=== PATIENT | female | born 1995 | race Caucasian/White ===

== ENCOUNTER 2017-04-23 16:26 | Emergency (ER) | payer SELFPAY ==
[2017-04-23 16:27] VITALS: BP 135/75; PULSE 113; RESP 16; TEMP 36.7; O2SAT 98; BMI 20.7
[2017-04-23] MEDS: 0.9% Normal Saline 1,000 ML 999 ML IV (17:09)
[2017-04-23] MEDS: Ketorolac 30 MG/ML Syringe IV (17:09)
--- NOTE | 2017-04-23 18:08 | ED.DCSUM_ITS ---
- ER Visit Summary Date of Service: 04/23/17 Chief Complaint: Headache History of Present Illness: The patient is a 21 F who presents with a headache. She fell on ice and hit her head about 3 weeks ago. She was seen at an outside hospital that time. She has been having intermittent frontal headaches since that time. However recently she has also developed congestion rhinorrhea cough. She had nausea and vomiting today with 2 episodes of nonbloody nonbilious emesis. Family member is ill with similar symptoms. Physical Examination: Afebrile initial heart rate 113 vitals otherwise unremarkable Moist mucous membranes Heart regular rhythm tachycardia Lungs are clear Abdomen soft and nontender Alert and oriented with no focal or lateralizing neurological deficits Neck is supple without meningismus Test Results: Rapid influenza negative. Emergency Department Course and Treatment: Patient was treated here with IV fluids Toradol and Phenergan with improvement of symptoms. I do believe her recent illness is related to a viral syndrome. She was advised on supportive care. She understands to return for new or worsening symptoms. She was instructed on specific signs and symptoms to monitor for and was discharged home. Treatment Plan: [] Disposition: Discharge Impression: Viral syndrome This note was generated with [employer] dictation software. It may contain incorrect words, spelling, and punctuation that were not noted in review of the chart prior to signing ED Disposition - Plan for ED Patient: Chief Complaint: Headache Referrals: [facility] Doctor,Out of [Primary Care Provider] -
--- NOTE | 2017-04-23 18:09 | DCINST.ED_ITS ---
ED Disposition - Plan for ED Patient: Chief Complaint: Headache Instructions: ED Cephalgia Unspecified, ED Viral Syndrome Referrals: [facility] Doctor,Out of [Primary Care Provider] -
[2017-04-23 18:15] VITALS: BP 121/77; PULSE 80; RESP 14; O2SAT 100
== END 2017-04-23 18:25 | disposition home or self-care (01) ==
PROVIDERS: Emergency Provider Emergency Medicine
DX: B34.9 Viral infection, unspecified (principal); R09.81 Nasal congestion; J34.89 Other specified disorders of nose and nasal sinuses; R05 Cough; R00.0 Tachycardia, unspecified; R11.2 Nausea with vomiting, unspecified; M41.9 Scoliosis, unspecified; R51 Headache; W00.0XXA Fall on same level due to ice and snow, initial encounter; Y93.9 Activity, unspecified; Y92.9 Unspecified place or not applicable; Z98.1 Arthrodesis status; Z79.899 Other long term (current) drug therapy; Z72.0 Tobacco use
CPT/HCPCS: 87804; 96361; 96374; 96375; 99284; J7030; A4216

== ENCOUNTER 2017-11-12 18:11 | Emergency (ER) | payer MEDICAID, SELFPAY ==
[2017-11-12 18:13] VITALS: BP 125/78; PULSE 106; RESP 16; TEMP 36.4; BMI 22.1
--- NOTE | 2017-11-12 18:43 | ED.VISSUMM ---
- ER Visit Summary Date of Service: 11/12/17 Chief Complaint: Back pain History of Present Illness: The patient is a 22 F who presents with back pain. She has a history of scoliosis and prior spinal fusion. She states that over the last 3 days she has had right lower back pain which radiates into the right buttock. She denies numbness tingling or weakness. She denies fevers or abdominal pain. She denies urinary retention or fecal incontinence. She has been taking ibuprofen with only little relief. She denies any other recent illness. Physical Examination: Afebrile vitals are stable Heart is regular rate and rhythm Lungs are clear Abdomen soft There is right paraspinal lumbar tenderness Normal strength and sensation of the lower extremities brisk capillary refill 5 out of 5 dorsiflexion, plantarflexion, extensor hallucis longus Negative straight leg raise Test Results: Not indicated Emergency Department Course and Treatment: History and examination are consistent with a lumbar radiculopathy. Patient was advised to continue anti-inflammatories. We will also try a prednisone burst. Patient does understand return for new or worsening symptoms was instructed on specific signs and symptoms to monitor for. She was discharged home. Treatment Plan: [] Disposition: Discharge Impression: Lumbar radiculopathy This note was generated with [employer] dictation software. It may contain incorrect words, spelling, and punctuation that were not noted in review of the chart prior to signing ED Disposition - Plan for ED Patient: Chief Complaint: Back Referrals: [facility] ,Out of [Primary Care Provider] -
--- NOTE | 2017-11-12 18:45 | ED.DEP ---
ED Disposition - Plan for ED Patient: Chief Complaint: Back Instructions: ED Sciatica Prescriptions: Prednisone [Deltasone] 60 mg PO DAILY #15 tab Referrals: [facility] Doctor,Out of [Primary Care Provider] -
== END 2017-11-12 19:06 | disposition home or self-care (01) ==
PROVIDERS: Emergency Provider Emergency Medicine
DX: M54.16 Radiculopathy, lumbar region (principal); M41.9 Scoliosis, unspecified; Z98.1 Arthrodesis status; Z79.899 Other long term (current) drug therapy; Z72.0 Tobacco use
CPT/HCPCS: 99282; J7030

== ENCOUNTER 2019-01-21 02:34 | Emergency (ER) | payer SELFPAY ==
[2019-01-21 02:34] VITALS: BP 119/77; PULSE 128; RESP 18; TEMP 36.8; O2SAT 98; BMI 21.4
--- NOTE | 2019-01-21 02:37 | RAD_ITS ---
STUDY: X-RAY - LEFT FOOT CLINICAL: Female, 23 years old. Bruising and swelling. Status post trauma. TECHNIQUE: 3 view(s) of the foot. COMPARISON: None. FINDINGS: Normal talus, calcaneus, and tarsal bones. Normal visualized subtalar, talonavicular, calcaneocuboid, tarsal and tarsometatarsal articulations. Normal metatarsi. Normal metatarsophalangeal joint of the great toe. Normal tibial and fibular sesamoid bones. Normal interphalangeal joint of the great toe. Normal phalanges of the great toe. Normal second through fifth metatarsophalangeal joints. Normal interphalangeal joints and phalanges of the lesser toes. There is soft tissue swelling surrounding the ankle and through the dorsum of the foot. There is no demonstrated fracture. RAD/Foot min 3 Views IMPRESSION: Soft tissue swelling as described above, otherwise normal x-ray examination of the foot. Electronically Signed: Jolie Joseph MD at 3:34 EST , Service support ,
[2019-01-21] MEDS: Ibuprofen 600 MG Tablet PO (02:42)
--- NOTE | 2019-01-21 02:45 | RAD_ITS ---
STUDY: X-RAY - LEFT ANKLE REASON FOR EXAM: Female, 23 years old. Pain. TECHNIQUE: 3 view(s) of the ankle. COMPARISON: None. FINDINGS: Normal visualized distal tibia and fibula. Normal medial and lateral malleoli. Normal tibiotalar articulation and ankle mortise. Normal visualized talus and calcaneus. The visualized subtalar, talonavicular, calcaneocuboid and tarsal articulations are normal. There is no demonstrated fracture. There is soft tissue swelling surrounding the ankle. RAD/Ankle min 3 Views IMPRESSION: Soft tissue swelling as described above. No acute fracture or subluxation. Electronically Signed: Jolie Joseph MD at 3:33 EST , Service support ,
--- NOTE | 2019-01-21 03:45 | ED.VISSUMM ---
- ER Visit Summary Date of Service: 01/21/19 Chief Complaint: Left foot and ankle pain History of Present Illness: The patient is a 23 F with left foot and ankle pain that started this evening when she twisted her foot and ankle while she was walking her dog. No other injuries or complaints. Physical Examination: Left dorsal foot tenderness and swelling. Left lateral and medial malleolar tenderness. Good range of motion. Neurovascular intact distally. Test Results: X-rays of the foot and ankle show soft tissue swelling but nothing else acute. Emergency Department Course and Treatment: Patient treated with Motrin. She has crutches at home and will use them. Rest, ice, elevate. Anti-inflammatories for pain. Follow-up as needed. Treatment Plan: As above Disposition: Discharge Impression: 1. Left ankle pain This note was generated with [email or web address] dictation software. It may contain incorrect words, spelling, and punctuation that were not noted in review of the chart prior to signing ED Disposition - Plan for ED Patient: Referrals: Marychuy Orellana, CONTROL OFFICER-C [Primary Care Provider] -
--- NOTE | 2019-01-21 03:46 | ED.DEP ---
ED Disposition - Plan for ED Patient: Instructions: Sprain, Ankle, with X-Ray Prescriptions: Ibuprofen Liquid [Motrin Liquid] 600 mg PO Q8H PRN PRN #20 udc PRN Reason: pain Prescription Printed Referrals: Marychuy Orellana NP-C [Primary Care Provider] -
[2019-01-21 04:02] VITALS: RESP 18
== END 2019-01-21 04:02 | disposition home or self-care (01) ==
PROVIDERS: Emergency Provider Emergency Medicine; Family Provider Nurse Practitioner Family; PCP Nurse Practitioner Family
DX: M25.572 Pain in left ankle and joints of left foot (principal); X50.1XXA Overexertion from prolonged static or awkward postures, initial encounter; Y93.K1 Activity, walking an animal; Y92.9 Unspecified place or not applicable
CPT/HCPCS: 73610; 73630; 99283

== ENCOUNTER 2023-12-31 20:24 | Emergency (ER) | payer MEDICAID, SELFPAY ==
[2023-12-31 20:24] VITALS: BP 126/82; PULSE 110; RESP 18; TEMP 36.6; O2SAT 98; BMI 24.3
--- OUTSIDE RECORDS SUMMARY | 2023-12-31 20:59 | XMS RPT_ITS | CCD ---
Author Organization [facility] Inform ion [facility] Care Team Providers Care Teasel Gig Operator Name Role Phone SILVERIO HERNANDEZ Unavailable Unavailable CHANCE JIMENES Unavailable Unavailable MARYLOU SIMON Unavailable Unavailable REFERRED, SELF Unavailable Unavailable DOC, MISC Unavailable Unavailable VITA HENDERSON Unavailable Unavailable SUNIL AMIN Unavailable Unavail able Provider, None Unavailable Unavailable HOMERO JEOVANNY Unavailable Unavailable ALIAY JEOVANNY Unavailable Unavailable Provider, None Unavailable Unavailable Rosaline, Law R. Unavailable Unavailable Rosaline, Law R. Unavailable Unavailable Provider, None Unavailable Unavailable [place], Law R. Unavailable Unavailable [place], Law R. Unavailable Unavailable Provider MD, Unlisted Primary Care Provider Unav ailable Unavailable Primary Care Provider Unavailabl e Self, Self Primary Care Provider Unavailabl e Cielo Parker Unavailable Unavailable Maximus Desai Unavailable Unavailable Self, Self Primary Care Provider Unavailabl e TALON HANNAH Attending Unavailable SELF, SELF Primary Care Unavailable SELF, SELF Primary Care Unavailable DANE GAN Attending Unavailable SELF, SELF Referring Unavailable DUES, TALON Attending Unavailable DUES, TALON Attending Unavailable SELF, SELF Primary Care Unavailable DUES, TALON Attending Unavailable SELF, SELF Primary Care Unavailable Unknown, Unknown Unavailable Unavailable Rosa Murdock Unavailable Unavailabl e Chilango Dominguez Unavailable Renae Santos Primary Care Provider RENAE SANTOS CAB DRIVER Primary Care Unavailable RENAE SANTOS CAB DRIVER Consulting Unavailable RENAE SANTOS CNP Attending Unavailable RENAE SANTOS CNP Admitting Unavailable PROVIDER, UNKNOWN Consulting Unavailable PROVIDER, UNKNOWN Consulting Unavailable RENAE SANTOS CNP Consulting Unavailable RENAE SANTOS CNP Referring Unavailable LEWIS CONTRERAS DO Admitting Unavailable DIANELEWIS Beltran DO Primary Care Unavailable LEWIS CONTRERAS DO Attending Unavailable PROVIDER, UNKNOWN Consulting Unavailable PROVIDER, UNKNOWN Consulting Unavailable RENAE SANTOS CNP Consulting Unavailable RENAE SANTOS CNP Referring Unavailable FOREIGN HAM MD Admitting Unavailable FOREIGN HAM MD Primary Care Unavailable FOREIGN HAM MD Attending Unavailable PROVIDER, UNKNOWN Consulting Unavailable PROVIDER, UNKNOWN Consulting Unavailable Unavailable Primary Care Provider Unavailabl e RAMESH LEATHER WORKER-CAB DRIVER, ESTELLE Attending Unavaila patricia SANTOS LEATHER WORKER-CAB DRIVER, RENAE Bennett Primary Care Unava ilable ISABEL MARTINEZ, VITA Greene Attending Unavailabl e TOM LEATHER WORKER-CAB DRIVER, RENAE Bennett Primary Care Unava ilable KAITLYNN JANE, RAMSEY Santos Attending Unavailable TOM LEATHER WORKER-CAB DRIVER, RENAE Bennett Primary Care Unava ilable NONE, NO FAMILY PHYS Primary Care Unavailable JUAN CARLOS PEREZ Referring Unavailable JUAN CARLOS PEREZ Attending Unavailable Unavailable Primary Care Provider Unavailabl e MCGREAL, CELSO Referring Unavailable RENAE SANTOS Primary Care Unavailable BACKER, EPISCOPALIAN Referring Unavailable RENAE SANTOS Primary Care Unavailable MCGREAL, CELSO Attending Unavailable RENAE SANTOS Primary Care Unavailable MCGREAL, CELSO Attending Unavailable RENAE SANTOS Primary Care Unavailable MCGREAL, CELSO Attending Unavailable RENAE SANTOS Primary Care Unavailable IRMA CHAMORRO Attending Unavailable RENAE SANTOS Primary Care Unavailable ISABEL, HELLEN Admitting Unavailable ISABEL, HELLEN Attending Unavailable RENAE SANTOS Primary Care Unavailable ISABEL, HELLEN Admitting Unavailable ISABEL, HELLEN Attending Unavailable RENAE SANTOS Primary Care Unavailable BACKER, EPISCOPALIAN Attending Unavailable RENAE SANTOS Primary Care Unavailable MCGREAL, CELSO Attending Unavailable MCGREAL, CELSO Referring Unavailable RENAE SANTOS Primary Care Unavailable ISABEL, HELLEN Referring Unavailable RENAE SANTOS Primary Care Unavailable ISBAEL, HELLEN Referring Unavailable RENAE SANTOS Primary Care Unavailable MCGREAL, CELSO Attending Unavailable RENAE SANTOS Primary Care Unavailable MCGREAL, CELSO Referring Unavailable RENAE SANTOS Primary Care Unavailable MCGREAL, CELSO Referring Unavailable RENAE SANTOS Primary Care Unavailable BILL ELLIOTT Referring Unavailable RENAE SANTOS Primary Care Unavailable LAW GARAY JR Attending Unav ailable RENAE SANTOS Primary Care Unavailable TIBURCIO FRENCH Attending Unavailable RENAE SANTOS Primary Care Unavailable CHRISROBBY ALEXANDER Admitting Unavailable CHERYL FILIBERTO M Attending Unavailable RENAE SANTOS Primary Care Unavailable Allergies Allergy Classification Reported Allergen(s) Allergy Type Date of Onset Reaction(s) Facility (1 source) No Known Medication Allergies; Translations: [No Known Medication Allergies] Propensity to adverse reactions to drug (disorder) [facility] Repository Medications Current Medications Medication Drug Class(es) Dates Sig (Normalized) Sig (Original) ARIPiprazole 5 mg oral tablet (1 source) Atypical Antipsychotic take 1 tablet by mouth once daily aripiprazole (ABILIFY) 5 MG tablet Take 5 mg by mouth daily. 0 Active cephalexin 500 mg oral capsule (2 sources) Cephalosporin Antibacterial Start: 04-21-2023 End: 04-26-2023 take 1 capsule by mouth three times daily cephalexin (Keflex) 500 MG capsule TAKE ONE CAPSULE BY MOUTH THREE TIMES DAILY FOR 5 DAYS 04/21/2023 Active Comment on above: Take 1 capsule by [facility] three times a day for 5 days. cetirizine hydrochloride 10 mg oral tablet (2 sources) Histamine-1 Receptor Antagonist Start: 05-06-2019 take 1 tablet by mouth once daily at bedtime cetirizine (ZYRTEC) 10 mg tablet Take 10 mg by mouth daily at bedtime. 05/06/2019 Active Comment on above: Take 10 mg by mouth daily at bedtime. FLUoxetine 20 mg oral capsule (20 sources) Serotonin Reuptake Inhibitor FLUoxetine (PROzac) 20 MG capsule Take 25 mg by mouth daily. Active take 1 capsule by mouth once michael ly fluoxetine (PROZAC) 20 MG capsule Take 20 mg by mouth daily. 0 Active hyoscyamine sulfate 0.125 mg sublingual tablet (1 source) Start: 09-12-2023 take 1 tablet under the tongue every eight hours as needed hyoscyamine (Levsin) 0.[address] 0.125 mg under the tongue every 8 hours as needed. 09/12/2023 Active ibuprofen 600 mg oral tablet (5 sources) Nonsteroidal Anti-inflammatory Drug Start: 05-12-2023 take 1 tablet by mouth every eight hours as needed IBU 600 MG tablet Take 1 tablet by mouth every 8 hours as needed. 05/12/2023 Active Start: 12-08-2021 take 1 tablet by gerri th every six hours as needed ibuprofen 800 MG tablet Take 1 tablet by mouth every 6 hours as needed. 30 tablet 0 12/08/2021 Active ibuprofen Quanti ty: 0 Refills: 0 Ordered: 17-Dec-2021 Judith Polanco Generic Substitution Allowed medroxyPROGESTERone (20 sources) Progestin medroxyprogester one acetate (DEPO-PROVERA INTRAMUSC.) Inject intramuscularly. Active End: 10-18-2023 medroxyPROGESTERone Acetate (DEPO-PROVERA IM) Inject into the shoulder, thigh, or buttocks. 10/18/2023 Discontinued (Therapy completed) medroxyPROGESTER one Acetate (DEPO-PROVERA IM) Inject into the shoulder, thigh, or buttocks. Active medroxyprogester one acetate (DEPO-PROVERA INTRAMUSC.) Inject intramuscularly. 0 Active medroxyPROGESTER one Acetate (DEPO-PROVERA IM) Inject into the shoulder, thigh, or buttocks. 0 Active Depo-Provera Hari ntity: 0 Refills: 0 Ordered: 17-Dec-2021 Judith Polanco Generic Substitution Allowed inject 150 mg by int ramuscular injection once medroxyPROGESTERone acetate 150 MG/ML Suspension inj vial Inject 150 mg intramuscularly Once During Admission. 0 Active Comment on above: Inject intramuscular ly. omeprazole 40 mg delayed release oral capsule (1 source) Proton Pump Inhibitor Start: 09-16-19 24 take 1 capsule by mouth once daily omeprazole (PriLOSEC) [address] capsule Take 40 mg by mouth daily. 09/16/2023 Active pantoprazole 40 mg delayed release oral tablet (20 sources) Proton Pump Inhibitor Start: 08-29-19 22 take 1 tablet by mouth once daily pantoprazole [address] tablet DR Take 1 tablet by mouth daily. 14 tablet 0 08/28/2021 Active take 5 mg by mouth o nce daily before breakfast pantoprazole (ProtoNix) 20 MG EC tablet Take 5 mg by mouth every morning (before breakfast). Do not crush, chew, or split. Active promethazine hydrochloride 25 mg oral tablet (3 sources) Phenothiazine Start: 12-08-2021 End: 12-10-2021 take 1 tablet by mouth every six hours as needed promethazine 25 MG tablet Take 1 tablet by mouth every 6 hours as needed for Nausea / Vomiting. 12 tablet 0 12/10/2021 Active QUEtiapine 150 mg oral tablet (20 sources) Atypical Antipsychotic Start: 05-06-2019 take 1 tablet by mouth once daily at bedtime QUEtiapine 150 mg tablet Take 150 mg by mouth daily at bedtime. 05/06/2019 Active Start: 05-06-2019 take 1 tablet by gerri th twice daily QUEtiapine (SEROQUEL) 100 mg tablet Take 100 mg by mouth twice daily. 0 05/06/2019 Active QUEtiapine (SERO quel) 100 MG tablet Take 150 mg by mouth Nightly. Active Comment on above: Take 100 mg by mouth twice daily. tiZANidine 4 mg oral tablet (1 source) Central alpha-2 Adrenergic Agonist Start: 2 End: 2 take 1 tablet by mouth three times daily tiZANidine 4 MG tablet Take 1 tablet by mouth 3 times daily for 7 days. 21 tablet 0 12/10/2021 12/17/2021 Active traZODone hydrochloride 50 mg oral tablet (6 sources) Serotonin Reuptake Inhibitor Start: 4 take 1 tablet by mouth once daily traZODone (Desyrel) 50 MG tablet Take 50 mg by mouth Nightly. 09/16/2023 Active Completed/Discontinued Medications Medication Drug Class(es) Dates Sig (Normalized) Sig (Original) acetaminophen 500 mg oral tablet (6 sources) Start: 10-18-2023 End: 10-18-2023 1,000 mg, Oral, Once, On Tue10/18/23 at 0600, For 1 dose, Preprocedure, Administer 60 minutes prior to surgery. Start: 03-03-2023 End: 03-03-2023 acetaminophen (Tylenol) tabl et 1,000 mg take 2 tablets by mo uth every six hours as needed acetaminophen 500 MG tablet Take 1,000 mg by mouth every 6 hours as needed for Mild Pain. 0 Active acetaminophen 325 mg / oxyCODONE hydrochloride 5 mg oral tablet (17 sources) Opioid Agonist Start: 10-18-2023 End: 11-01-2023 take 1 tablet by mouth every six hours as needed for pain oxyCODONE-acetaminophen (Percocet) 5-325 MG tablet Indications: S/P hardware removal Take 1 tablet by mouth every 6 hours as needed for severe pain (7-10) for up to 7 days. 28 tablet 10/18/2023 11/01/2023 Discontinued (Therapy completed) Start: 02-25-2023 End: 03-14-2023 take 1 tablet by mouth every six hours as needed for pain oxyCODONE-acetaminophen (Percocet) 5-325 MG tablet Indications: S/P ORIF (open reduction internal fixation) fracture Take 1 tablet by mouth every 6 hours as needed for severe pain (7-10) for up to 7 days. 28 tablet 0 03/03/2023 03/14/2023 calcium chloride 0.0014 meq/ml / potassium chloride 0.004 meq/ml / sodium chloride 0.103 meq/ml / sodium lactate 0.028 meq/ml injectable solution (6 sources) Start: 10-18-2023 End: 10-18-2023 take 50 mL intravenously every hour 50 mL/hr, IntraVENous, Continuous, Starting on Tue10/18/23 at 0600, Preprocedure, Upon admission to sameday - please start iv if patient does not have iv access. Use 500ml NS for patients on dialysis. Start: 03-03-2023 End: 03-03-2023 lactated ringers infusion [id number]-rk inephrine (TAP) syringe 30 mL (2 sources) Start: 10-18-2023 End: 10-18-2023 30 mL, Transabdominal Plane, Once PRN, Nerve Block, Starting on Tue10/18/23 at 0552, For 1 dose, Preprocedure 1 ml diphenhydrAMINE hydroch loride 50 mg/ml cartridge (4 sources) Histamine-1 Receptor Antagonist Start: 10-18-2023 End: 10-18-2023 12.5 mg, IntraVENous, Once PRN, itching, Starting on Tue10/18/23 at 0937, For 1 dose, Recovery (only) Start: 03-03-2023 End: 03-03-2023 diphenhydrAMINE (BENADryl) i njection 12.5 mg famotidine 20 mg oral tablet (2 sources) Histamine-2 Receptor Antagonist Start: 03-03-2023 End: 03-03-2023 famotidine (Pepcid) tablet 20 mg 2 ml fentaNYL 0.05 mg/ml injection (2 sources) Opioid Agonist Start: 02-25-2023 End: 02-25-2023 fentaNYL (Sublimaze) injection 50 mcg GI Cocktail (1 source) Start: 08-28-2021 End: 08-28-2021 GI Cocktail 1 ml HYDROmorphone hydrochloride 1 mg/ml cartridge (8 sources) Opioid Agonist Start: 10-18-2023 End: 10-18-2023 0.5 mg, IntraVENous, Every 5 min PRN, severe pain (7-10), Starting on Tue10/18/23 at 0937, For 4 doses, Recovery (only), For Phase I. If Phase II oral narcotics have been administered in the last 60 minutes, do not administer IV narcotics unless specifically approved by provider. Start: 10-18-2023 End: 10-18-2023 0.25 mg, IntraVENous, Every 5 min PRN, moderate pain (4-6), Starting on Tue10/18/23 at 0937, For 4 doses, Recovery (only), For Phase I. If Phase II oral narcotics have been administered in the last 60 minutes, do not administer IV narcotics unless specifically approved by provider. Start: 02-25-2023 End: 02-25-2023 HYDROmorphone (Dilaudid) inj ection 0.5 mg Start: 02-25-2023 End: 02-25-2023 HYDROmorphone (Dilaudid) inj ection 0.4 mg 1 ml ketorolac tromethamine 30 mg/ml cartridge (1 source) Nonsteroidal Anti-inflammatory Drug, Cyclooxygenase Inhibitor Start: 12-10-2021 End: 12-10-2021 ketorolac (TORADOL) injection 30 mg Start: 12-10-2021 End: 12-10-2021 ketorolac (TORADOL) injectio n 30 mg labetalol (Normodyne,Trandat e) injection 5 mg (4 sources) Start: 10-18-2023 End: 10-18-2023 labetalol (Normodyne,Trandat e) injection 5 mg Start: 03-03-2023 End: 03-03-2023 labetalol (Normodyne,Trandat e) injection 5 mg 1 ml LORazepam 2 mg/ml injection (4 sources) Benzodiazepine Start: 10-18-2023 End: 10-18-2023 0.5 mg, IntraVENous, Once PRN, for anxiety or muscle spasm., Starting on Tue10/18/23 at 0937, For 1 dose, Recovery (only), For IV doses dilute dose with 1ml NS. Start: 03-03-2023 End: 03-03-2023 LORazepam (Ativan) injection 0.5 mg 1 ml meperidine hydrochloride 25 mg/ml cartridge (4 sources) Opioid Agonist Start: 10-18-2023 End: 10-18-2023 12.5 mg, IntraVENous, Every 5 min PRN, shivering, Starting on Tue10/18/23 at 0937, For 2 doses, Recovery (only), May give every 5 minutes to max of 25mg. Notify Anesthesia Provider before administration. Start: 03-03-2023 End: 03-03-2023 meperidine (Demerol) injecti on 12.5 mg 1 ml methylPREDNISolone acetate 40 mg/ml injection (3 sources) Corticosteroid End: 12-08-2021 methylPREDNISolone acetate 40 MG/ML injection once. 0 12/08/2021 Discontinued (Discontinued by another clinician (suppress cancel msg)) 2 ml metoclopramide 5 mg/ml prefilled syringe (2 sources) Dopamine-2 Receptor Antagonist Start: 03-03-2023 End: 03-03-2023 metoclopramide (Reglan) injection 5 mg 2 ml midazolam 1 mg/ml injection (4 sources) Benzodiazepine Start: 10-18-2023 End: 10-18-2023 2 mg, IntraVENous, PRN, anxiety, administration per anesthesiologist direction. Up to two mg., Starting on Tue10/18/23 at 0552, Preprocedure, Pull 2 mg vial of midazolam draw up for anesthesia block placement with administration per anesthesiologist direction. Start: 03-03-2023 End: 03-03-2023 midazolam (Versed) injection 2 mg 1 ml morphine sulfate 4 mg/ml cartridge (2 sources) Opioid Agonist Start: 02-25-2023 End: 02-25-2023 morphine injection 2 mg 2 ml ondansetron 2 mg/ml injection (20 sources) Serotonin-3 Receptor Antagonist Start: 10-18-2023 End: 10-18-2023 4 mg, IntraVENous, Once PRN, nausea, Starting on Tue10/18/23 at 0937, For 1 dose, Recovery (only), Initial antiemetic therapy. Start: 09-20-2023 take 1 tablet by gerri th every six hours as needed ondansetron (Zofran) 4 MG tablet Take 4 mg by mouth every 6 hours as needed. 09/20/2023 Active Start: 09-12-2023 take 1 tablet by gerri th every six hours as needed for nausea and vomiting ondansetron ODT (Zofran-ODT) 4 MG disintegrating tablet DISSOLVE ONE TABLET IN MOUTH EVERY SIX HOURS NEEDED FOR NAUSEA AND VOMITING FOR UP TO 7 DAYS 09/12/2023 Active Start: 03-03-2023 End: 03-03-2023 ondansetron (Zofran) injecti on 4 mg Start: 03-03-2023 End: 03-14-2023 take 1 tablet by mouth every eight hours as needed for nausea and vomiting ondansetron (Zofran) 4 MG tablet Take 1 tablet (4 mg) by mouth every 8 hours as needed for nausea or vomiting for up to 7 days. 21 tablet 0 03/03/2023 03/14/2023 Start: 02-25-2023 End: 02-25-2023 ondansetron (Zofran) injecti on 4 mg Start: 12-10-2021 End: 12-10-2021 ondansetron 4mg/2ml (ZOFRAN) injection 4 mg Start: 08-28-2021 End: 08-28-2021 ondansetron 4mg/2ml (ZOFRAN) injection 4 mg Start: 05-28-2021 End: 05-28-2021 ondansetron (ZOFRAN) 4 mg ho me pack 1 packet Start: 05-28-2021 End: 05-28-2021 Ondansetron (ZOFRAN-ODT) disintegrating tablet 4 mg take 1 tablet by gerri th every eight hours as needed ondansetron 4 MG Tab Dispersible Take 4 mg by mouth every 8 hours as needed for Nausea. 0 Active oxyCODONE (4 sources) Opioid Agonist Start: 10-18-2023 End: 10-18-2023 oxyCODONE (Roxicodone) immed iate release tablet 5 mg Start: 03-03-2023 End: 03-03-2023 oxyCODONE (Roxicodone) immed iate release tablet 5 mg microencapsulated potassium chloride 20 meq extended release oral tablet (1 source) Start: 12-10-2021 End: 12-10-2021 potassium chloride (K-DUR) tablet ER 40 mEq Start: 12-10-2021 End: 12-10-2021 potassium chloride (K-DUR) t ablet ER 40 mEq 50 ml sodium chloride 9 mg/m l injection (20 sources) Start: 10-18-2023 End: 10-18-2023 500 mL, IntraVENous, at 1,00 0 mL/hr, Administer over 0.5 Hours, PRN, Anti-nausea, Starting on Tue10/18/23 at 0937, Recovery (only), Indications: Anti-nausea Start: 10-18-2023 End: 10-18-2023 take 100 mL intravenously every hour as needed, then take 20 mL intravenously every hour as needed 5-250 mL/hr, IntraVENous, PRN, if patient receiving piggyback infusions and maintenance fluids are not ordered OR KVO fluids to protect IV site / prevent frequent line interruptions / long duration, Starting on Tue10/18/23 at 0552, Preprocedure, For piggyback infusion, administer at same rate as piggyback for a total of 25 mL. Enter 25 mL into dose field and piggyback rate into rate field of order. If piggyback is infusing at a rate less than 100 mL/hr, enter 25 mL into dose field and 100 mL/hr into rate field of order. For KVO fluids, enter rate of 20 mL/hr or less into rate field of order. Start: 10-18-2023 End: 10-18-2023 5-40 mL, IntraVENous, PRN, l ine care, After every IV line use, Starting on Tue10/18/23 at 0552, Preprocedure, For Line Patency: Peripheral IV = 5 mL; Midline or Central Line = 10 mL/lumen. If following IV push medication, administer flush at same rate as the IV push. Flush volume is determined by type of infusion therapy being given. For non-viscous solutions use: Peripheral IV = 5 mL Midline or Central Line = 10 mL/lumen For viscous solutions (i.e. blood components, parenteral nutrition, contrast media, or after obtaining blood sample) use: Peripheral IV = 10 mL Midline or Central Line = 20 mL/lumen Start: 10-18-2023 End: 10-18-2023 take 5-40 mL intravenously every twelve hours 5-40 mL, IntraVENous, Every 12 hours, First dose on Tue10/18/23 at 0600, Preprocedure, For Line Patency: Peripheral IV = 5 mL; Midline or Central Line = 10 mL/lumen. If following IV push medication, administer flush at same rate as the IV push. Flush volume is determined by type of infusion therapy being given. For non-viscous solutions use: Peripheral IV = 5 mL Midline or Central Line = 10 mL/lumen For viscous solutions (i.e. blood components, parenteral nutrition, contrast media, or after obtaining blood sample) use: Peripheral IV = 10 mL Midline or Central Line = 20 mL/lumen Start: 03-03-2023 End: 03-03-2023 sodium chloride 0.9 % infusi on Start: 03-03-2023 End: 03-03-2023 sodium chloride 0.9% (NS) fl ush 10 mL Start: 12-10-2021 End: 12-10-2021 sodium chloride 0.9% IV solu tion 1,000 mL NEGATED: Highlighted row has not occurred!No Current Medications (1 source) No Current Medic ations Problems Active Problems Problem Classification Problem Date Documented Date Episodic/Chronic Allergic reactions (1 source) Allergic reaction Onset: 12-29-2023 Episodic Complication of device; implant or graft (6 sources) Pain; Translations: [Pain due to internal orthopedic prosthetic devices, implants and grafts, initial encounter] Onset: 11-01-2023 09-28-2023 Episodic Diabetes mellitus without complication (2 sources) Hyperglycemia; Translations: [Hyperglycemia, unspecified] Onset: 09-20-2023 11-01-2023 Episodic Diseases of white blood cells (2 sources) Leukocytosis; Translations: [Elevated white blood cell count, unspecified] Onset: 09-20-2023 11-01-2023 Chronic Esophageal disorders (3 sources) Gastroesophageal reflux disease; Translations: [Gastro-esophageal reflux disease without esophagitis] Onset: 08-29-2021 Chronic Fracture of upper limb (14 sources) Closed fracture of shaft of humerus; Translations: [Displaced comminuted fracture of shaft of humerus, right arm, initial encounter for closed fracture] Onset: 02-25-2023 02-25-2023 Episodic Headache; including migraine (3 sources) Migraine; Translations: [Migraine, unspecified, not intractable, without status migrainosus] Onset: 12-17-2021 Chronic Headache; including migraine (6 sources) Acute headache; Translations: [Acute nonintractable headache, unspecified headache type] Onset: 11-01-2023 Episodic Headache; including migraine (2 sources) Headache; including migraine; Translations: [Headache, unspecified] Onset: 12-10-2021 Other acquired deformities (1 source) Scoliosis, unspecified; Translations: [Scoliosis, unspecified] Onset: 09-13-2022 Chronic Other bone disease and musculoskeletal deformities (1 source) Cervical somatic dysfunction; Translations: [Segmental and somatic dysfunction of cervical region] Episodic Other bone disease and musculoskeletal deformities (2 sources) Segmental and somatic dysfunction of cervical region; Translations: [Segmental and somatic dysfunction of cervical region] Onset: 12-10-2021 Episodic Other congenital anomalies (3 sources) Osteogenesis imperfecta; Translations: [Osteogenesis imperfecta] Onset: 09-13-2022 Chronic Other congenital anomalies (2 sources) Osteogenesis imperfecta; Translations: [Osteogenesis imperfecta] Onset: 09-13-2022 11-01-2023 Chronic Other connective tissue disease (2 sources) Pain in right arm; Translations: [Pain in right arm] 03-10-2023 Episodic Other injuries and conditions due to external causes (2 sources) Personal history of (healed) traumatic fracture; Translations: [Personal history of (healed) traumatic fracture] Onset: 11-01-2023 Episodic Other liver diseases (2 sources) Alkaline phosphatase raised; Translations: [Abnormal levels of other serum enzymes] Onset: 09-20-2023 11-01-2023 Episodic Other nervous system disorders (6 sources) Acute radial nerve palsy; 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, right upper limb] Onset: 11-01-2023 03-16-2023 Chronic Other nervous system disorders (2 sources) Lesion of radial nerve, right upper limb; 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, right upper limb] Onset: 11-01-2023 Chronic Residual codes; unclassified (9 sources) History of operation on musculoskeletal system; Translations: [Other specified postprocedural states] Onset: 11-01-2023 03-03-2023 Episodic Residual codes; unclassified (2 sources) Other specified postprocedural states; Translations: [Other specified postprocedural states] Onset: 11-01-2023 Episodic Substance-related disorders (1 source) Cannabis abuse; Translations: [Cannabis abuse, uncomplicated] Chronic Superficial injury; contusion (9 sources) Contusion of hand; Translations: [Contusion of right hand, initial encounter] Onset: 08-30-2021 08-30-2021 Episodic Unclassified (1 source) Unknown / UNK(Unknown) Onset: 06-15-2017 Unclassified (1 source) Foot Pain / [id number]() Onset: 01-16-2017 Unclassified (1 source) Vomiting / 286() Onset: 11-23-2016 Unclassified (1 source) Abdominal Pain / [id number]() Onset: 11-23-2016 Unclassified (1 source) Diarrhea / 35() Onset: 11-23-2016 Past or Other Problems Problem Classification Problem Date Documented Da te Episodic/Chronic Abdominal pain (1 source) Generalized abdominal pain; Translations: [Generalized abdominal pain] Onset: 4 Episodic Fluid and electrolyte disorders (4 sources) Hypokalemia; Translations: [Hypokalemia] Onset: 2 Episodic Intestinal infection (3 sources) Calicivirus gastroenteritis; Translations: [Acute gastroenteropathy due to Adrian agent] Onset: 4 11-01-2023 Episodic Nausea and vomiting (5 sources) Nausea with vomiting, unspecified; Translations: [Nausea] Onset: 7 Episodic Open wounds of extremities (3 sources) Puncture wound of left foot; Translations: [Puncture wound without foreign body, left foot, initial encounter] Onset: 4 04-25-2023 Episodic Other connective tissue disease (1 source) Pain in right foot; Translations: [Pain in right foot] Onset: 7 Episodic Other connective tissue disease (2 sources) Pain in right arm; Translations: [Pain in right arm] Onset: 4 Episodic Other gastrointestinal disorders (2 sources) Diarrhea, unspecified; Translations: [Diarrhea, unspecified] Onset: 7 Episodic Other injuries and conditions due to external causes (1 source) Unspecified injury of right wrist, hand and finger(s), initial encounter; Translations: [Injury of right middle finger] Onset: 3 Episodic Other upper respiratory infections (3 sources) Pharyngitis; Translations: [Acute pharyngitis, unspecified] Onset: 2 Episodic Spondylosis; intervertebral disc disorders; other back problems (3 sources) Backache; Translations: [Dorsalgia, unspecified] Onset: 8 11-01-2023 Episodic Unclassified (1 source) Hand injury Onset: 2 Unclassified (1 source) W/C RIGHT HAND INJ Onset: 2 Urinary tract infections (1 source) Urinary tract infection, site not specified; Translations: [Urinary tract infection, site not specified] Onset: 7 Episodic Results Test Name Value Interpretation Reference Range Facility ED PROV NOTEon 12-29-2023 ED PROV NOTE HNO ID: [id number] Author: PA LOUIS PA-C Service: ? Author Type: Physician [place] Operator Type: ED Provider Notes Filed: 12/29/2023 17:48 Note Text: ED Provider Note Patient Name: Mark Trevino : 1995 SERVICE DATE: 12/29/23 History Patient presents with: Allergic Reaction: Patient reports she started 2 new medications on Tuesday and thinks she may be having an allergic reaction. HPI Mark Trevino is a 28 year old female who presents to the ED for sunburn type rash to the face and neck. Patient recently just started doxycycline for a viral infection. She has been working out in the sun and started developing an sunburn type rash to the face and neck. Denies any other symptoms including sore throat, fever or chills. See further HPI in ED course or MDM if applicable ROS Positive findings noted in HPI, MDM or ED course. PAST MEDICAL HISTORY Diagnosis Date Bipolar 1 disorder (HCC) Multiple gastric ulcers PAST SURGICAL HISTORY Procedure Laterality Date BACK SURGERY HX scoliosis ORTHOPEDICS SURGERY HX Right tib/fib reconstruct No family history on file. Social History Tobacco Use Smoking status: Some Days Types: Cigarettes Smokeless tobacco: Never Vaping Use Vaping status: Never Used Substance and Sexual Activity Alcohol use: Not Currently Drug use: Not Currently Sexual activity: Not on file ALLERGIES No Known Allergies Records on file/review of medical records: Nursing/triage notes and assessments as well as vitals were reviewed and incorporated Physical Exam Vitals [12/29/23 1655] BP Pulse Temp Temp src Resp SpO2 Weight Height 154/96 (!) 109 37.1 ?C (98.7 ?F) Oral 18 98 % 55.3 kg (122 lb) 1.499 m (4' 11 ) Physical Exam General: alert, speaking in full sentences, does not appear ill HEENT: EOMI, eyes equal and reactive to light, no scleral injection or tearing, head and face atraumatic Neck: FROM, no meningismus, supple, no lymphadenopathy Chest: no respiratory distress, nontender and atraumatic, normal breath sounds throughout, no pleuritic pain Cardiac: no rubs, RRR Abdomen: atraumatic, no rebound or peritoneal findings, soft, nontender : not performed/not indicated Rectal: not performed/not indicated Back: no midline tenderness, atraumatic, no CVA tenderness Extremities: atraumatic, no joint effusions, no edema Skin: warm, dry, erythematous macular rash to the cheeks of the face extending to the posterior neck. No eye involvement. No oral mucosal involvement. Neuro: alert and oriented x 3, no lateralized deficits, no gross weakness Psyc: normal mood/affect, normal judgment/memory Diagnostic Testing ED Labs Ordered and Reviewed - No data to display Radiology/images: No orders to display I reviewed images as well as radiologist interpretation(s) Procedures: Procedures ED Course / Clinical Impression Clinical Impressions as of 12/29/23 6888 Photosensitivity due to sun Medications received in ED Medications - No data to display Discharge Medications New Prescriptions No medications on file MDM / Disposition / Plan SEE ED COURSE FOR FURTHER MDM External/pertinent past medical records reviewed: N/A MDM Patient presents with sunburn type rash to the face and back of neck after starting doxycycline and working on the sun. I suspect this is a phototoxic drug reaction. I do not suspect scarlatina rash. She has no sore throat. She has no evidence of Crane-Paddy's or other life-threatening rash. I feel she is able to discontinue the doxycycline. She will treat the rash as a sunburn with aloe. She is also instructed to wear sunscreen. She will follow-up with her primary care physician. The patient was DISCHARGED: Counseled patient regarding suspected diagnosis AND need for follow-up. Discharged home with verbal and written instructions. They were instructed to return as needed for persistent or worsening symptoms or any new concerns. Condition at time of disposition: stable SIGNATURE: Pa Louis PA-C This document has been created with the use of voice recognition technology. Every effort was taken to correct for errors however it may contain inaccuracies, misspellings, syntax errors, or word sense that escaped review. Please inquire further with the author for clarification if needed. PA LOUIS 12/29/23 1748 [facility] Office Visiton 11-30-2023 Follow-up visit [id number] Bennie Trevino 1995 F Date Provider Department Center 11/30/2023 [id number]-NUAZIAHCELSO ZURITA [facility] ORT GRN None No family history on file Level of Service:89830 [place] POSTOP FOLLOW UP VISIT RELATED TO ORIGINAL PX Reason for Visit and Comments: Post-op [483] - Humeral plate removal DOS 10/18/[address] [facility] Progress Noteon 11-30-2023 Progress Note [facility]TH[facility] ALEX ARRIOLA [address] [place] [address] [address] [facility] [address] Dept: [phone] Dept 11/30/2023 Chief Complaint Patient presents with Post-op Humeral plate removal DOS 10/18/2023 SUBJECTIVE Mark is approximately 5 week(s) s/p Neurolysis radial nerve with hardware removal right humerus . She is having some tingling in tricep . She denies significant complaints other than the expected amount of pain. The patient feels she is recovering well postoperatively. She reports minimal tenderness and tingling near her incision. She denies hand paresthesias. She also has noticed a suture protruding from the incision and asked to have this removed in the office today. She has been limiting her weightbearing per recommended restrictions and feels she is ready to return to full duty at work. She has been working on range of motion exercises on her own at home and feels that she has full range of motion today. OBJECTIVE BP 110/80 Ht 4' 11 (1.499 m) Wt 122 lb (55.3 kg) BMI 24.64 kg/m? Ortho Exam Focused Exam of the RIGHT Upper Extremity Skin: appropriately healing incision(s) without evidence of infection, 2 separate Vicryl suture tails protruding from the incision with no signs of infection which were removed with traction today in the office Edema: mild edema surrounding the surgical site Palpation: tender to palpation over the surgical site, minimal ROM: Full range of motion of the shoulder, elbow, wrist and hand Stability: no evidence of joint instabilities Motor: Intact in the hand - able to fire AIN, PIN, and Ulnar nerves Sensation: normal in the median, ulnar, and radial nerve distributions Perfusion: Brisk capillary refill in all 5 digits IMAGING RIGHT Humerus 2V show well-healed humeral shaft fracture following hardware removal with previous screw tunnels gradually consolidating when compared to prior films ASSESSMENT (S42.351D) Closed displaced comminuted fracture of shaft of right humerus with routine healing, subsequent encounter (Z98.890) S/P hardware removal (Z98.890, Z87.81) S/P ORIF (open reduction internal fixation) fracture (G56.31) Acute radial nerve palsy of right upper extremity 1. Closed displaced comminuted fracture of shaft of right humerus with routine healing, subsequent encounter 2. S/P hardware removal 3. S/P ORIF (open reduction internal fixation) fracture 4. Acute radial nerve palsy of right upper extremity PLAN Mark is recovering well with full range of motion today. She can gradually return to weightbearing as tolerated using pain as a guide. She was provided with a work release letter allowing her to return to full duty tomorrow. Expected post operative recovery course was discussed with the patient. As long as she is gradually improving as expected, she can follow-up in the office on an as-needed basis. Her questions were answered and she is comfortable with the plan. Immobilization: NO immobilization required at this point - FULL ROM encouraged without resitrictions Weight Bearing: Weight Bearing As Tolerated Rehabilitation: NO formal rehabilitation required at this point. Follow-up: Mark will followup with me on an as needed basis. She knows to call the office with any questions or concerns in the interim. Future Imaging: NONE Celso Zurita PA-C to Hellen Jaeger M.D. Hand & Upper Extremity Surgery [facility] Department of Orthopaedics and Sports Medicine 11/30/2023 at 12:01 PM (Please note that portions of this note may have been completed with a voice recognition program. Efforts were made to edit the dictations but occasionally words are mis-transcribed.) Normal [facility] XR HUMERUS RIGHTon XR HUMERUS RIGHT well-healed humeral shaft fracture following hardware removal with previous screw tunnels gradually consolidating when compared to prior films Normal [facility] Office Visiton 11-01-2023 Follow-up visit [id number] Bennie Trevino 1995 F Date Provider Department Center 11/01/2023 [id number] ZURITA [facility] None No family history on file Level of Service:13816 [place] POSTOP FOLLOW UP VISIT RELATED TO ORIGINAL PX Reason for Visit and Comments: Post-op [483] - Neurolysis radial nerve with hardware removal right humerus on 10/18/23 Normal [facility] Progress Noteon 11-01-2023 Progress Note [facility] [address] [place] [address] [address] [facility] [address] Dept: [phone] Dept 11/01/2023 Chief Complaint Patient presents with Post-op Neurolysis radial nerve with hardware removal right humerus on 10/18/23 SUBJECTIVE Mark is approximately 2 week(s) s/p Neurolysis radial nerve with hardware removal right humerus. She has a history of osteogenesis imperfecta. She is no longer taking anything for pain. She has no complaints at this time. She has no weakness with her wrist at this time. The patient feels she is doing very well postoperatively. She feels she has near full range of motion of the elbow today. She denies any issues with wrist or hand mobility or strength postoperatively. She has minimal discomfort and feels her incision is healing well. She would like to return to work if possible. OBJECTIVE Ht 4' 11 (1.499 m) Wt 122 lb (55.3 kg) LMP (LMP Unknown) Comment: patient declined HCG prior to procedure BMI 24.64 kg/m? Ortho Exam Focused Exam of the RIGHT Upper Extremity Skin: appropriately healing incision(s) without evidence of infection Clinical image(s): Edema: moderate edema surrounding the humeral shaft Palpation: non tender to palpation throughout ROM: Elbow ROM: Flexion 130? Extension -15? Supination 80? Pronation 80? Full wrist and hand range of motion. Stability: no evidence of joint instabilities Motor: Intact in the hand - able to fire AIN, PIN, and Ulnar nerves Sensation: normal in the median, ulnar, and radial nerve distributions Perfusion: Brisk capillary refill in all 5 digits IMAGING RIGHT Humerus 2V show interval hardware removal of the right humerus, well-healed distal humeral shaft fracture ASSESSMENT (S42.351D) Closed displaced comminuted fracture of shaft of right humerus with routine healing, subsequent encounter (Z98.890, Z87.81) S/P ORIF (open reduction internal fixation) fracture (T84.84XA) Painful orthopaedic hardware (HCC) (G56.31) Acute radial nerve palsy of right upper extremity 1. Closed displaced comminuted fracture of shaft of right humerus with routine healing, subsequent encounter 2. S/P ORIF (open reduction internal fixation) fracture 3. Painful orthopaedic hardware (HCC) 4. Acute radial nerve palsy of right upper extremity PLAN Mark is recovering well postoperatively. She was advised to continue working on both edema control and range of motion exercises at the elbow without limits. She will maintain a partial weightbearing status of no more than 5 pounds until she is 6 weeks out from date of surgery. We reviewed postoperative restrictions in detail and she was provided with a work release letter allowing her to return to light duty. She will follow-up in 4 weeks for repeat films. If she is recovering as expected, we will release her weightbearing restriction. Expected recovery course was discussed with the patient and she is comfortable with the plan. Immobilization: NO immobilization required at this point - FULL ROM encouraged without restrictions, sling as needed when active/working Weight Bearing: Partial Weight Bearing (no more than 5lbs) for 6 weeks from DOS Rehabilitation: NO formal rehabilitation required at this point. Follow-up: Mark will followup with me in 4 weeks. She knows to call the office with any questions or concerns in the interim. Future Imaging: RIGHT Humerus 2V Sutures were removed in office today. no dressing applied to right arm . Patient tolerated well with no concerns. Completed by: RODOLFO Zurita PA-C to Hellen Jaeger M.D. Hand & Upper Extremity Surgery 11/01/2023 at 10:58 AM (Please note that portions of this note may have been completed with a voice recognition program. Efforts were made to edit the dictations but occasionally words are mis-transcribed.) ; Normal [facility] XR HUMERUS RIGHTon 4 XR HUMERUS RIGHT interval hardware re moval of the right humerus, well-healed distal humeral shaft fracture Normal [facility] 36on 10-25-2023 36 Can be removed after 7 days and leave wound open to air. OK to let water run over it in shower and wash skin normally. No lotions or ointments. Normal [facility] No Panel Informationon 10-17 There is no interpre tation needed for this exam. IMAGING Nursing Noteon 10-18-2023 Nursing Note No changes,no c/o. A waiting ride. Normal [facility] Nursing Note Pt dressed with estella le assist-tolerated well. Denies any dizziness,nausea, pain at this time. Homegoing instructions given to pt and SO verbally and written. Both verbalize understanding, no questions. Awaiting ride. Normal [facility] Nursing Note Pt up to side of car t-denies any dizziness,nausea, increased pain. Walked to BR with standby assist-tolerated well. Normal [facility] Nursing Note Pt voided using bedpan. Normal [facility] Nursing Note Pt to PACU via cart with DIRECTOR OF DATABASE MARKETING. Pt responds to name and answers questions appropriately. Resp even and unlabored, simple mask removed upon arrival. IV infusing without diff-site without redness or edema. lunchroom monitor applied,VS obtained. Normal [facility] Op Noteon 10-18-2023 Op Note [facility] OR [address] [place] [address] Dept: [phone] Loc: [phone] Operative Report Patient Name: Mark Trevino Date of : 1995 Date of Surgery: 10/18/23 Preoperative Diagnosis: Painful hardware right upper extremity Postoperative Diagnosis: Same Procedure: Neurolysis radial nerve with hardware removal right humerus Surgeon: Hellen Jaeger MD 1st Assist: Jonny Toussaint MD 2nd Assist: Antonino Hanson PA-C Implants: None Specimens Removed: None Anesthesia: General/Regional Local Anesthesia: None Tourniquet: Brachium Estimated Blood Loss: <5ml Pre Operative Antibiotics: Yes Indications: Ms. Mark Trevino is a 28 y.o. year-old female who is about a month status post ORIF comminuted midshaft humerus fracture who presents today for hardware removal. I have discussed with her, preoperatively, the complications, limitations, expectations, alternatives, and risks of surgical intervention which she has demonstrated understanding. She understood the particular risk to radial nerve. No guarantees were given or implied. After having all of her questions answered to her satisfaction, Ms. Mark Trevino has provided written informed consent to proceed. Please see previous notes for full operative risk discussion. Procedure: Mark Trevino was identified in the preoperative waiting area. Her operative site was initialed and consent was reviewed. Final questions were answered. She was brought to the operating room and placed in the lateral decubitus position. All bony prominences were well padded. The operative extremity was prepped and draped in the usual sterile fashion. A surgical timeout was then performed with the patient's identification, the procedure to be performed being reviewed, verification that the patient had received preoperative antibiotics if indicated, and verification of the correct surgical site. The patient's ASA was verified by the nurse policy loan calculator and the anesthesia staff. Fire risk was assessed. An esmarch bandage was used to exsanguinate the limb and the tourniquet was inflated to 250mm Hg. The previous posterior incision was utilized with electrocautery through subcutaneous tissues. The plate was identified posterior laterally along the distal humerus and the triceps carefully reflected from lateral to medial. The radial nerve was identified and a vessel loop placed to aid in retraction. The radial nerve itself was densely adherent to the underlying plate. A careful neurolysis was performed of the radial nerve releasing perineural adhesions from the plate. With the nerve mobilized all screws and the plate were removed without incident. The plate was then removed and the posterior cortex smoothed with a rasp and rongeur's. Tourniquet was deflated. Hemostasis achieved with bipolar cautery and gentle compression. The skin was then closed in layers followed by well-padded soft bandage and a simple sling. Ms. Mark Trevino was taken to the recovery room in stable condition. POST OPERATIVE PLAN Immediate elbow ROM PWB 5 pounds x 6 weeks then WBAT Outpatient Follow-up XRays: Right Humerus 2V Hellen Jaeger MD 10/18/2023 , 9:[address] [facility] 36on 09-29-2023 36 Message sent to surg candice scheduling to change PAT appointment to VV since this is a [facility] surgery [facility] 36on 09-28-2023 36 Called pt to notify of her IPO appointment. LMOVM. Notified its on Mychart as well. [facility] 36 Patient: Mark garduno Date of : 1995 Date of Surgery: Next available Day of Surgery: [facility]: [place] Duration: 2hrs Type: Outpatient PAT: Yes - in person Med Clearance: No Anesthesia: General Block: Regional Position: Lateral Table: Regular OR table Arm Board: Suspended arm board WITHOUT leg Radiology: Large C-Arm CPT Code: 84280 Consent: Removal humeral plate right upper extremity FollowUp: Any P.A. in 10-14 days XRays: Yes OT Splint needed at first PO appointment: Yes Special Requests Peg board Ortho tray Synthes lesia articular humerus set Large retractors [facility] Office Visiton 09-28-2023 Follow-up visit [id number] ShariBennie krystyna 1995 F Date Provider Department Center 09/28/2023 [id number] JAEGER [facility] ORT GRN None No family history on file Level of Service:90350 [place] OFFICE/OUTPATIENT ESTABLISHED LOW MDM 20 MIN Reason for Visit and Comments: Follow-up [414934] - ORIF prox hum [facility] PATINSon 09-28-2023 PATINS Presurgical Instruct ions If you are on Ozempic, Rybelsus, or Wegovy, you are required to hold the medication for a minimum of 7 days prior to surgery requiring intravenous anesthesia. All anticoagulants (Xarelto, Eliquis, Pradaxa, warfarin/Coumadin) and anti-platelet medications (aspirin, clopidogrel/Plavix, ticagrelor/Brilinta) should be held prior to surgery with further instructions about the duration of holding the medication or additional recommendations from the prescribing physician. If you are taking narcotic pain medications prior to surgery, it is your responsibility to discuss your upcoming surgery with your pain medication. Coordination of pain medications needs to occur PRIOR to your planned surgery. Multiple providers prescribing pain medications will be flagged by your pharmacy. Please contact our office PRIOR TO SURGERY to make us aware of how pain medications will be managed following surgery. Please removal all nail cypriot, gel, adhesive cypriot, and/or acrylic nails 5-7 days prior to upcoming surgery on operative side. You should not get a tattoo 3 months prior to or after surgery. If the tattoo is directly over the surgical site, this recommendation would lengthen to a minimum of 6 months. Do not eat anything after midnight the night before your planned surgery. This includes candy, gum, or mints. You are okay to take your morning medications as prescribed with no more than 16 oz of approved fluids below Water Apple or cranberry juice (NO orange juice or juice with pulp) Black coffee or tea (NO creamer or milk) Clear sodas Sports drinks (NO drinks with protein or red dye) Do not drink alcohol or smoke 24 hours prior to your surgery. Use of recreational drugs 1-2 weeks prior to surgery will result in your surgery being cancelled. If you are hospitalized or have any new medical problems or illnesses including infections or wounds prior to your upcoming surgery, please contact your surgeon's office to let them know as soon as possible. This should not be revealed on the date of surgery as it could result in your surgery being cancelled. Do not use lotion or powder on the operative side the night before or day of the surgery. Please remove all jewelry and piercings before your surgery. You may be required to complete pre-admission testing (PAT) no more than 30 days prior to your upcoming surgery if you are planning on receiving intravenous anesthesia. Do not plan for dental work within 2 weeks before surgery or 2 weeks after a minor surgery or 3 months after a major surgery like a joint replacement. You will require antibiotics lifelong prior to any dental work if you receive a total joint replacement. Please plan to have a family member or responsible adult drive you home after surgery requiring intravenous anesthesia. You CAN NOT utilize Lyft or Uber drivers on the day of surgery. Postoperative Instructions Care for your postoperative splint or dressing will be discussed on the day of your surgery. Pain medication may be prescribed at the discretion of your surgeon after surgery. You should maximize over the counter pain medication before considering using narcotics for pain control. If you have a concern about your surgical site or splint/dressing, please either email photos with a message to our office at [email or web address] including your name and date of in the subject line or send a [employer] message with attached photos. Normal [facility] Progress Noteon 09-28-2023 Progress Note [facility] [address] [place] [address] [address] [facility] [address] Dept: [phone] Dept 09/28/2023 Chief Complaint Patient presents with Follow-up ORIF prox abel Lucas is approximately 8 month(s) s/p ORIF Right proximal humerus fracture. Pain is moderate when she lays on it or hits it. The patient admits to numbness and tingling if she hit her elbow. She denies drainage from the incision. She has noticed a bump on her elbow a while ago. She states that it get getting bigger. Patient reports that she has been previously been doing well from her right proximal humerus ORIF. She states that she started noticing a protrusion of her right elbow and she states it is tender when it is bumped and she says it causes numbness and tingling when it bumps. She denies any change in range of motion. OBJECTIVE Ht 4' 11 (1.499 m) Wt 122 lb (55.3 kg) BMI 24.64 kg/m? Focused Exam of the RIGHT Upper Extremity Skin: intact without any evidence of breakdown Edema: no evidence of edema Palpation: tender to palpation over the distal humerus over the hardware ROM: Shoulder Range of Motion: RIGHT LEFT Forward Flexion AROM 160 PROM Same AROM 160 PROM Same External Rotation AROM 45? PROM Same AROM 90? PROM Same Internal Rotation Lumbar Lumbar Elbow ROM: Flexion 130 deg Extension -5 deg Supination Full deg Pronation Full deg Full functional ROM of the wrist and hand without evidence of instabilities Motor: Intact in the hand - able to fire AIN, PIN, and Ulnar nerves Sensation: to light touch is normal in the median, ulnar, and radial nerve distributions Perfusion: Brisk capillary refill in all 5 digits IMAGING 2V HUMERUS (AP and LAT) show healed humeral shaft fracture s/p ORIF ASSESSMENT Diagnosis Plan 1. Closed displaced comminuted fracture of shaft of right humerus with routine healing, subsequent encounter 2. S/P ORIF (open reduction internal fixation) fracture PLAN Mark presents with painful hardware after her humeral shaft fracture ORIF. X-rays reveal a fracture which is appropriately healed today. Patient was educated on the etiology and treatment options and she elected proceed with surgical intervention to include removal of her painful hardware. She was educated on the risks and benefits especially as it related to radial nerve injury. She we will follow-up with my physician dental ceramist assistant postoperatively. She will call the office with any questions or concerns in the interim. She verbalized understanding and is in agreement with this plan. I had an extensive discussion with Ms. Mark Trevino regarding the natural history, etiology, and prison consequences of her condition. We discussed both operative and non operative treatment options and Mark Trevino elected to proceed with surgical intervention. I have discussed with Ms. Mrak Trevino the potential complications, limitations, expectations, alternatives, and risks of the proposed surgical procedure. Risks discussed include but are not limited to the risk of infection, iatrogenic injury to normal neurovascular structures, persistent pain and disability, unsightly scar, stiffness, complex regional pain syndrome, malunion, non union, hardware failure, need for hardware removal, loss of limb, myocardial infarction, deep vein thrombosis, pulmonary embolism and even . We also discussed the potential risk of COVID-19 exposure or infection and how it could alter her post operative recovery course. She has had full opportunity to ask her questions. I have answered them all to her satisfaction. I feel that Ms. Mark Trevino does understand our discussion today and she is comfortable providing informed consent for the procedure. Immobilization: NO immobilization required at this point - FULL ROM encouraged without resitrictions Weight Bearing: Weight Bearing As Tolerated Rehabilitation: NO formal rehabilitation required at this point. Follow-up: Mark will followup with Dr. Jaeger post op. She knows to call the office with any questions or concerns in the interim. Future Imaging: RIGHT Humerus 2V Hellen Jaeger M.D. Hand & Upper Extremity Surgery [facility] Department of Orthopaedics and Sports Medicine 09/28/2023 at 1:12 PM (Please note that portions of this note may have been completed with a voice recognition program. Efforts were made to edit the dictations but occasionally words are mis-transcribed.) Normal [facility] XR HUMERUS RIGHTon 4 XR HUMERUS RIGHT 2V HUMERUS (AP and L AT) show healed humeral shaft fracture s/p ORIF Normal [facility] 36on 09-27-2023 36 I can do tomorrow at 11:15. She will need new xrays. Thanks. [place] [id number] Can you reach out an d schedule on a co-clinic day this week sometime. Thanks! Normal [facility] ALLIED HEALTHon 09-20-2023 ALLIED HEALTH HNO ID: [id number] Author: ?, ?, ? Service: Infection Prevention Author Type: ? Type: Allied Health Filed: 09/20/2023 08:37 Note Text: ISOLATION NOTE Admission Date: 09/19/2023 Type of Isolation Recommended: Contact Precautions - Soap and Water (Brown Isolation Sign) Indication: Norovirus Date Isolation Initiated: 09/19/2023 Anticipated Duration of Isolation: In consultation with Infection Prevention Type and Date of Positive Test(s): 09/19/2023 SIGNATURE: Jimena Vidal PATIENT NAME: Mark Trevino DATE: September 20, 2023 TIME: 8:36 AM PAGER/CONTACT #: [phone] Infection Prevention after hours/weekend pager: [phone] [facility] Basic metabolic 2000 panelon 09-20-2023 Anion gap [Moles/Vol] 10 mmol/L Normal 07-20 [facility] Comment on above: Order Comment: Speci men Type: BLOOD SPECIMEN Ordering Facility: [facility] Address: [address] [place] [address] Performed By: #### 2 4323-8, 3040-3, 90523-1 #### [facility] CLIA [id number] [facility] [address] [place] [address] [place] Calcium [Mass/Vol] 8.0 mg/dL Low 8.5-10.5 [facility] Comment on above: Order Comment: Speci men Type: BLOOD SPECIMEN Ordering Facility: [facility] Address: [address] [place] [address] Performed By: #### 2 4323-8, 0-3, #### [facility] CLIA [id number] [address] [place], [place] [address] [place] Chloride [Moles/Vol] 114 mmol/L High 98-107 [facility] Comment on above: Order Comment: Speci men Type: BLOOD SPECIMEN Ordering Facility: [facility] Address: [address] [place] [address] Performed By: #### 2 4323-8, 3, #### [facility] CLIA [id number] [address] [place] [address] [place] CO2 [Moles/Vol] 18 mmol/L Low 21-32 [facility] Comment on above: Order Comment: Speci men Type: BLOOD SPECIMEN Ordering Facility: [facility] Address: [address] [place] [address] Performed By: #### 2 4323-8, 3, #### [facility] CLIA [id number] [address] [place], [place] [address] [place] Creatinine [Mass/Vol] 0.48 mg/dL Low 0.51-0.95 [facility] Comment on above: Order Comment: Speci men Type: BLOOD SPECIMEN Ordering Facility: [facility] Address: [address] [place] [address] Result Comment: Taryn ents receiving either N-Acetylcysteine (NAC) or Metamizole prior to venipuncture, may have falsely depressed results. Performed By: #### 2 4323-8, 3039-3, #### [facility] CLIA [id number] [address] [place], [place] [address] [place] Creatinine and Glomerular filtration rate.predicted panel (S/P/Bld) 133 mL/min/1.73m??? Normal >=60 [facility] Comment on above: Order Comment: Sharon duncan Type: BLOOD SPECIMEN Ordering Facility: [facility] Address: [address] [place] [address] Result Comment: Zayda mated Glomerular Filtration Rate (eGFR) is calculated using the 2020 CKD-EPI creatinine equation. This equation utilizes serum creatinine, sex, and age as parameters. The creatinine assay has traceable calibration to isotope dilution-mass spectrometry. Refer to KDIGO guidelines for clinical interpretation. In patients with unstable renal function, e.g. those with acute kidney injury, the eGFR may not accurately reflect actual GFR. Performed By: #### 2 4323-8, 3040-3, 69811-0 #### [facility] CLIA [id number] [address] [place], [place] [address] [place] Glucose [Mass/Vol] 68 mg/dL Low 70-100 [facility] Comment on above: Order Comment: Sharon duncan Type: BLOOD SPECIMEN Ordering Facility: [facility] Address: [address] [place] [address] Result Comment: The [place] Diabetes Association (ADA) provides guidance for cutoff values for fasting glucose and random glucose. The ADA defines fasting as no caloric intake for at least 8 hours. Fasting plasma glucose results between 100 to 125 mg/dL indicate increased risk for diabetes (prediabetes). Fasting plasma glucose results greater than or equal to 126 mg/dL meet the criteria for diagnosis of diabetes. In the absence of unequivocal hyperglycemia, results should be confirmed by repeat testing. In a patient with classic symptoms of hyperglycemia or hyperglycemic crisis, random plasma glucose results greater than or equal to 200 mg/dL meet the criteria for diagnosis of diabetes. Reference: Standards of Medical Care in Diabetes 2016, [place] Diabetes Association. Diabetes Care. 2016.39(Suppl 1). Results may be falsely elevated after the administration of Sulfapyridine. Results may be falsely depressed after the administration of Sulfasalazine. Performed By: #### 2 4323-8, 3040-3, 82482-4 #### [facility] CLIA [id number] [address] [place] [address] [place] Potassium [Moles/Vol] 3.3 mmol/L Low 3.5-5.1 [facility] Comment on above: Order Comment: Sharon duncan Type: BLOOD SPECIMEN Ordering Facility: [facility] Address: [facility] [place] [address] Performed By: #### 2 4323-8, 3040-3, 91831-9 #### [facility] CLIA [id number] [address] [place], [place] [address] [place] Sodium [Moles/Vol] 142 mmol/L Normal 136-145 [facility] Comment on above: Order Comment: Sharon duncan Type: BLOOD SPECIMEN Ordering Facility: [facility] Address: [address] [place] [address] [place] [address] Performed By: #### 2 4323-8, 3040-3, #### [facility] CLIA [id number] [address] [place], [place] [address] [place] Urea nitrogen [Mass/Vol] 7 mg/dL Normal 7-26 [facility] Comment on above: Order Comment: Sharon duncan Type: BLOOD SPECIMEN Ordering Facility: [facility] Address: [facility] [place] [id number] Performed By: #### 2 4323-8, 3040-3, #### [facility] CLIA [id number] [address] [place], [place] [address] [place] CNDSon 09-20-2023 CNDS HNO ID: [id number] Author: FILIBERTO LUNA DO Service: General Internal Medicine Author Type: Physician Type: Discharge Summary Filed: 09/21/2023 09:47 Note Text: DISCHARGE SUMMARY PATIENT NAME: Mark Trevino ADMISSION DATE: 09/19/2023 DISCHARGE DATE: 09/20/2023 ATTENDING PHYSICIAN: Filiberto Luna DO Code Status: Full Code Highest Readmission Risk Score: 10 The 30 day readmissions risk score is derived from an internally validated risk model which evaluates patient level characteristics, utilization history, medication orders and lab results up until the day of discharge. Patients with a score of 40 or above are considered highest risk for readmission. Specific patient level drivers will be listed at the bottom of the summary. CONSULTING TEAMS DURING HOSPITALIZATION: None Treatment Team: Attending Provider: Filiberto Luna DO Attending: MR RODRÍGUEZ CHIEF REASON FOR HOSPITALIZATION: N/V/D, norovirus gastroenteritis DIAGNOSIS: Principal Problem: Acute gastroenteropathy due to Norovirus (POA: Yes) Active Problems: Leukocytosis (POA: Yes) Elevated alkaline phosphatase level (POA: Yes) Hyperglycemia (POA: Yes) Resolved Problems: * No resolved hospital problems. * OPERATIONS DURING HOSPITALIZATION: None PROCEDURES DURING HOSPITALIZATION: No procedures performed HOSPITAL COURSE: 28 year old female with past medical history of bipolar disorder and gastric ulcers who presented to ED with N/V/D. In ER, she was afebrile with HR 90 and normal BP. Initial lab work was significant for glucose 119, alk phos [address] abd/pelvis revealed mild distal enteritis. Stool sample was positive for Norovirus. She was treated with IVF's, droperidol, reglan and benadryl and admitted. Symptoms improved with IVF's and anti-emetics, and she was discharged home with prn zofran. Principal Problem: Acute gastroenteropathy due to Norovirus Intractable N/V Leukocytosis Mild hyperglycemia Mild alk phos elevation Hx bipolar Hx gastric ulcer Transitions of Care Critical Issues: SHORT MEDICATION CHANGES: prn zofran LABS AND PROCEDURES PENDING AT DISCHARGE: No pending results. PATIENT CONDITION AT DISCHARGE: Improved DISCHARGE DISPOSITION: Home with Self Care DIET: Resume pre-hospital diet ACTIVITY: Resume pre-hospital activity ALLERGIES No Known Allergies DISCHARGE MEDICATION: Medication List START taking these medications ondansetron 4 mg tablet Commonly known as: ZOFRAN Take 1 tablet by mouth every 6 hours as needed for nausea/vomiting. CONTINUE taking these medications cetirizine 10 mg tablet Commonly known as: ZYRTEC DEPO-PROVERA INTRAMUSC. hyoscyamine sublingual 0.125 mg Commonly known as: LEVSIN SL Dissolve 1 tablet under the tongue every 8 hours as needed. PROTONIX 20 mg tablet Generic drug: pantoprazole DR QUEtiapine 150 mg tablet STOP taking these medications FLUoxetine 20 mg capsule Commonly known as: PROzac metoclopramide HCl 10 mg tablet Commonly known as: REGLAN ondansetron orally disintegrating 4 mg disintegrating tablet Commonly known as: ZOFRAN ODT traZODone 50 mg tablet Commonly known as: DESYREL Where to Get Your Medications These medications were sent to [facility] [address] [address] Hours: Tuesday-Tuesday 7am-7pm, Tuesday 9am-1pm ondansetron 4 mg tablet FUTURE APPOINTMENTS: Follow Up with PCP: Renae Santos APRN.CNP The patient's risk for 30-day readmission is determined using the following contributing factors: Pt variables contributing to increased readmission risk: 11 Active Medication Orders 9.1 First Resulted Calcium During Admission 7 Most Recent BUN Result 3 Number of Previous ED Visits (6 mos.) 1 Previous ED Visit (6 mos.)? 1 Insurance - Medicaid 1 Discharge Disposition - Home Plan of care discussed with Provider, RN, Patient I have performed the uaxk-he-vyfa and relevant services for a total of 35 minutes. SIGNATURE: Filiberto Luna, DATE: September 20, 2023 TIME: 4:20 PM Normal [facility] Magnesium SerPl-mCncon 09-19 Magnesium [Mass/Vol] 1.8 mg/dL Normal 1.6-2.6 [facility] Comment on above: Order Comment: Sharon duncan Type: BLOOD SPECIMEN Ordering Facility: [facility] Address: [address] [place] [address] Performed By: #### 2 4323-8, 3040-3, 77399-4 #### [facility] CLIA [id number] [address] [place] [address] [place] C diff Tox gens Stl Ql EROS+p robeon 09-19-2023 C. difficile toxin genes EROS+probe Ql (Stl) Negative Normal Negative for C. difficile toxin by PCR [facility] Comment on above: Order Comment: Sharon duncan Type: BLOOD SPECIMEN Ordering Facility: [facility] Address: [address] [place] [address] Performed By: #### 5 7021-8 #### [facility] CLIA [id number] [address] [place] [address] [place] CBC W Auto Differential pane l (Bld)on 09-19-2023 Basophils (Bld) [#/Vol] 0.03 10*3/uL Normal <0.11 [facility] Comment on above: Order Comment: Speci men Type: BLOOD SPECIMENOrdering Facility: [facility] Address: [address] [place] [address] Performed By: #### 5 7021-8 ####[facility] [id number] [place] [id number] [place] Basophils/100 WBC (Bld) 0.8 % Normal [facility] Comment on above: Order Comment: Speci men Type: BLOOD SPECIMENOrdering Facility: [facility] Address: [address] [place] [address] Performed By: #### 5 7021-8 ####[facility]ORY[facility]IA [id number] [place] [address] [place] Differential cell count method Nom (Bld) Auto Normal [facility] Comment on above: Order Comment: Speci men Type: BLOOD SPECIMENOrdering Facility: [facility] Address: [address] [place] [address] Performed By: #### 5 7021-8 ####[facility]ORYCLIA [id number] [place] [address] [place] Eosinophils (Bld) [#/Vol] 0.05 10*3/uL Normal <0.46 [facility] Comment on above: Order Comment: Speci men Type: BLOOD SPECIMENOrdering Facility: [facility] Address: [address] [place] [address] Performed By: #### 5 7021-8 ####[facility]ORY[facility]IA [id number] [place] [address] [place] Eosinophils/100 WBC (Bld) 1.3 % Normal [facility] Comment on above: Order Comment: Speci men Type: BLOOD SPECIMENOrdering Facility: [facility] Address: [address] [place] [address] Performed By: #### 5 7021-8 ####[facility]IA [id number] [place] [address] [place] Erythrocyte distribution width (RBC) [Ratio] 12.7 % Normal 11.5-15.0 [facility] Comment on above: Order Comment: Speci men Type: BLOOD SPECIMENOrdering Facility: [facility] Address: [address] [place] [address] Performed By: #### 5 7021-8 ####[facility]ORY[facility]IA [id number] [place] [address] [place] Hematocrit (Bld) [Volume fraction] 38.6 % Normal 36.0-46.0 [facility] Comment on above: Order Comment: Speci men Type: BLOOD SPECIMENOrdering Facility: [facility] Address: [address] [place] [address] Performed By: #### 5 7021-8 ####[facility]ORYCLIA [id number] [place] [address] [place] Hemoglobin (Bld) [Mass/Vol] 13.0 g/dL Normal 11.5-15.5 [facility] Comment on above: Order Comment: Speci men Type: BLOOD SPECIMENOrdering Facility: [facility] Address: [address] [place] [address] Performed By: #### 5 7021-8 ####[facility]ORYCLIA [id number] [place] [address] [place] Immature granulocytes (Bld) [#/Vol] 0.03 10*3/uL Normal <0.10 [facility] Comment on above: Order Comment: Speci men Type: BLOOD SPECIMENOrdering Facility: [facility] Address: [address] [place] [address] Performed By: #### 5 7021-8 ####[facility]ORYCLIA [id number] [address] [place] Immature granulocytes/100 WBC (Bld) 0.8 % Normal [facility] Comment on above: Order Comment: Speci men Type: BLOOD SPECIMENOrdering Facility: [facility] Address: [address] [place] [address] Performed By: #### 5 7021-8 ####[facility]ORYCLIA [id number] [place] [address] [place] Lymphocytes (Bld) [#/Vol] 0.79 10*3/uL Low 1.00-4.00 [facility] Comment on above: Order Comment: Speci men Type: BLOOD SPECIMENOrdering Facility: [facility] Address: [address] [place] [address] Performed By: #### 5 7021-8 ####[facility]ORYCLIA [id number] [place] [address] [place] Lymphocytes/100 WBC (Bld) 20.8 % Normal [facility] Comment on above: Order Comment: Speci men Type: BLOOD SPECIMENOrdering Facility: [facility] Address: [address] [place] [address] Performed By: #### 5 7021-8 ####[facility]ORYCLIA [id number] [place] [address] [place] MCH (RBC) [Entitic mass] 30.6 pg Normal 26.0-34.0 [facility] Comment on above: Order Comment: Speci men Type: BLOOD SPECIMENOrdering Facility: [facility] Address: [address] [place] [address] Performed By: #### 5 7021-8 ####[facility]ORYCLIA [id number] [place] [address] [place] MCHC (RBC) [Mass/Vol] 33.7 g/dL Normal 30.5-36.0 [facility] Comment on above: Order Comment: Speci men Type: BLOOD SPECIMENOrdering Facility: [facility] Address: [address] [place] [address] Performed By: #### 5 7021-8 ####[facility]ORYCLIA [id number] [place] [address] [place] MCV (RBC) [Entitic vol] 90.8 fL Normal 80.0-100.0 [facility] Comment on above: Order Comment: Speci men Type: BLOOD SPECIMENOrdering Facility: [facility] Address: [address] [place] [address] Performed By: #### 5 7021-8 ####[facility]ORYCLIA [id number] [place] [address] [place] Monocytes (Bld) [#/Vol] 0.51 10*3/uL Normal <0.87 [facility] Comment on above: Order Comment: Speci men Type: BLOOD SPECIMENOrdering Facility: [facility] Address: [address] [place] [address] Performed By: #### 5 7021-8 ####[facility]ORYCLIA [id number] [address] Monocytes/100 WBC (Bld) 13.4 % Normal [facility] Comment on above: Order Comment: Speci men Type: BLOOD SPECIMENOrdering Facility: [facility] Address: [address] [place] [address] Performed By: #### 5 7021-8 ####[facility]ORYCLIA [id number] [place] [address] [place] Neutrophils (Bld) [#/Vol] 2.39 10*3/uL Normal 1.45-7.50 [facility] Comment on above: Order Comment: Speci men Type: BLOOD SPECIMENOrdering Facility: [facility] Address: [address] [place] [address] Performed By: #### 5 7021-8 ####[facility]ORYCLIA [id number] [place] [address] [place] Neutrophils/100 WBC (Bld) 62.9 % Normal [facility] Comment on above: Order Comment: Speci men Type: BLOOD SPECIMENOrdering Facility: [facility] Address: [address] [place] [address] Performed By: #### 5 7021-8 ####[facility]ORYCLIA [id number] [place] [address] [place] Nucleated RBC (Bld) [#/Vol] 10*3/uL Normal <0.01 [facility] Comment on above: Order Comment: Speci men Type: BLOOD SPECIMENOrdering Facility: [facility] Address: [address] [place] [address] Performed By: #### 5 7021-8 ####[facility]ORYCLIA [id number] [place] [address] [place] Nucleated RBC/100 WBC (Bld) [Ratio] 0.0 /100 WBC Normal [facility] Comment on above: Order Comment: Speci men Type: BLOOD SPECIMENOrdering Facility: [facility] Address: [address] [place] [address] Performed By: #### 5 7021-8 ####[facility]ATORYCLIA [id number] [place] [address] [place] Platelet mean volume (Bld) [Entitic vol] 9.4 fL Normal 9.0-12.7 [facility] Comment on above: Order Comment: Speci men Type: BLOOD SPECIMENOrdering Facility: [facility] Address: [address] [place] [address] Performed By: #### 5 7021-8 ####[facility] LABORATORYCLIA [id number] [place] [address] [place] Platelets (Bld) [#/Vol] 274 10*3/uL Normal 150-400 [facility] Comment on above: Order Comment: Speci men Type: BLOOD SPECIMENOrdering Facility: [facility] Address: [address] [place] [address] Performed By: #### 5 7021-8 ####[facility] LABORATORYCLIA [id number] [place] [address] [place] RBC (Bld) [#/Vol] 4.25 10*6/uL Normal 3.90-5.20 [facility] Comment on above: Order Comment: Speci men Type: BLOOD SPECIMENOrdering Facility: [facility] Address: [address] [place] [address] Performed By: #### 5 7021-8 ####[facility] LABORATORYCLIA [id number] [address] WBC (Bld) [#/Vol] 3.80 10*3/uL Normal 3.70-11.00 [facility] Comment on above: Order Comment: Speci men Type: BLOOD SPECIMENOrdering Facility: [facility] Address: [address] [place] [address] Performed By: #### 5 7021-8 ####[facility] LABORATORYCLIA [id number] [address] Comprehensive metabolic 2000 panelon 09-19-2023 Albumin [Mass/Vol] 4.1 g/dL Normal 3.2-5.0 [facility] Comment on above: Order Comment: Speci men Type: BLOOD SPECIMEN [facility] Address: [address] [place] [address] Performed By: #### 5 7021-8 #### [facility] CLIA [id number] [address] [place] [address] [place] [facility] ALP [Catalytic activity/Vol] 105 U/L Normal 45-117 [facility] Comment on above: Order Comment: Speci men Type: BLOOD SPECIMEN [facility] Address: [address] [place] [address] Performed By: #### 5 7021-8 #### [facility] CLIA [id number] [address] [place] [address] [place] [facility] ALT [Catalytic activity/Vol] 25 U/L Normal 13-61 [facility] Comment on above: Order Comment: Speci men Type: BLOOD SPECIMEN [facility] Address: [address] [place] [address] Result Comment: Resu lts may be falsely depressed after the administration of Sulfasalazine and/or Sulfapyridine. Performed By: #### 5 7021-8 #### [facility] CLIA [id number] [address] [place] [address] [place] Anion gap [Moles/Vol] 8 mmol/L Normal 5-16 [facility] Comment on above: Order Comment: Speci men Type: BLOOD SPECIMEN [facility] Address: [address] [facility] [place] [address] Performed By: #### 5 7021-8 #### [facility] CLIA [id number] [address] [place] [address] [place] AST [Catalytic activity/Vol] 28 U/L Normal 8-34 [facility] Comment on above: Order Comment: Speci men Type: BLOOD SPECIMEN [facility]ing Facility: [facility] Address: [address] [place] [address] Result Comment: Resu lts may be falsely depressed after the administration of Sulfasalazine and/or Sulfapyridine. Performed By: #### 5 7021-8 #### [facility] CLIA [id number] [address] [place] [address] [place] Bilirubin [Mass/Vol] 0.4 mg/dL Normal 0.2-1.0 [facility] Comment on above: Order Comment: Speci men Type: BLOOD SPECIMEN [facility] Address: [address] [place], [place] [address] [address] Performed By: #### 5 7021-8 #### [facility] CLIA [id number] [address] [place], [place] [address] [place] Calcium [Mass/Vol] 9.1 mg/dL Normal 8.5-10.5 [facility] Comment on above: Order Comment: Speci men Type: BLOOD SPECIMEN [facility] Address: [address] [facility] [place] [address] Performed By: #### 5 7021-8 #### [facility] CLIA [id number] [address] [place] [address] [place] Chloride [Moles/Vol] 110 mmol/L High 98-107 [facility] Comment on above: Order Comment: Speci men Type: BLOOD SPECIMEN [facility] Address: [address] [place] [address] Performed By: #### 5 7021-8 #### [facility] CLIA [id number] [address] [place] [address] [place] CO2 [Moles/Vol] 22 mmol/L Normal 21-32 [facility] Comment on above: Order Comment: Speci men Type: BLOOD SPECIMEN [facility] Address: [address] [place] [address] Performed By: #### 5 7021-8 #### [facility] CLIA [id number] [address] [place] [address] [place] Creatinine [Mass/Vol] 0.55 mg/dL Normal 0.51-0.95 [facility] Comment on above: Order Comment: Speci men Type: BLOOD SPECIMEN [facility] Address: [address] [place] [address] Result Comment: Taryn ents receiving either N-Acetylcysteine (NAC) or Metamizole prior to venipuncture, may have falsely depressed results. Performed By: #### 5 7021-8 #### [facility] CLIA [id number] [address] [place] [address] [place] Creatinine and Glomerular filtration rate.predicted panel (S/P/Bld) 129 mL/min/1.73m??? Normal >=60 [facility] Comment on above: Order Comment: Speci men Type: BLOOD SPECIMEN [facility] Address: [address] [place] [address] Result Comment: Zayda mated Glomerular Filtration Rate (eGFR) is calculated using the 2020 CKD-EPI creatinine equation. This equation utilizes serum creatinine, sex, and age as parameters. The creatinine assay has traceable calibration to isotope dilution-mass spectrometry. Refer to KDIGO guidelines for clinical interpretation. In patients with unstable renal function, e.g. those with acute kidney injury, the eGFR may not accurately reflect actual GFR. Performed By: #### 5 7021-8 #### [facility] CLIA [id number] [address] [place], [place] [address] [place] Glucose [Mass/Vol] 88 mg/dL Normal 70-100 [facility] Comment on above: Order Comment: Sharon duncan Type: BLOOD SPECIMEN [facility] Address: [address] [place], [place] [id number] Result Comment: The [place] [employer] (ADA) provides guidance for cutoff values for fasting glucose and random glucose. The ADA defines fasting as no caloric intake for at least 8 hours. Fasting plasma glucose results between 100 to 125 mg/dL indicate increased risk for diabetes (prediabetes). Fasting plasma glucose results greater than or equal to 126 mg/dL meet the criteria for diagnosis of diabetes. In the absence of unequivocal hyperglycemia, results should be confirmed by repeat testing. In a patient with classic symptoms of hyperglycemia or hyperglycemic crisis, random plasma glucose results greater than or equal to 200 mg/dL meet the criteria for diagnosis of diabetes. Reference: Standards of Medical Care in Diabetes 2016, [place] [employer]. Diabetes Care. 2016.39(Suppl 1). Results may be falsely elevated after the administration of Sulfapyridine. Results may be falsely depressed after the administration of Sulfasalazine. Performed By: #### 5 7021-8 #### [facility] CLIA [id number] [address] [place] [address] [place] Potassium [Moles/Vol] 3.5 mmol/L Normal 3.5-5.1 [facility] Comment on above: Order Comment: Sharon duncan Type: BLOOD SPECIMEN [facility] Address: [address] [place], [place] [address] Performed By: #### 5 7021-8 #### [facility] CLIA [id number] [address] [place] [address] [place] Protein [Mass/Vol] 7.6 g/dL Normal 6.0-8.5 [facility] Comment on above: Order Comment: Sharon duncan Type: BLOOD SPECIMEN [facility] Address: [address] [place], [place] [address] Performed By: #### 5 7021-8 #### [facility] CLIA [id number] [address] [place] [address] [place] Sodium [Moles/Vol] 140 mmol/L Normal 136-145 [facility] Comment on above: Order Comment: Speci men Type: BLOOD SPECIMEN [facility] Address: [address] [id number] Performed By: #### 5 7021-8 #### [facility] CLIA [id number] [address] [place], [place] [address] [facility] Urea nitrogen [Mass/Vol] 8 mg/dL Normal 7- [facility] Comment on above: Order Comment: Speci men Type: BLOOD SPECIMEN [facility] Address: [address] [place], [place] [address] Performed By: #### 5 7021-8 #### [facility] CLIA [id number] [address] [place], [place] [address] [facility] ED NOTEon 09-19-2023 ED NOTE HNO ID: [id number] Author: ALLA JEFF RN Service: Nursing Author Type: Registered Nurse Type: ED Notes Filed: 09/19/2023 21:59 Note Text: Report given to 4M on CDU at this time [facility] ED NOTE HNO ID: [id number] Author: ALLA JEFF RN Service: Nursing Author Type: Registered Nurse Type: ED Notes Filed: 09/19/2023 20:48 Note Text: Pt sleeping at this time, fluids infusing per order. Pt states no relief with meds. [facility] ED NOTE HNO ID: [id number] Author: ALLA JEFF RN Service: Nursing Author Type: Registered Nurse Type: ED Notes Filed: 09/19/2023 20:44 Note Text: Pt provided crackers and fluids at this time, pt ate some crackers and states that she still feels nauseous. 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 I preformed a substantive portion of the visit including all aspects of the following. My short findings include: 28-year-old female present emergency department for nausea vomiting and diarrhea. Was seen yesterday for similar symptoms. Sent home with Reglan which is not helping symptoms. CT scan yesterday showing enteritis consistent with viral gastroenteritis. Clinically dehydrated was given fluids. Abdomen with no peritoneal findings to warrant repeat imaging today. CBC with no significant leukocytosis or anemia. No critical electrolyte abnormalities. Stool panel positive for norovirus which is likely source of her symptoms. She was given IV Reglan, Benadryl and droperidol but still having intractable symptoms. Therefore will require admission for continued supportive care. Admitted to hospitalist team with no further recommendations. Signature: Jarret Melchor Date: 09/20/2023 Time: 12:50 AM ED Provider Note Patient Name: Mark Trevino : 1995 SERVICE DATE: 09/19/23 History Patient presents with: Vomiting: Pt was seen yesterday for same states that she is nauseous and vomiting and can't keep anything down. HPI Mark Trevino is a 28 year old female who presents to the ED for vomiting and diarrhea. She was seen yesterday in the department for this. She was sent home with Reglan but states has not been helping her. No abdominal pain. No blood in stool or emesis. No coffee-ground emesis. CT scan done yesterday which showed enteritis. No other complaints. No other pertinent HPI ROS Review of Systems Constitutional: Positive for appetite change. Gastrointestinal: Positive for diarrhea, nausea and vomiting. All other systems reviewed and are negative. All systems reviewed and negative except noted in HPI PAST MEDICAL HISTORY Diagnosis Date Bipolar 1 disorder (HCC) Multiple gastric ulcers PAST SURGICAL HISTORY Procedure Laterality Date BACK SURGERY HX scoliosis ORTHOPEDICS SURGERY HX Right tib/fib reconstruct No family history on file. Social History Tobacco Use Smoking status: Some Days Types: Cigarettes Smokeless tobacco: Never Vaping Use Vaping Use: Never used Substance and Sexual Activity Alcohol use: Not Currently Drug use: Not Currently Sexual activity: Not on file ALLERGIES No Known Allergies Records on file/review of medical records: Nursing/triage notes and assessments as well as vitals were reviewed and incorporated Records on file reviewed: N/A Physical Exam Vitals [09/19/23 1137] BP Pulse Temp Temp src Resp SpO2 Weight Height 112/79 85 36.8 ?C (98.3 ?F) Oral 20 98 % 55.3 kg (122 lb) 1.499 m (4' 11 ) Physical Exam General: alert, speaking in full sentences, does not appear ill HEENT: EOMI, eyes equal and reactive to light, no scleral injection or tearing, head and face atraumatic. Nasal and oral mucous membranes appear dry. Chest: no respiratory distress, normal breath sounds throughout, Cardiac: no rubs, RRR Abdomen: atraumatic, no rebound or peritoneal findings, soft, nontender. No guarding or rigidity. Negative Newsome's McBurney's Rovsing psoas sign. Extremities: atraumatic, no joint effusions, no edema Skin: warm, dry, no rashes Neuro: alert and oriented x 3, no lateralized deficits, no gross weakness Psyc: normal mood/affect, normal judgment/memory Diagnostic Testing ED Labs Ordered and Reviewed EXPANDED STOOL GASTROINTESTINAL PANEL BY PCR - Abnormal; Notable for the following components: Result Value Ref Range Norovirus GI/GII RNA Detected (*) Not Detected All other components within normal limits COMPLETE BLOOD COUNT AND DIFFERENTIAL - Abnormal; Notable for the following components: Abs Lymph 0.79 (*) 1.00 - 4.00 k/uL All other components within normal limits COMPREHENSIVE METABOLIC PANEL - Abnormal; Notable for the following components: Chloride 110 (*) 98 - 107 mmol/L All other components within normal limits URINALYSIS WITH MICROSCOPIC, REFLEX CULTURE - Abnormal; Notable for the following components: Bilirubin, Urine 1+ (*) Negative Ketones, Urine 1+ (*) Negative Specific [place], Ur >1.030 (*) 1.005 - 1.030 Hemoglobin/Blood,Ur 3+ (*) Negative Protein, Urine 1+ (*) Negative Urobilinogen 1+ (*) Negative WBC, Urine 6-10 /HPF (*) 0-5 /HPF RBC, Urine >25 /HPF (*) 0-3 /HPF Bacteria Rare (*) None Seen /HPF All other components within normal (more content not included)... Normal [facility] ED Triage Noteon 09-19-2023 ED Triage Note HNO ID: [id number] Author: CYNTHIA ALDRIDGE PA-C Service: ? Author Type: Physician [employer] [place] Operator Type: ED Triage Notes Filed: 09/19/2023 14:19 Note Text: ED TRIAGE PROVIDER NOTE Patient Name: Mark Trevino Service Date: 09/19/23 BRIEF HPI: This is a 28 year old female who presents to the ED with: Continued nausea, vomiting, and diarrhea since being seen here in the ED yesterday. She had CT imaging yesterday that showed findings suggestive of mild distal enteritis with no obstructive changes. Patient states she did not provide a stool sample yesterday. Denies worsening abdominal pain. Denies seeing blood in her emesis or stool. BRIEF EXAM: Alert, heart and lung sounds are normal, generally tender throughout abdomen without rebound or guarding, pulses equal bilaterally, no focal deficits on neuro exam in triage. INITIAL WORKUP AND DECISION MAKING: Orders Placed This Encounter STOOL PANEL C. Difficile PCR CBC + AUTO DIFF COMPREHENSIVE METABOLIC PANEL (BMP+LFT) MAGNESIUM BLOOD LIPASE BLOOD Urinalysis w Microscopic, reflex Culture HCG Qualitative Single Sepsis Lactate Procalcitonin SIGNATURE: Cynthia Aldridge PA-C Normal [facility] Gastrointestinal pathogens p natasha EROS+probe (Stl)on 09-19-2023 ADENOVIRUS F 40/41 DNA Not detected Normal Not Detected [facility] Comment on above: Order Comment: Speci men Type: BLOOD SPECIMEN [facility] Address: [address] [place] [address] Performed By: #### 5 7021-8 #### [facility] CLIA [id number] [address] [place] [address] [place] ASTROVIRUS RNA Not detected Normal Not Detected [facility] Comment on above: Order Comment: Speci men Type: BLOOD SPECIMEN [facility] Address: [address] [place] [address] Performed By: #### 5 7021-8 #### [facility] CLIA [id number] [address] [place] [address] [place] C. cayetanensis DNA EROS+probe Ql (Unsp spec) Not detected Normal Not Detected [facility] Comment on above: Order Comment: Speci men Type: BLOOD SPECIMEN [facility] Address: [address] [place] [address] Performed By: #### 5 7021-8 #### [facility] [place] [id number] [address] [place] [address] [place] Campylobacter sp DNA.diarrheagenic EROS+probe Ql (Stl) Not detected Normal Not Detected [facility] Comment on above: Order Comment: Speci men Type: BLOOD SPECIMEN [facility] Address: [address] [place] [address] Performed By: #### 5 7021-8 #### [facility] [place] [id number] [address] [place] [address] [place] Cryptosporidium sp DNA EROS+probe Ql (Unsp spec) Not detected Normal Not Detected [facility] Comment on above: Order Comment: Speci men Type: BLOOD SPECIMEN [facility] Address: [address] [place] [address] Performed By: #### 5 7021-8 #### [facility] CLIA [id number] [address] [place] [address] [place] E. coli O157:H7 DNA EROS+probe Ql (Unsp spec) Normal [facility] Comment on above: Order Comment: Speci men Type: BLOOD SPECIMEN [facility] Address: [address] [place] [address] Performed By: #### 5 7021-8 #### [facility] CLIA [id number] [address] [id number] [place] E. coli stx1+stx2 genes EROS+probe Ql (Stl) Not detected Normal Not Detected [facility] Comment on above: Order Comment: Sharon duncan Type: BLOOD SPECIMEN [facility] Address: [address] [place] [address] Performed By: #### 5 7021-8 #### [facility] CLIA [id number] [address] [place] [address] [place] E. histolytica DNA EROS+probe Ql (Unsp spec) Not detected Normal Not Detected [facility] Comment on above: Order Comment: Sharon duncan Type: BLOOD SPECIMEN [facility] Address: [address] [place] [address] Performed By: #### 5 7021-8 #### [facility] CLIA [id number] [address] [place] [address] [place] ENTEROAGGREGATIVE E. COLI (EAEC) DNA Not detected Normal Not Detected [facility] Comment on above: Order Comment: Sharon duncan Type: BLOOD SPECIMEN [facility] Address: [address] [place] [address] Performed By: #### 5 7021-8 #### [facility] CLIA [id number] [address] [place] [address] [place] [facility] [place] ENTEROPATHOGENIC E. COLI (EPEC) DNA Not detected Normal Not Detected [facility] Comment on above: Order Comment: Vincenti men Type: BLOOD SPECIMEN [facility] Address: [address] [place] [address] Performed By: #### 5 7021-8 #### [facility] CLIA [id number] [address] [place] [address] [place] ENTEROTOXIGENIC E. COLI (ETEC) DNA Not detected Normal Not Detected [facility] Comment on above: Order Comment: Vincenti men Type: BLOOD SPECIMEN [facility] Address: [address] [place] [address] Performed By: #### 5 7021-8 #### [facility] CLIA [id number] [address] [place] [address] [place] G. lamblia DNA EROS+probe Ql (Unsp spec) Not detected Normal Not Detected [facility] Comment on above: Order Comment: Speci men Type: BLOOD SPECIMEN [facility]: [facility] Address: [address] [place] [address] Performed By: #### 5 7021-8 #### [facility] CLIA [id number] [address] [place] [address] [place] [facility] [place] NOROVIRUS GI/GII RNA Detected Abnormal Not Detected [facility] Comment on above: Order Comment: Speci men Type: BLOOD SPECIMEN [facility] Facility: [facility] Address: [address] [place] [address] Result Comment: This Oversie FilmarrayGastrointestinal Panel test has known specificity limitations for norovirus detection. This specimen was repeatedly positive for norovirus by this test, which decreases but does not eliminate the chance of a false positive result. If confirmation is desired, consider requesting a different norovirus test. Performed By: #### 5 7021-8 #### [facility] CLIA [id number] [address] [place] [address] [place] PLESIOMONAS SHIGELLOIDES DNA Not detected Normal Not Detected [facility] Comment on above: Order Comment: Speci men Type: BLOOD SPECIMEN Ordering Facility: [facility] Address: [address] [place] [address] Performed By: #### 5 7021-8 #### [facility] CLIA [id number] [address] [place] [address] [place] ROTAVIRUS A RNA Not detected Normal Not Detected [facility] Comment on above: Order Comment: Speci men Type: BLOOD SPECIMEN [facility] Facility: [facility] Address: [address] [place] [address] Performed By: #### 5 7021-8 #### [facility] CLIA [id number] [address] [place] [address] [place] Salmonella sp DNA EROS+probe Ql (Unsp spec) Not detected Normal Not Detected [facility] Comment on above: Order Comment: Speci men Type: BLOOD SPECIMEN Ordering Facility: [facility] Address: [address] [place] [address] Performed By: #### 5 7021-8 #### [facility] CLIA [id number] [address] [place] [address] [place] SAPOVIRUS (GENOGROUPS I, II, IV, V) RNA Not detected Normal Not Detected [facility] Comment on above: Order Comment: Speci men Type: BLOOD SPECIMEN Ordering Facility: [facility] Address: [address] [place] [address] Performed By: #### 5 7021-8 #### [facility] CLIA [id number] [address] [place] [address] [place] Shigella species+EIEC invasion plasmid antigen H ipaH gene EROS+probe Ql (Stl) Not detected Normal Not Detected [facility] Comment on above: Order Comment: Speci men Type: BLOOD SPECIMEN Ordering Facility: [facility] Address: [address] [place] [address] Performed By: #### 5 7021-8 #### [facility] CLIA [id number] [address] [place] [address] [place] V. cholerae DNA EROS+probe Ql (Unsp spec) Not detected Normal Not Detected [facility] Comment on above: Order Comment: Speci men Type: BLOOD SPECIMEN Ordering Facility: [facility] Address: [address] [place] [address] Performed By: #### 5 7021-8 #### [facility] CLIA [id number] [address] [place] [address] [place] Vibrio sp DNA EROS+probe Nom (Unsp spec) Not detected Normal Not Detected [facility] Comment on above: Order Comment: Speci men Type: BLOOD SPECIMEN Ordering Facility: [facility] Address: [address] [place] [address] Performed By: #### 5 7021-8 #### [facility] CLIA [id number] [address] [place] [address] Yersinia sp DNA EROS+probe Nom (Unsp spec) Not detected Normal Not Detected [facility] Comment on above: Order Comment: Speci men Type: BLOOD SPECIMEN Ordering Facility: [facility] Address: [address] [place] [address] Performed By: #### 5 7021-8 #### [facility] CLIA [id number] [address] [place] [address] HCG QUALITATIVEon 09-19-2023 HCG, QUALITATIVE Negative Normal Negative [facility] Comment on above: Order Comment: Speci men Type: BLOOD SPECIMENOrdering Facility: [facility] Address: [address] [place] [address] Performed By: #### H CG, 8[address]-6 ####[facility]ORYCLIA [id number] [address] HISTORY PHYSICALon HISTORY PHYSICAL HNO ID: [id number] Author: ROBBY FITZPATRICK DO Service: Hospital Medicine Author Type: Physician Type: H&P Filed: 09/20/2023 02:17 Note Text: HISTORY AND PHYSICAL EXAMINATION SERVICE DATE: 09/19/2023 SERVICE TIME: 10:03 PM PRIMARY CARE PHYSICIAN: Renae Santos APRN.CNP Subjective CHIEF COMPLAINT: Abdominal discomfort, nausea HPI: This is a 28 year old female who presents with failure of outpatient treatment for norovirus unable to tolerate enough PO intake and dehydrated, loose stools to the point of slight blood she endorsed to me but not ER, nauseated and states the reglan with which she got sent home made her diarrhea worse FUNCTIONAL STATUS: Independent PAST MEDICAL HISTORY Diagnosis Date Bipolar 1 disorder (HCC) Multiple gastric ulcers PAST SURGICAL HISTORY Procedure Laterality Date BACK SURGERY HX scoliosis ORTHOPEDICS SURGERY HX Right tib/fib reconstruct No family history on file. Social History Tobacco Use Smoking status: Some Days Types: Cigarettes Smokeless tobacco: Never Vaping Use Vaping Use: Never used Substance Use Topics Alcohol use: Not Currently Drug use: Not Currently (Not in a hospital admission) ALLERGIES No Known Allergies COMPLETE REVIEW OF SYSTEMS: See HPI Objective PHYSICAL EXAM: Physical Exam Performed: GENERAL: Alert, no distress, cooperative, ill appearing LUNGS: Lungs clear to auscultation, Good diaphragmatic excursion CARDIAC: Normal S1 and S2; no rubs, murmurs, or gallops ABDOMEN: soft, tender middle and left lower EXTREMITIES: Normal exam of the extremities NEURO: Grossly normal cognition, motor function, and cranial nerves III-XII BP 128/74 Pulse 80 Temp (Src) 98.3 (Oral) Resp 18 Ht 4' 11 (1.50m) Wt 122 lb (55.3kg) SpO2 99% BMI 24.63 kg/(m2). O2 Therapy: Room Air DATA: Diagnostic tests reviewed for today's visit: Most recent labs and imaging results. Assessment/Plan Active Hospital Problems Acute gastroenteropathy due to Norovirus (POA: Yes) Principal Problem: Acute gastroenteropathy due to Norovirus Assessment AND Plan: Failure of outpatient management due to inability to tolerate PO, procalcitonin negative at 0.13 ng/mL cdiff negative but Norovirus detected, CT abd/pelv with iv contrast suggestive of mild distal enteritis. Pt admitted for observation to continue supportive care with iv fluids normal saline at 125 ml/hr, morphine 2 mg iv q3h prn breakthrough pain, zofran first line compazine second line nausea until tolerating PO intake. Supportive care might include home hyoscyamine as well. Iv pantoprazole if intolerant of home tablet History of gastric ulcers Dispense history shows pt taking omeprazole 40 mg po capsules daily most recently, three days ago actually, will order this or iv if intolerant of PO, does have 90 days supply of pantoprazole 20 mg po from july 2023 too though. 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 I did add the ones not on previous list for review Code Status: Full Medication and Non-Pharmacologic VTE Prophylaxis/Anticoagulants VTE Prophylaxis: VTE prophylaxis appropriate SIGNATURE: Robby Fitzpatrick DO PATIENT NAME: Mark Trevino DATE: September 19, 2023 TIME: 10:03 PM Normal [facility] Lipase SerPl-cCncon 09-19-19 24 Lipase [Catalytic activity/Vol] 44 U/L Normal 12-60 [facility] Comment on above: Order Comment: Sharon duncan Type: BLOOD SPECIMEN Ordering Facility: [facility] Address: [address] [place] [address] Performed By: #### 5 7021-8 #### [facility] CLIA [id number] [address] [place] [address] [place] Magnesium SerPl-mCncon 09-18 Magnesium [Mass/Vol] 2.1 mg/dL Normal 1.6-2.6 [facility] Comment on above: Order Comment: Sharon duncan Type: BLOOD SPECIMEN Ordering Facility: [facility] Address: [address] [place] [address] Performed By: #### 5 7021-8 #### [facility] CLIA [id number] [address] [place] [address] [place] Procalcitonin SerPl-mCncon 0 09-19-2023 Procalcitonin [Mass/Vol] 0.13 ng/mL Normal 0.00-0.50 [facility] Comment on above: Order Comment: Sharon duncan Type: BLOOD SPECIMENOrdering Facility: [facility] Address: [address] [place] [address] Result Comment: PCT Concentration Interpretation PCT <=0.1 ng/mL: Normal range for healthy adults PCT >0.1 ng/mL and <0.5 ng/mL: Systemic infection (sepsis) is possible and may require antibiotic treatment, but other conditions are known to elevate PCT as well. PCT >0.5 ng/mL: Should be considered at risk for developing severe sepsis or septic shock. PCT >2.0 ng/mL: Important systemic inflammatory response. Almost exclusively indicates episode of severe bacterial sepsis or septic shock. Performed By: #### H [place], [address]-2 ####[facility]ORYCLIA [id number] [address] [place] SEPSIS LACTATEon 07-15-2024 Lactate [Moles/Vol] 1.0 mmol/L Normal 0.4-2.0 [facility] Comment on above: Order Comment: Speci men Type: BLOOD SPECIMENOrdering Facility: [facility] Address: [address] [place] [address] Performed By: #### S LACT ####[facility]ORYCLIA [id number] [address] [place] Urinalysis complete panel (U )on 09-19-2023 Bacteria LM.HPF (Urine sed) [#/Area] Rare Abnormal None Seen [facility] Comment on above: Order Comment: Speci men Type: URINE SPECIMENOrdering Facility: [facility] Address: [address] [place] [address] Performed By: #### 2 4356-8 ####[facility]ORYCLIA [id number] [address] [place] Bilirubin Ql (U) 1+ Abnormal Negative [facility] Comment on above: Order Comment: Speci men Type: URINE SPECIMENOrdering Facility: [facility] Address: [address] [place] [address] Result Comment: Sugg est correlation with clinical findings and serum bilirubin if clinically indicated. Performed By: #### 2 4356-8 ####[facility]ORYCLIA [id number] [address] [place] Clarity (Unsp spec) Clear Normal Clear [facility] Comment on above: Order Comment: Speci men Type: URINE SPECIMENOrdering Facility: [facility] Address: [address] [place] [address] Performed By: #### 2 4356-8 ####[facility]ORYCLIA [id number] [address] [place] Color (U) Yellow Normal Yellow [facility] Comment on above: Order Comment: Speci men Type: URINE SPECIMENOrdering Facility: [facility] Address: [address] [place] [address] Performed By: #### 2 4356-8 ####[facility]ORYCLIA [id number] [address] [place] Epithelial cells LM.HPF (Urine sed) [#/Area] Few Normal [facility] Comment on above: Order Comment: Speci men Type: URINE SPECIMENOrdering Facility: [facility] Address: [address] [place] [address] Performed By: #### 2 4356-8 ####[facility]ORYCLIA [id number] [address] [place] Glucose Test strip (U) [Mass/Vol] Negative Normal Negative [facility] Comment on above: Order Comment: Speci men Type: URINE SPECIMENOrdering Facility: [facility] Address: [address] [place] [address] Performed By: #### 2 4356-8 ####[facility]ORYCLIA [id number] [address] [place] Hemoglobin Ql (U) 3+ Abnormal Negative [facility] Comment on above: Order Comment: Speci men Type: URINE SPECIMENOrdering Facility: [facility] Address: [address] [place] [address] Performed By: #### 2 4356-8 ####[facility]ORYCLIA [id number] [address] [place] Ketones Ql (U) 1+ Abnormal Negative [facility] Comment on above: Order Comment: Speci men Type: URINE SPECIMENOrdering Facility: [facility] Address: [address] [place] [address] Performed By: #### 2 4356-8 ####[facility]ORYCLIA [id number] [place] [address] [place] Leukocyte esterase Test strip Ql (U) Negative Normal Negative [facility] Comment on above: Order Comment: Speci men Type: URINE SPECIMENOrdering Facility: [facility] Address: [address] [place] [address] Performed By: #### 2 4356-8 ####[facility]ORYCLIA [id number] [address] [place] Nitrite Ql (U) Negative Normal Negative [facility] Comment on above: Order Comment: Speci men Type: URINE SPECIMENOrdering Facility: [facility] Address: [address] [place] [address] Performed By: #### 2 4356-8 ####[facility]ORYCLIA [id number] [address] [place] pH (U) 5.0 [pH] Normal 5.0-8.0 [facility] Comment on above: Order Comment: Speci men Type: URINE SPECIMENOrdering Facility: [facility] Address: [address] [place] [address] Performed By: #### 2 4356-8 ####[facility]ORYCLIA [id number] [address] [place] Protein (U) [Mass/Vol] 1+ Abnormal Negative [facility] Comment on above: Order Comment: Speci men Type: URINE SPECIMENOrdering Facility: [facility] Address: [address] [place] [address] Performed By: #### 2 4356-8 ####[facility]ATORYCLIA [id number] [place] [address] [place] RBC LM.HPF (Urine sed) [#/Area] /[HPF] Abnormal 0-3 /HPF [facility] Comment on above: Order Comment: Speci men Type: URINE SPECIMENOrdering Facility: [facility] Address: [address] [place] [address] Performed By: #### 2 4356-8 ####[facility]ORYCLIA [id number] [place] [address] [place] Specific gravity (U) [Rel density] >1.030 High 1.005-1.03 0 [facility] Comment on above: Order Comment: Speci men Type: URINE SPECIMENOrdering Facility: [facility] Address: [address] [place] [address] Performed By: #### 2 4356-8 ####[facility]ORYCLIA [id number] [address] Urobilinogen Ql (U) 1+ Abnormal Negative [facility] Comment on above: Order Comment: Speci men Type: URINE SPECIMENOrdering Facility: [facility] Address: [address] [place] [address] Performed By: #### 2 4356-8 ####[facility]ORYCLIA [id number] [address] [place] WBC LM.HPF (Urine sed) [#/Area] 6-10 /HPF Abnormal 0-5 /HPF [facility] Comment on above: Order Comment: Speci men Type: URINE SPECIMENOrdering Facility: [facility] Address: [address] [place] [address] Performed By: #### 2 4356-8 ####[facility]ORYCLIA [id number] [address] [place] ALLIED HEALTHon 09-18-2023 ALLIED HEALTH HNO ID: [id number] Author: LAW NAVA RT(R) Service: Radiology Author Type: Technologist Type: Allied Health Filed: 09/18/2023 13:35 Note Text: Summary: ct Radiology Service Progress Note DATE OF SERVICE: September 18, 2023 TIME: 1:34 PM PATIENT IDENTITY VERIFICATION COMPLETED USING TWO (2) STANDARD IDENTIFIERS: Name and Date of confirmed by patient verbally. FALL SCREENING: Has the patient had 2 falls in the last year or 1 fall with injury or currently using an Ambulatory Assistive Device (Walker, Cane, Wheelchair, Crutches, etc.)? No PATIENT GENDER DATA: Female. status: : No status: NO. PATIENT RELEVANT IMPLANT DATA REVIEWED: Not Applicable PATIENT PRESENTS WITH AN IMPLANTABLE OR ATTACHED ROTATIONAL MOULDING OPERATOR: No ALLERGIES: Reviewed and unchanged CONTRAST ALLERGY: NO. EXAM: CT -CONTRAST INDUCED NEPHROPATHY RISK FACTORS: Not applicable CREATININE: Creatinine Date Value Ref Range Status 09/18/2023 0.65 0.51 - 0.95 mg/dL Final Comment: Patients receiving either N-Acetylcysteine (NAC) or Metamizole prior to venipuncture, may have falsely depressed results. 09/12/2023 0.66 0.51 - 0.95 mg/dL Final Comment: Patients receiving either N-Acetylcysteine (NAC) or Metamizole prior to venipuncture, may have falsely depressed results. Estimated Glomerular Filtration Rate Date Value Ref Range Status 09/18/2023 124 >=60 mL/min/1.73m? Final Comment: Estimated Glomerular Filtration Rate (eGFR) is calculated using the 2020 CKD-EPI creatinine equation. This equation utilizes serum creatinine, sex, and age as parameters. The creatinine assay has traceable calibration to isotope dilution-mass spectrometry. Refer to KDIGO guidelines for clinical interpretation. In patients with unstable renal function, e.g. those with acute kidney injury, the eGFR may not accurately reflect actual GFR. P.O.C.T. RESULTS: N/A September 18, 2023 TREATMENT: N/A PERIPHERAL IV DATA: Inpatient - refer to [facility] documentation RADIOLOGY DEPARTMENT: CT; Exam(s) Completed: Abdomen/Pelvis SIGNATURE: RT Manjeet(R) PATIENT NAME: aMrk Trevino DATE: September 18, 2023 TIME: 1:34 PM Normal [facility] CBC W Auto Differential pane l (Bld)on 09-18-2023 Basophils (Bld) [#/Vol] 0.04 10*3/uL Normal <0.11 [facility] Comment on above: Order Comment: Speci men Type: BLOOD SPECIMENOrdering Facility: [facility] Address: [address] [place] [address] Performed By: #### 5 7021-8 ####[facility]ORYCLIA [id number] [place] [address] [place] Basophils/100 WBC (Bld) 0.2 % Normal [facility] Comment on above: Order Comment: Speci men Type: BLOOD SPECIMENOrdering Facility: [facility] Address: [address] [place] [address] Performed By: #### 5 7021-8 ####[facility]ORYCLIA [id number] [place] [address] [place] Differential cell count method Nom (Bld) Auto Normal [facility] Comment on above: Order Comment: Speci men Type: BLOOD SPECIMENOrdering Facility: [facility] Address: [address] [place] [address] Performed By: #### 5 7021-8 ####[facility]ORYCLIA [id number] [place] [address] [place] Eosinophils (Bld) [#/Vol] 0.10 10*3/uL Normal <0.46 [facility] Comment on above: Order Comment: Speci men Type: BLOOD SPECIMENOrdering Facility: [facility] Address: [address] [place] [address] Performed By: #### 5 7021-8 ####[facility]ORYCLIA [id number] [address] [place] Eosinophils/100 WBC (Bld) 0.5 % Normal [facility] Comment on above: Order Comment: Speci men Type: BLOOD SPECIMENOrdering Facility: [facility] Address: [address] [place] [address] Performed By: #### 5 7021-8 ####[facility]ORYCLIA [id number] [address] [place] Erythrocyte distribution width (RBC) [Ratio] 12.8 % Normal 11.5-15.0 [facility] Comment on above: Order Comment: Speci men Type: BLOOD SPECIMENOrdering Facility: [facility] Address: [address] [place] [address] Performed By: #### 5 7021-8 ####[facility]ORYCLIA [id number] [place] [address] [place] Hematocrit (Bld) [Volume fraction] 40.8 % Normal 36.0-46.0 [facility] Comment on above: Order Comment: Speci men Type: BLOOD SPECIMENOrdering Facility: [facility] Address: [address] [place] [address] Performed By: #### 5 7021-8 ####[facility]ORYCLIA [id number] [place] [address] [place] Hemoglobin (Bld) [Mass/Vol] 13.8 g/dL Normal 11.5-15.5 [facility] Comment on above: Order Comment: Speci men Type: BLOOD SPECIMENOrdering Facility: [facility] Address: [address] [place] [address] Performed By: #### 5 7021-8 ####[facility]ATORYCLIA [id number] [place] [address] [place] Immature granulocytes (Bld) [#/Vol] 0.09 10*3/uL Normal <0.10 [facility] Comment on above: Order Comment: Speci men Type: BLOOD SPECIMENOrdering Facility: [facility] Address: [address] [place] [address] Performed By: #### 5 7021-8 ####[facility]ORYCLIA [id number] [place] [address] [place] Immature granulocytes/100 WBC (Bld) 0.5 % Normal [facility] Comment on above: Order Comment: Speci men Type: BLOOD SPECIMENOrdering Facility: [facility] Address: [address] [place] [address] Performed By: #### 5 7021-8 ####[facility]ATORYCLIA [id number] [place] [address] [place] Lymphocytes (Bld) [#/Vol] 0.29 10*3/uL Low 1.00-4.00 [facility] Comment on above: Order Comment: Speci men Type: BLOOD SPECIMENOrdering Facility: [facility] Address: [address] [place] [address] Performed By: #### 5 7021-8 ####[facility]ATORYCLIA [id number] [address] [place] [facility] Lymphocytes/100 WBC (Bld) 1.6 % Normal [facility] Comment on above: Order Comment: Speci men Type: BLOOD SPECIMENOrdering Facility: [facility] Address: [address] [place] [address] Performed By: #### 5 7021-8 ####[facility]ATORYCLIA [id number] [place] [address] [place] MCH (RBC) [Entitic mass] 30.7 pg Normal 26.0-34.0 [facility] Comment on above: Order Comment: Speci men Type: BLOOD SPECIMENOrdering Facility: [facility] Address: [address] [place] [address] Performed By: #### 5 7021-8 ####[facility]ATORYCLIA [id number] [address] MCHC (RBC) [Mass/Vol] 33.8 g/dL Normal 30.5-36.0 [facility] Comment on above: Order Comment: Speci men Type: BLOOD SPECIMENOrdering Facility: [facility] Address: [address] [place] [address] Performed By: #### 5 7021-8 ####[facility]ATORYCLIA [id number] [address] [place] MCV (RBC) [Entitic vol] 90.7 fL Normal 80.0-100.0 [facility] Comment on above: Order Comment: Speci men Type: BLOOD SPECIMENOrdering Facility: [facility] Address: [address] [place] [address] Performed By: #### 5 7021-8 ####[facility]ORATORYCLIA [id number] [place] [address] [place] Monocytes (Bld) [#/Vol] 0.45 10*3/uL Normal <0.87 [facility] Comment on above: Order Comment: Speci men Type: BLOOD SPECIMENOrdering Facility: [facility] Address: [address] [place] [address] Performed By: #### 5 7021-8 ####[facility]ATORYCLIA [id number] [place] [address] [place] Monocytes/100 WBC (Bld) 2.4 % Normal [facility] Comment on above: Order Comment: Speci men Type: BLOOD SPECIMENOrdering Facility: [facility] Address: [address] [place] [address] Performed By: #### 5 7021-8 ####[facility]ATORYCLIA [id number] [place] [address] [place] Neutrophils (Bld) [#/Vol] 17.47 10*3/uL High 1.45-7.50 [facility] Comment on above: Order Comment: Speci men Type: BLOOD SPECIMENOrdering Facility: [facility] Address: [address] [place] [address] Performed By: #### 5 7021-8 ####[facility]ORATORYCLIA [id number] [place] [address] [place] Neutrophils/100 WBC (Bld) 94.8 % Normal [facility] Comment on above: Order Comment: Speci men Type: BLOOD SPECIMENOrdering Facility: [facility] Address: [address] [place] [address] Performed By: #### 5 7021-8 ####[facility]ATORYCLIA [id number] [place] [address] [place] Nucleated RBC (Bld) [#/Vol] 10*3/uL Normal <0.01 [facility] Comment on above: Order Comment: Speci men Type: BLOOD SPECIMENOrdering Facility: [facility] Address: [address] [place] [address] Performed By: #### 5 7021-8 ####[facility] LABORATORYCLIA [id number] [place] [address] [place] Nucleated RBC/100 WBC (Bld) [Ratio] 0.0 /100 WBC Normal [facility] Comment on above: Order Comment: Speci men Type: BLOOD SPECIMENOrdering Facility: [facility] Address: [address] [place] [address] Performed By: #### 5 7021-8 ####[facility] LABORATORYCLIA [id number] [place] [id number] [place] Platelet mean volume (Bld) [Entitic vol] 9.5 fL Normal 9.0-12.7 [facility] Comment on above: Order Comment: Speci men Type: BLOOD SPECIMENOrdering Facility: [facility] Address: [address] [place] [address] Performed By: #### 5 7021-8 ####[facility]ORATORYCLIA [id number] [place] [address] [place] Platelets (Bld) [#/Vol] 294 10*3/uL Normal 150-400 [facility] Comment on above: Order Comment: Speci men Type: BLOOD SPECIMENOrdering Facility: [facility] Address: [address] [place] [address] Performed By: #### 5 7021-8 ####[facility]ORATORYCLIA [id number] [place] [address] [place] RBC (Bld) [#/Vol] 4.50 10*6/uL Normal 3.90-5.20 [facility] Comment on above: Order Comment: Speci men Type: BLOOD SPECIMENOrdering Facility: [facility] Address: [address] [place] [address] Performed By: #### 5 7021-8 ####[facility] LABORATORYCLIA [id number] [place] [id number] [place] WBC (Bld) [#/Vol] 18.44 10*3/uL High 3.70-11.00 [facility] Comment on above: Order Comment: Speci men Type: BLOOD SPECIMENOrdering Facility: [facility] Address: [address] [place] [address] Performed By: #### 5 7021-8 ####[facility] LABORATORYCLIA [id number] [place] [address] [place] CT ABD/PEL W IVCONon 14-[address] ABD/PEL W IVCON * * *Final Report* * * DATE OF EXAM: Sep 18 2023 1:33PM [facility] 0530 - CT ABD/PEL W IVCON / PROCEDURE REASON: Abdominal pain, acute, nonlocalized * * * * Physician Interpretation * * * * EXAMINATION: CT ABDOMEN AND PELVIS WITH IV CONTRAST CLINICAL HISTORY: Vomiting, diarrhea, lower abdominal pain TECHNIQUE: CT of the abdomen and pelvis was performed using standard technique, scanning from just above the dome of the diaphragm to the symphysis pubis. MQ: CTAP_3 Contrast: IV: 100 ml of Omnipaque 350 : ml of CT Radiation dose: Integrated Dose-length product (DLP) for this visit = 270.73 mGy*cm. CT Dose Reduction Employed: Automated exposure control(AEC) and iterative recon COMPARISON: None. RESULT: Limited exam due to streak artifact from spinal stabilization hardware. Liver: No mass. Biliary: No bile duct dilation. Gallbladder is unremarkable. Spleen: No mass. No splenomegaly. Pancreas: No mass or duct dilation. Adrenals: No mass. Kidneys: No mass, calculus or hydronephrosis. GI tract: Mild bowel wall thickening with enhancement particularly distal small bowel. No obstructive changes. Normal appendix Lymph nodes: No abdominal or pelvic lymphadenopathy. Mesentery/Peritoneum: No ascites or mass. Retroperitoneum: No mass. Vasculature: Unremarkable Pelvis: No mass, ascites or fluid collection. Bones/Soft Tissues: Surgical changes. No acute process. Lower thorax: Unremarkable. Localizer images: Unremarkable. IMPRESSION: Findings suggestive of mild distal enteritis. No obstructive changes. Mission Planner: NITO Transcribe Date/Time: Sep 18 2023 2:46P Dictated by : JEOVANNY WRIGHT MD This examination was interpreted and the report reviewed and electronically signed by: JEOVANNY WRIGHT MD on Sep 18 2023 2:49PM EST [id number] Normal [facility] Comprehensive metabolic 2000 panelon 09-18-2023 Albumin [Mass/Vol] 4.2 g/dL Normal 3.2-5.0 [facility] Comment on above: Order Comment: Speci men Type: BLOOD SPECIMENOrdering Facility: [facility] Address: [address] [place] [address] Performed By: #### 2 4323-8, 3040-3, ####[facility] LABORATORYCLIA [id number] [place] [id number] [place] ALP [Catalytic activity/Vol] 120 U/L High 45-117 [facility] Comment on above: Order Comment: Speci men Type: BLOOD SPECIMENOrdering Facility: [facility] Address: [address] [place] [address] Performed By: #### 2 4323-8, 3039-3, ####[facility] LABORATORYCLIA [id number] [place] [id number] [facility] ALT [Catalytic activity/Vol] 25 U/L Normal 13-61 [facility] Comment on above: Order Comment: Speci men Type: BLOOD SPECIMENOrdering Facility: [facility] Address: [address] [place] [address] Result Comment: Resu lts may be falsely depressed after the administration of Sulfasalazine and/or Sulfapyridine. Performed By: #### 2 4323-8, 3039-3, ####[facility] LABORATORYCLIA [id number] [place] [id number] [place] Anion gap [Moles/Vol] 10 mmol/L Normal 5-16 [facility] Comment on above: Order Comment: Speci men Type: BLOOD SPECIMENOrdering Facility: [facility] Address: [address] [place] [address] Performed By: #### 2 4323-8, 3040-3, ####[facility] LABORATORYCLIA [id number] [place] [id number] [place] AST [Catalytic activity/Vol] 27 U/L Normal 8-34 [facility] Comment on above: Order Comment: Speci men Type: BLOOD SPECIMENOrdering Facility: [facility] Address: [address] [place] [address] Result Comment: Resu lts may be falsely depressed after the administration of Sulfasalazine and/or Sulfapyridine. Performed By: #### 2 4323-8, 0-3, ####[facility] LABORATORYCLIA [id number] [place] [id number] [place] Bilirubin [Mass/Vol] 0.7 mg/dL Normal 0.2-1.0 [facility] Comment on above: Order Comment: Speci men Type: BLOOD SPECIMENOrdering Facility: [facility] Address: [address] [place] [address] Performed By: #### 2 4323-8, 3, ####[facility] LABORATORYCLIA [id number] [place] [id number] [place] Calcium [Mass/Vol] 9.3 mg/dL Normal 8.5-10.5 [facility] Comment on above: Order Comment: Speci men Type: BLOOD SPECIMENOrdering Facility: [facility] Address: [address] [place] [address] Performed By: #### 2 4323-8, 3, ####[facility] LABORATORYCLIA [id number] [place] [id number] [place] Chloride [Moles/Vol] 107 mmol/L Normal 98-107 [facility] Comment on above: Order Comment: Speci men Type: BLOOD SPECIMENOrdering Facility: [facility] Address: [address] [place] [address] Performed By: #### 2 4323-8, 3039-3, ####[facility] LABORATORYCLIA [id number] [place] [address] [place] CO2 [Moles/Vol] 22 mmol/L Normal 21-32 [facility] Comment on above: Order Comment: Sharon duncan Type: BLOOD SPECIMENOrdering Facility: [facility] Address: [address] [place] [address] Performed By: #### 2 4323-8, 3, ####[facility] LABORATORYCLIA [id number] [place] [id number] [place] Creatinine [Mass/Vol] 0.65 mg/dL Normal 0.51-0.95 [facility] Comment on above: Order Comment: Speci men Type: BLOOD SPECIMENOrdering Facility: [facility] Address: [address] [place] [address] Result Comment: Taryn ents receiving either N-Acetylcysteine (NAC) or Metamizole prior to venipuncture, may have falsely depressed results. Performed By: #### 2 4323-8, 3, ####[facility] LABORATORYCLIA [id number] [place] [phone] [facility] Creatinine and Glomerular filtration rate.predicted panel (S/P/Bld) 124 mL/min/1.73m??? Normal >=60 [facility] Comment on above: Order Comment: Sharon duncan Type: BLOOD SPECIMENOrdering Facility: [facility] Address: [address] [place] [address] Result Comment: Zayda mated Glomerular Filtration Rate (eGFR) is calculated using the 2020 CKD-EPI creatinine equation. This equation utilizes serum creatinine, sex, and age as parameters. The creatinine assay has traceable calibration to isotope dilution-mass spectrometry. Refer to KDIGO guidelines for clinical interpretation. In patients with unstable renal function, e.g. those with acute kidney injury, the eGFR may not accurately reflect actual GFR. Performed By: #### 2 4323-8, 3, ####[facility] LABORATORYCLIA [id number] [place] [id number] [place] Glucose [Mass/Vol] 119 mg/dL High 70-100 [facility] Comment on above: Order Comment: Sharon duncan Type: BLOOD SPECIMENOrdering Facility: [facility] Address: [address] [place] [id number] Result Comment: The [place] [employer] Association (ADA) provides guidance for cutoff values for fasting glucose and random glucose. The ADA defines fasting as no caloric intake for at least 8 hours. Fasting plasma glucose results between 100 to 125 mg/dL indicate increased risk for diabetes (prediabetes). Fasting plasma glucose results greater than or equal to 126 mg/dL meet the criteria for diagnosis of diabetes. In the absence of unequivocal hyperglycemia, results should be confirmed by repeat testing. In a patient with classic symptoms of hyperglycemia or hyperglycemic crisis, random plasma glucose results greater than or equal to 200 mg/dL meet the criteria for diagnosis of diabetes. Reference: Standards of Medical Care in Diabetes 2016, [place] [employer] Association. Diabetes Care. 2016.39(Suppl 1). Results may be falsely elevated after the administration of Sulfapyridine. Results may be falsely depressed after the administration of Sulfasalazine. Performed By: #### 2 4323-8, 0-3, ####[facility] LABORATORYCLIA [id number] [place] [address] [place] Potassium [Moles/Vol] 3.6 mmol/L Normal 3.5-5.1 [facility] Comment on above: Order Comment: Speci men Type: BLOOD SPECIMENOrdering Facility: [facility] Address: [address] [place] [id number] Performed By: #### 2 4323-8, 0-3, ####[facility] LABORATORYCLIA [id number] [place] [id number] [place] Protein [Mass/Vol] 7.7 g/dL Normal 6.0-8.5 [facility] Comment on above: Order Comment: Speci men Type: BLOOD SPECIMENOrdering Facility: [facility] Address: [address] [place] [address] Performed By: #### 2 4323-8, 3, ####[facility] LABORATORYCLIA [id number] [place] [address] [place] Sodium [Moles/Vol] 139 mmol/L Normal 136-145 [facility] Comment on above: Order Comment: Speci men Type: BLOOD SPECIMENOrdering Facility: [facility] Address: [address] [place] [address] Performed By: #### 2 4323-8, 3040-3, ####[facility] LABORATORYCLIA [id number] [place] [address] [facility] Urea nitrogen [Mass/Vol] 14 mg/dL Normal - [facility] Comment on above: Order Comment: Speci men Type: BLOOD SPECIMENOrdering Facility: [facility] Address: [address] [place] [address] Performed By: #### 2 4323-8, 3040-3, ####[facility] LABORATORYCLIA [id number] [place] [phone] [facility] ED NOTEon 09-18-2023 ED NOTE HNO ID: [id number] Author: SARAH NAVA, NICOLASA Service: Nursing Author Type: Registered Nurse Type: ED Notes Filed: 09/18/2023 16:20 Note Text: Drank 200ml of water and no emesis [facility] ED NOTE HNO ID: [id number] Author: FRANCESCA COREA, NICOLASA Service: ? Author Type: Registered Nurse Type: ED Notes Filed: 09/18/2023 12:06 Note Text: Bed: 02-ED Expected date: Expected time: Means of arrival: Comments: PIT [facility] ED PROV NOTEon 09-18-2023 ED PROV NOTE HNO ID: [id number] Author: TIBURCIO FRENCH DO Service: Emergency Medicine Author Type: Physician Type: ED Provider Notes Filed: 09/18/2023 16:58 Note Text: ED CONTINUATION OF CARE NOTE Code Status: Full Code Assumed care from: Dr Porras Presentation / Findings / Interventions / Plan / Items to Follow Up: Patient was signed out to me pending reevaluation after antiemetics. Upon reevaluation, the patient is resting comfortably, she does state that she is feeling significantly improved after receiving Reglan. In accordance with the previous plan, she will be discharged home, she will be given a prescription of Reglan along with supportive care and return precautions. ED Course as of 09/18/23 1658 Others' Documentation Sun Sep 18, 2023 1512 Patient reassessed, still nauseous, discussed CT findings, states that she has continued have diarrhea here, and fortunately she did not collect it, I did order stool panel. I will order Reglan to try to help with her nausea, we will continue to monitor her. Discussed that she is not improving or she is not able to tolerate oral intake she may end up needing admission. Heart rate around 120. Will continue to reevaluate and monitor. Her preference would be to stay in the emergency department at this time with ongoing symptomatic treatment. She would prefer not to be admitted if possible. [AB] ED Course User Index [AB] James Porras MD Clinical Impressions as of 09/18/238 Generalized abdominal pain Nausea and vomiting, unspecified vomiting type SIGNATURE: Tiburcio French DO PATIENT NAME: Mark Trevino DATE: September 18, 2023 TIME: 4:57 PM PAGER/CONTACT #: TIBURCIO FRENCH 09/18/23 1658 [facility] ED PROV NOTE HNO ID: [id number] Author: JAMES PORRAS MD Service: Emergency Medicine Author Type: Physician Type: ED Provider Notes Filed: 09/18/2023 15:45 Note Text: ED Provider Note Patient Name: Mark Trevino : 1995 SERVICE DATE: 09/18/23 History Patient presents with: Nausea AND Vomiting: Patient presents with multiple complaints including vomiting, diarrhea, headache, lower abd pain, vaginal bleeding, blood in stool. This is a 28-year-old female with past medical history of bipolar, multiple gastric ulcers, she presents with diffuse abdominal pain, vomiting and diarrhea, starting last night, states that she is unable to keep anything down, she denies any cannabis use. Denies fever, chest pain, shortness of breath. Reports blood in the stool, she reports blood when she pees also. She denies any possibility of . She does not take any blood thinners. She was here last Tuesday with nausea and stomach pain but states that symptoms progressed since then. She states that the symptoms seem to resolve between now and then, and then recurred. Denies any recent sick contacts, travel, consumption of raw or undercooked foods, antibiotic use. Denies history of stomach problems other than ulcers. History provided by: Patient and medical records PAST MEDICAL HISTORY Diagnosis Date Bipolar 1 disorder (HCC) Multiple gastric ulcers PAST SURGICAL HISTORY Procedure Laterality Date BACK SURGERY HX scoliosis ORTHOPEDICS SURGERY HX Right tib/fib reconstruct No family history on file. Social History Tobacco Use Smoking status: Some Days Types: Cigarettes Smokeless tobacco: Never Vaping Use Vaping Use: Never used Substance and Sexual Activity Alcohol use: Not Currently Drug use: Not Currently Sexual activity: Not on file ALLERGIES No Known Allergies Review of Systems Physical Exam Vitals [09/18/23 1130] BP Pulse Temp Temp src Resp SpO2 Weight Height 111/73 (!) 131 37.4 ?C (99.3 ?F) Oral 16 98 % 55.3 kg (122 lb) 1.499 m (4' 11 ) Physical Exam Vitals and nursing note reviewed. Constitutional: General: She is not in acute distress. Appearance: She is not ill-appearing, toxic-appearing or diaphoretic. HENT: Head: Normocephalic. Eyes: General: No scleral icterus. Extraocular Movements: Extraocular movements intact. Cardiovascular: Rate and Rhythm: Normal rate and regular rhythm. Heart sounds: Normal heart sounds. Abdominal: General: There is distension. Palpations: Abdomen is soft. Tenderness: There is generalized abdominal tenderness. There is no guarding or rebound. Comments: Abdomen does seem to be mildly protuberant, question whether this is related to obesity versus underlying distention, there is tenderness, primarily lower abdomen, no rebound, guarding, mass or rigidity appreciated Skin: General: Skin is warm and dry. Coloration: Skin is not jaundiced or pale. Neurological: Mental Status: She is alert. Psychiatric: Mood and Affect: Mood normal. Diagnostic Testing ED Labs Ordered and Reviewed COMPREHENSIVE METABOLIC PANEL - Abnormal; Notable for the following components: Result Value Ref Range Alkaline Phosphatase 120 (*) 45 - 117 U/L Glucose 119 (*) 70 - 100 mg/dL All other components within normal limits COMPLETE BLOOD COUNT AND DIFFERENTIAL - Abnormal; Notable for the following components: WBC 18.44 (*) 3.70 - 11.00 k/uL Abs Neut 17.47 (*) 1.45 - 7.50 k/uL Abs Lymph 0.29 (*) 1.00 - 4.00 k/uL All other components within normal limits MAGNESIUM - Normal LIPASE - Normal HCG QUALITATIVE - Normal SEPSIS LACTATE - Normal URINALYSIS WITH MICROSCOPIC, REFLEX CULTURE EXPANDED STOOL GASTROINTESTINAL PANEL BY PCR C. DIFFICILE PCR OCCULT BLOOD EXAM SCREEN Procedures ED Course / Clinical Impression ED Course as of 09/18/23 1545 James Porras's Documentation Sun Sep 18, 2023 1512 Patient reassessed, still nauseous, discussed CT findings, states that she has continued have diarrhea here, and fortunately she did not collect it, I did order stool panel. I will order Reglan to try to help with her nausea, we will continue to monitor her. Discussed that she is not improving or she is not able to tolerate oral intake she may end up needing admission. Heart rate around 120. Will continue to reevaluate and monitor. Her preference would be to stay in the emergency department at this time with ongoing symptomatic treatment. She would prefer not to be admitted if possible. Clinical Impressions as of 09/18/23 1545 Generalized abdominal pain Nausea and vomiting, unspecified vomiting type MDM / Disposition / Plan This is a 28-year-old female who presents with abdominal pain, nausea, vomiting and diarrhea, reports blood when she urinates, blood in the stool. Differential diagnosis for the patient's current complaints could include gastroenteritis, colitis, diverticulitis, appendi (more content not included)... Normal [facility] ED Triage Noteon 09-18-2023 ED Triage Note HNO ID: [id number] Author: RENAE BAKER APRN.ANAID Service: Emergency Medicine Author Type: Nurse Practitioner Type: ED Triage Notes Filed: 09/18/2023 11:51 Note Text: ED TRIAGE PROVIDER NOTE Patient Name: Mark Trevino Service Date: 09/18/23 BRIEF HPI: This is a 28 year old female who presents to the ED with: Abdominal pain, nausea, vomiting, diarrhea. Patient was seen here a few days ago with nausea and not feeling well. Last night she started with vomiting and diarrhea. She is not getting any better. Patient states she has been using Zofran that they gave her on her last visit but it is not helping. She cannot even keep water down. She is now having vaginal bleeding and rectal bleeding. BRIEF EXAM: Awake and Alert Non labored breathing Diffuse abdominal pain with mild distention noted. Bowel sounds are normoactive to hypoactive. 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 Normal [facility] HCG QUALITATIVEon 09-18-2023 HCG, QUALITATIVE Negative Normal Negative [facility] Comment on above: Order Comment: Speci men Type: BLOOD SPECIMENOrdering Facility: [facility] Address: [address] [place] [address] Performed By: #### H CG ####[facility] LABORATORYCLIA [id number] [place] [address] [place] Lipase SerPl-cCncon 09-18-19 24 Lipase [Catalytic activity/Vol] 33 U/L Normal 12-60 [facility] Comment on above: Order Comment: Speci men Type: BLOOD SPECIMENOrdering Facility: [facility] Address: [address] [place] [address] Performed By: #### 2 4323-8, 3040-3, ####[facility] LABORATORYCLIA [id number] [place] [address] [place] Magnesium SerPl-mCncon 09-17 Magnesium [Mass/Vol] 1.9 mg/dL Normal 1.6-2.6 [facility] Comment on above: Order Comment: Speci men Type: BLOOD SPECIMENOrdering Facility: [facility] Address: [address] [place] [address] Performed By: #### 2 4323-8, 3040-3, ####[facility] LABORATORYCLIA [id number] [place] [id number] [place] SEPSIS LACTATEon 09-18-2023 Lactate [Moles/Vol] 1.3 mmol/L Normal 0.4-2.0 [facility] Comment on above: Order Comment: Speci men Type: BLOOD SPECIMENOrdering Facility: [facility] Address: [address] [place] [address] Performed By: #### S LACT ####[facility] LABORATORYCLIA [id number] [address] [place] Urinalysis complete panel (U )on 09-18-2023 Bacteria LM.HPF (Urine sed) [#/Area] None Seen Normal None Seen [facility] Comment on above: Order Comment: Speci men Type: URINE SPECIMENOrdering Facility: [facility] Address: [address] [place] [address] Performed By: #### 2 4356-8 ####[facility] LABORATORYCLIA [id number] [address] [place] [facility] Bilirubin Ql (U) Negative Normal Negative [facility] Comment on above: Order Comment: Speci men Type: URINE SPECIMENOrdering Facility: [facility] Address: [address] [place] [address] Performed By: #### 2 4356-8 ####[facility] LABORATORYCLIA [id number] [address] [place] Clarity (Unsp spec) Clear Normal Clear [facility] Comment on above: Order Comment: Speci men Type: URINE SPECIMENOrdering Facility: [facility] Address: [address] [place] [address] Performed By: #### 2 4356-8 ####[facility] LABORATORYCLIA [id number] [address] [place] Color (U) Straw Normal Yellow [facility] Comment on above: Order Comment: Speci men Type: URINE SPECIMENOrdering Facility: [facility] Address: [address] [place] [address] Performed By: #### 2 4356-8 ####[facility] LABORATORYCLIA [id number] [address] [place] Epithelial cells LM.HPF (Urine sed) [#/Area] Few Normal [facility] Comment on above: Order Comment: Speci men Type: URINE SPECIMENOrdering Facility: [facility] Address: [address] [place] [address] Performed By: #### 2 4356-8 ####[facility] LABORATORYCLIA [id number] [address] Glucose Test strip (U) [Mass/Vol] Negative Normal Negative [facility] Comment on above: Order Comment: Speci men Type: URINE SPECIMENOrdering Facility: [facility] Address: [address] [place] [address] Performed By: #### 2 4356-8 ####[facility] LABORATORYCLIA [id number] [address] Hemoglobin Ql (U) 3+ Abnormal Negative [facility] Comment on above: Order Comment: Speci men Type: URINE SPECIMENOrdering Facility: [facility] Address: [address] [place] [address] Performed By: #### 2 4356-8 ####[facility] LABORATORYCLIA [id number] [place] [address] [place] Ketones Ql (U) Trace Abnormal Negative [facility] Comment on above: Order Comment: Speci men Type: URINE SPECIMENOrdering Facility: [facility] Address: [address] [place] [address] Performed By: #### 2 4356-8 ####[facility] LABORATORYCLIA [id number] [place] [address] [place] Leukocyte esterase Test strip Ql (U) 1+ Abnormal Negative [facility] Comment on above: Order Comment: Speci men Type: URINE SPECIMENOrdering Facility: [facility] Address: [address] [place] [address] Performed By: #### 2 4356-8 ####[facility] LABORATORYCLIA [id number] [place] [id number] [place] Nitrite Ql (U) Negative Normal Negative [facility] Comment on above: Order Comment: Speci men Type: URINE SPECIMENOrdering Facility: [facility] Address: [address] [place] [address] Performed By: #### 2 4356-8 ####[facility] LABORATORYCLIA [id number] [place] [id number] [place] pH (U) 5.0 [pH] Normal 5.0-8.0 [facility] Comment on above: Order Comment: Speci men Type: URINE SPECIMENOrdering Facility: [facility] Address: [address] [place] [address] Performed By: #### 2 4356-8 ####[facility] LABORATORYCLIA [id number] [place] [address] [place] Protein (U) [Mass/Vol] Negative Normal Negative [facility] Comment on above: Order Comment: Speci men Type: URINE SPECIMENOrdering Facility: [facility] Address: [address] [place] [address] Performed By: #### 2 4356-8 ####[facility] LABORATORYCLIA [id number] [place] [address] [place] RBC LM.HPF (Urine sed) [#/Area] /[HPF] Abnormal 0-3 /HPF [facility] Comment on above: Order Comment: Speci men Type: URINE SPECIMENOrdering Facility: [facility] Address: [address] [place] [address] Performed By: #### 2 4356-8 ####[facility] LABORATORYCLIA [id number] [place] [id number] [place] Specific gravity (U) [Rel density] >1.030 High 1.005-1.03 0 [facility] Comment on above: Order Comment: Speci men Type: URINE SPECIMENOrdering Facility: [facility] Address: [address] [place] [address] Performed By: #### 2 4356-8 ####[facility] LABORATORYCLIA [id number] [address] [place] Urobilinogen Ql (U) Negative Normal Negative [facility] Comment on above: Order Comment: Speci men Type: URINE SPECIMENOrdering Facility: [facility] Address: [address] [place] [address] Performed By: #### 2 4356-8 ####[facility] LABORATORYCLIA [id number] [address] [place] [facility] WBC LM.HPF (Urine sed) [#/Area] 0-5 /HPF Normal 0-5 /HPF [facility] Comment on above: Order Comment: Speci men Type: URINE SPECIMENOrdering Facility: [facility] Address: [address] [place] [address] Performed By: #### 2 4356-8 ####[facility] LABORATORYCLIA [id number] [place] [address] [place] CBC W Auto Differential pane l (Bld)on 09-12-2023 Basophils (Bld) [#/Vol] 0.07 10*3/uL Normal <0.11 [facility] Comment on above: Order Comment: Speci men Type: BLOOD SPECIMEN Ordering Facility: [facility] Address: [address] [place] [address] Performed By: #### 5 7021-8 #### [facility] CLIA [id number] [address] [place] [address] [place] Basophils/100 WBC (Bld) 0.9 % Normal [facility] Comment on above: Order Comment: Speci men Type: BLOOD SPECIMEN Ordering Facility: [facility] Address: [address] [place] [address] Performed By: #### 5 7021-8 #### [facility] CLIA [id number] [address] [place] [address] [facility] Differential cell count method Nom (Bld) Auto Normal [facility] Comment on above: Order Comment: Speci men Type: BLOOD SPECIMEN Ordering Facility: [facility] Address: [address] [place] [address] Performed By: #### 5 7021-8 #### [facility] CLIA [id number] [address] [place] [address] [place] Eosinophils (Bld) [#/Vol] 0.09 10*3/uL Normal <0.46 [facility] Comment on above: Order Comment: Speci men Type: BLOOD SPECIMEN Ordering Facility: [facility] Address: [address] [place] [address] Performed By: #### 5 7021-8 #### [facility] CLIA [id number] [address] [place] [address] [place] Eosinophils/100 WBC (Bld) 1.2 % Normal [facility] Comment on above: Order Comment: Speci men Type: BLOOD SPECIMEN Ordering Facility: [facility] Address: [address] [place] [address] Performed By: #### 5 7021-8 #### [facility] CLIA [id number] [address] [place] [address] [place] Erythrocyte distribution width (RBC) [Ratio] 12.3 % Normal 11.5-15.0 [facility] Comment on above: Order Comment: Speci men Type: BLOOD SPECIMEN Ordering Facility: [facility] Address: [address] [place] [address] Performed By: #### 5 7021-8 #### [facility] CLIA [id number] [address] [place] [address] [place] Hematocrit (Bld) [Volume fraction] 40.1 % Normal 36.0-46.0 [facility] Comment on above: Order Comment: Speci men Type: BLOOD SPECIMEN Ordering Facility: [facility] Address: [address] [place] [address] Performed By: #### 5 7021-8 #### [facility] CLIA [id number] [address] [place] [address] [place] Hemoglobin (Bld) [Mass/Vol] 13.5 g/dL Normal 11.5-15.5 [facility] Comment on above: Order Comment: Speci men Type: BLOOD SPECIMEN Ordering Facility: [facility] Address: [address] [place] [address] Performed By: #### 5 7021-8 #### [facility] CLIA [id number] [address] [place] [address] [place] Immature granulocytes (Bld) [#/Vol] 10*3/uL Normal <0.10 [facility] Comment on above: Order Comment: Speci men Type: BLOOD SPECIMEN Ordering Facility: [facility] Address: [address] [place] [address] Performed By: #### 5 7021-8 #### [facility] CLIA [id number] [address] [place] [address] [place] Immature granulocytes/100 WBC (Bld) 0.3 % Normal [facility] Comment on above: Order Comment: Speci men Type: BLOOD SPECIMEN Ordering Facility: [facility] Address: [address] [place] [address] Performed By: #### 5 7021-8 #### [facility] CLIA [id number] [address] [place] [address] [place] Lymphocytes (Bld) [#/Vol] 2.49 10*3/uL Normal 1.00-4.00 [facility] Comment on above: Order Comment: Speci men Type: BLOOD SPECIMEN Ordering Facility: [facility] Address: [address] [place] [address] Performed By: #### 5 7021-8 #### [facility] CLIA [id number] [address] [place] [address] [place] Lymphocytes/100 WBC (Bld) 33.2 % Normal [facility] Comment on above: Order Comment: Speci men Type: BLOOD SPECIMEN Ordering Facility: [facility] Address: [address] [place] [address] Performed By: #### 5 7021-8 #### [facility] CLIA [id number] [address] [place] [address] [place] MCH (RBC) [Entitic mass] 30.5 pg Normal 26.0-34.0 [facility] Comment on above: Order Comment: Speci men Type: BLOOD SPECIMEN Ordering Facility: [facility] Address: [address] [place] [address] Performed By: #### 5 7021-8 #### [facility] CLIA [id number] [address] [place] [address] [place] MCHC (RBC) [Mass/Vol] 33.7 g/dL Normal 30.5-36.0 [facility] Comment on above: Order Comment: Speci men Type: BLOOD SPECIMEN Ordering Facility: [facility] Address: [address] [place] [address] Performed By: #### 5 7021-8 #### [facility] CLIA [id number] [address] [place] [address] [place] MCV (RBC) [Entitic vol] 90.5 fL Normal 80.0-100.0 [facility] Comment on above: Order Comment: Speci men Type: BLOOD SPECIMEN Ordering Facility: [facility] Address: [address] [place] [address] Performed By: #### 5 7021-8 #### [facility] CLIA [id number] [address] [place] [address] [place] Monocytes (Bld) [#/Vol] 0.55 10*3/uL Normal <0.87 [facility] Comment on above: Order Comment: Speci men Type: BLOOD SPECIMEN Ordering Facility: [facility] Address: [address] [place] [address] Performed By: #### 5 7021-8 #### [facility] CLIA [id number] [address] [place] [address] [place] Monocytes/100 WBC (Bld) 7.3 % Normal [facility] Comment on above: Order Comment: Speci men Type: BLOOD SPECIMEN Ordering Facility: [facility] Address: [address] [place] [address] Performed By: #### 5 7021-8 #### [facility] CLIA [id number] [address] [place] [address] [place] Neutrophils (Bld) [#/Vol] 4.27 10*3/uL Normal 1.45-7.50 [facility] Comment on above: Order Comment: Speci men Type: BLOOD SPECIMEN Ordering Facility: [facility] Address: [address] [place] [address] Performed By: #### 5 7021-8 #### [facility] CLIA [id number] [address] [place] [address] [place] Neutrophils/100 WBC (Bld) 57.1 % Normal [facility] Comment on above: Order Comment: Speci men Type: BLOOD SPECIMEN Ordering Facility: [facility] Address: [address] [place] [address] Performed By: #### 5 7021-8 #### [facility] CLIA [id number] [address] [place] [address] [place] Nucleated RBC (Bld) [#/Vol] 10*3/uL Normal <0.01 [facility] Comment on above: Order Comment: Speci men Type: BLOOD SPECIMEN Ordering Facility: [facility] Address: [address] [place] [address] Performed By: #### 5 7021-8 #### [facility] CLIA [id number] [address] [place] [address] [place] Nucleated RBC/100 WBC (Bld) [Ratio] 0.0 /100 WBC Normal [facility] Comment on above: Order Comment: Speci men Type: BLOOD SPECIMEN Ordering Facility: [facility] Address: [address] [place] [address] Performed By: #### 5 7021-8 #### [facility] CLIA [id number] [address] [place] [address] [place] Platelet mean volume (Bld) [Entitic vol] 9.2 fL Normal 9.0-12.7 [facility] Comment on above: Order Comment: Speci men Type: BLOOD SPECIMEN Ordering Facility: [facility] Address: [address] [place] [address] Performed By: #### 5 7021-8 #### [facility] CLIA [id number] [address] [place] [address] [place] Platelets (Bld) [#/Vol] 317 10*3/uL Normal 150-400 [facility] Comment on above: Order Comment: Speci men Type: BLOOD SPECIMEN Ordering Facility: [facility] Address: [address] [place] [address] Performed By: #### 5 7021-8 #### [facility] CLIA [id number] [address] [place] [address] [place] RBC (Bld) [#/Vol] 4.43 10*6/uL Normal 3.90-5.20 [facility] Comment on above: Order Comment: Speci men Type: BLOOD SPECIMEN Ordering Facility: [facility] Address: [address] [place] [address] Performed By: #### 5 7021-8 #### [facility] CLIA [id number] [address] [place] [address] [place] WBC (Bld) [#/Vol] 7.49 10*3/uL Normal 3.70-11.00 [facility] Comment on above: Order Comment: Speci men Type: BLOOD SPECIMEN Ordering Facility: [facility] Address: [address] [place] [address] Performed By: #### 5 7021-8 #### [facility] CLIA [id number] [address] [place], [place] [address] [facility] [place] Comprehensive metabolic 2000 panelon 09-12-2023 Albumin [Mass/Vol] 4.1 g/dL Normal 3.2-5.0 [facility] Comment on above: Order Comment: Speci men Type: BLOOD SPECIMEN Ordering Facility: [facility] Address: [address] [place] [address] Performed By: #### 2 4323-8, 3040-3, 22340-5 #### [facility] CLIA [id number] [address] [place], [place] [address] [place] ALP [Catalytic activity/Vol] 118 U/L High 45-117 [facility] Comment on above: Order Comment: Sharon duncan Type: BLOOD SPECIMEN Ordering Facility: [facility] Address: [address] [place] [address] Performed By: #### 2 4323-8, 3039-3, #### [facility] CLIA [id number] [address] [place] [address] [place] ALT [Catalytic activity/Vol] 21 U/L Normal 13-61 [facility] Comment on above: Order Comment: Vincenti men Type: BLOOD SPECIMEN Ordering Facility: [facility] Address: [address] [place] [address] Result Comment: Resu lts may be falsely depressed after the administration of Sulfasalazine and/or Sulfapyridine. Performed By: #### 2 4323-8, 3, #### [facility] CLIA [id number] [address] [place], [place] [address] [place] Anion gap [Moles/Vol] 9 mmol/L Normal 5-16 [facility] Comment on above: Order Comment: Vincenti perla Type: BLOOD SPECIMEN Ordering Facility: [facility] Address: [address] [place] [address] Performed By: #### 2 4323-8, 3, #### [facility] CLIA [id number] [address] [place] [address] [place] AST [Catalytic activity/Vol] 21 U/L Normal 8-34 [facility] Comment on above: Order Comment: Sharon duncan Type: BLOOD SPECIMEN Ordering Facility: [facility] Address: [address] [place] [address] Result Comment: Resu lts may be falsely depressed after the administration of Sulfasalazine and/or Sulfapyridine. Performed By: #### 2 4323-8, 3039-3, #### [facility] CLIA [id number] [address] [place] [address] [place] Bilirubin [Mass/Vol] 0.6 mg/dL Normal 0.2-1.0 [facility] Comment on above: Order Comment: Speci men Type: BLOOD SPECIMEN Ordering Facility: [facility] Address: [address] [place] [id number] Performed By: #### 2 4323-8, 3039-3, #### [facility] CLIA [id number] [address] [place] [address] [place] Calcium [Mass/Vol] 9.3 mg/dL Normal 8.5-10.5 [facility] Comment on above: Order Comment: Speci men Type: BLOOD SPECIMEN Ordering Facility: [facility] Address: [address] [place] [address] Performed By: #### 2 4323-8, 3, #### [facility] CLIA [id number] [address] [place], [place] [address] [place] Chloride [Moles/Vol] 107 mmol/L Normal 98-107 [facility] Comment on above: Order Comment: Speci men Type: BLOOD SPECIMEN Ordering Facility: [facility] Address: [address] [place] [address] Performed By: #### 2 4323-8, 3, #### [facility] CLIA [id number] [address] [place], [place] [address] [place] CO2 [Moles/Vol] 24 mmol/L Normal 21-32 [facility] Comment on above: Order Comment: Speci men Type: BLOOD SPECIMEN Ordering Facility: [facility] Address: [address] [place] [address] Performed By: #### 2 4323-8, 3, #### [facility] CLIA [id number] [address] [place], [place] [address] [place] Creatinine [Mass/Vol] 0.66 mg/dL Normal 0.51-0.95 [facility] Comment on above: Order Comment: Speci men Type: BLOOD SPECIMEN Ordering Facility: [facility] Address: [address] [place] [address] Result Comment: Taryn ents receiving either N-Acetylcysteine (NAC) or Metamizole prior to venipuncture, may have falsely depressed results. Performed By: #### 2 4323-8, 3040-3, #### [facility] CLIA [id number] [address] [place], [place] [address] [place] Creatinine and Glomerular filtration rate.predicted panel (S/P/Bld) 123 mL/min/1.73m??? Normal >=60 [facility] Comment on above: Order Comment: Sharon duncan Type: BLOOD SPECIMEN Ordering Facility: [facility] Address: [address] [place], [place] [id number] Result Comment: Zayda mated Glomerular Filtration Rate (eGFR) is calculated using the 2020 CKD-EPI creatinine equation. This equation utilizes serum creatinine, sex, and age as parameters. The creatinine assay has traceable calibration to isotope dilution-mass spectrometry. Refer to KDIGO guidelines for clinical interpretation. In patients with unstable renal function, e.g. those with acute kidney injury, the eGFR may not accurately reflect actual GFR. Performed By: #### 2 4323-8, 3040-3, 26045-2 #### [facility] CLIA [id number] [address] [place], [place] [address] [place] Glucose [Mass/Vol] 99 mg/dL Normal 70-100 [facility] Comment on above: Order Comment: Sharon duncan Type: BLOOD SPECIMEN Ordering Facility: [facility] Address: [address] [place] [place] [id number] Result Comment: The [place] [employer] (ADA) provides guidance for cutoff values for fasting glucose and random glucose. The ADA defines fasting as no caloric intake for at least 8 hours. Fasting plasma glucose results between 100 to 125 mg/dL indicate increased risk for diabetes (prediabetes). Fasting plasma glucose results greater than or equal to 126 mg/dL meet the criteria for diagnosis of diabetes. In the absence of unequivocal hyperglycemia, results should be confirmed by repeat testing. In a patient with classic symptoms of hyperglycemia or hyperglycemic crisis, random plasma glucose results greater than or equal to 200 mg/dL meet the criteria for diagnosis of diabetes. Reference: Standards of Medical Care in Diabetes 2016, [place] [employer]. Diabetes Care. 2016.39(Suppl 1). Results may be falsely elevated after the administration of Sulfapyridine. Results may be falsely depressed after the administration of Sulfasalazine. Performed By: #### 2 4323-8, 3039-3, #### [facility] CLIA [id number] [address] [place], [place] [address] [place] Potassium [Moles/Vol] 3.6 mmol/L Normal 3.5-5.1 [facility] Comment on above: Order Comment: Speci men Type: BLOOD SPECIMEN Ordering Facility: [facility] Address: [address] [place], [place] [address] Performed By: #### 2 4323-8, 3039-3, #### [facility] CLIA [id number] [address] [place], [place] [address] [place] Protein [Mass/Vol] 7.5 g/dL Normal 6.0-8.5 [facility] Comment on above: Order Comment: Speci men Type: BLOOD SPECIMEN Ordering Facility: [facility] Address: [address] [place], [place] [address] Performed By: #### 2 4323-8, 3039-3, #### [facility] CLIA [id number] [address] [place], [place] [address] [place] Sodium [Moles/Vol] 140 mmol/L Normal 136-145 [facility] Comment on above: Order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 sacrum,, rami and left iliac wing are intact. No acute abnormality of the sacroiliac joints or symphysis pubis is seen. IMPRESSION: No evidence of acute bone trauma on limited evaluation. Report Dictated on Electronically Signed By: Gideon Fisher MD Electronically Signed Date/Time: 02/25/2023 10:56 AM EST [facility] Radiology Study observation (narrative) [facility] XR Shoulder - right 2 Viewso n 02-25-2023 Radiology Study observation (narrative) [facility] 1. Humeral diaphysis fracture as described in detail separately. 2. No evidence of other acute bone trauma on limited evaluation. Report Dictated on Electronically Signed By: Gideon Fisher MD Electronically Signed Date/Time: 02/25/2023 10:54 AM EST [facility] Patient Name: MARK BURTON : 1995 Exam Date/Time: 02/25/2023 11:06 Procedure: XR SHOULDER 2+ VIEWS RIGHT Ordering Provider: DAWSON KASSIDY Reason For Exam: right arm pain CLINICAL INFORMATION: Right shoulder pain following trauma. Right shoulder, single view, 1016: A single Grashey view redemonstrates the distal humeral diaphysis fracture described in detail on the report for the radiographs of the right humerus. There is no evidence of other acute fracture or humeral head dislocation. The glenohumeral joint is not well seen in profile. The acromiohumeral interval is well maintained. There is no visible acute abnormality of the acromioclavicular joint on limited evaluation. The clavicle, scapula and adjacent ribs appear to be intact on limited evaluation. [facility] Gideon Fisher MD - 02/25/2023 Patient Name: MARK [facility]REVINO : 1995 [id number] Exam Date/Time: 02/25/2023 11:06 Procedure: XR SHOULDER 2+ VIEWS RIGHT Ordering Provider: DAWSON KASSIDY Reason For Exam: right arm pain CLINICAL INFORMATION: Right shoulder pain following trauma. Right shoulder, single view, 1016: A single Grashey view redemonstrates the distal humeral diaphysis fracture described in detail on the report for the radiographs of the right humerus. There is no evidence of other acute fracture or humeral head dislocation. The glenohumeral joint is not well seen in profile. The acromiohumeral interval is well maintained. There is no visible acute abnormality of the acromioclavicular joint on limited evaluation. The clavicle, scapula and adjacent ribs appear to be intact on limited evaluation. IMPRESSION: 1. Humeral diaphysis fracture as described in detail separately. 2. No evidence of other acute bone trauma on limited evaluation. Report Dictated on Electronically Signed By: Gideon Fisher MD Electronically Signed Date/Time: 02/25/2023 10:54 AM [facility] XR FINGER 5TH DIGIT 3 VIEWS RIGHTon 02-18-2023 XR FINGER 5TH DIGIT 3 VIEWS RIGHT ORIGINAL EXAMINATION: THREE XRAY VIEWS OF THE RIGHT FINGERS 02/18/2023 6:35 pm COMPARISON: None. HISTORY: ORDERING SYSTEM PROVIDED HISTORY: Reason for Exam: evaluation for pain/injury FINDINGS: Joint spaces and articular surfaces are preserved and in gross anatomic alignment. There is no acute cortical discontinuity. Soft tissues are grossly within normal limits. There is no gross radiopaque foreign body. IMPRESSION: There is no acute fracture or dislocation. Interpreted by: Jasson Grossman Preliminary Report By: Jasson Grossman Electronically signed By Jasson Grossman Dictated Date: 02/18/2023 6:41:03 PM Prelim Date: 02/18/2023 6:47:21 PM Sign Date: 02/18/2023 6:47:21 PM Ordering Provider: RAMSEY CALDERÓN [facility] [place] HAND AND WRIST 6 VIEWS LE FTon 01-07-2023 XR HAND AND WRIST 6 VIEWS LEFT ORIGINAL EXAMINATION: 6 x-ray views of the left hand and the left wrist 01/07/2023 5:47 pm COMPARISON: None. HISTORY: ORDERING SYSTEM PROVIDED HISTORY: Reason for Exam: evaluation for pain/injury FINDINGS: No acute fracture or dislocation. The joint spaces are maintained. No radiopaque retained foreign body or appreciable soft tissue swelling. There is some dorsal soft tissue swelling at the wrist. IMPRESSION: Dorsal soft tissue swelling, no acute fracture seen. I have personally reviewed the images of this examination and agree with the resident's finding and interpretation. Interpreted by: Joseph Elmore MD Preliminary Report By: Sunil Quinones Electronically signed By Joseph Elmore MD Dictated Date: 01/07/2023 5:49:40 PM Prelim Date: 01/07/2023 5:52:31 PM Sign Date: 01/07/2023 5:58:22 PM Ordering Provider: VITA JAEGER [facility]) CT BRAIN W/O CONTRASTon 08-2 CT BRAIN W/O CONTRAST [place] [address] Patient: MARK TREVINO Phone#: : 1995 Age: 27 Gender: F Pt. Type: ER Account: [id number] Location: 052 Ordering: DR. FOREIGN HAM Exam Date: 10/29/2022/12:31 Family Phys: RENAE SANTOS Charge Code: [id number] Physician: Cooke Order #: [id number] Dose#: 57.5mGy PROCEDURE: CT BRAIN WITHOUT CONTRAST COMPARISON: None. INDICATIONS: Fall. TECHNIQUE: CT images were obtained without contrast material. All CT scans at this facility use dose modulation, iterative reconstruction, and/or weight based dosing when appropriate to reduce radiation dose to as low as reasonably achievable. IV CONTRAST: No IV contrast used,0ml TOTAL DOSE: 57.5 CTDIvol(mGy) FINDINGS: CEREBRUM: No edema, hemorrhage, mass, acute infarction, or inappropriate atrophy. CEREBELLUM: No edema, hemorrhage, mass, acute infarction, or inappropriate atrophy. BRAINSTEM: No edema, hemorrhage, mass, acute infarction, or inappropriate atrophy. CSF SPACES: Ventricles, cisterns, and sulci are appropriate for age. No hydrocephalus, subarachnoid hemorrhage, or mass. SKULL: No mass or other significant visible lesion. SINUSES: Limited views demonstrate no significant mucosal thickening or fluid. ORBITS: Limited views are unremarkable. OTHER: Negative. CONCLUSION: 1. There is no evidence of acute intracranial abnormality. Dictated by: Tina Frost MD on 10/29/2022 at 13:09 Approved by: Tina Frost MD on 10/29/2022 at 13:11 Normal [facility] CT CERVICAL W/O CONTRASTon 0 10-29-2022 CT CERVICAL W/O CONTRAST [place] [address] Patient: MARK TREVINO Phone#: : 1995 Age: 27 Gender: F Pt. Type: ER Account: [id number] Location: 2 Ordering: DR. FOREIGN HAM Exam Date: 10/29/2022/12:31 Family Phys: RENAE SANTOS Charge Code: [id number] Physician: Cooke Order #: [id number] Dose#: 6.4mGy PROCEDURE: CT CERVICAL WITHOUT CONTRAST COMPARISON: None. INDICATIONS: Neck pain. TECHNIQUE: Multi-planar CT images were created without intravenous contrast. All CT scans at this facility use dose modulation, iterative reconstruction, and/or weight-based dosing when appropriate to reduce radiation dose to as low as reasonably achievable. IV CONTRAST: No IV contrast used,0ml TOTAL DOSE: 6.4 CTDIvol(mGy) FINDINGS: CRANIOCERVICAL AREA: Normal foramen magnum with no Chiari malformation. PARASPINAL AREA: Normal with no visible mass. BONES: Surgical hardware is present at the upper thoracic levels. CERVICAL DISC LEVELS: C2-C3: No significant disc/facet abnormality, spinal stenosis, or foraminal stenosis. C3-C4: Disc space narrowing is present. There is bony hypertrophy with bilateral foraminal narrowing. C4-C5: Disc space narrowing is present. There is bony hypertrophy with bilateral foraminal narrowing. C5-C6: Disc space narrowing is present. C6-C7: Disc space narrowing is present. Bony hypertrophy is present with mild right foraminal narrowing. C7-T1: No significant disc/facet abnormality, spinal stenosis, or foraminal stenosis. CONCLUSION: 1. Degenerative changes of the spine are present. There is no evidence of acute fracture or subluxation. Continued Report - Page 2 of 2 Patient: MARK TREVINO Phone#: : 1995 Age: 27 Gender: F Pt. Type: ER Account: [id number] Location: 052 Ordering: DR. FOREIGN HAM Exam Date: 10/29/2022/12:31 Family Phys: RENAE SANTOS Charge Code: [id number] Physician: Cooke Order #: [id number] Dose#: 6.4mGy Dictated by: Tina Frost MD on 10/29/2022 at 13:11 Approved by: Tina Frost MD on 10/29/2022 at 13:14 Normal [facility] CT LUMBAR W/O CONTRASTon CT LUMBAR W/O CONTRAST [place] [address] Patient: MARK TREVINO Phone#: : 1995 Age: 27 Gender: F Pt. Type: ER Account: [id number] Location: 052 Ordering: DR. FOREIGN HAM Exam Date: 10/29/2022/12:35 Family Phys: RENAE SANTOS Charge Code: [id number] Physician: Cooke Order #: [id number] Dose#: 8.68mGy PROCEDURE: CT LUMBAR SPINE WITHOUT CONTRAST COMPARISON: None. INDICATIONS: Lower back pain. TECHNIQUE: After obtaining the patient's consent, multi-planar CT images were created without intravenous contrast material. All CT scans at this facility use dose modulation, iterative reconstruction, and/or weight based dosing when appropriate to reduce radiation dose to as low as reasonably achievable. IV CONTRAST: No IV contrast used,0ml TOTAL DOSE: 8.68 CTDIvol(mGy) FINDINGS: PARASPINAL AREA: Normal with no visible mass. BONES: No fracture, pars defect, or osseous lesion. LUMBAR DISC LEVELS: Surgical hardware is present at the lower thoracic, L1 and L2 levels. L1-L2: Disc space narrowing is present. There is no evidence of acute fracture. L2-L3: No significant disc/facet abnormality, spinal stenosis, or foraminal stenosis. L3-L4: Disc space narrowing is present. There is vacuum phenomenon. There is no evidence of acute bone abnormality. L4-L5: Disc space narrowing is present. There is vacuum phenomenon. There is no evidence of acute fracture. L5-S1: Disc space narrowing and vacuum phenomenon is present. There is no evidence of acute bone abnormality. CONCLUSION: 1. Surgical hardware is present at the L 1 and 2 levels. 2. Diffuse disc space narrowing is present. 3. There is no evidence of acute bone abnormality. Continued Report - Page 2 of 2 Patient: MARK TREVINO Phone#: : 1995 Age: 27 Gender: F Pt. Type: ER Account: [id number] Location: 052 Ordering: DR. FOREIGN HAM Exam Date: 10/29/2022/12:35 Family Phys: RENAE SANTOS Charge Code: [id number] Physician: Cooke Order #: [id number] Dose#: 8.68mGy Dictated by: Tina Frost MD on 10/29/2022 at 13:36 Approved by: Tina Frost MD on 10/29/2022 at 13:41 Normal [facility] URINEon 10-29-2022 Beta HCG ( test) Ql (U) Negative Normal NEGATIVE [facility] Comment on above: Performed By: #### 2 [id number] ####[facility],[address] [place] [address]3980 EXTERNAL QC DONE? YES Normal [facility] Comment on above: Performed By: #### 2 [id number] ####[facility],[address] [place] [address]276 INTERNAL QC PASS Normal [facility] Comment on above: Performed By: #### 2 35827 ####[facility],[address] [place] [address] 08092 URINALYSISon 10-29-2022 Bilirubin Ql (U) Negative Normal NORMAL: NEGATIVE [facility] Comment on above: Performed By: #### 2 [id number] #### [facility],[address] [place], [place] [id number] Clarity (U) clear Normal NORMAL: CLEAR [facility] Comment on above: Performed By: #### 2 30567 #### [facility],[address] [place] [address]352 Color (U) messi Normal NORMAL: YELLOW [facility] Comment on above: Performed By: #### 2 36675 #### [facility],[address] [place] [address] 92079 Glucose Ql (U) NORM Normal NORMAL: NORMAL [facility] Comment on above: Performed By: #### 2 84453 #### [facility],[address] [place] [address] 44600 Hemoglobin Ql (U) Negative Normal NORMAL: NEGATIVE [facility] Comment on above: Performed By: #### 2 80669 #### [facility],[address] [place] [address] 63317 Ketone Negative Normal NORMAL: NEGATIVE [facility] Comment on above: Performed By: #### 2 29188 #### [facility],[address] [place] [address] 07870 Leukocytes Negative Normal NORMAL: NEGATIVE [facility] Comment on above: Performed By: #### 2 23017 #### [facility],[address] [place], [place] [id number] Nitrite Ql (U) Negative Normal NORMAL: NEGATIVE [facility] Comment on above: Performed By: #### 2 13481 #### [facility],[address] [place] [address] pH (U) 6.5 [pH] Normal NORMAL: 5.0-8.0 [facility] Comment on above: Performed By: #### 2 49084 #### [facility],[address] [place] [address] Protein Ql (U) Negative Normal NORMAL: NEGATIVE [facility] Comment on above: Performed By: #### 2 85511 #### [facility],[address] [place] [address] Sp Caldwell 1.010 Normal NORMAL: 1.010-1.03 0 [facility] Comment on above: Performed By: #### 2 70837 #### [facility],[address] [place] [address] Specimen Type UNSPECIFIED Normal [facility] Comment on above: Performed By: #### 2 09010 #### [facility],[address] [place] [address] Urinalysis dipstick W Reflex Microscopic panel (U) NOT INDICATED Normal [facility] Comment on above: Performed By: #### 2 68324 #### [facility],[address] [place] [address] Urobilinog NORM Normal NORMAL: NORMAL [facility] Comment on above: Performed By: #### 2 34876 #### [facility],[address] [place], [place] [address] BASIC METABOLIC PANELon 10-0 Anion gap [Moles/Vol] 9 mmol/L 9 - 20 mmol/L [facility] Calcium [Mass/Vol] 8.4 mg/dL 8.4 - 10. 2 mg/dL [facility] Chloride [Moles/Vol] 111 mmol/L High 98 - 10 7 mmol/L [facility] CO2 [Moles/Vol] 23 mmol/L 22 - 30 mmol/L [facility] Creatinine [Mass/Vol] 0.70 mg/dL 0.52 - 1.04 mg/dL [facility] GFR/1.73 sq M.predicted CKD-EPI (S/P/Bld) [Vol rate/Area] >60 mL/min/1.7 3 square meters [facility] Comment on above: Stages of Chronic Ki dney Disease: >=60 ml/min Normal, or possible Stage 1 or 2 CKD if evidence of persistent proteinuria is present. 30-59 ml/min Stage 3: Moderate decrease in GFR 15-29 ml/min Stage 4: Severe decrease in GFR <15 ml/min Stage 5: Kidney failure Creatinine is standardized and traceable to an IDNJ reference method. The eGFR is calculated using the CKD-EPI 2020 equation. Glucose [Mass/Vol] 97 mg/dL 74 - 106 mg/dL [facility] Interpretation and review of laboratory results Abnormal [facility] Potassium [Moles/Vol] 3.3 mmol/L Low 3.5 - 5.1 mmol/L [facility] Sodium [Moles/Vol] 140 mmol/L 137 - 145 mmol/L [facility] Urea nitrogen [Mass/Vol] 9 mg/dL 7 - 18 mg/dL [facility] Urea/Creatinine [Mass ratio] 12.9 Ratio [facility] Basic Metabolic Profileon Anion gap [Moles/Vol] 9 mmol/L Normal 9-20 [facility] [place] Comment on above: Performed By: #### D ARMANDO [place], JUAN MANUEL, BASIC, MAG, MLIVER, LIP #### [facility] [address] [place], [place] [address] Karthikeyan Corral MD, PhD [phone] BUN/Creat Ratio 12.9 Ratio Normal [facility] [place] Comment on above: Performed By: #### D ARMANDO [place], JUAN MANUEL, BASIC, MAG, MLIVER, LIP #### [facility] [address] [place], [place] [address] Karthikeyan Corral MD, PhD [phone] Calcium [Mass/Vol] 8.4 mg/dL Normal 8.4-10.2 [facility] Comment on above: Performed By: #### D ARMANDO [place], MCBC, BASIC, MAG, MLIVER, LIP #### [facility] [address] [place], [place] [address] Karthikeyan Corral MD, PhD [phone] Chloride [Moles/Vol] 111 mmol/L High 98-107 [facility] [place] Comment on above: Performed By: #### D STANISLAV TROPSWATHI, MCBC, BASIC, MAG, MLIVER, LIP #### [facility] [address] [place], [place] [address] Karthikeyan Corral MD, PhD [phone] CO2 [Moles/Vol] 23 mmol/L Normal 22-30 [facility]) Comment on above: Performed By: #### ARMANDO GRAHAM, MCBC, BASIC, MAG, MLIVER, LIP #### [facility] [address] [place], [place] [address] Karthikeyan Corral MD, PhD [phone] Creatinine [Mass/Vol] 0.70 mg/dL Normal 0.52-1.04 [facility] [place] Comment on above: Performed By: #### D ARMANDO [place], MCBC, BASIC, MAG, MLIVER, LIP #### [facility] [address] [place], [place] [address] Karthikeyan Corral MD, PhD [phone] GFR Estimate >60 Normal [facility] [place] Comment on above: Result Comment: Stag es of Chronic Kidney Disease: >=60 ml/min Normal, or possible Stage 1 or 2 CKD if evidence of persistent proteinuria is present. 30-59 ml/min Stage 3: Moderate decrease in GFR 15-29 ml/min Stage 4: Severe decrease in GFR <15 ml/min Stage 5: Kidney failure Creatinine is standardized and traceable to an IDMS reference method. The eGFR is calculated using the CKD-EPI 2020 equation. Performed By: #### Sabrina [place] TROPSWATHI, MCBC, BASIC, MAG, MLIVER, LIP #### [facility] [address] [place] [address] Karthikeyan Corral MD, PhD [phone] Glucose [Mass/Vol] 97 mg/dL Normal 74-106 [facility] [place] Comment on above: Performed By: #### ARMANDO GRAHAM, MCBC, BASIC, MAG, MLIVER, LIP #### [facility] [address] [place] [address] Karthikeyan Corral MD, PhD [phone] Potassium [Moles/Vol] 3.3 mmol/L Low 3.5-5.1 [facility] [place] Comment on above: Performed By: #### ARMANDO GRAHAM, JUAN MANUEL, BASIC, MAG, MLIVER, LIP #### [facility] [address] [place] [address] Karthikeyan Corral MD, PhD [phone] Sodium [Moles/Vol] 140 mmol/L Normal 137-145 [facility] [place] Comment on above: Performed By: #### ARMANDO GRAHAM MCBC, BASIC, MAG, MLIVER, LIP #### [facility] [address] [place] [address] Karthikeyan Corral MD, PhD [phone] Urea nitrogen [Mass/Vol] 9 mg/dL Normal 7-18 [facility] [place] Comment on above: Performed By: #### ARMANDO GRAHAM, JESSEBC, BASIC, MAG, MLIVER, LIP #### [facility] [address] [place] [address] Karthikeyan Corral MD, PhD [phone] CBCon 12-10-2021 BA# 0.0 K/cmm Normal 0.0-0.1 [facility] [place] Comment on above: Performed By: #### ARMANDO GRHAAM, MCBC, BASIC, MAG, MLIVER, LIP #### [facility] [address] [place] [address] Karthikeyan Corral MD, PhD [phone] Basophils/100 WBC (Bld) 0.6 % Normal 0.0-1.0 [facility] [place] Comment on above: Performed By: #### ARMANDO GRAHAM, MCBC, BASIC, MAG, MLIVER, LIP #### [facility] [address] [place] [address] Karthikeyan Corral MD, PhD [phone] EO# 0.1 K/cmm Normal 0.0-0.4 [facility] [place] Comment on above: Performed By: #### ARMANDO GRAHAM MCBC, BASIC, MAG, MLIVER, LIP #### [facility] [address] [place] [address] Karthikeyan Corral MD, PhD [phone] Eosinophils/100 WBC (Bld) 1.1 % Normal 0.0-6.0 [facility] [place] Comment on above: Performed By: #### ARMANDO GRAHAM MCBC, BASIC, MAG, MLIVER, LIP #### [facility] [address] [place] [address] Karthikeyan Corral MD, PhD [phone] Erythrocyte distribution width (RBC) [Ratio] 13.7 % Normal 11.4-14.9 [facility] [place] Comment on above: Performed By: #### ARMANDO GRAHAM MCBC, BASIC, MAG, MLIVER, LIP #### [facility] [address] [place] [address] Karthikeyan Corral MD, PhD [phone] Hematocrit (Bld) [Volume fraction] 35.2 % Low 35.6-47.0 [facility] [place] Comment on above: Performed By: #### ARMANDO GRAHAM MCBC, BASIC, MAG, MLIVER, LIP #### [facility] [address] [place], [place] [id number] Karthikeyan Corral MD, PhD [phone] Hemoglobin (Bld) [Mass/Vol] 11.7 g/dL Normal 11.7-15.5 [facility] [place] Comment on above: Performed By: #### MARIANNE GRAHAMON, MCBC, BASIC, MAG, MLIVER, LIP #### [facility] [address] [place], [place] [address] Karthikeyan Corral MD, PhD [phone] IG# 0.04 K/cmm Normal 0.00-0.30 [facility] [place] Comment on above: Performed By: #### ARMANDO GRAHAM, MCBC, BASIC, MAG, MLIVER, LIP #### [facility] [address] [place], [place] [address] Karthikeyan Corral MD, PhD [phone] IG% 0.60 % High 0.00-0.37 [facility] [place] Comment on above: Performed By: #### ARMANDO GRAHAM, MCBC, BASIC, MAG, MLIVER, LIP #### [facility] [address] [place] [address] Karthikeyan Corral MD, PhD [phone] LY# 2.1 K/cmm Normal 1.0-3.2 [facility] ([place] Comment on above: Performed By: #### ARMANDO GRAHAM, MCBC, BASIC, MAG, MLIVER, LIP #### [facility] [address] [place] [address] Karthikeyan Corral MD, PhD [phone] Lymphocytes/100 WBC (Bld) 30.4 % Normal 18.0-48.0 [facility] ([place] Comment on above: Performed By: #### MARIANNE GRAHAMON, MCBC, BASIC, MAG, MLIVER, LIP #### [facility] [address] [place] [address] Karthikeyan Corral MD, PhD [phone] MCH (RBC) [Entitic mass] 31.5 pg Normal 26.8-32.5 [facility] ([place] Comment on above: Performed By: #### MARIANNE GRAHAMON, MCBC, BASIC, MAG, MLIVER, LIP #### [facility] [address], [place] [address] Karthikeyan Corral MD, PhD [phone] MCHC 33.2 % Normal 31.2-34.6 [facility] ([place] Comment on above: Performed By: #### ARMANDO GRAHAM, MCBC, BASIC, MAG, MLIVER, LIP #### [facility] [address], [place] [address] Karthikeyan Corral MD, PhD [phone] MCV (RBC) [Entitic vol] 94.9 fL Normal 82.0-98.2 [facility] ([place] Comment on above: Performed By: #### D ARMANDO COL[place]ADO, MCBC, BASIC, MAG, MLIVER, LIP #### [facility] [address] [place] [address] Karthikeyan Corral MD, PhD [phone] MO# 0.8 K/cmm Normal 0.3-0.8 [facility] ([place] Comment on above: Performed By: #### ARMANDO GRAHAM, MCBC, BASIC, MAG, MLIVER, LIP #### [facility] [address] [place] [address] Karthikeyan Corral MD, PhD [phone] Monocytes/100 WBC (Bld) 11.6 % Normal 4.0-14.0 [facility] ([place] Comment on above: Performed By: #### ARMANDO GRAHAM, MCBC, BASIC, MAG, MLIVER, LIP #### [facility] [address] [place] [address] Karthikeyan Corral MD, PhD [phone] NE# 3.9 K/cmm Normal 1.0-6.1 [facility] ([place] Comment on above: Performed By: #### ARMANDO GRAHAM, MCBC, BASIC, MAG, MLIVER, LIP #### [facility] [address] [place] [address] Karthikeyan Corral MD, PhD [phone] Neutrophils/100 WBC (Bld) 55.7 % Normal 37.0-71.0 [facility] ([place] Comment on above: Performed By: #### D MARIANNE COLORADOON, MCBC, BASIC, MAG, MLIVER, LIP #### [facility] [address], [place] [address] Karthikeyan Corral MD, PhD [phone] Platelet mean volume (Bld) [Entitic vol] 9.5 fL Normal 8.8-12.0 [facility] ([place] Comment on above: Performed By: #### D MARIANNE COLORADOON, MCBC, BASIC, MAG, MLIVER, LIP #### [facility] [address] [place] [address] Karthikeyan Corral MD, PhD [phone] PLT 317 thousand Normal 127-358 [facility] ([place] Comment on above: Performed By: #### ARMANDO GRAHAM, MCBC, BASIC, MAG, MLIVER, LIP #### [facility] [address] [address] Karthikeyan Corral MD, PhD [phone] RBC 3.71 M/cmm Low 3.99-5.18 [facility] ([place] Comment on above: Performed By: #### MARIANNE GRAHAMON, MCBC, BASIC, MAG, MLIVER, LIP #### [facility] [address] [address] Karthikeyan Corral MD, PhD [phone] WBC 7.0 K/cmm Normal 3.4-9.6 [facility] ([place] Comment on above: Performed By: #### MARIANNE GRAHAMON, MCBC, BASIC, MAG, MLIVER, LIP #### [facility] [address], [place] [address] Karthikeyan Corral MD, PhD [phone] CBC, EDIF, PLATELETon 2021 Basophils (Bld) [#/Vol] 0.0 10*3/uL [facility] Basophils/100 WBC (Bld) 0.6 % 0.0 - 1.0 % [facility] Eosinophils (Bld) [#/Vol] 0.1 10*3/uL [facility] Eosinophils/100 WBC (Bld) 1.1 % 0.0 - 6.0 % [facility] Erythrocyte distribution width (RBC) [Ratio] 13.7 % 11.4 - 14.9 % [facility] Hematocrit (Bld) [Volume fraction] 35.2 % Low 35.6 - 47.0 % [facility] Hemoglobin (Bld) [Mass/Vol] 11.7 g/dL 11.7 - 15.5 g/dl [facility] Immature granulocytes (Bld) [#/Vol] 0.04 10*3/uL [facility] Immature granulocytes/100 WBC (Bld) 0.60 % High 0.00 - 0.37 % [facility] Interpretation and review of laboratory results Abnormal [facility] Lymphocytes (Bld) [#/Vol] 2.1 10*3/uL [facility] Lymphocytes/100 WBC (Bld) 30.4 % 18.0 - 48.0 % [facility] MCH (RBC) [Entitic mass] 31.5 pg 26.8 - 32.5 pg [facility] MCHC (RBC) [Mass/Vol] 33.2 % 31.2 - 34.6 % [facility] MCV (RBC) [Entitic vol] 94.9 fL 82.0 - 98.2 fl [facility] Monocytes (Bld) [#/Vol] 0.8 10*3/uL [facility] Monocytes/100 WBC (Bld) 11.6 % 4.0 - 14.0 % [facility] Neutrophils (Bld) [#/Vol] 3.9 10*3/uL [facility] Neutrophils/100 WBC (Bld) 55.7 % 37.0 - 71.0 % [facility] Platelet mean volume (Bld) [Entitic vol] 9.5 fL 8.8 - 12.0 fl [facility] Platelets (Bld) [#/Vol] 317 10*3/uL [facility] RBC (Bld) [#/Vol] 3.71 10*6/uL Low [facility] WBC (Bld) [#/Vol] 7.0 10*3/uL [facility] CT HEAD WITHOUT CONTRASTon 1 CT HEAD WITHOUT CONTRAST EXAMINATION: CT OF THE HEAD WITHOUT CONTRAST 12/10/2021 7:39 am TECHNIQUE: CT of the head was performed without the administration of intravenous contrast. Automated exposure control, iterative reconstruction, and/or weight based adjustment of the mA/kV was utilized to reduce the radiation dose to as low as reasonably achievable. COMPARISON: None. HISTORY: HISTORY: Headache, vomiting; FINDINGS: BRAIN/VENTRICLES: There is no acute intracranial hemorrhage, mass effect or midline shift. No abnormal extra-axial fluid collection. The chester-white differentiation is maintained without evidence of an acute infarct. There is no evidence of hydrocephalus. ORBITS: The visualized portion of the orbits demonstrate no acute abnormality. SINUSES: The visualized paranasal sinuses and mastoid air cells demonstrate no acute abnormality. SOFT TISSUES/SKULL: No acute abnormality of the visualized skull or soft tissues. IMPRESSION: No acute intracranial abnormality. Normal [facility] ([place] Head WO contraston 2021 IMPRESSION: No acute intracranial abnormality. RADIOLOGY EXAMINATION: CT OF THE HEAD WITHOUT CONTRAST 12/10/2021 7:39 am TECHNIQUE: CT of the head was performed without the administration of intravenous contrast. Automated exposure control, iterative reconstruction, and/or weight based adjustment of the mA/kV was utilized to reduce the radiation dose to as low as reasonably achievable. COMPARISON: None. HISTORY: HISTORY: Headache, vomiting; FINDINGS: BRAIN/VENTRICLES: There is no acute intracranial hemorrhage, mass effect or midline shift. No abnormal extra-axial fluid collection. The chester-white differentiation is maintained without evidence of an acute infarct. There is no evidence of hydrocephalus. ORBITS: The visualized portion of the orbits demonstrate no acute abnormality. SINUSES: The visualized paranasal sinuses and mastoid air cells demonstrate no acute abnormality. SOFT TISSUES/SKULL: No acute abnormality of the visualized skull or soft tissues. RADIOLOGY Robel Padilla MD - 12/10/2021 EXAMINATION: CT OF THE HEAD WITHOUT CONTRAST 12/10/2021 7:39 am TECHNIQUE: CT of the head was performed without the administration of intravenous contrast. Automated exposure control, iterative reconstruction, and/or weight based adjustment of the mA/kV was utilized to reduce the radiation dose to as low as reasonably achievable. COMPARISON: None. HISTORY: HISTORY: Headache, vomiting; FINDINGS: BRAIN/VENTRICLES: There is no acute intracranial hemorrhage, mass effect or midline shift. No abnormal extra-axial fluid collection. The chester-white differentiation is maintained without evidence of an acute infarct. There is no evidence of hydrocephalus. ORBITS: The visualized portion of the orbits demonstrate no acute abnormality. SINUSES: The visualized paranasal sinuses and mastoid air cells demonstrate no acute abnormality. SOFT TISSUES/SKULL: No acute abnormality of the visualized skull or soft tissues. IMPRESSION IMPRESSION: No acute intracranial abnormality. [facility] About Us Radiology Study observation (narrative) [facility] CT Head WO contrastOrdered B y: Robel Padilla on 12-10-2021 [facility] Work Phone: SARS CoV 2 Molecular, Rapido n 12-10-2021 SARS-CoV-2 (COVID-19) RNA EROS+probe Ql (Unsp spec) Negative Normal Negative [facility] ([place]) Comment on above: Order Comment: Use r lynne, foam, polyester or flocked swabs to collect a nasopharyngeal specimen. After collection, fold over the open end of the collection sleeve and seal with patient lab label, double bag in biohazard bag, and transport to the lab LM, no later than 60 minutes from collection. Collection must be done while wearing N-95 mask, eye protection, gown and gloves. Result Comment: Your COVID test is NEGATIVE/NOT DETECTED. Contact your physician/provider if you have further concerns about symptoms that you may be having. You can also contact the COVID HOTLINE at [phone] Contact your employer/school regarding return to work/school instructions if necessary Even if you have tested negative, if a family member or someone that lives with you in the same house has tested POSITIVE then you should continue to quarantine for 14 days from the last day you were in close contact with that person. For further instructions regarding isolation/quarantine visit the [employer] web page or CDC web page. [email or web address] https://www.cdc.govCorrelation study-DO NOT report this isolate. on-ncov/ev-ubh-eij-sick/quarantine.html?fbclid=[id number] Negative results should be treated as presumptive and, if inconsistent with clinical signs and symptoms or necessary for patient management, should be tested with an alternative molecular assay. This test has been authorized by the FDA under an Emergency Use Authorization (EUA). This test is only authorized for the duration of the time of declaration that circumstances exist justifying the authorization of the emergency use of in vitro diagnostic testing for detection of the SARS-CoV-2 virus and/or diagnosis of COVID-19 infection under section 564 (b)(1) of the Act, 21 U.S.C. 360nnn-3 (b)(1), unless the authorization is terminated or revoked sooner. https://www.fda.gov/media/409493/download Providers https://www.fda.gov/media/431857/download Patients Testing performed at [facility], [address] [place] [address] Performed By: #### S ARSCOV2 #### [facility] [address] [place] [address] Karthikeyan Corral MD, PhD [phone] SARS-COV-2 RAPIDon 2 SARS-CoV-2 (COVID-19) RdRp gene EROS+probe Ql (Resp) Negative Negative [facility] Comment on above: Your COVID test is N EGATIVE/NOT DETECTED. Contact your physician/provider if you have further concerns about symptoms that you may be having. You can also contact the COVID HOTLINE at [phone] Contact your employer/school regarding return to work/school instructions if necessary Even if you have tested negative, if a family member or someone that lives with you in the same house has tested POSITIVE then you should continue to quarantine for 14 days from the last day you were in close contact with that person. For further instructions regarding isolation/quarantine visit the [employer] web page or [facility] web page. [email or web address]-information https://www.cdc.govCorrelation study-DO NOT report this isolate. onavirus/2019-ncov/fy-myc-krc-sick/quarantine.html?fbclid=[id number] Negative results should be treated as presumptive and, if inconsistent with clinical signs and symptoms or necessary for patient management, should be tested with an alternative molecular assay. This test has been authorized by the FDA under an Emergency Use Authorization (EUA). This test is only authorized for the duration of the time of declaration that circumstances exist justifying the authorization of the emergency use of in vitro diagnostic testing for detection of the SARS-CoV-2 virus and/or diagnosis of COVID-19 infection under section 564 (b)(1) of the Act, 21 U.S.C. 360nnn-3 (b)(1), unless the authorization is terminated or revoked sooner. https://www.fda.gov/media/607577/download Providers https://www.fda.gov/media/908682/download Patients [place] [address] Use karson, foam, leanne yester or flocked swabs to collect a nasopharyngeal specimen. After collection, fold over the open end of the collection sleeve and seal with patient lab label, double bag in biohazard bag, and transport to the lab LM, no later than 60 minutes from collection. Collection must be done while wearing N-95 mask, eye protection, gown and gloves. [facility] - [facility]. [facility] No Panel Informationon 08-30 IMPRESSION: No acute osseous abnormality. No fracture. Moderate soft tissue swelling adjacent to the 5th metacarpophalangeal joint RADIOLOGY EXAMINATION: THREE XRAY VIEWS OF THE RIGHT HAND; THREE XRAY VIEWS OF THE RIGHT WRIST 08/30/2021 6:11 pm COMPARISON: None. HISTORY: HISTORY: Pt to ED with c/o right hand injury. Pt states she fell in her shower and hit her hand on the wall. Pt denies other injuries from fall. Pt also complains of pain in her right wrist. Pt has hx of osteoporosis. Swelling and bruising noted across top of ; hand. Pt took ibuprofen at home and has ice applied; Initial exam; lr; FINDINGS: Right ankle and right wrist: No acute fracture or dislocation is detected. The osseous structures are intact and properly aligned. No concerning lytic or sclerotic lesion is identified. The visualized joints appear unremarkable. There is moderate soft tissue swelling noted adjacent to the 5th metacarpophalangeal joint. RADIOLOGY Facundo Lepe MD - 08/30/2021 EXAMINATION: THREE XRAY VIEWS OF THE RIGHT HAND; THREE XRAY VIEWS OF THE RIGHT WRIST 08/30/2021 6:11 pm COMPARISON: None. HISTORY: HISTORY: Pt to ED with c/o right hand injury. Pt states she fell in her shower and hit her hand on the wall. Pt denies other injuries from fall. Pt also complains of pain in her right wrist. Pt has hx of osteoporosis. Swelling and bruising noted across top of ; hand. Pt took ibuprofen at home and has ice applied; Initial exam; lr; FINDINGS: Right ankle and right wrist: No acute fracture or dislocation is detected. The osseous structures are intact and properly aligned. No concerning lytic or sclerotic lesion is identified. The visualized joints appear unremarkable. There is moderate soft tissue swelling noted adjacent to the 5th metacarpophalangeal joint. IMPRESSION IMPRESSION: No acute osseous abnormality. No fracture. Moderate soft tissue swelling adjacent to the 5th metacarpophalangeal joint [employer] No Panel InformationOrdered By: Facundo Lepe on 08-30-2021 [employer] Work Phone: XR HAND RIGHT 3+ VIEWSon XR HAND RIGHT 3+ VIEWS EXAMINATION: THREE XRAY VIEWS OF THE RIGHT HAND; THREE XRAY VIEWS OF THE RIGHT WRIST 08/30/2021 6:11 pm COMPARISON: None. HISTORY: HISTORY: Pt to ED with c/o right hand injury. Pt states she fell in her shower and hit her hand on the wall. Pt denies other injuries from fall. Pt also complains of pain in her right wrist. Pt has hx of osteoporosis. Swelling and bruising noted across top of ; hand. Pt took ibuprofen at home and has ice applied; Initial exam; lr; FINDINGS: Right ankle and right wrist: No acute fracture or dislocation is detected. The osseous structures are intact and properly aligned. No concerning lytic or sclerotic lesion is identified. The visualized joints appear unremarkable. There is moderate soft tissue swelling noted adjacent to the 5th metacarpophalangeal joint. IMPRESSION: No acute osseous abnormality. No fracture. Moderate soft tissue swelling adjacent to the 5th metacarpophalangeal joint Normal [facility] [place] Hand - right 3 Viewson Radiology Study observation (narrative) [facility] XR WRIST RIGHT 3 VIEWSon XR WRIST RIGHT 3 VIEWS EXAMINATION: THREE XRAY VIEWS OF THE RIGHT HAND; THREE XRAY VIEWS OF THE RIGHT WRIST 08/30/2021 6:11 pm COMPARISON: None. HISTORY: HISTORY: Pt to ED with c/o right hand injury. Pt states she fell in her shower and hit her hand on the wall. Pt denies other injuries from fall. Pt also complains of pain in her right wrist. Pt has hx of osteoporosis. Swelling and bruising noted across top of ; hand. Pt took ibuprofen at home and has ice applied; Initial exam; lr; FINDINGS: Right ankle and right wrist: No acute fracture or dislocation is detected. The osseous structures are intact and properly aligned. No concerning lytic or sclerotic lesion is identified. The visualized joints appear unremarkable. There is moderate soft tissue swelling noted adjacent to the 5th metacarpophalangeal joint. IMPRESSION: No acute osseous abnormality. No fracture. Moderate soft tissue swelling adjacent to the 5th metacarpophalangeal joint Normal [facility] ([place] Wrist - right 3 Viewson 0 08-30-2021 Radiology Study observation (narrative) [facility] Basic Metabolic Profileon Anion gap [Moles/Vol] 14 mmol/L Normal 9-20 [facility] ([place] Comment on above: Performed By: #### D ARMANDO COLORADO, JESSEBC, BASIC, MAG, MLIVER, LIP #### [facility] [address], [place] [address] Karthikeyan Corral MD, PhD [phone] BUN/Creat Ratio 16.7 Ratio Normal [facility] ([place] Comment on above: Performed By: #### D ARMANDO [place], MCBC, BASIC, MAG, MLIVER, LIP #### [facility] [address], [place] [address] Karthikeyan Corral MD, PhD [phone] Calcium [Mass/Vol] 8.8 mg/dL Normal 8.4-10.2 [facility] ([place] Comment on above: Performed By: #### D ARMANDO [place]O, MCBC, BASIC, MAG, MLIVER, LIP #### [facility] [address], [place] [address] Karthikeyan Corral MD, PhD [phone] Chloride [Moles/Vol] 110 mmol/L High 98-107 [facility] ([place] Comment on above: Performed By: #### D ARMANDO COLORADO MCBC, BASIC, MAG, MLIVER, LIP #### [facility] [address], [place] [address] Karthikeyan Corral MD, PhD [phone] CO2 [Moles/Vol] 21 mmol/L Low 22-30 [facility]) Comment on above: Performed By: #### D ARMANDO [place]OR[place]O, MCBC, BASIC, MAG, MLIVER, LIP #### [facility] [address], [place] [address] Karthikeyan Corral MD, PhD [phone] Creatinine [Mass/Vol] 0.60 mg/dL Normal 0.52-1.04 [facility] ([place] Comment on above: Performed By: #### D ARMANDO [place], JUAN MANUEL, BASIC, MAG, MLIVER, LIP #### [facility] [address], [place] [address] Karthikeyan Corral MD, PhD [phone] GFR Estimate >60 Normal [facility] ([place] Comment on above: Result Comment: Stag es of Chronic Kidney Disease: >=60 ml/min Normal, or possible Stage 1 or 2 CKD if evidence of persistent proteinuria is present. 30-59 ml/min Stage 3: Moderate decrease in GFR 15-29 ml/min Stage 4: Severe decrease in GFR <15 ml/min Stage 5: Kidney failure Creatinine is standardized and traceable to an IDMS reference method. Performed By: #### D STANISLAV, TROPON, MCBC, BASIC, MAG, MLIVER, LIP #### [facility] [address] [address] Karthikeyan Corral MD, PhD [phone] Glucose [Mass/Vol] 98 mg/dL Normal 74-106 [facility] ([place] Comment on above: Performed By: #### D STANISLAV TROPON, MCBC, BASIC, MAG, MLIVER, LIP #### [facility] [address] [address] Karthikeyan Corral MD, PhD [phone] Potassium [Moles/Vol] 3.8 mmol/L Normal 3.5-5.1 [facility] ([place] Comment on above: Performed By: #### D STANISLAV, TROPON, MCBC, BASIC, MAG, MLIVER, LIP #### [facility] [address] [place] [address] Karthikeyan Corral MD, PhD [phone] Sodium [Moles/Vol] 141 mmol/L Normal 137-145 [facility] ([place] Comment on above: Performed By: #### D STANISLAVMARIANNEON, MCBC, BASIC, MAG, MLIVER, LIP #### [facility] [address] [place] [address] Karthikeyan Corral MD, PhD [phone] Urea nitrogen [Mass/Vol] 10 mg/dL Normal 7-18 [facility] ([place] Comment on above: Performed By: #### D STANISLAV TROPON, MCBC, BASIC, MAG, MLIVER, LIP #### [facility] [address] [place] [address] Karthikeyan Corral MD, PhD [phone] C-Reactive Proteinon 022 C-Reactive Protein 0.8 mg/dL Normal <1.0 [facility] ([place] Comment on above: Performed By: #### D STANISLAV TROPON, MCBC, BASIC, MAG, MLIVER, LIP #### [facility] [address] [address] Karthikeyan Corral MD, PhD [phone] CBCon 08-29-2021 BA# 0.1 K/cmm Normal 0.0-0.1 [facility] ([place] Comment on above: Performed By: #### ARMANDO GRAHAM, MCBC, BASIC, MAG, MLIVER, LIP #### [facility] [address] [address] Karthikeyan Corral MD, PhD [phone] Basophils/100 WBC (Bld) 0.5 % Normal 0.0-1.0 [facility] ([place] Comment on above: Performed By: #### ARMANDO GRAHAM, MCBC, BASIC, MAG, MLIVER, LIP #### [facility] [address] [place] [address] Karthikeyan Corral MD, PhD [phone] EO# 0.1 K/cmm Normal 0.0-0.4 [facility] ([place] Comment on above: Performed By: #### ARMANDO GRAHAM, MCBC, BASIC, MAG, MLIVER, LIP #### [facility] [address] [place] [address] Karthikeyan Corral MD, PhD [phone] Eosinophils/100 WBC (Bld) 0.9 % Normal 0.0-6.0 [facility] ([place] Comment on above: Performed By: #### ARMANDO GRAAHM, MCBC, BASIC, MAG, MLIVER, LIP #### [facility] [address] [place] [address] Karthikeyan Corral MD, PhD [phone] Erythrocyte distribution width (RBC) [Ratio] 11.9 % Normal 11.4-14.9 [facility] ([place] Comment on above: Performed By: #### Sabrina STANISLAVARMANDO, MCBC, BASIC, MAG, MLIVER, LIP #### [facility] [address] [place] [address] Karthikeyan Corral MD, PhD [phone] Hematocrit (Bld) [Volume fraction] 40.2 % Normal 35.6-47.0 [facility] ([place] Comment on above: Performed By: #### ARMANDO GRAHAM MCBC, BASIC, MAG, MLIVER, LIP #### [facility] [address] [place] [address] Karthikeyan Corral MD, PhD [phone] Hemoglobin (Bld) [Mass/Vol] 13.6 g/dL Normal 11.7-15.5 [facility] ([place] Comment on above: Performed By: #### ARMANDO GRAHAM MCBC, BASIC, MAG, MLIVER, LIP #### [facility] [address] [place] [address] Karthikeyan Corral MD, PhD [phone] IG# 0.01 K/cmm Normal 0.00-0.30 [facility] ([place] Comment on above: Performed By: #### ARMANDO GRAHAM MCBC, BASIC, MAG, MLIVER, LIP #### [facility] [address] [place] [address] Karthikeyan Corral MD, PhD [phone] IG% 0.10 % Normal 0.00-0.37 [facility] [place] Comment on above: Performed By: #### ARMANDO GRAHAM MCBC, BASIC, MAG, MLIVER, LIP #### [facility] [address] [place] [address] Karthikeyan Corral MD, PhD [phone] LY# 2.3 K/cmm Normal 1.0-3.2 [facility] ([place] Comment on above: Performed By: #### ARMANDO GRAHAM MCBC, BASIC, MAG, MLIVER, LIP #### [facility] [address] [place] [address] Karthikeyan Corral MD, PhD [phone] Lymphocytes/100 WBC (Bld) 25.0 % Normal 18.0-48.0 [facility] [place] Comment on above: Performed By: #### Sabrina COL[place]ADO TROPON, MCBC, BASIC, MAG, MLIVER, LIP #### [facility] [address], [place] [address] Karthikeyan Corral MD, PhD [phone] MCH (RBC) [Entitic mass] 30.8 pg Normal 26.8-32.5 [facility] [place] Comment on above: Performed By: #### D ARMANDO [place], MCBC, BASIC, MAG, MLIVER, LIP #### [facility] [address] [place], [place] [address] Karthikeyan Corral MD, PhD [phone] MCHC 33.8 % Normal 31.2-34.6 [facility] [place] Comment on above: Performed By: #### ARMANDO GRAHAM, MCBC, BASIC, MAG, MLIVER, LIP #### [facility] [address], [place] [address] Karthikeyan Corral MD, PhD [phone] MCV (RBC) [Entitic vol] 91.0 fL Normal 82.0-98.2 [facility] [place] Comment on above: Performed By: #### ARMANDO GRAHAM, MCBC, BASIC, MAG, MLIVER, LIP #### [facility] [address] [place] [address] Karthikeyan Corral MD, PhD [phone] MO# 0.8 K/cmm Normal 0.3-0.8 [facility] ([place] Comment on above: Performed By: #### Sabrina STANISLAV TROPON, MCBC, BASIC, MAG, MLIVER, LIP #### [facility] [address], [place] [address] Karthikeyan Corral MD, PhD [phone] Monocytes/100 WBC (Bld) 8.7 % Normal 4.0-14.0 [facility] [place] Comment on above: Performed By: #### MARIANNE GRAHAMON, MCBC, BASIC, MAG, MLIVER, LIP #### [facility] [address], [place] [address] Karthikeyan Corral MD, PhD [phone] NE# 5.9 K/cmm Normal 1.0-6.1 [facility] [place] Comment on above: Performed By: #### ARMANDO GRAHAM, MCBC, BASIC, MAG, MLIVER, LIP #### [facility] [address], [place] [address] Karthikeyan Corral MD, PhD [phone] Neutrophils/100 WBC (Bld) 64.8 % Normal 37.0-71.0 [facility] [place] Comment on above: Performed By: #### ARMANDO GRAHAM, MCBC, BASIC, MAG, MLIVER, LIP #### [facility] [address] [place] [address] Karthikeyan Corral MD, PhD [phone] Platelet mean volume (Bld) [Entitic vol] 9.6 fL Normal 8.8-12.0 [facility] [place] Comment on above: Performed By: #### ARMANDO GRAHAM, MCBC, BASIC, MAG, MLIVER, LIP #### [facility] [address] [place], [place] [id number] Karthikeyan Corral MD, PhD [phone] PLT 337 thousand Normal 127-358 [facility] ([place] Comment on above: Performed By: #### ARMANDO GRAHAM, MCBC, BASIC, MAG, MLIVER, LIP #### [facility] [address] [place], [place] [address] Karthikeyan Corral MD, PhD [phone] RBC 4.42 M/cmm Normal 3.99-5.18 [facility] [place] Comment on above: Performed By: #### ARMANDO GRAHAM, MCBC, BASIC, MAG, MLIVER, LIP #### [facility] [address] [place], [place] [address] Karthikeyan Corral MD, PhD [phone] WBC 9.2 K/cmm Normal 3.4-9.6 [facility] [place] Comment on above: Performed By: #### D STANISLAV, TROPON, MCBC, BASIC, MAG, MLIVER, LIP #### [facility] [address] [place] [address] Karthikeyan Corral MD, PhD [phone] D-Dimeron 08-29-2021 D-Dimer 0.33 mg/L FEU Normal <0.50 [facility]) Comment on above: Result Comment: Clin ical cutoff: 0.50 mg/L FEU D-dimer may be used in conjunction with a non-high pretest probability assessment model to exclude PE and DVT. Results should always be interpreted in conjunction with patient's medical history, clinical presentation and other findings. Performed By: #### D STANISLAV, TROPON, MCBC, BASIC, MAG, MLIVER, LIP #### [facility] [address] [place] [address] Karthikeyan Corral MD, PhD [phone] Lipaseon 08-29-2021 Lipase [Catalytic activity/Vol] 134 U/L Normal 23-300 [facility] [place]) Comment on above: Performed By: #### D STANISLAV TROPON, MCBC, BASIC, MAG, MLIVER, LIP #### [facility] [address] [place] [address] Karthikeyan Corral MD, PhD [phone] Liver Panelon 08-29-2021 Albumin [Mass/Vol] 4.7 g/dL Normal 3.5-5.0 [facility] [place] Comment on above: Performed By: #### Sabrina STANISLAV TROPON, MCBC, BASIC, MAG, MLIVER, LIP #### [facility] [address] [place] [address] Karthikeyan Corral MD, PhD [phone] Albumin/Globulin [Mass ratio] 1.4 {ratio} Normal [facility] [place]) Comment on above: Performed By: #### Sabrina STANISLAV, TROPON, MCBC, BASIC, MAG, MLIVER, LIP #### [facility] [address] [place], [place] [address] Karthikeyan Corral MD, PhD [phone] Alkaline Phos 129 U/L High 38-126 [facility] ([place] Comment on above: Performed By: #### ARMANDO GRAHAM, MCBC, BASIC, MAG, MLIVER, LIP #### [facility] [address] [place], [place] [address] Karthikeyan Corral MD, PhD [phone] ALT [Catalytic activity/Vol] 17 U/L Normal <35 [facility] ([place] Comment on above: Performed By: #### ARMANDO GRAHAM, MCJENN, BASIC, MAG, MLIVER, LIP #### [facility] [address] [place], [place] [address] Karthikeyan Corral MD, PhD [phone] AST [Catalytic activity/Vol] 23 U/L Normal 14-44 [facility] ([place] Comment on above: Performed By: #### ARMANDO GRAHAM, MCBC, BASIC, MAG, MLIVER, LIP #### [facility] [address] [place] [address] Karthikeyan Corral MD, PhD [phone] Bilirubin [Mass/Vol] 0.4 mg/dL Normal 0.2-1.3 [facility] [place] Comment on above: Performed By: #### ARMANDO GRAHAM MCBC, BASIC, MAG, MLIVER, LIP #### [facility] [address] [place] [address] Karthikeyan Corral MD, PhD [phone] Bilirubin.direct [Mass/Vol] 0.2 mg/dL Normal 0.0-0.4 [facility] ([place] Comment on above: Performed By: #### ARMANDO GRAHAM, MCBC, BASIC, MAG, MLIVER, LIP #### [facility] [address] [place] [address] Karthikeyan Corral MD, PhD [phone] Bilirubin.indirect [Mass/Vol] 0.2 mg/dL Normal 0.0-1.1 [facility] ([place] Comment on above: Performed By: #### D STANISLAV, TROPSWATHI, MCBC, BASIC, MAG, MLIVER, LIP #### [facility] [address] [place], [place] [address] Karthikeyan Corral MD, PhD [phone] Globulin (S) [Mass/Vol] 3.3 g/dL Normal 2.3-3.5 [facility] ([place] Comment on above: Performed By: #### D STANISLAV TROPON, MCBC, BASIC, MAG, MLIVER, LIP #### [facility] [address] [place], [place] [address] Karthikeyan Corral MD, PhD [phone] Protein [Mass/Vol] 8.0 g/dL Normal 6.3-8.2 [facility] ([place] Comment on above: Performed By: #### D ARMANDO [place], MCBC, BASIC, MAG, MLIVER, LIP #### [facility] [address] [place] [address] Karthikeyan Corral MD, PhD [phone] Magnesiumon 08-29-2021 Magnesium [Mass/Vol] 2.7 mg/dL High 1.6-2.3 [facility] ([place] Comment on above: Performed By: #### ARMANDO GRAHAM, MCBC, BASIC, MAG, MLIVER, LIP #### [facility] [address] [place] [address] Karthikeyan Corral MD, PhD [phone] SARS CoV 2 Molecular, Rapido n 08-29-2021 SARS-CoV-2 (COVID-19) RNA EROS+probe Ql (Unsp spec) Negative Normal Negative [facility] ([place] Comment on above: Order Comment: Use r lynne, foam, polyester or flocked swabs to collect a nasopharyngealspecimen. After collection, fold over the open end of the collectionsleeve and seal with patient lab label, double bag in biohazard bag, andtransport to the lab LM, no later than 60 minutes from collection.Collection must be done while wearing N-95 mask, eye protection, gown andgloves. Result Comment: Your COVID test is NEGATIVE/NOT DETECTED. Contact your physician/provider if you have further concerns about symptoms that you may be having. You can also contact the COVID HOTLINE at [phone] Contact your employer/school regarding return to work/school instructions if necessary Even if you have tested negative, if a family member or someone that lives with you in the same house has tested POSITIVE then you should continue to quarantine for 14 days from the last day you were in close contact with that person. For further instructions regarding isolation/quarantine visit the [employer] web page or [facility] web page. [email or web address] https://www.cdc.govCorrelation study-DO NOT report this isolate. -[email or web address]/[email or web address]?fbclid=[email or web address] [id number] Negative results should be treated as presumptive and, if inconsistent with clinical signs and symptoms or necessary for patient management, should be tested with an alternative molecular assay. This test has been authorized by the FDA under an Emergency Use Authorization (EUA). This test is only authorized for the duration of the time of declaration that circumstances exist justifying the authorization of the emergency use of in vitro diagnostic testing for detection of the SARS-CoV-2 virus and/or diagnosis of COVID-19 infection under section 564 (b)(1) of the Act, 21 U.S.C. 360nnn-3 (b)(1), unless the authorization is terminated or revoked sooner. https://www.fda.gov/media/078353/download Providers https://www.fda.gov/media/766614/download Patients Testing performed at [facility], [address] [place] [address] Performed By: #### D STANISLAV, ARMANDO, MCBC, BASIC, MAG, MLIVER, LIP #### [facility] [address] [place] [address] Karthikeyan Corral MD, PhD [phone] Troponin Ion 08-29-2021 Troponin I.cardiac [Mass/Vol] ng/mL Normal <0.034 [facility] ([place] Comment on above: Result Comment: <0.0 34 ng/ml: Normal range 0.034-0.12 ng/ml: Indeterminate for AMI >0.12 ng/ml: High positive predictive value for AMI Interpretation of troponin values must be made in light of ECG changes, clinical symptoms, and serial troponin measurements. Performed By: #### D STANISLAV, TROPON, MCBC, BASIC, MAG, MLIVER, LIP #### [facility] [address] [place], [place] [address] Karthikeyan Corral MD, PhD [phone] XR CHEST AP PORTABLE EDon XR CHEST AP PORTABLE ED EXAMINATION: ONE XRAY VIEW OF THE CHEST 08/28/2021 10:40 pm COMPARISON: None. HISTORY: HISTORY: Patient's fiance states that about an hour prior to arrival patient was lying down and began coughing with chest pain and shortness of breath with an upset stomach. Emesis x1 prior to arrival. States hasn't had anything like this before. Also states ; she's been twitching and shaking since this episode. ; FINDINGS: Posterior marsha and screw fixation of the spine with scoliosis. External leads overlie the chest and metallic nipple studs. No endotracheal tube or central venous line. The left hemithorax has a mildly increased density compared to the right side but thought to be due to the soft tissue summation. The diaphragm and costophrenic angle are still well visualized. There is no focal consolidation seen within either lung. No pneumothorax is identified. Cardiomediastinal silhouette is not enlarged and there is no pulmonary vascular congestion. IMPRESSION: 1. Mildly increased density of the left hemithorax compared to the right is thought to be due to soft tissue summation rather than layering pleural effusion. Diaphragm and costophrenic angle are well visualized. 2. No sign pneumonia and no pulmonary vascular congestion. Normal [facility] ([place] BASIC METABOLIC PANELon 08-06 Anion gap [Moles/Vol] 14 mmol/L 9 - 20 mmol/L [facility] Calcium [Mass/Vol] 8.8 mg/dL 8.4 - 10. 2 mg/dL [facility] Chloride [Moles/Vol] 110 mmol/L High 98 - 10 7 mmol/L [facility] CO2 [Moles/Vol] 21 mmol/L Low 22 - 30 mmol/L [facility] Creatinine [Mass/Vol] 0.60 mg/dL 0.52 - 1.04 mg/dL [facility] GFR/1.73 sq M.predicted CKD-EPI (S/P/Bld) [Vol rate/Area] >60 mL/min/1.7 3 square meters [facility] Comment on above: Stages of Chronic Ki dney Disease: >=60 ml/min Normal, or possible Stage 1 or 2 CKD if evidence of persistent proteinuria is present. 30-59 ml/min Stage 3: Moderate decrease in GFR 15-29 ml/min Stage 4: Severe decrease in GFR <15 ml/min Stage 5: Kidney failure Creatinine is standardized and traceable to an IDNJ reference method. Glucose [Mass/Vol] 98 mg/dL 74 - 106 mg/dL [facility] Interpretation and review of laboratory results Abnormal [facility] Potassium [Moles/Vol] 3.8 mmol/L 3.5 - 5.1 mmol/L [facility] Sodium [Moles/Vol] 141 mmol/L 137 - 145 mmol/L [facility] Urea nitrogen [Mass/Vol] 10 mg/dL 7 - 18 mg/dL [facility] Urea/Creatinine [Mass ratio] 16.7 Ratio [facility] C REACTIVE PROTEINon 022 CRP [Mass/Vol] 0.8 mg/dL <1.0 [facility] CBC, EDIF, PLATELETon 2021 Basophils (Bld) [#/Vol] 0.1 10*3/uL [facility] Basophils/100 WBC (Bld) 0.5 % 0.0 - 1.0 % [facility] Eosinophils (Bld) [#/Vol] 0.1 10*3/uL [facility] Eosinophils/100 WBC (Bld) 0.9 % 0.0 - 6.0 % [facility] Erythrocyte distribution width (RBC) [Ratio] 11.9 % 11.4 - 14.9 % [facility] Hematocrit (Bld) [Volume fraction] 40.2 % 35.6 - 47.0 % [facility] Hemoglobin (Bld) [Mass/Vol] 13.6 g/dL 11.7 - 15.5 g/dl [facility] Immature granulocytes (Bld) [#/Vol] 0.01 10*3/uL [facility] Immature granulocytes/100 WBC (Bld) 0.10 % 0.00 - 0.37 % [facility] Lymphocytes (Bld) [#/Vol] 2.3 10*3/uL [facility] Lymphocytes/100 WBC (Bld) 25.0 % 18.0 - 48.0 % [facility] MCH (RBC) [Entitic mass] 30.8 pg 26.8 - 32.5 pg [facility] MCHC (RBC) [Mass/Vol] 33.8 % 31.2 - 34.6 % [facility] MCV (RBC) [Entitic vol] 91.0 fL 82.0 - 98.2 fl [facility] Monocytes (Bld) [#/Vol] 0.8 10*3/uL [facility] Monocytes/100 WBC (Bld) 8.7 % 4.0 - 14.0 % [facility] Neutrophils (Bld) [#/Vol] 5.9 10*3/uL [facility] Neutrophils/100 WBC (Bld) 64.8 % 37.0 - 71.0 % [facility] Platelet mean volume (Bld) [Entitic vol] 9.6 fL 8.8 - 12.0 fl [facility] Platelets (Bld) [#/Vol] 337 10*3/uL [facility] RBC (Bld) [#/Vol] 4.42 10*6/uL [facility] WBC (Bld) [#/Vol] 9.2 10*3/uL [facility] D-DIMER,QUANTITATIVEon 08-28 Fibrin D-dimer FEU (PPP) [Mass/Vol] 0.33 <0.50 mg/L U [facility] Comment on above: Clinical cutoff: 0.5 0 mg/L FEU D-dimer may be used in conjunction with a non-high pretest probability assessment model to exclude PE and DVT. Results should always be interpreted in conjunction with patient's medical history, clinical presentation and other findings. [facility] HEPATIC FUNCTION PANELon Albumin [Mass/Vol] 4.7 g/dL 3.5 - 5.0 g/dL [facility] Albumin/Globulin [Mass ratio] 1.4 {ratio} Ratio [facility] ALP [Catalytic activity/Vol] 129 U/L High 38 - 126 U/L [facility] ALT [Catalytic activity/Vol] 17 U/L <35 [facility] AST [Catalytic activity/Vol] 23 U/L 14 - 44 U/L [facility] Bilirubin [Mass/Vol] 0.4 mg/dL 0.2 - 1 .3 mg/dL [facility] Bilirubin.conjugated [Mass/Vol] 0.2 mg/dL 0.0 - 0.4 mg/dL [facility] Bilirubin.indirect [Mass/Vol] 0.2 mg/dL 0.0 - 1.1 mg/dL [facility] Globulin (P) [Mass/Vol] 3.3 g/dL 2.3 - 3.5 g/dL [facility] Protein [Mass/Vol] 8.0 g/dL 6.3 - 8.2 g/dL [facility] LIPASEon 08-28-2021 Lipase [Catalytic activity/Vol] 134 U/L 23 - 300 U/L [facility] MAGNESIUMon 08-28-2021 Magnesium [Mass/Vol] 2.7 mg/dL High 1.6 - 2 .3 mg/dL [facility] No Panel Informationon 08-28 Interpretation and review of laboratory results Abnormal [facility] Portable XR Chest Views APon 08-28-2021 IMPRESSION: 1. Mildly increased density of the left hemithorax compared to the right is thought to be due to soft tissue summation rather than layering pleural effusion. Diaphragm and costophrenic angle are well visualized. 2. No sign pneumonia and no pulmonary vascular congestion. RADIOLOGY EXAMINATION: ONE XRAY VIEW OF THE CHEST 08/28/2021 10:40 pm COMPARISON: None. HISTORY: HISTORY: Patient's fiance states that about an hour prior to arrival patient was lying down and began coughing with chest pain and shortness of breath with an upset stomach. Emesis x1 prior to arrival. States hasn't had anything like this before. Also states ; she's been twitching and shaking since this episode. ; FINDINGS: Posterior marsha and screw fixation of the spine with scoliosis. External leads overlie the chest and metallic nipple studs. No endotracheal tube or central venous line. The left hemithorax has a mildly increased density compared to the right side but thought to be due to the soft tissue summation. The diaphragm and costophrenic angle are still well visualized. There is no focal consolidation seen within either lung. No pneumothorax is identified. Cardiomediastinal silhouette is not enlarged and there is no pulmonary vascular congestion. RADIOLOGY Jacobo Singh MD - 08/28/2021 EXAMINATION: ONE XRAY VIEW OF THE CHEST 08/28/2021 10:40 pm COMPARISON: None. HISTORY: HISTORY: Patient's fiance states that about an hour prior to arrival patient was lying down and began coughing with chest pain and shortness of breath with an upset stomach. Emesis x1 prior to arrival. States hasn't had anything like this before. Also states ; she's been twitching and shaking since this episode. ; FINDINGS: Posterior marsha and screw fixation of the spine with scoliosis. External leads overlie the chest and metallic nipple studs. No endotracheal tube or central venous line. The left hemithorax has a mildly increased density compared to the right side but thought to be due to the soft tissue summation. The diaphragm and costophrenic angle are still well visualized. There is no focal consolidation seen within either lung. No pneumothorax is identified. Cardiomediastinal silhouette is not enlarged and there is no pulmonary vascular congestion. IMPRESSION IMPRESSION: 1. Mildly increased density of the left hemithorax compared to the right is thought to be due to soft tissue summation rather than layering pleural effusion. Diaphragm and costophrenic angle are well visualized. 2. No sign pneumonia and no pulmonary vascular congestion. [facility] Radiology Study observation (narrative) [facility] Portable XR Chest Views APOr dered By: Jacobo Singh on 08-28-2021 [facility] SARS-COV-2 RAPIDon 2 SARS-CoV-2 (COVID-19) RdRp gene EROS+probe Ql (Resp) Negative Negative [facility] Comment on above: Your COVID test is N EGATIVE/NOT DETECTED. Contact your physician/provider if you have further concerns about symptoms that you may be having. You can also contact the COVID HOTLINE at [phone] Contact your employer/school regarding return to work/school instructions if necessary Even if you have tested negative, if a family member or someone that lives with you in the same house has tested POSITIVE then you should continue to quarantine for 14 days from the last day you were in close contact with that person. For further instructions regarding isolation/quarantine visit the [employer] web page or [facility] web page. [email or web address] https://www.cdc.govCorrelation study-DO NOT report this isolate. -[email or web address]?[id number] [id number] Negative results should be treated as presumptive and, if inconsistent with clinical signs and symptoms or necessary for patient management, should be tested with an alternative molecular assay. This test has been authorized by the FDA under an Emergency Use Authorization (EUA). This test is only authorized for the duration of the time of declaration that circumstances exist justifying the authorization of the emergency use of in vitro diagnostic testing for detection of the SARS-CoV-2 virus and/or diagnosis of COVID-19 infection under section 564 (b)(1) of the Act, 21 U.S.C. 360nnn-3 (b)(1), unless the authorization is terminated or revoked sooner. https://www.fda.gov/media/303199/download Providers https://www.fda.gov/media/093787/download Patients [place] [address] Use karson, foam, leanne yester or flocked swabs to collect a nasopharyngeal specimen. After collection, fold over the open end of the collection sleeve and seal with patient lab label, double bag in biohazard bag, and transport to the lab LM, no later than 60 minutes from collection. Collection must be done while wearing N-95 mask, eye protection, gown and gloves. [facility] - [facility]. [facility] TROPONINon 08-28-2021 Troponin I.cardiac [Mass/Vol] ng/mL <0.034 ng/mL [facility] Comment on above: <0.034 ng/ml: Normal range 0.034-0.12 ng/ml: Indeterminate for AMI >0.12 ng/ml: High positive predictive value for AMI Interpretation of troponin values must be made in light of ECG changes, clinical symptoms, and serial troponin measurements. [facility] CULTURE STREP A SCREENon CULTURE STREP A SCREEN Throat Negative for Group A beta Streptococcus after 48 hours Normal [facility] ([place] Comment on above: Performed By: #### D STANISLAV, TROPON, MCBC, BASIC, MAG, MLIVER, LIP #### [facility] [address] [place], [place] [address] Karthikeyan Corral MD, PhD [phone] Rapid Strep A Molecularon S. pyogenes Ag IA Ql (Unsp spec) Negative Normal Negative [facility] ([place] Comment on above: Result Comment: A St rep A Screen will be added. Performed By: #### M GAS #### [facility] [address] [place], [place] [address] Karthikeyan Corral MD, PhD [phone] 2018 Novel Coronavirus (CoVI D-19), NAAon 06-24-2020 SARS-CoV-2 (COVID-19) RNA EROS+probe Ql (Unsp spec) Not detected Normal Not Detected [facility] Comment on above: Result Comment: This nucleic acid amplification test was developed and its performance characteristics determined by [employer]. Nucleic acid amplification tests include RT-PCR and TMA. This test has not been FDA cleared or approved. This test has been authorized by FDA under an Emergency Use Authorization (EUA). This test is only authorized for the duration of time the declaration that circumstances exist justifying the authorization of the emergency use of in vitro diagnostic tests for detection of SARS-CoV-2 virus and/or diagnosis of COVID-19 infection under section 564(b)(1) of the Act, 21 U.S.C. 360bbb-3(b) (1), unless the authorization is terminated or revoked sooner. When diagnostic testing is negative, the possibility of a false negative result should be considered in the context of a patient's recent exposures and the presence of clinical signs and symptoms consistent with COVID-19. An individual without symptoms of COVID-19 and who is not shedding SARS-CoV-2 virus would expect to have a negative (not detected) result in this assay. Performed at: - [facility] [id number] [employer]bish Compactor Mechanic: El Argueta PhD, Phone: [phone] Performed By: #### L COV #### [address] [address] EMERGENCY DEPARTMENT REPORTo n 07-23-2017 EMERGENCY DEPARTMENT REPORT [place], [place] [address]EKKTIA INFORMATION MANAGEMENTEMERGENCY DEPARTMENT REPORTPatient: ROGER TREVINO ELLEN K D.O.[id number] FStatus: DEP ER EDDate of Service: 07/15/17CHIEF COMPLAINTA 22-year-old female. Chief complaint: Emesis x2.HISTORY OF PRESENT ILLNESSThe patient says that she saw a spider on her wrist. Actually her friend at the bedsidesaid she saw the spider on her wrist and she has several bites. That was noticed 24 hoursago and since then she has been nauseated. She is fearful that she is getting infection inher arm. No other complaints. She ate a chicken nuggets at the midnight tonight withoutany symptoms. It was after midnight that she started vomiting. She denies any pain aswell.REVIEW OF SYSTEMSAll other systems reviewed and negative.PHYSICAL EXAMINATIONOn exam vital signs are stable. She is afebrile, alert, a well-developed, well-nourishedfemale in no distress. Head is atraumatic, normocephalic. Oral mucosa pink, moist. Necksupple. Cardiovascular exam regular. Breath sounds are clear. Abdomen is benign. As Iexamine her right upper extremity I see she does have 4 or five bites that are pretty wellspaced in a line along the lateral aspect of her distal forearm. None of these appear daya infected. They appear to have been quite pruritic and she has excoriated the skin. Shehas equal peripheral pulses. I do not appreciate any streaking proximally, but they aresignificantly red. I do not appreciate any changes in the soft tissues. They are supple.Skin is otherwise warm and dry.IMPRESSIONCellulitis/inse ct bites.KIM will put her on antibiotics and I will write her for some Zofran. We did incidentallycheck a urine and HCG here. Both of these were negative. The patient has a benignabdomen. I really think this was just nausea secondary to her worry about her bites.Nonetheless, we will treat it, have her take antibiotics also, and she is discharged ingood condition. 07/26/17 2319 CHANCE JIMENES D.O.cc: CHANCE JIMENES D.O. << Signature on File>> Reported By: CHANCE JIMENES D.O. Signed By: CHANCE JIMENES D.O.Tests performed at:[address] [phone] Normal [facility] BHCG (URINE)on 07-16-2017 HCG.beta subunit ( test) Ql (U) Negative Normal NEGATIVE [facility] Comment on above: Result Comment: Seru m Test is more Sensitive than a UrinePregnancy Test. Please Note Threshold Values: SERUM - 10mlU/mL URINE - 20mlU/mL Performed By: #### L 200.2070 ####ML - [address] [address] UA W/C&Son 07-16-2017 Bilirubin Ql (U) Negative Normal NEGATIVE [facility] Comment on above: Order Comment: Sourc e: Clean Catch .. Y Performed By: #### L 200.3001 ####ML - [id number] [place] [address] URINE APPEARANC CLEAR Normal CLEAR [facility] Comment on above: Order Comment: Sourc e: Clean Catch .. Y Performed By: #### L 200.3001 ####ML - [address] [address] URINE KETONE Negative Normal NEGATIVE [facility] Comment on above: Order Comment: Sourc e: Clean Catch .. Y Performed By: #### L 200.3001 ####ML - [id number] [place] [address] URINE SPECIFIC 1.010 Normal 1.001-1.03 5 [facility] Comment on above: Order Comment: Sourc e: Clean Catch .. Y Performed By: #### L 200.3001 ####ML - [id number] [place] [address] URINE UROBILINO 0.2 EU/DL Normal 0.2-1.0 [facility] Comment on above: Order Comment: Sourc e: Clean Catch .. Y Performed By: #### L 200.3001 ####ML - [id number] [place] [address] Urine, color YELLOW Normal YELLOW [facility] Comment on above: Order Comment: Sourc e: Clean Catch .. Y Performed By: #### L 200.3001 ####ML - [id number] [place] [address] Urine, glucose presence Negative Normal NEGATIVE [facility] Comment on above: Order Comment: Sourc e: Clean Catch .. Y Performed By: #### L 200.3001 ####ML - [id number] [place] [address] Urine, hemoglobin presence Negative Normal NEGATIVE [facility] Comment on above: Order Comment: Sourc e: Clean Catch .. Y Performed By: #### L 200.3001 ####ML - [id number] [place] [address] Urine, leukocyte esterase presence Negative Normal NEGATIVE [facility] Comment on above: Order Comment: Sourc e: Clean Catch .. Y Performed By: #### L 200.3001 ####ML - [id number] [place] [address] Urine, nitrite presence Negative Normal NEGATIVE [facility] Comment on above: Order Comment: Sourc e: Clean Catch .. Y Performed By: #### L 200.3001 ####ML - [id number] [place] [address] Urine, pH 5.5 [pH] Normal 5.0-8.0 [facility] Comment on above: Order Comment: Sourc e: Clean Catch .. Y Performed By: #### L 200.3001 ####ML - [id number] [place] [address] Urine, protein presence Negative Normal NEGATIVE [facility] Comment on above: Order Comment: Sourc e: Clean Catch .. Y Performed By: #### L 200.3001 ####ML - [id number] [place] [address] Progress Noteon 07-08-2017 Pathology Supervisor Authentication Interface Message Text Diagnosis: 7 years status post T2-L2 posterior spinal fusion for scoliosisrelated to osteogenesis imperfecta. Acute onset low back pain.History: 22-year-old female back for reevaluation after she had atraumatic onsetof isolated low back pain. She has no radicular symptoms down her extremitiesand denies numbness, weakness, bowel or bladder changes. No fevers, chills orconstitutional signs or symptoms. She denies any knowledge of recent fracturesrelated to her osteogenesis imperfecta. He also notes some complaints of someoccasional periscapular right shoulder pain.Past Medical History, Past Surgical History, Social History, History,Medications, Allergies and 10-point ROS as per my review of this dates EPICencounter. Review of systems is negative for other significant musculoskeletalpain, loss of vision, hearing loss, high blood pressure, shortness of breath,skin ulcers, paresthesia, lymphedema, temperature intolerance, or nausea, unlessotherwise stated in the history of present illness or past medical history.Exam: Age-appropriate female not in acute distress. Alert, oriented,cooperative. Normocephalic atraumatic. Normal gait without antalgia or ataxiawith intact heel walk, toe walk, squat and stand. When viewed from the back shehas excellent maintenance of spinal balance without decompensation, and clinicaljunctional kyphosis, or shoulder height asymmetry. She does have obviousscapular dyskinesia of the right scapula with extreme periscapular muscleweakness and winging. She does not have prominence of implants, focaltenderness, or erythema or fluctuance over her midline incision which iswell-healed. 5/5 motor function in all muscle groups and intact sensation inall dermatomes bilateral lower extremity's. Normal patellar and Achilles DTRswithout clonus, Babinski, or straight leg raise sign bilaterally. She does havesome pain with lumbar forward flexion, no pain with lumbar extension.Imaging: Reviewed 3 views of lumbar spine from 06/15/2017 which show stableposition of all instrumentation visualized in the thoracolumbar spine withoutobvious spondylolysis, disc space narrowing, compression fracture, or junctionaldeformity in the frontal or sagittal plane.Impression: Stable 7 years status post T2-L2 posterior spinal fusion withperiscapular muscle spasm and dyskinesia and muscular low back pain.Plan: Her exam and radiograph are quite reassuring at present. I recommendinitial treatment be conservative including as needed anti-inflammatories, iceor heat, formal physical therapy for massage, range of motion, core andperiscapular strength and stabilization and home exercises. We will see justin with repeat exam and radiographs in 6 weeks and if she has persistent painmay consider advanced imaging at that time to be certain she does not have anadjacent degenerative disc or occult stress fracture given her history of OI.If pain progresses despite these conservative measures or she develops anyradicular symptoms she understands she is to contact us for earlierreevaluation.Portions of this medical record have been created using voice recognitionsoftware . It may contain minor errors which are inherent in voice recognitiontechnology. Normal [facility] EMERGENCY DEPARTMENT REPORTo n 06-21-2017 EMERGENCY DEPARTMENT REPORT [place] [address]YAZXBQ INFORMATION MANAGEMENTEMERGENCY DEPARTMENT REPORTPatient: JEFF TREVINO JEFFREY M M.D.[id number] FStatus: DEP ER EDDate of Service: 06/15/17HISTORYThimansi is a 22-year-old female with history of scoliosis with Delgado rods in placestating that she bent over and felt some pain in her back. The patient did not have anyneurologic deficits.DIAGNOSTIC STUDYX-ray did show intact hardware with no acute process.IMPRESSIONLumbar strain.TREATMENTTreatment will be conservative lumbar strain measures. 06/25/17 1224 SAEID SERRANO M.D.cc: SAEID SERRANO M.D. << Signature on File>> Reported By: SAEID SERRANO M.D. Signed By: SAEID SERRANO M.D.Tests performed at:[address] [phone] Normal [facility] ED REPORTon 06-20-2017 ED REPORT [place], [place] [address]INQEQH INFORMATION MANAGEMENTEMERGENCY DEPARTMENT REPORTPatient: JEFF TREVINO JEFFREY M M.D. as dictated by SILVERIO HERNANDEZ, MARK-[id number] FStatus: DEP ER EDDate of Service: 06/15/17CHIEF COMPLAINTThis is a 22-year-old female who presents with back pain.HISTORY OF PRESENT ILLNESSThe patient states she was cleaning her floor. She went from a kneeling position to astanding position and felt a pop in her low back. She does have a history of a spinalfusion, osteo imperfecta, and scoliosis so she is concerned since she is having back pain.PAST MEDICAL HISTORYBipolar, scoliosis, osteo imperfecta.PAST SURGICAL HISTORYShe has had a spinal fusion.SOCIAL HISTORYShe smokes occasionally. No alcohol or drug abuse. She is single.ALLERGIESNo known drug allergies.MEDICATIONSShe takes Seroquel and Depo shot.REVIEW OF SYSTEMSThe patient denies any fever or chills. No headache or lightheadedness. No weakness ofextremities. No loss of bowel or bladder control. No neck pain or stiffness. No cough orshortness of breath. No chest pain or palpitations. No seizure activity, syncope, ornumbness or paresthesia. She denies abdominal pain, nausea, vomiting, or diarrhea. Statesher pain is mid low back that does radiate down her right buttock.PHYSICAL EXAMINATIONBlood pressure 121/86, temp 98.8, pulse 100, respirations 18, 100% on room air. States herpain is a 6/10. This is a well nourished, well hydrated patient who is alert and active inthe room, is in no distress. Her head is atraumatic, normocephalic. Neck is supple. Skinis pink, warm, dry. No rashes or lesions. She is alert and oriented. Extremities havegood strength and sensation, are symmetrical. Lungs are clear throughout all lung fortune.Heart has a regular rate and rhythm without murmur. Abdomen is soft, flat, nontender topalpation, normoactive bowel sounds. There is no tenderness over the cervical or thoracicspine. She does have mild tenderness on palpation of the lower lumbar spine with radiationdown the right buttock. She has full strength of her lower legs, full sensation.Capillary refill is less than 2 seconds. Pulses are 2+. She has positive straight legraise on the right. She can elevate her leg to 20 degrees before having pain.EMERGENCY DEPARTMENT COURSEAt this time, the patient was medicated with Toradol and Norflex. Her x-rays did show herhistory of spinal fusion. There is no new acute process seen. She did have relief withthese IM medications so she will be discharged home with a prescription for naproxen andRobaxin. She states she does see her back doctor anymore, but she does have a familydoctor so I will have her follow up with them so that if referral for a back surgeon needsto be done she certainly can get the referral through them. She is to return here if sheworse in any way. She verbalized understanding of the plan of care and was discharged homein good condition.IMPRESSIONLumbar strain. 06/21/17 0729 SAEID SERRANO M.D.cc: SAEID SERRANO M.D. << Signature on File>> Reported By: SAEID SERRANO M.D. Signed By: SAEID SERRANO M.D.Tests performed at:[address] [phone] Normal [facility] LUMBAR LIMITED 2Von 06-16-19 18 LUMBAR LIMITED 2V [facility] [id number] [place], [place] [address]Gjse: Kashif TREVINO: SILVERIO HERNANDEZ OFFICE SUPPORT CLERKJanelC (ED): 96 Age: 22 Sex: FAcct: [id number] Loc: EDExam Date: 06/15/17 Status: [facility] ERRadiology No.: [id number] Number: [id number] # Type/[id number] RAD / LUMBAR LIMITED 2VEXAMINATION: Lumbar spine AP and lateral viewCLINICAL INDICATION: Low back pain following minor trauma. History ofscoliosis.COMPARISON: NoneFINDINGS: Mild to moderate levoscoliosis affects the lumbar spine. Thisrepresents a compensatory curve to a dominant dextroscoliosis of the thoracicregion. There is no congenital deformity of the vertebral bodies or acutefracture.Patient is status post placement of bilateral rods and pedicle screws anchoreddistally at the L1 and L2 levels. The rods centimeters project superiorly intothe thoracic spine. The extent of the rods is not included on today's images.There is moderate diffuse constipation. Metallic foreign body projects in theRIGHT anterior pelvis.IMPRESSION:1. No acute bony abnormality lumbar spine.2. Compound scoliosis with prior surgical stabilization.Professional interpretation provided by [facility]-PC-76.Thank you for this referral.< >Reported By: JACQUI SCHILLING D.O.Signed In NovaPro By: JACQUI SCHILLING D.O. << Signature on File>> Reported By: JACQUI SCHILLING D.O. Signed By: JACQUI SCHILLING D.O.Tests performed at:[address] [phone] Normal [facility] ED Provider Noteson 01-17-20 17 ED Provider Notes Encounter Department : [facility] Provider Notes by Sunil Amin MD at 01/16/2017 6:52 PMAuthor: NICOLAS Macdonaldervice: (none)Author Type: ED PhysicianFiled: 01/16/2017 6:53 PMDate of Service: 01/16/2017 6:52 PMStatus: SignedEditor: Sunil Amin MD (ED Physician)ATTENDING NOTE:I discussed this patient's history and physical findings and reviewed the Physician Rolls Mill Operator'sfindings with them, as well as performed an independent assessment and coordinated care with them.HISTORY OF PRESENT ILLNESS:Mark Trevino is a 21 y.o. female who presents in bed 1 with right foot pain. Patient says 3-4days of pain in her right foot that is located at the metatarsophalangeal joint of digit 1. She denies any recent trauma. Pain is worse with walking and better with rest. She deniesnumbness or tingling. Patient does have a history of osteogenesis imperfecta but is not brokenbones and she was younger. She is not on any medication.PHYSICAL EXAM:ED Triage CszvjuZC21/12/17 4051046/40Lzla54/12/17 075259.7 ?F (37.6 ?C)Heart Rate01/16/17 967891Dgti61/12/17 250868MxF619/12/17 414000 %Biduux38/12/17 8716348 lb (45.4 kg)Arnold Coma Scale Score01/16/17 266853FVC (Calculated)01/16/17 613697.2Key Physical Exam Findings: Patient has blue sclera consistent with osteogenesis imperfectahistory. She has no swelling of the right foot. Dorsalis pedis pulse 2+. Sensation intact in thedistal toes. Cap refill less than 2 seconds in all toes. Patient with normal range of motion ofthe right foot. Does have some tenderness at the right metatarsophalangeal joint but no evidenceof swelling. There is no overlying erythema.PLAN/ED COURSE:Assessment: 21-year-old female with right foot painDifferential Diagnosis: Fracture, sprain, strainPlan: X-ray negative for acute pathology. Likely foot sprain. We will place the patient in apostoperative shoe and have patient follow with primary care.ED CourseED LABS:Labs Reviewed - No data to displayED IMAGING:Last Imaging resultsResults for orders placed or performed during the hospital encounter of 01/16/17XR-FOOT RIGHT 3 OR MORE VIEWSNarrativeXR-FOOT RIGHT 3 OR MORE VIEWS01/16/2017 6:38 PMHISTORY:r foot pain after walkingHistory: r foot pain after walking. Number of Series/Images: 3.FINDINGS:Multiple routine projections demonstrate the bones, soft tissues, and joint spaces to appearnormal. There is no radiopaque foreign body density demonstrated. There is some corticalthickening affecting the mid shaft of the fourth metatarsal bone.ImpressionNO ACUTE FRACTURE.SOME CORTICAL THICKENING FOURTH METATARSAL COULD REPRESENT AN OLD HEALED FRACTURE WITH CALLUSFORMATION.OTHERWISE UNREMARKABLE STUDY.Electronically Signed by: Alvin Segura M.D., 01/16/2017 6:40 [id number].Right foot painM79.671Electronicallysign ed by: Sunil Amin MD, 01/16/2017Chshanelle Amin MD01/16/17 1853 [facility] ED Provider Notes Encounter Department : [facility] Provider Notes by Tiffany Medeiros PA-C at 01/16/2017 6:23 PMAuthor: Adrien Buitragorvice: Emergency MedicineAuthor Type: Physician AssistantFiled: 01/16/2017 11:15 PMDate of Service: 01/16/2017 6:23 PMStatus: SignedEditor: Tiffany Medeiros PA-C (Physician Rolls Mill Operator)Cosigner: Sunil Amin MD at103/19/2016 2:11 AMCHIEF COMPLAINTChief ComplaintPatient presents with -Foot PainHPCourtney Trevino is a 21 y.o. female who presents with right foot pain. Patient states that hasbeen ongoing for the last 3 days. She states she denies any known traumatic injury. She doesstates she walked [facility] prior to onset of pain. She states the pain is located to the top ofthe right foot at the base of the big toe. It is worsened with walking. Pain is alleviated onceshe is sitting. She states she has a history of brittle bones and has broken her foot before. Shestates she has been limping to alleviate her pain and has less developed some mild pain to herright knee. No injury to the knee. No numbness or tingling distally. Pain currently 6 out of 10. She took Tylenol prior to arrivalREVIEW OF SYSTEMSReview of SystemsConstitutional: Negative for chills and fever.HENT: Negative for congestion and sore throat.Musculoskeletal: Right foot painSkin: Negative for rash.Neurological: Negative for tingling, sensory change and weakness.PAST MEDICAL HISTORYPast Medical History:DiagnosisDate -Bipolar 1 disorder (HCC) -Hearing loss -Osteogenesis imperfecta -ScoliosisFAMILY HISTORYNo family history on file.SOCIAL HISTORYSocial HistorySocial History -Marital status:SingleSpouse name:N/A -Number of children:N/A -Years of education:N/ASocial History Main Topics -Smoking status:Current Every Day SmokerPacks/day:0.50Types:Cig arettes -Smokeless tobacco:Never Used -Alcohol useNo -Drug use:No -Sexual activity:Not AskedOther TopicsConcern -NoneSocial History NarrativeSURGICAL HISTORYPast Surgical History:ProcedureLateralityDa te -SPINAL FUSIONCURRENT MEDICATIONSNo outpatient prescriptions have been marked as taking for the 01/16/17 encounter ([facility]).ALLERGIES No Known AllergiesPHYSICAL EXAMVITAL SIGNS:ED Triage PtmrvrZW57/12/17 9013917/90Hkyh63/12/17 323708.7 ?F (37.6 ?C)Heart Rate01/16/17 618147Ofyn34/12/17 605255JyJ595/12/17 900107 %Bwhhlj36/12/17 1835718 lb (45.4 kg)Arnold Coma Scale Score01/16/17 673168HAB (Calculated)01/16/17 203746.2Constitutional: Well developed, Well nourished. NontoxicHENT: Normocephalic, Atraumatic.Eyes: Conjunctiva normal, No discharge. No scleral icterus.Cardiovascular: Normal heart rate, Normal rhythm, No murmurs, gallops or rubs.Thorax AND Lungs: Normal breath sounds, No respiratory distress, No wheezing.Skin: Warm, Dry, No erythema, No rash.Extremities: Tenderness to the dorsal aspect of the right foot at the distal first metatarsalregion. No ecchymosis, edema or crepitus. Extremity is neurovascularly intact distally. No bonytenderness to the ankle, lower leg or remainder of the foot.Musculoskeletal: Good range of motion in all major joints as observed. No major deformities noted.Neurologic: Alert AND oriented x 3, Normal motor function, Normal sensory function, No focal deficitsnoted.RADIOLOGY/PROCE DURESLabs Reviewed - No data to displayI personally reviewed the images. The radiologist's interpretation reveals:Last Imaging resultsResults for orders placed or performed during the hospital encounter of 01/16/17XR-FOOT RIGHT 3 OR MORE VIEWSNarrativeXR-FOOT RIGHT 3 OR MORE VIEWS01/16/2017 6:38 PMHISTORY:r foot pain after walkingHistory: r foot pain after walking. Number of Series/Images: 3.FINDINGS:Multiple routine projections demonstrate the bones, soft tissues, and joint spaces to appearnormal. There is no radiopaque foreign body density demonstrated. There is some corticalthickening affecting the mid shaft of the fourth metatarsal bone.ImpressionNO ACUTE FRACTURE.SOME CORTICAL THICKENING FOURTH METATARSAL COULD REPRESENT AN OLD HEALED FRACTURE WITH CALLUSFORMATION.OTHERWISE UNREMARKABLE STUDY.Electronically Signed by: Alvin Segura M.D., 01/16/2017 6:40 PMMEDS GIVEN IN ED:Medications - No data to displayCOURSE AND MEDICAL DECISION MAKINGPertinent Labs AND Imaging studies reviewed. (See chart for details)21-year-old female presents with right foot pain. No definitive traumatic injury preceding this.Extremity is neurovascularly intact. She has a history of osteogenesis imperfecta with history ofright foot fracture in the past. This is visualized is stable on imaging with no acute fracturetoday. Patient be treated symptomatically with anti-inflammatories and Jorje shoe. She doestolerate this and will continue follow-up with transition clinic, return if symptoms worsen.Discharged in stable conditionI have seen this patient in conjunction with Dr. Kemp Medication List as of 01/16/2017 7:03 PMSTART taking these medicationsDetailsibuprofen (MOTRIN) 400 mg tabletTake 1 tablet by mouth every 6 hours as needed for Pain.400 mg,Disp-28 tablet, R-0, PrintFINAL HQJQZXCNAIDKU-[id number].Right foot painM79.671Electronicallysign ed by: Tiffany Medeiros PA-C, 01/16/2017MATTY Buitrago-C11/02/20 2315 [facility] XR-FOOT RIGHT 3 OR MORE VIEW Son 01-16-2017 XR-FOOT RIGHT 3 OR MORE VIEWS XR-FOOT RIGHT 3 OR MORE VIEWS01/16/2017 6:38 PMHISTORY:r foot pain after walkingHistory: r foot pain after walking. Number of Series/Images: 3. FINDINGS:Multiple routine projections demonstrate the bones, soft tissues, and joint spaces to appear normal. There is no radiopaque foreign body density demonstrated. There is some cortical thickening affecting the mid shaft of the fourth metatarsal bone.IMPRESSION:NO ACUTE FRACTURE. SOME CORTICAL THICKENING FOURTH METATARSAL COULD REPRESENT AN OLD HEALED FRACTURE WITH CALLUS FORMATION. OTHERWISE UNREMARKABLE STUDY.Electronically Signed by: Alvin Segura M.D., 01/16/2017 6:40 PM [facility] Coding Summaryon 01-09-2017 Coding Summary CODING DATE: 017 [facility] STATUS: Home PAYOR: Medicaid HMO ADMIT DX: REASON FOR VISIT DX: S40.869A Insect bite (nonvenomous) of unspecified upper arm, initial encounter FINAL DX: PRINCIPAL: S40.869A Insect bite (nonvenomous) of unspecified upper arm, initial encounter SECONDARY: S80.869A Insect bite (nonvenomous), unspecified lower leg, initial encounter S20.469A Insect bite (nonvenomous) of unspecified back wall of thorax, initial encounter S20.369A Insect bite (nonvenomous) of unspecified front wall of thorax, initial encounter S30.861A Insect bite (nonvenomous) of abdominal wall, initial encounter S70.261A Insect bite (nonvenomous), right hip, initial encounter W57.XXXA Bitten or stung by nonvenomous insect and other nonvenomous arthropods, initial encounter PROCEDURES DOCTOR NAME DATE NOTE: The code number assigned matches the documented diagnosis and / or procedure in the patient's chart. However, the narrative phrase printed from the coding software may appear abbreviated, or result in slightly different terminology. Revised Coded By: Christy Jenkins Revised Date Saved: 10/18/2016 10:[address] [facility] Coding Summaryon 01-05-2017 Coding Summary CODING DATE: 017 [facility] STATUS: Home PAYOR: Medicaid HMO APC DESCRIPTION 5024 Level 4 Type A ED Visits ADMIT DX: REASON FOR VISIT DX: R11.11 Vomiting without nausea FINAL DX: PRINCIPAL: R11.11 Vomiting without nausea SECONDARY: PYMT PROC APC STAT DESCRIPTION DOCTOR NAME DATE NOTE: The code number assigned matches the documented diagnosis and / or procedure in the patient's chart. However, the narrative phrase printed from the coding software may appear abbreviated, or result in slightly different terminology. Revised Coded By: Christy Jenkins Revised Date Saved: 09/28/2016 05:[address] [facility] Coding Summaryon 11-30-2016 Coding Summary CODING DATE: [facility] STATUS: Home PAYOR: Medicaid HMO ADMIT DX: REASON FOR VISIT DX: S99.911A Unspecified injury of right ankle, initial encounter S09.90XA Unspecified injury of head, initial encounter FINAL DX: PRINCIPAL: S00.03XA Contusion of scalp, initial encounter SECONDARY: S93.401A Sprain of unspecified ligament of right ankle, initial encounter S09.90XA Unspecified injury of head, initial encounter S00.93XA Contusion of unspecified part of head, initial encounter W01.0XXA Fall on same level from slipping, tripping and stumbling without subsequent striking against object, initial encounter PROCEDURES DOCTOR NAME DATE NOTE: The code number assigned matches the documented diagnosis and / or procedure in the patient's chart. However, the narrative phrase printed from the coding software may appear abbreviated, or result in slightly different terminology. Coded By: Ever Diaz' Date Saved: 11/30/2016 04:[address] [facility] Coding Summary CODING DATE: 017 [facility] STATUS: Home PAYOR: Medicaid O ADMIT DX: REASON FOR VISIT DX: S99.911A Unspecified injury of right ankle, initial encounter S09.90XA Unspecified injury of head, initial encounter FINAL DX: PRINCIPAL: S00.03XA Contusion of scalp, initial encounter SECONDARY: S93.401A Sprain of unspecified ligament of right ankle, initial encounter S09.90XA Unspecified injury of head, initial encounter S00.93XA Contusion of unspecified part of head, initial encounter W01.0XXA Fall on same level from slipping, tripping and stumbling without subsequent striking against object, initial encounter PROCEDURES DOCTOR NAME DATE NOTE: The code number assigned matches the documented diagnosis and / or procedure in the patient's chart. However, the narrative phrase printed from the coding software may appear abbreviated, or result in slightly different terminology. Coded By: Ever Diaz' Date Saved: 11/30/2016 04:54 pm Normal [facility] BASIC METABOLIC PANELon 11-05 Anion gap 8 mmol/L Normal 7-16 [facility] Comment on above: Performed By: #### L AB15, LAB99, LAB20 ####[facility] CLIA [id number] [place] [address] BUN (urea nitrogen) 17 mg/dL Normal 7-18 [facility] Comment on above: Performed By: #### L AB15, LAB99, LAB20 ####[facility] CLIA [id number] [place] [address] Calcium 8.8 mg/dL Normal 8.5-10.1 [facility] Comment on above: Performed By: #### L AB15, LAB99, LAB20 ####[facility] CLIA [id number] [place] [address] Chloride 105 mmol/L Normal 98-107 [facility] Comment on above: Performed By: #### L AB15, LAB99, LAB20 ####[facility] CL[facility] [id number] [place] [address] CO2 27 mmol/L Abnormal 16-25 [facility] Comment on above: Performed By: #### L AB15, LAB99, LAB20 ####[facility] CLIA [id number] [place] [address] Creatinine 1.0 mg/dL Normal 0.6-1.30 [facility] Comment on above: Performed By: #### L AB15, LAB99, LAB20 ####[facility] CLIA [id number] [place] [address] eGFR (black) mL/min/{1.73_m2} Normal >60 [facility] Comment on above: Result Comment: GFR is estimated using creatinine, age, gender, and race. Patient's values should be interpreted as a trend. For additional information: [email or web address] Performed By: #### L AB15, LAB99, LAB20 ####[facility] CLIA [id number] [place] [address] eGFR (non-black) mL/min/{1.73_m2} Normal >60 [facility] Comment on above: Result Comment: GFR is estimated using creatinine, age, gender, and race. Patient's values should be interpreted as a trend. For additional information: [email or web address] Performed By: #### L AB15, LAB99, LAB20 ####[facility] CLIA [id number] [place] [address] Glucose mass conc 101 mg/dL Normal 74-106 [facility] Comment on above: Performed By: #### L AB15, LAB99, LAB20 ####[facility] CLIA [id number] [place] [address] Potassium molar conc 3.8 mmol/L Normal 3.5-5.1 [facility] Comment on above: Performed By: #### L AB15, LAB99, LAB20 ####[facility] CLIA [id number] [place] [address] Sodium 140 mmol/L Normal 136-145 [facility] Comment on above: Performed By: #### L AB15, LAB99, LAB20 ####[facility] CLIA [id number] [place] [address] CBC W/DIFFon 11-23-2016 Basophils/100 WBC Auto (Bld) 2.0 % Normal [facility] Comment on above: Performed By: #### L AB293 ####[facility] CLIA [id number] [place] [address] BSA (Body Surface Area) 0.2 K/uL Abnormal 0.0-0.1 [facility] Comment on above: Performed By: #### L AB293 ####[facility] CLIA [id number] [place] [address] Eosinophils 0.1 10*3/uL Normal 0.0-0.4 [facility] Comment on above: Performed By: #### L AB293 ####[facility] CLIA [id number] [place] [address] Eosinophils 1.0 10*3/uL Normal [facility] Comment on above: Performed By: #### L AB293 ####[facility] CLIA [id number] [place] [address] Erythrocyte distribution width Auto Ratio (RBC) 11.8 % Normal 11.7-15.2 [facility] Comment on above: Performed By: #### L AB293 ####[facility] CLIA [id number] [place] [address] Erythrocytes (RBC) 4.66 10*6/uL Normal 3.86-5.17 [facility] Comment on above: Performed By: #### L AB293 ####[facility] CLIA [id number] [place] [address] Hematocrit (HCT) 39.5 % Normal 35.8-46.5 [facility] Comment on above: Performed By: #### L AB293 ####[facility] CLIA [id number] [place] [address] Hemoglobin mass conc (Bld) 13.8 g/dL Normal 12.1-15.8 [facility] Comment on above: Performed By: #### L AB293 ####[facility] CLIA [id number] [place] [address] Lymphocytes 2.8 10*3/uL Normal 0.8-3.6 [facility] Comment on above: Performed By: #### L AB293 ####[facility] CLIA [id number] [place] [address] Lymphocytes 31.6 10*3/uL Normal [facility] Comment on above: Performed By: #### L AB293 ####[facility] CLIA [id number] [place] [address] MCH 29.6 pg Normal 28.4-33.4 [facility] Comment on above: Performed By: #### L AB293 ####[facility] CLIA [id number] [place] [address] MCHC mass conc (RBC) 34.9 g/dL Normal 31.1-37.0 [facility] Comment on above: Performed By: #### L AB293 ####[facility] CLIA [id number] [place] [address] MCV 84.7 fL Abnormal 85.0-99.0 [facility] Comment on above: Performed By: #### L AB293 ####[facility] CLIA [id number] [place] [address] Monocytes 7.3 10*3/uL Normal [facility] Comment on above: Performed By: #### L AB293 ####[facility] CLIA [id number] [place] [address] Monocytes 0.6 10*3/uL Normal 0.3-0.9 [facility] Comment on above: Performed By: #### L AB293 ####[facility] CLIA [id number] [place] [address] Neutrophils 58.1 10*3/uL Normal [facility] Comment on above: Performed By: #### L AB293 ####[facility] CLIA [id number] [place] [address] Neutrophils 5.1 10*3/uL Normal 2.0-7.3 [facility] Comment on above: Performed By: #### L AB293 ####[facility] CLIA [id number] [place] [address] Platelets 282 10*3/uL Normal 154-393 [facility] Comment on above: Performed By: #### L AB293 ####[facility] CLIA [id number] [place] [address] WBC (Leukocytes) 8.8 10*3/uL Normal 4.0-10.5 [facility] Comment on above: Performed By: #### L AB293 ####[facility] CLIA [id number] [place] [address] ED Provider Noteson 11-24-19 ED Provider Notes Encounter Department : [facility] Provider Notes by Vita Valenzuela MD at 11/23/2016 7:36 PMAuthor: NICOLAS Pageervice: (none)Author Type: ED PhysicianFiled: 11/23/2016 8:08 PMDate of Service: 11/23/2016 7:36 PMStatus: SignedEditor: Vita Valenzuela MD (ED Physician)Pt was seen in conjunction with mid-level provider, please see his/her note for further details.History: Patient is a 21 y.o. female who presents with nausea, vomiting, diarrhea. Patient statesit started yesterday. She is recently homeless and is now living with her sister. Denies anystrange food ingestion, ill contacts, foreign travel. States that he has had over 3 episodes ofvomiting but most of them may have been dry heaving. Has been unable to tolerate oral intake.Complains of cramping 6 out of 10 intermittent diffuse abdominal pain that does not radiate nothingmakes it better or worse and she has not had this in the past. She denies fevers or chills, chestpain, shortness of breath, dysuria, hematuria, edema, rash, numbness or tingling. Does complain ofdecreased urine output.ROS: She denies fevers or chills, chest pain, shortness of breath, dysuria, hematuria, edema, rash,numbness or tingling. +n/v/d, abd painKey Portion of Physical Exam:ED Triage RgxvvyYI29/19/17 [id number]/67Mlfr22/19/17 143254.1 ?F (36.7 ?C)Heart Rate11/23/16 [id number]/19/17 551162BbP011/19/17 9496065 %Gmpuck51/19/17 687396 lb (43.1 kg)Wayne Coma Scale Score--BMI (Calculated)11/23/16 080402.2Gen: NADCardiac: RRRLungs: CTABExtremities: no edema, rash, TTPAbd: soft, BS+, mild epigastric TTPLabs:Labs ReviewedCBC W/DIFF - Abnormal; Notable for the following: ResultValueRef StrbsAebssbXFS16.7 (*)85.0 - 99.0 flFinalBasophils Absolute0.2 (*)0.0 - 0.1 K/uLFinalAll other components within normal limitsBASIC METABOLIC PANEL - Abnormal; Notable for the following:CO227 (*)16 - 25 mmol/LFinalAll other components within normal limitsLIVER PROFILE PANEL - Abnormal; Notable for the following:Alkaline Qfrpayrgnee688 (*)45 - 117 U/OTqyhoHXC46 (*)15 - 37 U/LFinalAll other components within normal limitsURINALYSIS W/REFLEX MICROSCOPY - Abnormal; Notable for the following:Blood UrinalysisTrace (*)NegativeFinalLeukocytes UrinalysisTrace (*)NegativeFinalAll other components within normal limitsURINALYSIS MICROSCOPIC ONLY - Abnormal; Notable for the following:Urine White Blood Cells5-10 (*)0 - 3 /hpfFinalUrine Bacteria2+ (*)Negative /hpfFinalUrine MucousTrace (*)Negative /lpfFinalEpithelial Cells3-5 (*)0 - 3 /hpfFinalCalcium Oxalate Crystals1+ (*)Negative /lpfFinalAll other components within normal limitsLIPASE - NormalURINE - NormalEXTRA TUBE-SSTEXTRA TUBE-BLUEThe patient was treated with the following meds in the ER:Medications0.9 % sodium chloride 1,000 mL bolus ( Intravenous New Bag 11/23/161920)ondansetron (ZOFRAN) injection 4 mg (4 mg IV Push Given 11/23/161921)dicyclomine (BENTYL) injection 10 mg (10 mg Intramuscular Given 11/23/161922)ED COURSE, RESPONSE TO TREATMENT and REASSESSMENTRepeat vitals: BP: 111/62 (11/24 1839)Temp: 98.1 ?F (36.7 ?C) (11/24 1839)Heart Rate: 76 (11/24 1839)Resp: 18 (11/24 1839)SpO2: 100 % (11/24 1839)FiO2 (%): --O2 Flow Rate (L/min): --Cardiac (WDL): --Cardiac Rhythm: --DIFFERENTIAL DIAGNOSIS AND MEDICAL DECISION MAKINGPatient is a 21-year-old female presents with nausea, vomiting, diarrhea. Abdominal exam isunremarkable. Patient appears underweight and was recently homeless. Ordered abdominal labs.Patient was given IV fluids, Bentyl, Zofran. Patient has mild UTI. She is given prescription forKeflex. Otherwise workup is unremarkable. Patient was given prescriptions for Bentyl and Zofran.She is given follow-up with transition clinic. Patient was given good return patient was given goodreturn precautions and voiced understanding and was in agreement with this plan. Patient wasdischarged in stable conditionThe patient is prescribed the following medications for treatment and symptom control:New PrescriptionsCEPHALEXIN (KEFLEX) 500 MG CAPSULE Take 1 capsule by mouth 2 times daily for 7 days.DICYCLOMINE (BENTYL) 10 MG CAPSULE Take 1 capsule by mouth after lunch and supper for 5 days.ONDANSETRON (ZOFRAN ODT) 4 MG DISINTEGRATING TABLET Take 1 tablet by mouth every 8 hours asneeded for Nausea for up to 5 days.FINAL ZQPCWMYEJBSXX-48-QP1.Nausea and vomiting, intractability of vomiting not specified, unspecified vomiting typeR11.22.Diarrhea, unspecified typeR19.73.Urinary tract infection, site not jkcxjaseoB12.0Electronicallys igned by:Vita Valenzuela MD11/23/[address] [place] [address] ED Provider Notes Encounter Department : [facility] Provider Notes by ALTAGRACIA Enamorado at 11/23/2016 6:53 PMAuthor: ALTAGRACIA EnamoradoService: Emergency MedicineAuthor Type: Nurse PractitionerFiled: 11/23/2016 10:01 PMDate of Service: 11/23/2016 6:53 PMStatus: SignedEditor: ALTAGRACIA Enamorado (Nurse Practitioner)Cosigner: Vita Valenzuela MD at11/23/2016 11:39 PMCHIEF COMPLAINTHistory given by: PatientHistory limited by: NoneChief ComplaintPatient presents with -Vomiting -Abdominal Pain -DiarrheaHPCourtney Trevino is a 21 y.o. female who presents in bed 04 with complaint of nausea, vomiting,diarrhea, abdominal discomfort over the past 2 days. Patient rates her pain at a 4 out of 5 to herlow abdomen. She describes it as a cramping sensation, denies radiation of this discomfort, deniesanything makes it better, states diarrhea and vomiting makes it worse. She denies any recenttravel. She denies any fevers or recent illness. She does admit that she was recently homeless,got off the street last evening and is now living with her sister. She denies any chest pain,shortness of breath, dizziness, weakness. She denies any changes in bladder function. She deniesany discomfort with urination. She denies that she could be . Is unsure of her lastmental cycle due to getting Depo shots. Denies any other complaints or concerns.REVIEW OF SYSTEMSConstitutional: No fever, chills or recent illness.Eye: No visual changesHENT: No earache or sore throat.Resp: No SOB or productive cough.Cardio: No chest pain or palpitations.GI: Positive low abdominal discomfort, nausea, vomiting, diarrhea. No constipation. No melena.: No dysuria, urgency or frequency.Musculoskeletal: No new muscle aches or joint pain.Neuro: Positive diffuse mild headache over the past 2 days.Skin: No rash, No itching.PAST MEDICAL HISTORYPast Medical History:DiagnosisDate -Bipolar 1 disorder -Hearing loss -Osteogenesis imperfecta -ScoliosisFAMILY HISTORYNo family history on file.SOCIAL HISTORYSocial HistorySocial History -Marital status:SingleSpouse name:N/A -Number of children:N/A -Years of education:N/ASocial History Main Topics -Smoking status:Current Every Day SmokerPacks/day:0.50Types:Cig arettes -Smokeless tobacco:Never Used -Alcohol useNo -Drug use:No -Sexual activity:Not AskedOther TopicsConcern -NoneSocial History Narrative -NoneForeign Travel in the last 21 days: NoneSURGICAL HISTORYPast Surgical History:ProcedureLateralityDa te -SPINAL FUSIONCURRENT MEDICATIONSOutpatient Prescriptions Marked as Taking for the 11/23/16 encounter (Hospital Encounter)MedicationSigDispen seRefill -QUEtiapine (SEROQUEL) 25 mg tabletTake 25 mg by mouth 2 times daily.ALLERGIESNo Known AllergiesPHYSICAL EXAMVITAL SIGNS:ED Triage DanmkcEX87/19/17 1444815/74Bkph59/19/17 845372.1 ?F (36.7 ?C)Heart Rate11/23/16 327731Bjgl91/19/17 692228HmL258/19/17 1531889 %Gixfjy36/19/17 186453 lb (43.1 kg)Wayne Coma Scale Score11/23/16 430513UQV (Calculated)11/23/16 567127.2Constitutional: Thin, poorly nourished, nontoxic appearing. 2 females at bedside.HENT: Normocephalic, Atraumatic, Bilateral external ears normal, Oropharynx moist, No oralexudates, Nose normal.Eyes: 3+, PERRL, EOMI, Conjunctiva normal, No discharge. No scleral icterus.Neck: Normal range of motion, No tenderness, Supple.Cardiovascular: Normal heart rate, Normal rhythm, No murmurs, gallops or rubs.Thorax AND Lungs: Normal breath sounds, No respiratory distress, No wheezing.Abdomen: Soft, No tenderness with palpation in all 4 quadrants, no peritoneal signs. NegativeMurphy sign. No masses, No pulsatile masses, No distention, Normal bowel sounds present all 4quadrants, - No.Skin: Warm, Dry, No erythema, No rash.Back: No tenderness, No CVA tenderness.Extremities: No edema, No tenderness, No cyanosis, No clubbing.Musculoskeletal: Good range of motion in all major joints as observed. No major deformities noted.Neurologic: Alert AND oriented x 3, Normal motor function, Normal sensory function, No focal deficitsnoted. My routine neurological exam revealed no acute abnormality or focal neuro deficit.Psychiatric: Affect normal, Judgment normal, Mood normal.RADIOLOGY/PROCEDURESLa bs ReviewedCBC W/DIFF - Abnormal; Notable for the following: ResultValueRef FlpmiGjcfohZFO98.7 (*)85.0 - 99.0 flFinalBasophils Absolute0.2 (*)0.0 - 0.1 K/uLFinalAll other components within normal limitsBASIC METABOLIC PANEL - Abnormal; Notable for the following:CO227 (*)16 - 25 mmol/LFinalAll other components within normal limitsLIVER PROFILE PANEL - Abnormal; Notable for the following:Alkaline Flkngvcqxbu084 (*)45 - 117 U/YEglpiHUZ70 (*)15 - 37 U/LFinalAll other components within normal limitsURINALYSIS W/REFLEX MICROSCOPY - Abnormal; Notable for the following:Blood UrinalysisTrace (*)NegativeFinalLeukocytes UrinalysisTrace (*)NegativeFinalAll other components within normal limitsURINALYSIS MICROSCOPIC ONLY - Abnormal; Notable for the following:Urine White Blood Cells5-10 (*)0 - 3 /hpfFinalUrine Bacteria2+ (*)Negative /hpfFinalUrine MucousTrace (*)Negative /lpfFinalEpithelial Cells3-5 (*)0 - 3 /hpfFinalCalcium Oxalate Crystals1+ (*)Negative /lpfFinalAll other components within normal limitsLIPASE - NormalURINE - NormalI personally reviewed the images. The radiologist's interpretation reveals:Last Imaging results No results found for this visit on 11/23/16.MEDS GIVEN IN ED:Medications0.9 % sodium chloride 1,000 mL bolus ( Intravenous Stopped/Completed 11/23/162025)ondansetron (ZOFRAN) injection 4 mg (4 mg IV Push Given 11/23/161921)dicyclomine (BENTYL) injection 10 mg (10 mg Intramuscular Given 11/23/161922)COURSE AND MEDICAL DECISION MAKINGPertinent Labs AND Imaging studies reviewed. (See chart for details)Patient presented with complaint of nausea, vomiting, and diarrhea that is been present for thepast 2 days. She states she has lower abdominal cramping as well. Patient denies any recenttravel. She denies any close contact with others are ill, however, she admits to being homelessuntil just yesterday. Assessment notes the patient to be nontoxic-appearing. Her vital signs arestable. She is nontender with palpation of her entire abdomen, no peritoneal signs whatsoever.Patient was provided normal saline bolus, Zofran, Bentyl for symptom management. Basic labs wereobtained.Workup today shows the patient has a mild urinary tract infection. She was treated with Keflex forthis. In addition she will be treated with Zofran and Bentyl for symptom management. She has beenreferred to the transition clinic to arrange for follow-up as soon as possible.I discussed my usual return precautions with the patient, she verbalized understanding denies anyfurther needs. Patient was ambulatory nontoxic-appearing upon discharge.I have seen this patient in conjunction with Dr. Dickson reviewed old records/labsDischarge Medication List as of 11/23/2016 8:27 PMSTART taking these medicationsDetailscephALEXin (KEFLEX) 500 mg capsuleTake 1 capsule by mouth 2 times daily for 7 days.500 mg, Disp-14capsule, R-0, Printdicyclomine (BENTYL) 10 mg capsuleTake 1 capsule by mouth after lunch and supper for 5 days.10 mg,Disp-10 capsule, R-0, Printondansetron (ZOFRAN ODT) 4 mg disintegrating tabletTake 1 tablet by mouth every 8 hours as neededfor Nausea for up to 5 days.4 mg, Disp-15 tablet, R-0, PrintFINAL LROTFBAUSFKHL-64-EM5.Nausea and vomiting, intractability of vomiting not specified, unspecified vomiting typeR11.22.Diarrhea, unspecified typeR19.73.Urinary tract infection, site not ipxpklwjaN72.0Electronicallys igned by: ALTAGRACIA Enamorado, 11/23/2016ALTAGRACIA Enamorado11/23/[address] [facility] LIPASEon 11-23-2016 Lipase 139 U/L Normal 73-393 [facility] Comment on above: Performed By: #### L AB15, LAB99, LAB20 ####[facility] CLIA [id number] [place] [address] LIVER PROFILE PANELon 2016 Alanine aminotransferase (ALT) 21 U/L Normal 12-78 [facility] Comment on above: Performed By: #### L AB15, LAB99, LAB20 ####[facility] CLIA [id number] [place] [address] Albumin 4.5 g/dL Normal 3.4-5.0 [facility] Comment on above: Performed By: #### L AB15, LAB99, LAB20 ####[facility] CLIA [id number] [facility] [place] [address] Alkaline phosphatase (ALP) 156 U/L Abnormal 45-117 [facility] Comment on above: Performed By: #### L AB15, LAB99, LAB20 ####[facility] CLIA [id number] [facility] [place] [address] Aspartate aminotransferase (AST) 14 U/L Abnormal 15-37 [facility] Comment on above: Performed By: #### L AB15, LAB99, LAB20 ####[facility] CLIA [id number] [place] [address] Bilirubin (direct) 0.08 mg/dL Normal 0.00-0.20 [facility] Comment on above: Performed By: #### L AB15, LAB99, LAB20 ####[facility] CLIA [id number] [place] [address] Bilirubin Ql (U) 0.4 mg/dL Normal 0.2-1.0 [facility] Comment on above: Performed By: #### L AB15, LAB99, LAB20 ####[facility] CLIA [id number] [place] [address] Protein 8.0 g/dL Normal 6.4-8.2 [facility] Comment on above: Performed By: #### L AB15, LAB99, LAB20 ####[facility] CLIA [id number] [facility] [place] [address] URINALYSIS MICROSCOPIC ONLYo n 11-23-2016 Calcium 1+ /lpf Abnormal Negative [facility] Comment on above: Result Comment: 1+ Performed By: #### L AB347, GME196, [id number] ####[facility] ED CLIA [id number] [facility] [place] [address] URINE MUCOUS Trace Abnormal Negative [facility] Comment on above: Result Comment: Trac e Performed By: #### L AB347, [id number], [id number] ####[facility] ED CLIA [id number] [place] [address] URINE RED BLOOD CELLS 0-3 Normal 0-3 [facility] Comment on above: Result Comment: 0-3 Performed By: #### L AB347, [id number], [id number] ####[facility] CLIA [id number] [place] [address] URINE WHITE BLOOD CELLS 5-10 Abnormal 0-3 [facility] Comment on above: Result Comment: 5-10 Performed By: #### L AB347, [id number], [id number] ####[facility] CLIA [id number] [place] [address] Urine, bacteria in sediment 2+ /hpf Abnormal Negative [facility] Comment on above: Result Comment: 2+ Performed By: #### L AB347, [id number], [id number] ####[facility] CLIA [id number] [facility] [place] [address] Urine, epithelial cells in sediment 3-5 Abnormal 0-3 [facility] Comment on above: Result Comment: 3-5 Performed By: #### L AB347, [id number], [id number] ####[facility] CLIA [id number] [facility] [place] [address] URINALYSIS W/REFLEX MICROSCO PYon 11-23-2016 BILIRUBIN, UA Negative Normal Negative [facility] Comment on above: Result Comment: Nega tive Performed By: #### L AB347, [id number], [id number] ####[facility] CLIA [id number] [place] [place] [address] BLOOD, UA Trace Abnormal Negative [facility] Comment on above: Result Comment: Trac e Performed By: #### L AB347, [id number], [id number] ####[facility] CLIA [id number] [place] [place] [address] GLUCOSE, UA Negative Normal Negative [facility] Comment on above: Result Comment: Nega tive Performed By: #### L AB347, [id number], [id number] ####[facility] CLIA [id number] [place] [address] KETONES, UA Negative Normal Negative [facility] Comment on above: Result Comment: Nega tive Performed By: #### L AB347, [id number], [id number] ####[facility] CLIA [id number] [place] [place] [address] LEUKOCYTES, UA Trace Abnormal Negative [facility] Comment on above: Result Comment: Trac e Performed By: #### L AB347, [id number], [id number] ####[facility] CLIA [id number] [facility] [place] [address] PH, UA 5.5 Normal 5.0-8.0 [facility] Comment on above: Result Comment: 5.5 Performed By: #### L AB347, SVG689, [id number] ####[facility] ED CLIA [id number] [facility] [place] [address] PROTEIN, UA Negative Normal Negative [facility] Comment on above: Result Comment: Negdanielle thompson Performed By: #### L AB347, [id number], [id number] ####[facility] CLIA [id number] [facility] [place] [address] SPECIFIC GRAVITY, UA 1.025 Normal 1.001-[address] [facility] Comment on above: Performed By: #### L AB347, OOR263, [id number] ####[facility] ED CLIA [id number] [facility] [place] [address] Urine, appearance Clear Normal Clear [facility] Comment on above: Result Comment: Camille forrester Performed By: #### L AB347, [id number], [id number] ####[facility] CLIA [id number] [place] [place] [address] Urine, color Yellow Normal Yellow [facility] Comment on above: Result Comment: Jareth fierro Performed By: #### L AB347, [id number], [id number] ####[facility] CLIA [id number] [place] [place] [address] Urine, nitrite presence Negative Normal Negative [facility] Comment on above: Result Comment: Nega tive Performed By: #### L AB347, ISR810, [id number] ####[facility] ED CLIA [id number] [place] [address] UROBILINOGEN, UA 0.2 EU/dL Normal 0.2-1.0 [facility] Comment on above: Result Comment: 0.2 Performed By: #### L AB347, [id number], [id number] ####[facility] CLIA [id number] [place] [address] URINE PREGNANCYon 11-23-2016 HCG.beta subunit ( test) Ql (U) Negative Normal Negative [facility] Comment on above: Result Comment: Comm ent: False negative results may occur with very dilute urine samples, indicated by a low specific gravity and when the levels of hCG are below the sensitivity of the test. If is still suspected, send a plasma sample to laboratory for confirmation of a negative result, by plasma qualitative hCG. Performed By: #### L AB347, NDE477, [id number] ####[facility] CLIA [id number] [place] [id number] Ambulance Noteon 11-19-2016 Ambulance Note [id number]-2016 Consent Forms [id number]#1.00[facility] Summary[facility] ED Clinical Summary [facility] - Emergency [id number] [place] [id number] ed Clinical SummaryPERSON INFORMATIONName: MARK TREVINO Age: 21 Years Sex: FEMALEDOB: [birth year] MRN: Acct#:Visit Reason: Head pain; Ankle pain-swelling; PAIN RIGHT ANKLE Arrival:11/18/16 17:45:00 Discharge: 11/18/16 19:01:00LOS: 000 01:16 Check In: 11/18/16 17:45:00 Checkout:11/18/16 19:01:00Address:[address] [place] [place] [address]GZD: Provider, NonePROVIDER INFORMATIONProvider Role Assigned UnassignedLaw Swain ED 11/18/16 17:48:42Amarilys Eid RN ED Nurse 11/18/16 17:49:23VITALS INFORMATIONVital Sign Triage LatestTemperature TympanicTemperature Temporal ArteryPulse Rate 96 bpm 96 bpmO2 Sat 99 % 99 %Respiratory Rate 16 br/min 16 br/minBlood Pressure 103 mmHg/91 mmHg 103 mmHg/91 mmHgMEDICAL INFORMATIONMedications Given:Medication Dose Routeibuprofen 800 mg POAllergy Information:No Known Medication AllergiesPHYSICIAN DOCUMENTATIONDISCHARGE INFORMATION:Discharge Disposition: HomeDischarge Location: HomePATIENT EDUCATION INFORMATIONInstructions: Head Injury, Adult; Facial or Scalp Contusion; Contusion; Ankle SprainFollow-Up:With: Address: When:JU ARGUETA [address] [place] [address] [phone] Business (1) Within 3 to 5 daysComments:Diagnosis is accidental fall with head contusion, scalp hematoma, head injury, right ankle sprain. From history, you fell on some uneven ground, sustaining the above injuries, you had no neurologic deficit on physical exam, and no loss of consciousness we did not obtain a CT scan of your head. your x-ray of the ankle shows no obvious fracture, more consistent with sprain. Provided you with a dose of ibuprofen, may take this and/or Tylenol to help with pain relief. Provided you with an Aircast and Inocencia wrap, to help with comfort, urinary able to ambulate, follow up with orthopedic surgeon next 3-5 days for further evaluation. Return to the emergency department for worsening symptoms or concerns, your vision or loss of vision, intractable nausea or vomiting, acute shortness of breath or chest pain, lethargy, numbness tingling or weakness in your upper or lower extremities, any questionsWith: Address: When:None Provider Within 3 to 5 daysDIAGNOSIS:Accidental fall; Contusion of head; Head injury; Sprain of ankle, right; Traumatic hematoma of scalpComment: Normal [facility] ED Note - Physicianon 2016 ED Note - Physician Patient: MARK TREVINO : 21 years Sex: FEMALE : [birth year]Associated Diagnoses: Traumatic hematoma of scalp; Sprain of ankle, right; Head injury; Contusion of head; Ankle pain-swelling; Accidental fallAuthor: Law SwainBasic InformationTime seen: Date & time 11/18/16 18:02:00.History source: Patient.Arrival mode: Ambulance.History limitation: None.Additional information: Chief Complaint from Nursing Triage Note : Chief Nwkabzhsk25/14/17 17:44 EDT Chief Complaint PT STATES TWISTED RT ANKLE AND FELL AND HIT LEFT SIDE OF HEAD. .History of Present IllnessPatient is a 21-year-old female with a history of speech impediment who presents to the emergency department after tripping and falling, which resulted in twisting her right ankle, and hitting her left side of her head on the sidewalk, there was no loss of consciousness, patient seen in room 8. Patient is moving, and apparently was on the edge of a sidewalk and a landscape bed, were the ground was soft and she twisted her right ankle and fell striking her left side of her forehead against the concrete, there was no loss of consciousness, but she had blurry vision for about less than a minute, now is fine, blurry vision no double vision, no nausea or vomiting. She has not tried to weight-bear with the right ankle. Denies any numbness tingling or weakness in upper or lower extremities, denies any history of anticoagulative medicationReview of SystemsConstitutional symptoms: No fever, no chills.Skin symptoms: No rash, no abrasions.Eye symptoms: Blurred vision, no discharge, no diplopia.Respiratory symptoms: No shortness of breath,Cardiovascular symptoms: No chest pain,Gastrointestinal symptoms: No abdominal pain, no nausea, no vomiting.Musculoskeletal symptoms: Negative except as documented in HPI.Health StatusAllergies:Allergic Reactions (All)No Known Medication Allergies.Medications: (Selected)Documented MedicationsDocumentedQUEtiapi ne: 25 mg, PO, BID, 0 Refill(s).Past Medical/ Family/ Social HistoryMedical history:No active or resolved past medical history items have been selected or recorded..Surgical history:No active procedure history items have been selected or recorded..Family history:No family history items have been selected or recorded..Social history:Social & Psychosocial ZcchgbJkcprlv02/10/2017 Smoking tobacco use: Current Some Day Smoker Type: Cigarettes Number used per day: occasional .Problem list:Active Problems (3)Bipolar depressionBrittle bone diseaseScoliosis.Physical Examination Vital SignsVital Signs11/18/16 17:44 EDT Temperature Oral 38.1 DegC HI Peripheral Pulse Rate 96 bpm Respiratory Rate 16 br/min Systolic Blood Pressure 103 mmHg Diastolic Blood Pressure 91 mmHg HI SpO2 99 % Oxygen Therapy Room air.Lycbrrwozyig35/14/17 17:54 EDT Weight Dosing 45.000 kg11/18/16 17:54 EDT Height/Length Dosing 150.000 cm11/18/16 17:44 EDT Height/Length Estimated 150.000 cm Weight Estimated 45.000 kg.General: Alert, no acute distress.Skin: Warm, dry.Head: Normocephalic, Patient has a small contusion and small hematoma on the left side of the forehead, just above the temporal region, there is no step-offs of the skull with palpation, the contusion itself is a little tender but there is no step-offs around it, or any other aspect of the skull, forehead, zygomatic arch, periorbital area, or mandible.Neck: Supple, trachea midline.Eye: Extraocular movements are intact, normal conjunctiva.Cardiovascular: +S1, S2 Regular.Respiratory: Lungs are clear to auscultation, respirations are non-labored, breath sounds are equal.Gastrointestinal: Soft, Nontender, Non distended, Normal bowel sounds.Musculoskeletal: Patient's right ankle has no obvious swelling or ecchymosis, or deformity. She has pain with palpation in the anterior aspect of the ligamentous attachments and anterior ankle joint, but no bony pain medial lateral or posterior, she is able to dorsi and plantarflex but has pain in the ankle joint itself, foot is warm, 2+ dorsalis pedis pulse I try to have her walk and she was able to weight-bear but had some pain and she walked around the room but continued have pain sat back down..Neurological: Alert and oriented to person, place, time, and situation, No focal neurological deficit observed, CN II-XII intact, normal sensory observed, normal motor observed, normal coordination observed, Patient talks with a speech impediment, but is awake alert and oriented, normal coordination of upper and lower extremities, normal symmetrical facies, normal pupils, EOMs are intact, no obvious neurologic deficits and physical exam.Psychiatric: Cooperative.Medical Decision MakingDifferential Diagnosis: Fall, contusion, sprain, closed fracture.Orders Launch OrdersPharmacy:ibuprofen (Order): 800 mg, PO, OnceRadiology:XR Ankle Complete Right (Order): 11/18/16 18:06 EDT Stat, Fall twisting, Allow Modification Per Radiologist, Transport Mode: Wheelchair, Patient has some pain in the anterior lateral aspect of the right ankle, more in the ligamentous attachments, in the anterior aspect, and the joint itself, Launch OrdersPatient Care:Aircast/INOCENCIA (Order): Aircast/INOCENCIA, 11/18/16 18:36 EDT, Constant Order.Reexamination/ ReevaluationPatient is a 21-year-old female who presents to the emergency department after falling after miss stepping. From history and physical exam, there is no loss of consciousness, she has a contusion may be a small hematoma on the left side of her forehead, but no step-offs of the skull, she is not on any type of anticoagulation. Patient had a little bit of elevated temperature at 38.1, may be from going through although she is a little warm and sweaty, but she is not sick, we'll give her a dose ibuprofen to help with ankle pain and also treat her elevated temp. Patient's x-ray shows no evidence of obvious fracture that I can appreciate, mortise appears intact, at this time we'll provide her with an Aircast, Inocencia wrap, she cannot walk with this we'll give her crutches and crutch training. She can follow up with orthopedics in 3-5 days for reevaluation, take xjrh-sbv-pvlzkjl Tylenol or ibuprofen help with pain relief.Impression and PlanDiagnosisTraumatic hematoma of scalp (KIF78-NU S00.03XA, Discharge, Medical)Sprain of ankle, right (RAV14-AI S93.401A, Discharge, Medical)Head injury (EEH24-YG S09.90XA, Discharge, Medical)Contusion of head (EOG62-OX S00.93XA, Discharge, Medical)Complaint of Ankle pain-swelling (PNED [id number], Reason For Visit, Medical)Accidental fall (XCB75-FW W19.XXXA, Discharge, Medical)PlanCondition: Improved, Stable.Disposition: Discharged: Time 11/18/16 18:59:00, to home.Patient was given the following educational materials: Ankle Sprain, Contusion, Facial or Scalp Contusion, Head Injury, Adult, Head Injury, Adult, Facial or Scalp Contusion, Contusion, Ankle Sprain.Follow up with: None Provider Within 3 to 5 days; JU ARGUETA Within 3 to 5 days Diagnosis is accidental fall with head contusion, scalp hematoma, head injury, right ankle sprain. From history, you fell on some uneven ground, sustaining the above injuries, you had no neurologic deficit on physical exam, and no loss of consciousness we did not obtain a CT scan of your head. your x-ray of the ankle shows no obvious fracture, more consistent with sprain. Provided you with a dose of ibuprofen, may take this and/or Tylenol to help with pain relief. Provided you with an Aircast and Inocencia wrap, to help with comfort, urinary able to ambulate, follow up with orthopedic surgeon next 3-5 days for further evaluation. Return to the emergency department for worsening symptoms or concerns, your vision or loss of vision, intractable nausea or vomiting, acute shortness of breath or chest pain, lethargy, numbness tingling or weakness in your upper or lower extremities, any questions.Counseled: Patient, Regarding diagnosis, Regarding diagnostic results, Regarding treatment plan, Regarding prescription, Patient indicated understanding of instructions.[Electronically Signed on: 11/18/2016 19:03 EDT] Law Swain[Verified on: 11/18/2016 19:03 EDT] Law Swain [facility] ED Note-Nursingon 11-18-2016 ED Note-Nursing INOCENCIA WRAP APPLIED HEATHER NG WITH STIRRUP SPLINT SPLINT TO RIGHT ANKLE. DC ORDERS RECEIVED AND DISCUSSED WITH PT. SHE VERBALIZED UNDERSTANDING. PT HOEM WITH FRIEND. GAIT STEADY WITH STIRRUP SPLINT IN USE. [facility] ED Patient Education Noteon 11-18-2016 ED Patient Education Note Education MaterialsEmergency MedicineFacial or Scalp ContusionA facial or scalp contusion is a deep bruise on the face or head. Injuries to the face and head generally cause a lot of swelling, especially around the eyes. Contusions are the result of an injury that caused bleeding under the skin. The contusion may turn blue, purple, or yellow. Minor injuries will give you a painless contusion, but more severe contusions may stay painful and swollen for a few weeks. CAUSESA facial or scalp contusion is caused by a blunt injury or trauma to the face or head area.SIGNS AND SYMPTOMS? Swelling of the injured area. ?? Discoloration of the injured area. ?? Tenderness, soreness, or pain in the injured area. ?DIAGNOSISThe diagnosis can be made by taking a medical history and doing a physical exam. An X-ray exam, CT scan, or MRI may be needed to determine if there are any associated injuries, such as broken bones (fractures).TREATMENTOften, the best treatment for a facial or scalp contusion is applying cold compresses to the injured area. Mheg-jdz-txwcnun medicines may also be recommended for pain control.HOME CARE INSTRUCTIONS? Only take hwbk-ejq-dqgzbuh or prescription medicines as directed by your health care provider. ?? Apply ice to the injured area. ?? Put ice in a plastic bag. ?? Place a towel between your skin and the bag. ?? Leave the ice on for 20 minutes, 2?3 times a day. ?SEEK MEDICAL CARE IF:? You have bite problems. ?? You have pain with chewing. ?? You are concerned about facial defects.SEEK IMMEDIATE MEDICAL CARE IF:? You have severe pain or a headache that is not relieved by medicine. ?? You have unusual sleepiness, confusion, or personality changes. ?? You throw up (vomit). ?? You have a persistent nosebleed. ?? You have double vision or blurred vision. ?? You have fluid drainage from your nose or ear. ?? You have difficulty walking or using your arms or legs. ?MAKE SURE YOU:? Understand these instructions.? Will watch your condition.? Will get help right away if you are not doing well or get worse.This information is not intended to replace advice given to you by your health care provider. Make sure you discuss any questions you have with your health care provider.Document Released: 03/31/2005 Document Revised: 03/19/2016 Document Reviewed: 10/04/2013[employer] Interactive Patient Education ?2016 [employer].Home Health CareHead Injury, AdultYou have received a head injury. It does not appear serious at this time. Headaches and vomiting are common following head injury. It should be easy to awaken from sleeping. Sometimes it is necessary for you to stay in the emergency department for a while for observation. Sometimes admission to the hospital may be needed. After injuries such as yours, most problems occur within the first 24 hours, but side effects may occur up to 7?10 days after the injury. It is important for you to carefully monitor your condition and contact your health care provider or seek immediate medical care if there is a change in your condition. WHAT ARE THE TYPES OF HEAD INJURIES?Head injuries can be as minor as a bump. Some head injuries can be more severe. More severe head injuries include:? A jarring injury to the brain (concussion).? A bruise of the brain (contusion). This mean there is bleeding in the brain that can cause swelling.? A cracked skull (skull fracture).? Bleeding in the brain that collects, clots, and forms a bump (hematoma).WHAT CAUSES A HEAD INJURY?A serious head injury is most likely to happen to someone who is in a car wreck and is not wearing a seat belt. Other causes of major head injuries include bicycle or motorcycle accidents, sports injuries, and falls.HOW ARE HEAD INJURIES DIAGNOSED?A complete history of the event leading to the injury and your current symptoms will be helpful in diagnosing head injuries. Many times, pictures of the brain, such as CT or MRI are needed to see the extent of the injury. Often, an overnight hospital stay is necessary for observation.WHEN SHOULD I SEEK IMMEDIATE MEDICAL CARE?You should get help right away if:? You have confusion or drowsiness.? You feel sick to your stomach (nauseous) or have continued, forceful vomiting.? You have dizziness or unsteadiness that is getting worse.? You have severe, continued headaches not relieved by medicine. Only take zuxs-dad-rilfwaq or prescription medicines for pain, fever, or discomfort as directed by your health care provider.? You do not have normal function of the arms or legs or are unable to walk.? You notice changes in the black spots in the center of the colored part of your eye (pupil).? You have a clear or bloody fluid coming from your nose or ears.? You have a loss of vision.During the next 24 hours after the injury, you must stay with someone who can watch you for the warning signs. This person should contact local emergency services (1 in the [place] if you have seizures, you become unconscious, or you are unable to wake up.HOW CAN I PREVENT A HEAD INJURY IN THE FUTURE?The most important factor for preventing major head injuries is avoiding motor vehicle accidents. ?To minimize the potential for damage to your head, it is crucial to wear seat belts while riding in motor vehicles. Wearing helmets while bike riding and playing collision sports (like football) is also helpful. Also, avoiding dangerous activities around the house will further help reduce your risk of head injury.WHEN CAN I RETURN TO NORMAL ACTIVITIES AND ATHLETICS?You should be reevaluated by your health care provider before returning to these activities. If you have any of the following symptoms, you should not return to activities or contact sports until 1 week after the symptoms have stopped:? Persistent headache.? Dizziness or vertigo.? Poor attention and concentration.? Confusion.? Memory problems.? Nausea or vomiting.? Fatigue or tire easily.? Irritability.? Intolerant of bright lights or loud noises.? Anxiety or depression.? Disturbed sleep.MAKE SURE YOU:? Understand these instructions.? Will watch your condition.? Will get help right away if you are not doing well or get worse.This information is not intended to replace advice given to you by your health care provider. Make sure you discuss any questions you have with your health care provider.Document Released: 02/21/2006 Document Revised: 03/14/2015 Document Reviewed: 10/29/2013[facility] Interactive Patient Education ?2015 [employer].MusculoskeletalContusionA contusion is a deep bruise. Contusions are the result of a blunt injury to tissues and muscle fibers under the skin. The injury causes bleeding under the skin. The skin overlying the contusion may turn blue, purple, or yellow. Minor injuries will give you a painless contusion, but more severe contusions may stay painful and swollen for a few weeks. CAUSESThis condition is usually caused by a blow, trauma, or direct force to an area of the body.SYMPTOMSSymptoms of this condition include:? Swelling of the injured area.? Pain and tenderness in the injured area.? Discoloration. The area may have redness and then turn blue, purple, or yellow.DIAGNOSISThis condition is diagnosed based on a physical exam and medical history. An X-ray, CT scan, or MRI may be needed to determine if there are any associated injuries, such as broken bones (fractures).TREATMENTSpecific treatment for this condition depends on what area of the body was injured. In general, the best treatment for a contusion is resting, icing, applying pressure to (compression), and elevating the injured area. This is often called the RICE strategy. Cqcs-jxm-fnviqzz anti-inflammatory medicines may also be recommended for pain control.HOME CARE INSTRUCTIONS? Rest the injured area.? If directed, apply ice to the injured area:? Put ice in a plastic bag.? Place a towel between your skin and the bag.? Leave the ice on for 20 minutes, 2?3 times per day.? If directed, apply light compression to the injured area using an elastic bandage. Make sure the bandage is not wrapped too tightly. Remove and reapply the bandage as directed by your health care provider.? If possible, raise (elevate) the injured area above the level of your heart while you are sitting or lying down.? Take vibl-qwo-nbhkgvj and prescription medicines only as told by your health care provider.SEEK MEDICAL CARE IF:? Your symptoms do not improve after several days of treatment.? Your symptoms get worse.? You have difficulty moving the injured area.SEEK IMMEDIATE MEDICAL CARE IF:? You have severe pain.? You have numbness in a hand or foot.? Your hand or foot turns pale or cold.This information is not intended to replace advice given to you by your health care provider. Make sure you discuss any questions you have with your health care provider.Document Released: 12/01/2005 Document Revised: 11/12/2015 Document Reviewed: 07/09/2015[employer]ust[employer] Interactive Patient Education ?2016 [employer].Ankle SprainAn ankle sprain is a stretch or tear in one of the tough, fiber-like tissues (ligaments) in the ankle. The ligaments in your ankle help to hold the bones of the ankle together. CAUSESThis condition is often caused by stepping on or falling on the outer edge of the foot.RISK FACTORSThis condition is more likely to develop in people who play sports.SYMPTOMSSymptoms of this condition include:? Pain in your ankle.? Swelling.? Bruising. Bruising may develop right after you sprain your ankle or 1?2 days later.? Trouble standing or walking, especially when you turn or change directions.DIAGNOSISThis condition is diagnosed with a physical exam. During the exam, your health care provider will press on certain parts of your foot and ankle and try to move them in certain ways. X-rays may be taken to see how severe the sprain is and to check for broken bones.TREATMENTThis condition may be treated with:? A brace. This is used to keep the ankle from moving until it heals.? An elastic bandage. This is used to support the ankle.? Crutches.? Pain medicine.? Surgery. This may be needed if the sprain is severe.? Physical therapy. This may help to improve the range of motion in the ankle.HOME CARE INSTRUCTIONS? Rest your ankle.? Take pffn-fau-qqobtqo and prescription medicines only as told by your health care provider.? For 2?3 days, keep your ankle raised (elevated) above the level of your heart as much as possible.? If directed, apply ice to the area:? Put ice in a plastic bag.? Place a towel between your skin and the bag.? Leave the ice on for 20 minutes, 2?3 times a day.? If you were given a brace:? Wear it as directed.? Remove it to shower or bathe.? Try not to move your ankle much, but wiggle your toes from time to time. This helps to prevent swelling.? If you were given an elastic bandage (dressing):? Remove it to shower or bathe.? Try not to move your ankle much, but wiggle your toes from time to time. This helps to prevent swelling.? Adjust the dressing to make it more comfortable if it feels too tight.? Loosen the dressing if you have numbness or tingling in your foot, or if your foot becomes cold and blue.? If you have crutches, use them as told by your health care provider. Continue to use them until you can walk without feeling pain in your ankle.SEEK MEDICAL CARE IF:? You have rapidly increasing bruising or swelling.? Your pain is not relieved with medicine.SEEK IMMEDIATE MEDICAL CARE IF:? Your toes or foot becomes numb or blue.? You have severe pain that gets worse.This information is not intended to replace advice given to you by your health care provider. Make sure you discuss any questions you have with your health care provider.Document Released: 02/21/2006 Document Revised: 03/19/2016 Document Reviewed: 09/23/2015[employer] Interactive Patient Education ?2016 [employer]. Normal [facility] ED Patient Summaryon 017 ED Patient Summary [facility] - Emergency [id number] [id number] pATIENT DISCHARGE INSTRUCTIONSPatient InformationName: MARK TREVINO Age: 21 YearsDate of : [birth year]MRN: [id number] For Visit: Head pain; Ankle pain-swelling; PAIN RIGHT ANKLEArrival Time: 11/18/16 17:45:00Phone: Primary Care Physician: Provider, NoneAttending Physician: Brannon Velasquez MDComment:Visit Diagnosis:Diagnoses This Visit Accidental fall (W19.XXXA) Ankle pain-swelling ([id number]) Contusion of head (S00.93XA) Head injury (S09.90XA) Head pain ([id number]) Sprain of ankle, right (S93.401A) Traumatic hematoma of scalp (S00.03XA)If you received any narcotics, sedation, or any other medication that causes drowsiness for the next 24 hours, unless otherwise directed:? Do not drive a car.? Do not operate machinery such as power tools, lawn mowers, drills, sewing machines, or stoves? Avoid alcoholic beverages and drugs for allergies, nerves, or sleep? Do not make important personal or business decisions or sign any legal documentsWith: Address: When:JU ARGUETA [address] [place] [id number] Business (1) Within 3 to 5 daysComments:Diagnosis is accidental fall with head contusion, scalp hematoma, head injury, right ankle sprain. From history, you fell on some uneven ground, sustaining the above injuries, you had no neurologic deficit on physical exam, and no loss of consciousness we did not obtain a CT scan of your head. your x-ray of the ankle shows no obvious fracture, more consistent with sprain. Provided you with a dose of ibuprofen, may take this and/or Tylenol to help with pain relief. Provided you with an Aircast and Inocencia wrap, to help with comfort, urinary able to ambulate, follow up with orthopedic surgeon next 3-5 days for further evaluation. Return to the emergency department for worsening symptoms or concerns, your vision or loss of vision, intractable nausea or vomiting, acute shortness of breath or chest pain, lethargy, numbness tingling or weakness in your upper or lower extremities, any questionsWith: Address: When:None Provider Within 3 to 5 daysMedication Information:The exam and treatment you received today in the [facility] Emergency Department were for an urgent problem and are not intended as complete care. It is important for you to follow up with a doctor, nurse practitioner, or physician?s dental ceramist assistant for ongoing care. If your symptoms become worse or you do not improve as expected and you are unable to reach your usual health care provider, you should return to the Emergency Department, we are available 24 hours a day.For those patients who have received Radiology results, the interpretation of your X-ray as given to you by our Emergency Department physician is only a preliminary report. The Radiologist will review your films and if there is a change in the diagnosis you will be notified by phone. Please make sure you have provided a working phone number so we can reach you if necessary.In the event that you had a lab culture while you were a patient in the Emergency Department, you will be notified by phone if there is a need to change your antibiotic. Please make sure you have provided a working phone number so we can reach you if necessary.[facility] Emergency Department has provided you with a complete list of medications post discharge. Please inform your hollow handle knife assembler/provider of your visit and for further instruction on these medications. Any specific questions regarding your chronic medications and dosages should be discussed with your primary care physician(s) and/or pharmacist. Medications That Were Updated - Follow Below InstructionsOther MedicationsUpdated: QUEtiapine 25 Milligram Oral 2 times a day.Visit InformationAllergies:Substanc e Reaction Symptoms Type CommentsNo Known Medication Allergies DrugVital Signs: Vitals and Measurements this Visit (last charted value for your 11/18/2016 visit) Vital Signs This Visit Temperature Oral: 38.1 DegC Peripheral Pulse Rate: 96 bpm Respiratory Rate: 16 br/min Systolic Blood Pressure: 103 mmHg Diastolic Blood Pressure: 91 mmHg SpO2: 99 % Oxygen Therapy: Room air Measurements This Visit Height/Length Dosin.000 cm Height/Length Estimated: 150.000 cm Weight Dosin.000 kg Weight Estimated: 45.000 kgProblems List:Problem Onset CommentsBipolar depressionBrittle bone diseaseScoliosisPatient EducationHead Injury, AdultYou have received a head injury. It does not appear serious at this time. Headaches and vomiting are common following head injury. It should be easy to awaken from sleeping. Sometimes it is necessary for you to stay in the emergency department for a while for observation. Sometimes admission to the hospital may be needed. After injuries such as yours, most problems occur within the first 24 hours, but side effects may occur up to 7?10 days after the injury. It is important for you to carefully monitor your condition and contact your health care provider or seek immediate medical care if there is a change in your condition. WHAT ARE THE TYPES OF HEAD INJURIES?Head injuries can be as minor as a bump. Some head injuries can be more severe. More severe head injuries include:? A jarring injury to the brain (concussion).? A bruise of the brain (contusion). This mean there is bleeding in the brain that can cause swelling.? A cracked skull (skull fracture).? Bleeding in the brain that collects, clots, and forms a bump (hematoma).WHAT CAUSES A HEAD INJURY?A serious head injury is most likely to happen to someone who is in a car wreck and is not wearing a seat belt. Other causes of major head injuries include bicycle or motorcycle accidents, sports injuries, and falls.HOW ARE HEAD INJURIES DIAGNOSED?A complete history of the event leading to the injury and your current symptoms will be helpful in diagnosing head injuries. Many times, pictures of the brain, such as CT or MRI are needed to see the extent of the injury. Often, an overnight hospital stay is necessary for observation.WHEN SHOULD I SEEK IMMEDIATE MEDICAL CARE?You should get help right away if:? You have confusion or drowsiness.? You feel sick to your stomach (nauseous) or have continued, forceful vomiting.? You have dizziness or unsteadiness that is getting worse.? You have severe, continued headaches not relieved by medicine. Only take dpcw-irc-zkfcuvt or prescription medicines for pain, fever, or discomfort as directed by your health care provider.? You do not have normal function of the arms or legs or are unable to walk.? You notice changes in the black spots in the center of the colored part of your eye (pupil).? You have a clear or bloody fluid coming from your nose or ears.? You have a loss of vision.During the next 24 hours after the injury, you must stay with someone who can watch you for the warning signs. This person should contact local emergency services (911 in the [place] if you have seizures, you become unconscious, or you are unable to wake up.HOW CAN I PREVENT A HEAD INJURY IN THE FUTURE?The most important factor for preventing major head injuries is avoiding motor vehicle accidents. ?To minimize the potential for damage to your head, it is crucial to wear seat belts while riding in motor vehicles. Wearing helmets while bike riding and playing collision sports (like football) is also helpful. Also, avoiding dangerous activities around the house will further help reduce your risk of head injury.WHEN CAN I RETURN TO NORMAL ACTIVITIES AND ATHLETICS?You should be reevaluated by your health care provider before returning to these activities. If you have any of the following symptoms, you should not return to activities or contact sports until 1 week after the symptoms have stopped:? Persistent headache.? Dizziness or vertigo.? Poor attention and concentration.? Confusion.? Memory problems.? Nausea or vomiting.? Fatigue or tire easily.? Irritability.? Intolerant of bright lights or loud noises.? Anxiety or depression.? Disturbed sleep.MAKE SURE YOU:? Understand these instructions.? Will watch your condition.? Will get help right away if you are not doing well or get worse.This information is not intended to replace advice given to you by your health care provider. Make sure you discuss any questions you have with your health care provider.Document Released: 02/21/2006 Document Revised: 03/14/2015 Document Reviewed: 10/29/2013[employer] Interactive Patient Education ?2016 [employer].Facial or Scalp ContusionA facial or scalp contusion is a deep bruise on the face or head. Injuries to the face and head generally cause a lot of swelling, especially around the eyes. Contusions are the result of an injury that caused bleeding under the skin. The contusion may turn blue, purple, or yellow. Minor injuries will give you a painless contusion, but more severe contusions may stay painful and swollen for a few weeks. CAUSESA facial or scalp contusion is caused by a blunt injury or trauma to the face or head area.SIGNS AND SYMPTOMS? Swelling of the injured area. ?? Discoloration of the injured area. ?? Tenderness, soreness, or pain in the injured area. ?DIAGNOSISThe diagnosis can be made by taking a medical history and doing a physical exam. An X-ray exam, CT scan, or MRI may be needed to determine if there are any associated injuries, such as broken bones (fractures).TREATMENTOften, the best treatment for a facial or scalp contusion is applying cold compresses to the injured area. Hpgc-ofk-ehpstem medicines may also be recommended for pain control.HOME CARE INSTRUCTIONS? Only take mvzu-vdx-kfyztun or prescription medicines as directed by your health care provider. ?? Apply ice to the injured area. ?? Put ice in a plastic bag. ?? Place a towel between your skin and the bag. ?? Leave the ice on for 20 minutes, 2?3 times a day. ?SEEK MEDICAL CARE IF:? You have bite problems. ?? You have pain with chewing. ?? You are concerned about facial defects.SEEK IMMEDIATE MEDICAL CARE IF:? You have severe pain or a headache that is not relieved by medicine. ?? You have unusual sleepiness, confusion, or personality changes. ?? You throw up (vomit). ?? You have a persistent nosebleed. ?? You have double vision or blurred vision. ?? You have fluid drainage from your nose or ear. ?? You have difficulty walking or using your arms or legs. ?MAKE SURE YOU:? Understand these instructions.? Will watch your condition.? Will get help right away if you are not doing well or get worse.This information is not intended to replace advice given to you by your health care provider. Make sure you discuss any questions you have with your health care provider.Document Released: 03/31/2005 Document Revised: 03/19/2016 Document Reviewed: 10/04/2013Rafitaevlorenzo Interactive Patient Education ?2016 [employer].ContusionA contusion is a deep bruise. Contusions are the result of a blunt injury to tissues and muscle fibers under the skin. The injury causes bleeding under the skin. The skin overlying the contusion may turn blue, purple, or yellow. Minor injuries will give you a painless contusion, but more severe contusions may stay painful and swollen for a few weeks. CAUSESThis condition is usually caused by a blow, trauma, or direct force to an area of the body.SYMPTOMSSymptoms of this condition include:? Swelling of the injured area.? Pain and tenderness in the injured area.? Discoloration. The area may have redness and then turn blue, purple, or yellow.DIAGNOSISThis condition is diagnosed based on a physical exam and medical history. An X-ray, CT scan, or MRI may be needed to determine if there are any associated injuries, such as broken bones (fractures).TREATMENTSpecific treatment for this condition depends on what area of the body was injured. In general, the best treatment for a contusion is resting, icing, applying pressure to (compression), and elevating the injured area. This is often called the RICE strategy. Dsct-dtl-gfxfzmu anti-inflammatory medicines may also be recommended for pain control.HOME CARE INSTRUCTIONS? Rest the injured area.? If directed, apply ice to the injured area:? Put ice in a plastic bag.? Place a towel between your skin and the bag.? Leave the ice on for 20 minutes, 2?3 times per day.? If directed, apply light compression to the injured area using an elastic bandage. Make sure the bandage is not wrapped too tightly. Remove and reapply the bandage as directed by your health care provider.? If possible, raise (elevate) the injured area above the level of your heart while you are sitting or lying down.? Take lazp-oom-mnlmipd and prescription medicines only as told by your health care provider.SEEK MEDICAL CARE IF:? Your symptoms do not improve after several days of treatment.? Your symptoms get worse.? You have difficulty moving the injured area.SEEK IMMEDIATE MEDICAL CARE IF:? You have severe pain.? You have numbness in a hand or foot.? Your hand or foot turns pale or cold.This information is not intended to replace advice given to you by your health care provider. Make sure you discuss any questions you have with your health care provider.Document Released: 12/01/2005 Document Revised: 11/12/2015 Document Reviewed: 07/09/2015Agustin Interactive Patient Education ?2016 [employer].Ankle SprainAn ankle sprain is a stretch or tear in one of the tough, fiber-like tissues (ligaments) in the ankle. The ligaments in your ankle help to hold the bones of the ankle together. CAUSESThis condition is often caused by stepping on or falling on the outer edge of the foot.RISK FACTORSThis condition is more likely to develop in people who play sports.SYMPTOMSSymptoms of this condition include:? Pain in your ankle.? Swelling.? Bruising. Bruising may develop right after you sprain your ankle or 1?2 days later.? Trouble standing or walking, especially when you turn or change directions.DIAGNOSISThis condition is diagnosed with a physical exam. During the exam, your health care provider will press on certain parts of your foot and ankle and try to move them in certain ways. X-rays may be taken to see how severe the sprain is and to check for broken bones.TREATMENTThis condition may be treated with:? A brace. This is used to keep the ankle from moving until it heals.? An elastic bandage. This is used to support the ankle.? Crutches.? Pain medicine.? Surgery. This may be needed if the sprain is severe.? Physical therapy. This may help to improve the range of motion in the ankle.HOME CARE INSTRUCTIONS? Rest your ankle.? Take acnu-omo-towmwxk and prescription medicines only as told by your health care provider.? For 2?3 days, keep your ankle raised (elevated) above the level of your heart as much as possible.? If directed, apply ice to the area:? Put ice in a plastic bag.? Place a towel between your skin and the bag.? Leave the ice on for 20 minutes, 2?3 times a day.? If you were given a brace:? Wear it as directed.? Remove it to shower or bathe.? Try not to move your ankle much, but wiggle your toes from time to time. This helps to prevent swelling.? If you were given an elastic bandage (dressing):? Remove it to shower or bathe.? Try not to move your ankle much, but wiggle your toes from time to time. This helps to prevent swelling.? Adjust the dressing to make it more comfortable if it feels too tight.? Loosen the dressing if you have numbness or tingling in your foot, or if your foot becomes cold and blue.? If you have crutches, use them as told by your health care provider. Continue to use them until you can walk without feeling pain in your ankle.SEEK MEDICAL CARE IF:? You have rapidly increasing bruising or swelling.? Your pain is not relieved with medicine.SEEK IMMEDIATE MEDICAL CARE IF:? Your toes or foot becomes numb or blue.? You have severe pain that gets worse.This information is not intended to replace advice given to you by your health care provider. Make sure you discuss any questions you have with your health care provider.Document Released: 02/21/2006 Document Revised: 03/19/2016 Document Reviewed: 09/23/2015[employer] Interactive Patient Education ?2016 [employer]. Viruses or BacteriaWhat?s got you sick?Antibiotics only treat bacterial infections. Viral illnesses cannot be treated with antibiotics. When an antibiotic is not prescribed, ask your healthcare professional for tips on how to relieve symptoms and feel better. Usual CauseIllnessVirusesBacteria Antibiotic NeededCold/Runny Nose NOBronchitis/Chest Cold (in otherwise healthy children and adults) NOWhooping Cough YesFlu NOStrep Throat YesSore Throat (except strep) NOFluid in the middle ear (otitis media with effusion) NOUrinary Tract Infection YesAntibiotics Aren?t Always the Answerwww.cdc.gov/getsmart GET SMART Know When Antibiotics [place] Department of Health and Human ServicesThe University Of Toledo Medical Centerers for Disease Control and Prevention November 2013 [facility] XR Ankle Complete Righton XR Ankle Complete Right ANKLE COMPLETE RIGHTCLINICAL DATA: Twist injury to right ankle today, pain.Five views of the right ankle were obtained. Ankle mortise is grosslyintact. No definite acute fracture or dislocation is seen. No significantfocal osseous or articular abnormalities are identified. There is mild softtissue swelling anteriorly.IMPRESSION:1. RIGHT ANKLE STUDY FAILS TO DEMONSTRATE DEFINITE ACUTE FRACTURE ORDISLOCATION.2. FOLLOW-UP NEEDED.PAULA Mcclain #: [id number]: 11/19/2016T: 11/19/2016 Final Dictated by: Timothy Steele MD SDictated DT/TM: 11/19/16 5:50Signed (Electronic Signature): Timothy Steele MD 11/19/16 12:28 pTechnologist: [facility] Coding Summaryon 10-18-2016 Coding Summary CODING DATE: 017 [facility] STATUS: Home PAYOR: Medicaid HMO ADMIT DX: REASON FOR VISIT DX: S40.869A Insect bite (nonvenomous) of unspecified upper arm, initial encounter FINAL DX: PRINCIPAL: S40.869A Insect bite (nonvenomous) of unspecified upper arm, initial encounter SECONDARY: S80.869A Insect bite (nonvenomous), unspecified lower leg, initial encounter S20.469A Insect bite (nonvenomous) of unspecified back wall of thorax, initial encounter S20.369A Insect bite (nonvenomous) of unspecified front wall of thorax, initial encounter S30.861A Insect bite (nonvenomous) of abdominal wall, initial encounter S70.261A Insect bite (nonvenomous), right hip, initial encounter W57.XXXA Bitten or stung by nonvenomous insect and other nonvenomous arthropods, initial encounter PROCEDURES DOCTOR NAME DATE NOTE: The code number assigned matches the documented diagnosis and / or procedure in the patient's chart. However, the narrative phrase printed from the coding software may appear abbreviated, or result in slightly different terminology. Coded By: Christy Jenkins Date Saved: 10/18/2016 10:41 am Normal [facility] ED Clinical Summaryon 2016 ED Clinical Summary [facility] ? Urgent [id number] [id number] clinical SummaryPERSON INFORMATIONName: MARK TREVINO Age: 21 Years Sex: FEMALEDOB: [birth year] MRN: Acct#:Visit Reason: UC - Insect Bite or Sting; RASH Arrival:10/10/16 16:06:00 Discharge: 10/10/16 17:38:00LOS: 000 01:32 Check In: 10/10/16 16:06:00 Checkout: 10/10/16 17:38:00Address:[address] [place] [id number]: Provider, NonePROVIDER INFORMATIONProvider Role Assigned UnassignedJEOVANNY CRESPO ED PA 10/10/16 16:12:28Shantel Sethi PROPERTY OFFICER Nurse 10/10/16 16:19:11VITALS INFORMATIONVital Sign Triage LatestTemperature TympanicTemperature Temporal ArteryPulse Rate 92 bpm 92 bpmO2 Sat 98 % 98 %Respiratory Rate 16 br/min 16 br/minBlood Pressure 128 mmHg/84 mmHg 128 mmHg/84 mmHgMEDICAL INFORMATIONMedications Given:Allergy Information:No Known Medication AllergiesPHYSICIAN DOCUMENTATIONPatient: MARK TREVINO : 21 years Sex: FEMALE : [birth year]Associated Diagnoses: Insect bitesAuthor: Brenda CRESPO InformationTime seen: Date & time 10/10/16 16:13:00.History source: Patient.Arrival mode: Private vehicle, walking.History of Present Illness3 pleasant 21-year-old female presents to the urgent care complaining of a rash or bug bites on her trunk and arms. She states she was over at a friend's house last evening. She states the house was very dirty. She was sitting on the sofa for a couple of hours. She states that she noticed a couple of bugs crawling on the bed but describes them as being greater than a half an inch long. She states that she awakened this morning and realized that she had some bites on her arms and on her right hip. She states that they have not really changed since this morning. She said she has noticed that she has bumps on her chest, abdomen, back but most on her right hip and right arm. She also has a couple bites to her legs. They are pruritic. No pain. No fevers or chills. She has not felt ill. She took some sort of allergy medication for an a half hours ago that states she can take it every 4-6 hours but is not sure what she's taken.Her last menstrual period is unknown. She states she doesn't have periods because she is on Depakote. She also tells me that her last Shot was 23 months ago and she did not get it.Patient denies any new soaps, lotions, creams or detergents. No new medications.Review of SystemsConstitutional symptoms: No fever, no chills.Skin symptoms: Slightly raised erythematous bumps on her extremities and trunk ?1 day.Respiratory symptoms: No shortness of breath, no cough.Cardiovascular symptoms: No chest pain,Gastrointestinal symptoms: No abdominal pain, no nausea, no vomiting.Health StatusAllergies:Allergic Reactions (Selected)No Known Medication Allergies.Medications: (Selected)PrescriptionsPrescr ibedPhenergan 25 mg rectal suppository: 25 mg, 1 supp, WI, q4hr, PRN: Nausea, 18 supp, 0 Refill(s)Zofran 4 mg oral tablet: 4 mg, 1 tab(s), PO, q6hr, PRN: Nausea, 20 tab(s), 0 Refill(s)Documented MedicationsDocumentedQUEtiapi ne: 25 mg, PO, 0 Refill(s).Past Medical/ Family/ Social HistoryMedical history:No active or resolved past medical history items have been selected or recorded..Surgical history:No active procedure history items have been selected or recorded..Family history:No family history items have been selected or recorded..Social history:Social & Psychosocial YxjustMzsqqgt20/10/2017 Use: Current Some Day Smoker Type: Cigarettes Number used per day: occasional .Problem list:Active Problems (3)Bipolar depressionBrittle bone diseaseScoliosis.Physical Examination Vital SignsVital Signs10/10/16 16:22 EDT Temperature Oral 36.8 DegC Peripheral Pulse Rate 92 bpm Respiratory Rate 16 br/min Systolic Blood Pressure 128 mmHg Diastolic Blood Pressure 84 mmHg SpO2 98 % O2 Flow 0 L/min.General: Alert, no acute distress.Skin: Warm, dry, pink, Raised erythematous pruritic bumps on the patient's extremities and trunk. There are clusters of bumps on the right hip and the right elbow region. There are occasional scattered bumps on the back one on the chest and one on the abdomen. She also has a few scattered bumps on her lower extremities. All lesions are pruritic. Blanchable. No petechial lesions. No vesicles. They appear as insect bites..Head: Normocephalic, atraumatic.Neck: Supple, no tenderness, No meningeal signs, chin to chest is normal..Ears, nose, mouth and throat: Tympanic membranes clear, oral mucosa moist, no pharyngeal erythema or exudate.Cardiovascular: Regular rate and rhythm.Respiratory: Lungs are clear to auscultation, respirations are non-labored.Gastrointestinal: Soft, Nontender, Non distended.Back: Nontender.Musculoskeletal: Normal ROM.Neurological: Alert and oriented to person, place, time, and situation, normal sensory observed, normal motor observed.Lymphatics: No lymphadenopathy.Psychiatric: Cooperative, appropriate mood & affect.Medical Decision MakingDifferential Diagnosis: Insect bites.Orders Launch OrdersLaboratory:hCG urine Qualitative 1 (Order): Urine, Stat collect, 10/10/16 16:32 EDT, Nurse collect.Results review: Lab results : Lab Impimlmxb19/06/17 16:32 EDT U Preg Negative .Reexamination/ ReevaluationPatient denies any new soaps, lotions, creams or detergents. She states the bites that she has noticed has been on her upper extremities and lower extremities. She tells me that the cluster of lesions on her right hip she was unaware of until the nurse saw them. She also has a couple of tiny red bumps on her back. She states the ones on her hip and on her back do not itch but the ones on her arms do. She denies any new medications.She has had no difficulty breathing or shortness of breath. We'll recommend Benadryl as these appear to be insect bites. I've advised her to check her bedding and the area where she sustained. I explained her that I would be surprised if she could sustain that many bites while sitting on a sofa for 2 hours. She took some sort of allergy medication. I will recommend that she wait a little while and start taking diphenhydramine 25 mg. Patient is very thin and weighs only about 90 pounds.Patient states they have kittens at the place where she is staying and has been there for about 2 months however they do not have fleas.She is in no distress. We'll recommend she follow-up with a local family doctor.Impression and PlanDiagnosisInsect bites ([id number] W57.XXXA, Discharge, Medical)PlanCondition: Stable.Patient was given the following educational materials: Insect Bite, Insect Bite, Insect Bite.Follow up with: None Provider; YOUR FAMILY DOCTOR Follow with your family doctorRecheck immediately if worse in any wayMedication as directed, YOUR FAMILY DOCTOR Follow with your family doctorRecheck immediately if worse in any wayMedication as directedI would recommend that she take diphenhydramine 25 mg 1 tablet every 6 hours as you needed for itching.Check the bedding where you are staying to ensure there are no bugs.Recheck immediately for worsening symptoms, difficulty breathing, shortness of breath or if worse in any way.; None Provider.Counseled: Patient, Regarding diagnosis, Regarding diagnostic results, Regarding treatment plan, Patient indicated understanding of instructions.DISCHARGE INFORMATION:Discharge Disposition: HomeDischarge Location: HomePATIENT EDUCATION INFORMATIONInstructions: Insect BiteFollow-Up:With: Address: When:YOUR FAMILY DOCTORComments:Follow with your family doctorRecheck immediately if worse in any wayMedication as directedI would recommend that she take diphenhydramine 25 mg 1 tablet every 6 hours as you needed for itching.Check the bedding where you are staying to ensure there are no bugs.Recheck immediately for worsening symptoms, difficulty breathing, shortness of breath or if worse in any way.With: Address: When:None ProviderDIAGNOSIS:Insect bitesComment: Normal [facility] ED Note - Physicianon 2016 ED Note - Physician Patient: MARK TREVINO : 21 years Sex: FEMALE : [birth year]Associated Diagnoses: Insect bitesAuthor: Brenda CRESPO InformationTime seen: Date & time 10/10/16 16:13:00.History source: Patient.Arrival mode: Private vehicle, walking.History of Present Illness3 pleasant 21-year-old female presents to the urgent care complaining of a rash or bug bites on her trunk and arms. She states she was over at a friend's house last evening. She states the house was very dirty. She was sitting on the sofa for a couple of hours. She states that she noticed a couple of bugs crawling on the bed but describes them as being greater than a half an inch long. She states that she awakened this morning and realized that she had some bites on her arms and on her right hip. She states that they have not really changed since this morning. She said she has noticed that she has bumps on her chest, abdomen, back but most on her right hip and right arm. She also has a couple bites to her legs. They are pruritic. No pain. No fevers or chills. She has not felt ill. She took some sort of allergy medication for an a half hours ago that states she can take it every 4-6 hours but is not sure what she's taken.Her last menstrual period is unknown. She states she doesn't have periods because she is on Depakote. She also tells me that her last Shot was 23 months ago and she did not get it.Patient denies any new soaps, lotions, creams or detergents. No new medications.Review of SystemsConstitutional symptoms: No fever, no chills.Skin symptoms: Slightly raised erythematous bumps on her extremities and trunk ?1 day.Respiratory symptoms: No shortness of breath, no cough.Cardiovascular symptoms: No chest pain,Gastrointestinal symptoms: No abdominal pain, no nausea, no vomiting.Health StatusAllergies:Allergic Reactions (Selected)No Known Medication Allergies.Medications: (Selected)PrescriptionsPrescr ibedPhenergan 25 mg rectal suppository: 25 mg, 1 supp, WI, q4hr, PRN: Nausea, 18 supp, 0 Refill(s)Zofran 4 mg oral tablet: 4 mg, 1 tab(s), PO, q6hr, PRN: Nausea, 20 tab(s), 0 Refill(s)Documented MedicationsDocumentedQUEtiapi ne: 25 mg, PO, 0 Refill(s).Past Medical/ Family/ Social HistoryMedical history:No active or resolved past medical history items have been selected or recorded..Surgical history:No active procedure history items have been selected or recorded..Family history:No family history items have been selected or recorded..Social history:Social & Psychosocial LjpaohMlcfenz08/10/2017 Use: Current Some Day Smoker Type: Cigarettes Number used per day: occasional .Problem list:Active Problems (3)Bipolar depressionBrittle bone diseaseScoliosis.Physical Examination Vital SignsVital Signs10/10/16 16:22 EDT Temperature Oral 36.8 DegC Peripheral Pulse Rate 92 bpm Respiratory Rate 16 br/min Systolic Blood Pressure 128 mmHg Diastolic Blood Pressure 84 mmHg SpO2 98 % O2 Flow 0 L/min.General: Alert, no acute distress.Skin: Warm, dry, pink, Raised erythematous pruritic bumps on the patient's extremities and trunk. There are clusters of bumps on the right hip and the right elbow region. There are occasional scattered bumps on the back one on the chest and one on the abdomen. She also has a few scattered bumps on her lower extremities. All lesions are pruritic. Blanchable. No petechial lesions. No vesicles. They appear as insect bites..Head: Normocephalic, atraumatic.Neck: Supple, no tenderness, No meningeal signs, chin to chest is normal..Ears, nose, mouth and throat: Tympanic membranes clear, oral mucosa moist, no pharyngeal erythema or exudate.Cardiovascular: Regular rate and rhythm.Respiratory: Lungs are clear to auscultation, respirations are non-labored.Gastrointestinal: Soft, Nontender, Non distended.Back: Nontender.Musculoskeletal: Normal ROM.Neurological: Alert and oriented to person, place, time, and situation, normal sensory observed, normal motor observed.Lymphatics: No lymphadenopathy.Psychiatric: Cooperative, appropriate mood & affect.Medical Decision MakingDifferential Diagnosis: Insect bites.Orders Launch OrdersLaboratory:hCG urine Qualitative 1 (Order): Urine, Stat collect, 10/10/16 16:32 EDT, Nurse collect.Results review: Lab results : Lab Dtozfofli08/06/17 16:32 EDT U Preg Negative .Reexamination/ ReevaluationPatient denies any new soaps, lotions, creams or detergents. She states the bites that she has noticed has been on her upper extremities and lower extremities. She tells me that the cluster of lesions on her right hip she was unaware of until the nurse saw them. She also has a couple of tiny red bumps on her back. She states the ones on her hip and on her back do not itch but the ones on her arms do. She denies any new medications.She has had no difficulty breathing or shortness of breath. We'll recommend Benadryl as these appear to be insect bites. I've advised her to check her bedding and the area where she sustained. I explained her that I would be surprised if she could sustain that many bites while sitting on a sofa for 2 hours. She took some sort of allergy medication. I will recommend that she wait a little while and start taking diphenhydramine 25 mg. Patient is very thin and weighs only about 90 pounds.Patient states they have kittens at the place where she is staying and has been there for about 2 months however they do not have fleas.She is in no distress. We'll recommend she follow-up with a local family doctor.Impression and PlanDiagnosisInsect bites ([id number]-RK W57.XXXA, Discharge, Medical)PlanCondition: Stable.Patient was given the following educational materials: Insect Bite, Insect Bite, Insect Bite.Follow up with: None Provider; YOUR FAMILY DOCTOR Follow with your family doctorRecheck immediately if worse in any wayMedication as directed, YOUR FAMILY DOCTOR Follow with your family doctorRecheck immediately if worse in any wayMedication as directedI would recommend that she take diphenhydramine 25 mg 1 tablet every 6 hours as you needed for itching.Check the bedding where you are staying to ensure there are no bugs.Recheck immediately for worsening symptoms, difficulty breathing, shortness of breath or if worse in any way.; None Provider.Counseled: Patient, Regarding diagnosis, Regarding diagnostic results, Regarding treatment plan, Patient indicated understanding of instructions.[Electronically Signed on: 10/10/2016 17:33 EDT] JEOVANNY CRESPO[Verified on: 10/10/2016 17:33 EDT] JEOVANNY CRESPO [facility] ED Patient Summaryon 017 ED Patient Summary [facility] ? [id number] [id number] pATIENT DISCHARGE INSTRUCTIONSPatient InformationName: MARK TREVINO Age: 21 YearsDate of : [birth year]MRN: [id number] For Visit: UC - Insect Bite or Sting; RASHArrival Time: 10/10/16 16:06:00Phone: primary Care Physician: Provider, NoneAttending Physician: JEOVANNY CRESPOComment:Patient EducationWith: Address: When:YOUR FAMILY DOCTORComments:Follow with your family doctorRecheck immediately if worse in any wayMedication as directedI would recommend that she take diphenhydramine 25 mg 1 tablet every 6 hours as you needed for itching.Check the bedding where you are staying to ensure there are no bugs.Recheck immediately for worsening symptoms, difficulty breathing, shortness of breath or if worse in any way.With: Address: When:None ProviderInsect BiteMosquitoes, flies, fleas, bedbugs, and many other insects can bite. Insect bites are different from insect stings. A sting is when poison (venom) is injected into the skin. Insect bites can cause pain or itching for a few days, but they are usually not serious. Some insects can spread diseases to people through a bite. SYMPTOMSSymptoms of an insect bite include:? Itching or pain in the bite area.? Redness and swelling in the bite area.? An open wound (skin ulcer).In many cases, symptoms last for 2?4 days.DIAGNOSISThis condition is usually diagnosed based on symptoms and a physical exam.TREATMENTTreatment is usually not needed for an insect bite. Symptoms often go away on their own. Your health care provider may recommend creams or lotions to help reduce itching. Antibiotic medicines may be prescribed if the bite becomes infected. A tetanus shot may be given in some cases. If you develop an allergic reaction to an insect bite, your health care provider will prescribe medicines to treat the reaction (antihistamines). This is rare.HOME CARE INSTRUCTIONS? Do not scratch the bite area.? Keep the bite area clean and dry. Wash the bite area daily with soap and water as told by your health care provider.? If directed, apply?ice to the bite area.? Put ice in a plastic bag.? Place a towel between your skin and the bag.? Leave the ice on for 20 minutes, 2?3 times per day.? To help reduce itching and swelling, try applying a baking soda paste, cortisone cream, or calamine lotion to the bite area as told by your health care provider.? Apply or take [id number] and prescription medicines only as told by your health care provider.? If you were prescribed an antibiotic medicine, use it as told by your health care provider. Do not stop using the antibiotic even if your condition improves.? Keep all follow-up visits as told by your health care provider. This is important.PREVENTION? Use insect repellent. The best insect repellents contain:? DEET, picaridin, oil of lemon eucalyptus (OLE), or [id number].? Higher amounts of an active ingredient.? When you are outdoors, wear clothing that covers your arms and legs.? Avoid opening windows that do not have window screens.SEEK MEDICAL CARE IF:? You have increased redness, swelling, or pain in the bite area.? You have a fever.SEEK IMMEDIATE MEDICAL CARE IF:? You have joint pain. ?? You have fluid, blood, or pus coming from the bite area.? You have a headache or neck pain.? You have unusual weakness.? You have a rash.? You have chest pain or shortness of breath.? You have abdominal pain, nausea, or vomiting.? You feel unusually tired or sleepy.This information is not intended to replace advice given to you by your health care provider. Make sure you discuss any questions you have with your health care provider.Document Released: 03/31/2005 Document Revised: 11/12/2015 Document Reviewed: 07/09/2015[employer] Interactive Patient Education ?2016 [employer].Medication Information:The exam and treatment you received today in the [facility] Emergency Department were for an urgent problem and are not intended as complete care. It is important for you to follow up with a doctor, nurse practitioner, or physician?s dental ceramist assistant for ongoing care. If your symptoms become worse or you do not improve as expected and you are unable to reach your usual health care provider, you should return to the Emergency Department, we are available 24 hours a day.For those patients who have received Radiology results, the interpretation of your X-ray as given to you by our Emergency Department physician is only a preliminary report. The Radiologist will review your films and if there is a change in the diagnosis you will be notified by phone. Please make sure you have provided a working phone number so we can reach you if necessary.In the event that you had a lab culture while you were a patient in the Emergency Department, you will be notified by phone if there is a need to change your antibiotic. Please make sure you have provided a working phone number so we can reach you if necessary.[facility] Emergency Department has provided you with a complete list of medications post discharge. Please inform your hollow handle knife assembler/provider of your visit and for further instruction on these medications. Any specific questions regarding your chronic medications and dosages should be discussed with your primary care physician(s) and/or pharmacist. Medications to Continue That Have Not ChangedOther Medicationsondansetron (Zofran 4 mg oral tablet) 1 tab(s) Oral Every 6 hours as needed Nausea. Refills: 0.promethazine (Phenergan 25 mg rectal suppository) 1 suppository(ies) Per rectum Every 4 hours as needed Nausea. Refills: 0.QUEtiapine 25 Milligram Oral.Visit InformationVisit Diagnosis:Diagnoses This Visit Insect bites (W57.XXXA) UC - Insect Bite or Sting ([id number])If you received any narcotics, sedation, or any other medication that causes drowsiness for the next 24 hours, unless otherwise directed:? Do not drive a car.? Do not operate machinery such as power tools, lawn mowers, drills, sewing machines, or stoves? Avoid alcoholic beverages and drugs for allergies, nerves, or sleep? Do not make important personal or business decisions or sign any legal documentsReason for Visit:C/O red spots all over arms, legs, and stomache.Allergies:Substance Reaction Symptoms Type CommentsNo Known Medication Allergies DrugVital Signs: Vitals and Measurements this Visit (last charted value for your 10/10/2016 visit) Vital Signs This Visit Temperature Oral: 36.8 DegC Peripheral Pulse Rate: 92 bpm Respiratory Rate: 16 br/min Systolic Blood Pressure: 128 mmHg Diastolic Blood Pressure: 84 mmHg SpO2: 98 % O2 Flow: 0 L/minProblems List:Problem Onset CommentsBipolar depressionBrittle bone diseaseScoliosisMajor Tests and Procedures:The following procedures and tests were performed during your ED visit.LaboratoryhCG urine Qualitative 1 Urine, Stat collect, 10/10/16 16:32:00 EDT, Stop date 10/10/16 16:32:00 EDT, Nurse collectRadiologyCardiology Viruses or BacteriaWhat?s got you sick?Antibiotics only treat bacterial infections. Viral illnesses cannot be treated with antibiotics. When an antibiotic is not prescribed, ask your healthcare professional for tips on how to relieve symptoms and feel better. Usual CauseIllnessVirusesBacteria Antibiotic NeededCold/Runny Nose NOBronchitis/Chest Cold (in otherwise healthy children and adults) NOWhooping Cough YesFlu NOStrep Throat YesSore Throat (except strep) NOFluid in the middle ear (otitis media with effusion) NOUrinary Tract Infection YesAntibiotics Aren?t Always the Answerwww.cdc.gov/getsmart GET SMART Know When Antibiotics [place] Department of Health and Human ServicesCenters for Disease Control and Prevention November 2013 [facility] Test Urine 1on U Preg Negative [facility] Comment on above: Performed By: #### [id number] ####[facility] (DEFAULT)[address] [place] [address] U Preg Internal Control Pass Normal [facility] Comment on above: Performed By: #### [id number] ####[facility] (DEFAULT)[address] [place] [address] Urgent Care [facility] 017 Urgent Care Record [facility] ? Urgent [address] [place] [address] pATIENT DISCHARGE INSTRUCTIONSPatient InformationName: MARK TREVINO Age: 21 YearsDate of : [birth year]MRN: [id number] For Visit: UC - Insect Bite or Sting; RASHArrival Time: 10/10/16 16:06:00Phone: primary Care Physician: Provider, NoneAttending Physician: JEOVANNY CRESPOComment:Visit Diagnosis:Diagnoses This Visit Insect bites (W57.XXXA) UC - Insect Bite or Sting ([id number])If you received any narcotics, sedation, or any other medication that causes drowsiness for the next 24 hours, unless otherwise directed:? Do not drive a car.? Do not operate machinery such as power tools, lawn mowers, drills, sewing machines, or stoves? Avoid alcoholic beverages and drugs for allergies, nerves, or sleep? Do not make important personal or business decisions or sign any legal documentsWith: Address: When:YOUR FAMILY DOCTORComments:Follow with your family doctorRecheck immediately if worse in any wayMedication as directedI would recommend that she take diphenhydramine 25 mg 1 tablet every 6 hours as you needed for itching.Check the bedding where you are staying to ensure there are no bugs.Recheck immediately for worsening symptoms, difficulty breathing, shortness of breath or if worse in any way.With: Address: When:None ProviderMedication Information:The exam and treatment you received today in the [facility] Care were for an urgent problem and are not intended as complete care. It is important for you to follow up with a doctor, nurse practitioner, or physician?s dental ceramist assistant for ongoing care. If your symptoms become worse or you do not improve as expected and you are unable to reach your usual health care provider, you should return to the Emergency Department, we are available 24 hours a day.For those patients who have received Radiology results, the interpretation of your X-ray as given to you by our Urgent Care physician is only a preliminary report. The Radiologist will review your films and if there is a change in the diagnosis you will be notified by phone. Please make sure you have provided a working phone number so we can reach you if necessary.In the event that you had a lab culture while you were a patient in the Urgent Care, you will be notified by phone if there is a need to change your antibiotic. Please make sure you have provided a working phone number so we can reach you if necessary.[facility] Urgent Care has provided you with a complete list of medications post discharge. Please inform your hollow handle knife assembler/provider of your visit and for further instruction on these medications. Any specific questions regarding your chronic medications and dosages should be discussed with your primary care physician(s) and/or pharmacist. Medications to Continue That Have Not ChangedOther Medicationsondansetron (Zofran 4 mg oral tablet) 1 tab(s) Oral Every 6 hours as needed Nausea. Refills: 0.promethazine (Phenergan 25 mg rectal suppository) 1 suppository(ies) Per rectum Every 4 hours as needed Nausea. Refills: 0.QUEtiapine 25 Milligram Oral.Visit InformationAllergies:Substanc e Reaction Symptoms Type CommentsNo Known Medication Allergies DrugVital Signs: Vitals and Measurements this Visit (last charted value for your 10/10/2016 visit) Vital Signs This Visit Temperature Oral: 36.8 DegC Peripheral Pulse Rate: 92 bpm Respiratory Rate: 16 br/min Systolic Blood Pressure: 128 mmHg Diastolic Blood Pressure: 84 mmHg SpO2: 98 % O2 Flow: 0 L/minProblems List:Problem Onset CommentsBipolar depressionBrittle bone diseaseScoliosis Patient EducationInsect BiteMosquitoes, flies, fleas, bedbugs, and many other insects can bite. Insect bites are different from insect stings. A sting is when poison (venom) is injected into the skin. Insect bites can cause pain or itching for a few days, but they are usually not serious. Some insects can spread diseases to people through a bite. SYMPTOMSSymptoms of an insect bite include:? Itching or pain in the bite area.? Redness and swelling in the bite area.? An open wound (skin ulcer).In many cases, symptoms last for 2?4 days.DIAGNOSISThis condition is usually diagnosed based on symptoms and a physical exam.TREATMENTTreatment is usually not needed for an insect bite. Symptoms often go away on their own. Your health care provider may recommend creams or lotions to help reduce itching. Antibiotic medicines may be prescribed if the bite becomes infected. A tetanus shot may be given in some cases. If you develop an allergic reaction to an insect bite, your health care provider will prescribe medicines to treat the reaction (antihistamines). This is rare.HOME CARE INSTRUCTIONS? Do not scratch the bite area.? Keep the bite area clean and dry. Wash the bite area daily with soap and water as told by your health care provider.? If directed, apply?ice to the bite area.? Put ice in a plastic bag.? Place a towel between your skin and the bag.? Leave the ice on for 20 minutes, 2?3 times per day.? To help reduce itching and swelling, try applying a baking soda paste, cortisone cream, or calamine lotion to the bite area as told by your health care provider.? Apply or take [id number] and prescription medicines only as told by your health care provider.? If you were prescribed an antibiotic medicine, use it as told by your health care provider. Do not stop using the antibiotic even if your condition improves.? Keep all follow-up visits as told by your health care provider. This is important.PREVENTION? Use insect repellent. The best insect repellents contain:? DEET, picaridin, oil of lemon eucalyptus (OLE), or [id number].? Higher amounts of an active ingredient.? When you are outdoors, wear clothing that covers your arms and legs.? Avoid opening windows that do not have window screens.SEEK MEDICAL CARE IF:? You have increased redness, swelling, or pain in the bite area.? You have a fever.SEEK IMMEDIATE MEDICAL CARE IF:? You have joint pain. ?? You have fluid, blood, or pus coming from the bite area.? You have a headache or neck pain.? You have unusual weakness.? You have a rash.? You have chest pain or shortness of breath.? You have abdominal pain, nausea, or vomiting.? You feel unusually tired or sleepy.This information is not intended to replace advice given to you by your health care provider. Make sure you discuss any questions you have with your health care provider.Document Released: 03/31/2005 Document Revised: 11/12/2015 Document Reviewed: 07/09/2015[employer] Patient Education ?2016 [employer]. Viruses or BacteriaWhat?s got you sick?Antibiotics only treat bacterial infections. Viral illnesses cannot be treated with antibiotics. When an antibiotic is not prescribed, ask your healthcare professional for tips on how to relieve symptoms and feel better. Usual CauseIllnessVirusesBacteria Antibiotic NeededCold/Runny Nose NOBronchitis/Chest Cold (in otherwise healthy children and adults) NOWhooping Cough YesFlu NOStrep Throat YesSore Throat (except strep) NOFluid in the middle ear (otitis media with effusion) NOUrinary Tract Infection YesAntibiotics Aren?t Always the Answerwww.cdc.gov/getsmart GET SMART Know When Antibiotics [place] Department of Health and Human ServicesCenters for Disease Control and Prevention November 2013 [facility] Coding Summaryon 09-28-2016 Coding Summary CODING DATE: [facility] STATUS: Home PAYOR: Medicaid HMO ADMIT DX: REASON FOR VISIT DX: R11.11 Vomiting without nausea FINAL DX: PRINCIPAL: R11.11 Vomiting without nausea SECONDARY: PROCEDURES DOCTOR NAME DATE NOTE: The code number assigned matches the documented diagnosis and / or procedure in the patient's chart. However, the narrative phrase printed from the coding software may appear abbreviated, or result in slightly different terminology. Coded By: Christy Jenkins Date Saved: 09/28/2016 05:[address] [facility] Coding Summary CODING DATE: [facility] STATUS: Home PAYOR: Medicaid HMO ADMIT DX: REASON FOR VISIT DX: R11.11 Vomiting without nausea FINAL DX: PRINCIPAL: R11.11 Vomiting without nausea SECONDARY: PROCEDURES DOCTOR NAME DATE NOTE: The code number assigned matches the documented diagnosis and / or procedure in the patient's chart. However, the narrative phrase printed from the coding software may appear abbreviated, or result in slightly different terminology. Revised Coded By: Christy Jenkins Revised Date Saved: 09/28/2016 05:[address] [facility] Vital Signs Date Time Vital Sign Value Performing Clinician Facility 11-30-2023 10:27-0400 Body height 149.9 cm Celso McGreal PA-C Work Phone: [facility] 11-30-2023 10:27-0400 Body mass index (BMI) [Ratio] 24.64 kg/m2 Celso McGreal PA-C Work Phone: [facility] 11-30-2023 10:27-0400 Body weight 55.34 kg Celso McGreal PA-C Work Phone: [facility] 11-30-2023 10:27-0400 Diastolic blood pressure 80 mm[Hg] Celso McGreal PA-C Work Phone: [facility] 11-30-2023 10:27-0400 Systolic blood pressure 110 mm[Hg] Celso McGreal PA-C Work Phone: [facility] 11-01-2023 09:38-0400 Body height 149.9 cm Celso McGreal PA-C Work Phone: [facility] 11-01-2023 09:38-0400 Body mass index (BMI) [Ratio] 24.64 kg/m2 Celso McGreal PA-C Work Phone: [facility] 11-01-2023 09:38-0400 Body weight 55.34 kg Celso McGreal PA-C Work Phone: [facility] 10-18-2023 10:20-0400 Body temperature 97.39 [degF] Hellen Jaeger MD Work Phone: [facility] 10-18-2023 10:20-0400 Diastolic blood pressure 83 mm[Hg] Hellen Jaeger MD Work Phone: [facility] 10-18-2023 10:20-0400 Heart rate 84 /min Hellen Jaeger MD Work Phone: [facility] 10-18-2023 10:20-0400 Respiratory rate 26 /min Hellen Jaeger MD Work Phone: [facility] 10-18-2023 10:20-0400 SaO2% (BldA) [Mass fraction] 99 % Hellen Jaeger MD Work Phone: [facility] 10-18-2023 10:20-0400 Systolic blood pressure 120 mm[Hg] Hellen Jaeger MD Work Phone: [facility] 10-18-2023 06:14-0400 Body mass index (BMI) [Ratio] 24.64 kg/m2 Hellen Jaeger MD Work Phone: [facility] 10-18-2023 06:14-0400 Body weight 55.34 kg Hellen Jaeger MD Work Phone: [facility] 09-28-2023 11:38-0400 Body height 149.9 cm Hellen Jaeger MD Work Phone: [facility] 09-28-2023 11:38-0400 Body mass index (BMI) [Ratio] 24.64 kg/m2 Hellen Jaeger MD Work Phone: [facility] 09-28-2023 11:38-0400 Body weight 55.34 kg Hellen Jaeger MD Work Phone: [facility] 03-14-2023 15:00-0500 Body height 152.4 cm Celso STARR Work Phone: [facility] 03-14-2023 15:00-0500 Body mass index (BMI) [Ratio] 22.46 kg/m2 Celso STARR Work Phone: [facility] 03-14-2023 15:00-0500 Body weight 52.16 kg Celso STARR Work Phone: [facility] 03-14-2023 15:00-0500 Diastolic blood pressure 89 mm[Hg] Celso STARR Work Phone: [facility] 03-14-2023 15:00-0500 Heart rate 106 /min Celso Zurita PA Work Phone: [facility] 03-14-2023 15:00-0500 Systolic blood pressure 127 mm[Hg] Celso Zurita PA Work Phone: [facility] 03-03-2023 15:45-0500 Body temperature 97.5 [degF] Hellen Jaeger MD Work Phone: [facility] 03-03-2023 15:45-0500 Diastolic blood pressure 70 mm[Hg] Hellen Jaeger MD Work Phone: [facility] 03-03-2023 15:45-0500 Heart rate 95 /min Hellen Jaeger MD Work Phone: [facility] 03-03-2023 15:45-0500 Respiratory rate 22 /min Hellen Jaeger MD Work Phone: [facility] 03-03-2023 15:45-0500 SaO2% (BldA) [Mass fraction] 100 % Hellen Jaeger MD Work Phone: [facility] 03-03-2023 15:45-0500 Systolic blood pressure 110 mm[Hg] Hellen Jaeger MD Work Phone: [facility] 03-03-2023 09:56-0500 Body mass index (BMI) [Ratio] 22.46 kg/m2 Hellen Jaeger MD Work Phone: [facility] 03-03-2023 09:56-0500 Body weight 52.16 kg Hellen Jaeger MD Work Phone: [facility] 02-25-2023 18:55-0500 Diastolic blood pressure 76 mm[Hg] Irma Circle[place] DO Work Phone: [facility] 02-25-2023 18:55-0500 Heart rate 89 /min Irma [place] DO Work Phone: [facility] 02-25-2023 18:55-0500 Respiratory rate 16 /min Irma [place] DO Work Phone: [facility] 02-25-2023 18:55-0500 SaO2% (BldA) [Mass fraction] 100 % Irma [place] DO Work Phone: [facility] 02-25-2023 18:55-0500 Systolic blood pressure 110 mm[Hg] Irma [place] DO Work Phone: [facility] 02-25-2023 09:29-0500 Body height 149.9 cm Irma [place] DO Work Phone: [facility] 02-25-2023 09:29-0500 Body mass index (BMI) [Ratio] 23.23 kg/m2 Irma [place] DO Work Phone: [facility] 02-25-2023 09:29-0500 Body temperature 98.4 [degF] Irma [place] DO Work Phone: [facility] 02-25-2023 09:29-0500 Body weight 52.16 kg Irma [place] DO Work Phone: [facility] 01-17-2022 13:24-0500 Body temperature 97.34 [degF] Unknown Unknown [facility] Other Phone: 01-17-2022 13:24-0500 Body temperature 97.4 [degF] Unknown Unknown [facility] Other Phone: 01-17-2022 13:24-0500 Body weight 52.2 kg Unknown Unknown [facility] Other Phone: 01-17-2022 13:24-0500 Body weight 52.16 kg Unknown Unknown [facility] Other Phone: 01-17-2022 13:24-0500 Diastolic blood pressure 89 mm[Hg] Unknown Unknown [facility] Other Phone: 01-17-2022 13:24-0500 Respiratory rate 16 /min Unknown Unknown [facility] Other Phone: 01-17-2022 13:24-0500 SaO2% (BldA) [Mass fraction] 100 % Unknown Unknown [facility] Other Phone: 01-17-2022 13:24-0500 Systolic blood pressure 118 mm[Hg] Unknown Unknown [facility] Other Phone: 12-17-2021 22:41-0400 Diastolic blood pressure 87 mm[Hg] Unknown Unknown [facility] Other Phone: 12-17-2021 22:41-0400 Systolic blood pressure 131 mm[Hg] Unknown Unknown [facility] Other Phone: 12-17-2021 22:07-0400 Body temperature 98.6 [degF] Unknown Unknown [facility] Other Phone: 12-17-2021 22:07-0400 Heart rate 88 /min Unknown Unknown [facility] Other Phone: 12-17-2021 22:07-0400 Respiratory rate 16 /min Unknown Unknown [facility] Other Phone: 12-17-2021 22:07-0400 SaO2% (BldA) [Mass fraction] 99 % Unknown Unknown [facility] Other Phone: 12-10-2021 08:00-0400 Diastolic blood pressure 68 mm[Hg] Talon Dues DO Work Phone: [facility] 12-10-2021 08:00-0400 Heart rate 76 /min Talon Dues DO Work Phone: [employer] 12-10-2021 08:00-0400 SaO2% (BldA) [Mass fraction] 99 % Talon Dues DO Work Phone: [facility] [employer] 12-10-2021 08:00-0400 Systolic blood pressure 116 mm[Hg] Talon Dues DO Work Phone: [employer] 12-10-2021 06:18-0400 Body temperature 98.29 [degF] Talon Dues DO Work Phone: [facility] 12-10-2021 06:18-0400 Respiratory rate 16 /min Talon Dues DO Work Phone: [facility] 12-10-2021 06:17-0400 Body height 149.9 cm Talon Dues DO Work Phone: [facility] 12-10-2021 06:17-0400 Body mass index (BMI) [Ratio] 22.22 kg/m2 Talon Dues DO Work Phone: [facility] 12-10-2021 06:17-0400 Body weight 49.9 kg Talon Dues DO Work Phone: [facility] 12-08-2021 18:52-0400 Body temperature 97.59 [degF] Dane Leslie DO Work Phone: [employer] 12-08-2021 18:52-0400 Diastolic blood pressure 68 mm[Hg] Dane Leslie DO Work Phone: [employer] 12-08-2021 18:52-0400 Heart rate 94 /min Dane Leslie DO Work Phone: [facility] 12-08-2021 18:52-0400 Respiratory rate 20 /min Dane Leslie DO Work Phone: [facility] 12-08-2021 18:52-0400 Systolic blood pressure 141 mm[Hg] Dane Leslie DO Work Phone: [facility] 08-30-2021 21:36-0400 Body height 27.94 cm services services [facility] Other Phone: 08-30-2021 21:36-0400 Body temperature 97.16 [degF] services services [facility] Other Phone: 08-30-2021 21:36-0400 Body temperature 97.3 [degF] services services [facility] Other Phone: 08-30-2021 21:36-0400 Body weight 52.2 kg services services [facility] Other Phone: 08-30-2021 21:36-0400 Body weight 52.16 kg services services [facility] Other Phone: 08-30-2021 21:36-0400 Diastolic blood pressure 93 mm[Hg] services services [facility] Other Phone: 08-30-2021 21:36-0400 Heart rate 102 /min services services [facility] Other Phone: 08-30-2021 21:36-0400 Respiratory rate 16 /min services services [facility] Other Phone: 08-30-2021 21:36-0400 SaO2% (BldA) [Mass fraction] 98 % services services [facility] Other Phone: 08-30-2021 21:36-0400 Systolic blood pressure 116 mm[Hg] services [facility] Other Phone: 08-30-2021 18:13-0400 Diastolic blood pressure 74 mm[Hg] Talon Dues DO Work Phone: [facility] 08-30-2021 18:13-0400 Heart rate 94 /min Talon Dues DO Work Phone: [facility] 08-30-2021 18:13-0400 SaO2% (BldA) [Mass fraction] 98 % Talon Dues DO Work Phone: [facility] 08-30-2021 18:13-0400 Systolic blood pressure 111 mm[Hg] Talon Dues DO Work Phone: [facility] 08-30-2021 17:54-0400 Body height 149.9 cm Talon Dues DO Work Phone: [facility] 08-30-2021 17:54-0400 Body mass index (BMI) [Ratio] 23.23 kg/m2 Talon Dues DO Work Phone: [facility] 08-30-2021 17:54-0400 Body temperature 98.91 [degF] Talon Dues DO Work Phone: [employer] 08-30-2021 17:54-0400 Body weight 52.16 kg Talon Dues DO Work Phone: [facility] 08-30-2021 17:54-0400 Respiratory rate 14 /min Talon Dues DO Work Phone: [facility] 08-29-2021 00:00-0400 Diastolic blood pressure 80 mm[Hg] Talon Dues DO Work Phone: [employer] 08-29-2021 00:00-0400 Heart rate 84 /min Talon Dues DO Work Phone: [facility] 08-29-2021 00:00-0400 Respiratory rate 24 /min Talon Dues DO Work Phone: [facility] [employer] 08-29-2021 00:00-0400 SaO2% (BldA) [Mass fraction] 97 % Talon Dues DO Work Phone: [facility] 08-29-2021 00:00-0400 Systolic blood pressure 112 mm[Hg] Talon Dues DO Work Phone: [facility] 08-28-2021 22:20-0400 Body height 152.4 cm Talon Dues DO Work Phone: [facility] [employer] 08-28-2021 22:20-0400 Body mass index (BMI) [Ratio] 22.46 kg/m2 Talon Dues DO Work Phone: [facility] 08-28-2021 22:20-0400 Body weight 52.16 kg Talon Dues DO Work Phone: [employer] 08-28-2021 22:17-0400 Body temperature 99.7 [degF] Talon Dues DO Work Phone: [facility] 07-20-2021 12:00-0400 Heart rate 102 /min Talon Dues DO Work Phone: [facility] 07-20-2021 11:20-0400 Body height 152.4 cm Talon Dues DO Work Phone: [facility] 07-20-2021 11:20-0400 Body mass index (BMI) [Ratio] 22.46 kg/m2 Talon Dues DO Work Phone: [facility] 07-20-2021 11:20-0400 Body temperature 98.1 [degF] Talon Dues DO Work Phone: [facility] 07-20-2021 11:20-0400 Body weight 52.16 kg Talon Dues DO Work Phone: [facility] 07-20-2021 11:20-0400 Diastolic blood pressure 86 mm[Hg] Talon Dues DO Work Phone: [facility] 07-20-2021 11:20-0400 Respiratory rate 18 /min Talon Dues DO Work Phone: [facility] 07-20-2021 11:20-0400 SaO2% (BldA) [Mass fraction] 99 % Talon Dues DO Work Phone: [facility] 07-20-2021 11:20-0400 Systolic blood pressure 126 mm[Hg] Talon Dues DO Work Phone: [facility] 05-28-2021 02:25-0400 Body temperature 97.81 [degF] Sedrick Harmon MD Work Phone: [facility] 05-28-2021 02:25-0400 Diastolic blood pressure 66 mm[Hg] Sedrick Harmon MD Work Phone: [employer] 05-28-2021 02:25-0400 Heart rate 92 /min Sedrick Harmon MD Work Phone: [facility] 05-28-2021 02:25-0400 Respiratory rate 18 /min Sedrick Harmon MD Work Phone: [facility] 03-24-2022 02:25-0400 SaO2% (BldA) [Mass fraction] 100 % Sedrick Harmon MD Work Phone: [employer] 05-28-2021 02:25-040 Systolic blood pressure 109 mm[Hg] Sedrick Harmon MD Work Phone: [facility] 05-28-2021 00:49-0400 Body height 162.6 cm Sedrick Harmon MD Work Phone: [facility] 05-28-2021 00:49-0400 Body mass index (BMI) [Ratio] 19.74 kg/m2 Sedrick Harmon MD Work Phone: [employer] 05-28-2021 00:49-0400 Body weight 52.16 kg Sedrick Harmon MD Work Phone: [facility] Encounters Encounter Date Encounter Type Care Provider Facility Start: 12-29-2023 Emergency department patient visit RENAE Sabrina SANTOS Facility:[id number] Start: 11-30-2023 End: 11-30-2023 Postop follow up visit related to original px Celso Padron Parminder STARR-C Work Phone: [facility] Comment on above: Closed displaced com minuted fracture of shaft of right humerus with routine healing, subsequent encounter (Primary Dx); S/P hardware removal; S/P ORIF (open reduction internal fixation) fracture; Acute radial nerve palsy of right upper extremity Start: 11-30-2023 End: [facility] Start: 11-01-2023 End: 11-01-2023 Postop follow up visit related to original px Celso Nereida STARR-C Work Phone: [facility] Comment on above: Closed displaced com minuted fracture of shaft of right humerus with routine healing, subsequent encounter (Primary Dx); S/P ORIF (open reduction internal fixation) fracture; Painful orthopaedic hardware (HCC); Acute radial nerve palsy of right upper extremity Start: 11-01-2023 End: 11-01-2023 [facility] Start: 10-18-2023 End: 10-18-2023 Subsequent hospital visit by physician [facility] Comment on above: Arrived Start: 10-18-2023 End: 10-18-2023 ambulatory HELLEN JAEGER [facility] Start: 10-18-2023 End: 10-18-2023 ambulatory HELLEN JAEGER [facility] Start: 10-18-2023 End: 10-18-2023 Subsequent hospital visit by physician Hellen Jaeger MD Work Phone: [facility] Comment on above: S/P hardware removal (Primary Dx) Start: 09-28-2023 End: 09-28-2023 Telephone encounter Hellen Jaeger MD Work Phone: [facility] Comment on above: Surgery Scheduling ( 10/17 @ 8am arrival 7am [place]) Start: 09-28-2023 End: 09-28-2023 Office outpatient visit 15 minutes Hellen Jaeger MD Work Phone: [facility] Comment on above: Closed displaced com minuted fracture of shaft of right humerus with routine healing, subsequent encounter (Primary Dx); S/P ORIF (open reduction internal fixation) fracture; Painful orthopaedic hardware (HCC) Start: 09-28-2023 End: 09-28-2023 [facility] Start: 09-19-2023 End: 09-20-2023 ambulatory RENAE SANTOS Facility:[id number] Start: 09-18-2023 End: 09-18-2023 Emergency department patient visit RENAE SANTOS Facility:[id number] Start: 09-12-2023 End: 09-12-2023 Emergency department patient visit RENAE SANTOS Facility:[id number] Start: 05-04-2023 Documentation procedure Chilango Molina OT [facility] at [facility] Start: 05-02-2023 End: 05-02-2023 ambulatory ESTELLE CHANDLER APRN-ANAID Facility:A Start: 04-21-2023 End: 04-21-2023 Patient encounter procedure Cc [facility] Comment on above: Puncture wound witho ut foreign body, left foot, initial encounter (Primary Dx) Start: 04-21-2023 End: 04-21-2023 Subsequent hospital visit by physician [facility] Work Phone: [facility] Comment on above: Puncture wound of le ft foot, initial encounter [S91.332A] Start: 04-21-2023 End: 04-21-2023 ambulatory BILL Danielle PARISMARLON Facility:[id number] Start: 04-06-2023 Orders Only [employer]oration[employer] Back er PA-C Work Phone: [facility] Comment on above: Pain of right humeru s (Primary Dx) Start: 03-22-2023 End: 03-22-2023 ambulatory Celso STARR Work Phone: [facility] Comment on above: Closed displaced com minuted fracture of shaft of right humerus with routine healing, subsequent encounter; S/P ORIF (open reduction internal fixation) fracture; Acute radial nerve palsy of right upper extremity Start: 03-14-2023 End: 03-14-2023 Postop follow up visit related to original px Celso STARR Work Phone: [facility] Comment on above: Closed displaced com minuted fracture of shaft of right humerus with routine healing, subsequent encounter (Primary Dx); S/P ORIF (open reduction internal fixation) fracture; Acute radial nerve palsy of right upper extremity Start: 03-14-2023 End: 03-14-2023 ambulatory CELSO ZURITA [facility] Start: 03-10-2023 Orders Only [employer] Back er PA-C Work Phone: [facility] Comment on above: Right arm pain (Prim nasim Dx) Start: 03-03-2023 End: 03-03-2023 ambulatory HELLEN JAEGER [facility] Start: 03-03-2023 End: 03-03-2023 Subsequent hospital visit by physician Hellen Jaeger MD Work Phone: [facility] Comment on above: S/P ORIF (open reduc tion internal fixation) fracture (Primary Dx) Arrived Start: 03-01-2023 End: 03-01-2023 ambulatory Antonino Hanson PA-C Work Phone: [facility] Start: 03-01-2023 Telephone encounter Hellen nazario MD Work Phone: [facility] Comment on above: Surgery Scheduling Start: 02-25-2023 End: 02-25-2023 Emergency department patient visit Irma Chamorro DO Work Phone: [facility] Comment on above: Closed displaced com minuted fracture of shaft of right humerus, initial encounter (Primary Dx) Start: 02-25-2023 End: 02-25-2023 Emergency department patient visit RENAE WORRELL [facility] Start: 02-18-2023 End: 02-18-2023 ambulatory RAMSEY CALDERÓN DO Facility:A Start: 01-07-2023 End: 01-07-2023 ambulatory VITA JAEGER PA-C Facility:A Start: 10-29-2022 End: 10-29-2022 Emergency department patient visit REANE WORRELL [facility] Start: 09-13-2022 End: 09-13-2022 ambulatory RENAE WORRELL [facility] Start: 04-12-2022 End: 04-12-2022 ambulatory NO FAMILY PHYS NONE [facility] Start: 01-17-2022 Emergency department patient visit Chilango Dominguez Other Phone: [id number] Other Phone: Start: 12-17-2021 Emergency department patient visit Rosa Murdock [id number] Other Phone: Start: 12-10-2021 End: 12-10-2021 Emergency department patient visit TALON HANNAH [facility] [place] Start: 12-10-2021 End: 12-10-2021 Emergency department patient visit Talon Hannah DO Work Phone: [facility] Emergency Department Start: 12-08-2021 ambulatory SELF SELF [facility] [place] Start: 12-08-2021 End: 12-08-2021 Office outpatient visit 10 minutes Dane Gan DO Work Phone: [facility] [place] Comment on above: Acute nonintractable headache, unspecified headache type (Primary Dx) Start: 08-30-2021 End: 08-30-2021 Emergency department patient visit Maximus Desai [id number] Other Phone: Start: 08-30-2021 End: 08-30-2021 Emergency department patient visit [facility] [place] Start: 08-30-2021 End: 08-30-2021 Emergency department patient visit Talon Mazas DO Work Phone: [facility] Emergency Department Start: 08-29-2021 End: 08-29-2021 Emergency department patient visit [facility] [place] Start: 08-28-2021 End: 08-29-2021 Emergency department patient visit Talon Santos Dues DO Work Phone: [facility] Emergency Department Start: 07-20-2021 End: 07-20-2021 Emergency department patient visit [facility] [place] Start: 07-20-2021 End: 07-20-2021 Emergency department patient visit Talon Mazas DO Work Phone: [facility] Emergency Department Start: 05-28-2021 End: 05-28-2021 Emergency department patient visit Sedrick Harmon MD Work Phone: [facility] Emergency Dept Comment on above: Marijuana abuse (Blanca bessy Dx); Nausea Start: 07-16-2017 End: 07-16-2017 Emergency department patient visit CHANCE JIMENES Facility:[facility] Start: 07-08-2017 End: 07-08-2017 Ambulatory MARYLOU [facility] Start: 06-15-2017 End: 06-15-2017 Emergency department patient visit SILVERIO HERNANDEZ Facility:[facility] Start: 01-16-2017 End: 01-16-2017 Emergency department patient visit SUNIL AMIN [facility] Start: 11-23-2016 End: 11-23-2016 Emergency department patient visit VITA Szymanski [facility]ANTIAGO [facility] Start: 11-19-2016 End: 11-30-2016 Ambulatory None Provider Facility:[facility] Start: 11-18-2016 End: 11-26-2016 Emergency department patient visit None Provider Facility:[facility] Start: 10-10-2016 End: 10-10-2016 Ambulatory None Provider Facility:[facility] Procedures Date Procedure Procedure Detail Performing Clinician Start: 10-18-2023 FL GUIDANCE OR USE O NLY - NON-RESULTABLE Hellen Jaeger MD Work Phone: Start: 09-28-2023 Follow-up visit Follow-up CELSO ZURITA Start: 04-21-2023 Radex foot complete minimum 3 views Bill Elliott APRN.CNP Work Phone: Start: 03-03-2023 FL GUIDANCE OR USE O NLY - NON-RESULTABLE Hellen Jaeger MD Work Phone: Start: 03-03-2023 End: 03-03-2023 Optx humeral shft fx w/plate/screws w/wocerclage Hellen Jaeger MD Work Phone: Start: 02-25-2023 Ct pelvis w/o contra st material Reina Milton MD Work Phone: Start: 02-25-2023 End: 02-25-2023 Radex humerus minimum 2 views Mirna STARR Work Phone: Start: 02-25-2023 End: 02-25-2023 Radex shoulder complete minimum 2 views Mirna STARR Work Phone: Start: 02-25-2023 Comprehensive metabo lic panel Rima A Circle[place] DO Work Phone: Start: 02-25-2023 Radiologic exam ches t single view Irma A [place] DO Work Phone: Start: 10-29-2022 Urinalysis RENAE SCOTT Comment on above: Result Comment: URIN ALYSIS Performed By: #### [id number] #### [facility],[address] [place] [id number] Start: 01-17-2022 End: 01-17-2022 XR Hand 2 Views-Right XR Hand 2 Views-Right Patient Name: Mark Trevino MR #: [id number] Date of : 1995 Gender: F Service Type: FRI Pt. Type: E Ordering Phys: CHILANGO DOMINGUEZ PAC Admitting Phys: Family Phys: Additional CC Phys: MEDICAL IMAGING REPORT EXAM: RIGHT HAND 2 VIEWS Exam Date: 01/17/2022 Exam Time: 12:03:55 CLINICAL HISTORY: CRUSH INJURY TO RIGHT HAND TECH ACQUIRED HISTORY: hand caught under a tub of dirty dishes at work, pain to 3rd and 4th digits EXAMINATION: TWO XRAY VIEWS OF THE RIGHT HAND 01/17/2022 12:04 pm COMPARISON: None. HISTORY: Reason for exam: : CRUSH INJURY TO RIGHT HAND Note: 2 - TECH HISTORY hand caught under a tub of dirty dishes at work, pain to 3rd and 4th digits FINDINGS: There is no evidence of acute fracture. There is normal alignment. No acute joint abnormality. No focal osseous lesion. No focal soft tissue abnormality. IMPRESSION: No acute osseous abnormality. D/ / Joseph Lomeli MD / Joseph Lomeli MD Interpreting Provider: Joseph Lomeli MD Patient: Mark Trevino Date of Service: 01/17/2022 Chilango Carl Other Phone: Start: 12-17-2021 End: 12-17-2021 CT Head without Contrast CT Head without Contrast Patient Name: MARK TREVINO MR #: [id number] Date of : 1995 Gender: Female Service Type: EMERGENCY DEPTARTMENT Pt. Type: Emergency Ordering Phys: KWADWO OSHEA MD Admitting Phys: Family Phys: Additional CC Phys: MEDICAL IMAGING REPORT EXAM: CT HEAD WO CONTRAST Exam Date: 12/17/2021 Exam Time: 05:57 PM CLINICAL HISTORY: pain TECH ACQUIRED HISTORY: pain base of skull and neck x1 mo, left eye blurriness intermittently, NKI, no surgeries COMPARISON: none dictated TECHNIQUE: CT of the head was performed without administration of intravenous contrast. Multiplanar reformatted images are provided for review. This exam was performed according to our department dose optimization protocol, which includes automated exposure control, adjustment of the mA and/or kV according to patient size and/or use of iterative reconstruction technique. DLP: FINDINGS: The subarachnoid cisterns and the ventricles appear to be within normal limits. No shift of midline is noted. No focal abnormal region of increased or decreased attenuation is noted in either cerebral hemisphere. The maxillary antra and the mastoids are grossly within normal limits. The suprasellar region is unremarkable. The basal ganglionic region is within normal limits. No obvious evidence of intracranial hematoma noted. IMPRESSION: NEGATIVE EXAMINATION. Performing Tech ID: [id number] DLP : [id number] Transcribed by: [id number] Pathology Supervisor Date: Pathology Supervisor Time: Dictated by: , Dictation Date: Dictation Time: Kwadwo Oshea Start: 12-10-2021 Ct head/brain w/o contrast material Talon A Dues DO Work Phone: Start: 12-10-2021 Basic metabolic pane l calcium total Talon A Dues DO Work Phone: Start: 12-10-2021 Complete blood count with white cell differential, automated Talon A Dues DO Work Phone: Start: 12-10-2021 SARS-COV-2 RAPID Talon A Dues DO Work Phone: Start: 08-30-2021 End: 08-30-2021 XR Hand 3 Views-Right XR Hand 3 Views-Right Patient Name: MARK TREVINO MR #: [id number] Date of : 1995 Gender: F Service Type: ER Pt. Type: E Ordering Phys: JOSEPH DESAI MD Admitting Phys: Family Phys: Additional CC Phys: MEDICAL IMAGING REPORT EXAM: RIGHT HAND 3 OR MORE VIEWS Exam Date: 08/30/2021 Exam Time: 20:06:09 CLINICAL HISTORY: Trauma TECH ACQUIRED HISTORY: Fall today. Pain and swelling with bruising posterior right hand. 3rd, 4th, 5th, metacarpels. EXAMINATION: THREE XRAY VIEWS OF THE RIGHT HAND 08/30/2021 8:06 pm COMPARISON: None. HISTORY: Reason for exam: : Trauma Note: 2 - TECH HISTORY Fall today. Pain and swelling with bruising posterior right hand. 3rd, 4th, 5th, metacarpels. FINDINGS: There is no acute fracture or dislocation of the right hand. The joint spaces are intact. There is soft tissue swelling. No radiopaque foreign body. IMPRESSION: Soft tissue swelling. No acute fracture or dislocation in the right hand. D/ / Prince Macedo MD / Prince Macedo MD Interpreting Provider: Prince Macedo MD Patient: MARK TREVINO Date of Service: 08/30/2021 Maximus Desai Start: 08-30-2021 End: 08-30-2021 Radex hand minimum 3 views Talon A Dues DO Work Phone: Start: 08-28-2021 SARS-COV-2 RAPID Talon A Dues DO Work Phone: Start: 08-28-2021 Radiologic exam ches t single view Talon A Dues DO Work Phone: Start: 08-28-2021 Basic metabolic pane l calcium total Talon A Dues DO Work Phone: Start: 08-28-2021 C-reactive protein Crai g A Dues DO Work Phone: Start: 08-28-2021 Complete blood count with white cell differential, automated Talon A Dues DO Work Phone: Start: 08-28-2021 Ecg routine ecg w/le ast 12 lds w/i&r Talon A Dues DO Work Phone: Start: 03-24-2022 Ecg routine ecg w/le ast 12 lds trcg only w/o i&r Sedrick Harmon MD Work Phone: H/O: surgery S/P hardware removal Hellen bernal MD Work Phone: H/O: surgery S/P hardware removal Celso Zurita PA-C Work Phone: Plan of Treatment Date Care Activity Detail Author Start: 2056 RSV Immunization age d 60 or older (1 - 1-dose 60+ series) RSV Immunization aged 60 or older (1 - 1-dose 60+ series) [facility] Start: 2046 Zoster Vaccines (1 o f 2) Zoster Vaccines (1 of 2) [facility] Start: 12-04-2028 Urine microalbumin profile DTaP,Tdap,Td Vaccine (9 - Td or Tdap) [facility] Start: 11-30-2023 End: 11-30-2023 Patient encounter procedure 11/30/2023 10:30 AM EDT Office Visit [facility] [address] [place] [address] Celso Zurita PA-C 1 [facility] [place] [address] [place] [address] [facility] Start: 11-06-2023 COVID-19 Vaccine ( season) COVID-19 Vaccine ( season) [facility] Start: 11-06-2023 Covid-19 Vaccine ( season) Covid-19 Vaccine ( season) [facility] Start: 11-06-2023 Influenza vaccination Influenz a Vaccine (#1) [facility] Start: 11-01-2023 End: 11-01-2023 Patient encounter procedure 11/01/2023 9:30 AM EDT Office Visit [facility] [address] [place] [address] Celso Zurita PA-C 1 [facility] [place] [address] [place] [address] [facility] Start: 10-18-2023 End: 10-18-2023 Admission to same day surgery center 10/18/2023 8:00 AM EDT - 10/18/2023 10:00 AM EDT Surgery [facility] OR [address] [place] [phone] Hellen Jaeger MD 1 [facility] [place] [address] [place] [address] REMOVAL HUMERAL PLATE RIGHT UPPER EXTREMITY [ (CPT )] [facility] Comment on above: REMOVAL HUMERAL PLAT E RIGHT UPPER EXTREMITY [ (CPT )] Start: 10-18-2023 Subsequent hospital visit by physician 10/18/2023 8:00 AM EDT Hospital Encounter [facility] OR [address] [place] [phone] Hellen Jaeger MD [address] [facility] [address] [place] [address] [facility] Start: 10-18-2023 End: 10-18-2023 Removal implant deep [facility] Operating Room Start: 10-11-2023 End: 10-11-2023 Admission to establishment 10/11/2023 2:00 PM EDT Pre-Admission Testing [facility] Pre-Admit Testing [address] [place] [phone] [facility] Pre[facility]Admit [facility] Start: 04-11-2023 End: 04-11-2023 Patient encounter procedure 04/11/2023 1:00 PM EST Office Visit [facility] [address] [facility] [address] [place] [phone] Hellen Jaeger MD [address] [facility] [address] [place], [place] [phone] [facility] Start: 04-06-2023 End: 04-06-2024 XR Humerus - right Views XR humerus right Imaging Routine Pain of right humerus Expected: 04/06/2023, Expires: 04/06/2024 [facility] Work Phone: Comment on above: Expected: 04/06/2023 , Expires: 04/06/2024 Start: 03-24-2023 End: 03-24-2023 Follow-up encounter 03/24/2023 1:30 PM EST Follow-Up [facility] [address] [place] [phone] Celso Zurita PA 1 [facility] [place] [address] [place], [place] [phone] Talon Hernandez OT [facility] Start: 03-24-2023 End: 03-24-2023 ambulatory 03/24/2023 12:00 PM EST Evaluation [facility] [address] [place] [phone] Celso Zurita PA 1 [facility] [place] [address] [place], [place] [phone] Anitha Hinson, PT [facility] Start: 03-22-2023 End: 03-22-2023 ambulatory 03/22/2023 1:30 PM EST Evaluation [facility] [address] [place] [phone] Celso Zurita PA 1 [facility] [place] [address] [place] [address] Chilango Molina OT [facility] Start: 03-14-2023 End: 03-14-2023 Patient encounter procedure 03/14/2023 3:00 PM EST Office Visit [facility] 1 [facility] [place] [address] [place] [phone] Celso Zurita PA 1 [facility] [place], [facility] [address] [place] [phone] [facility] Start: 03-10-2023 End: 03-10-2024 XR Humerus - right Views XR humerus right Imaging Routine Right arm pain Expected: 03/10/2023, Expires: 03/10/2024 [facility] Work Phone: Comment on above: Expected: 03/10/2023 , Expires: 03/10/2024 Start: 03-07-2023 Depression Assessment Depression Ass [facility] Start: 03-03-2023 End: 03-03-2023 Admission to same day surgery center 03/03/2023 11:30 AM EST - 03/03/2023 1:30 PM EST Surgery [facility] [address] [place] [phone] Hellen Jaeger MD 1 [facility] [place] [address] [place] [address] OPEN REDUCTION INTERNAL FIXATION RIGHT HUMERAL SHAFT FRACTURE [66249 (CPT )] [facility] Comment on above: OPEN REDUCTION INTER NAL FIXATION RIGHT HUMERAL SHAFT FRACTURE [88995 (CPT )] Start: 03-03-2023 End: 03-03-2023 Optx humeral shft fx w/plate/screws w/wocerclage OPEN REDUCTION INTERNAL FIXATION DISTAL HUMERUS Displaced comminuted fracture of shaft of humerus, right arm, initial encounter for closed fracture 03/03/2023 11:30 AM EST [facility] Operating Room Start: 03-03-2023 Subsequent hospital visit by physician 03/03/2023 11:30 AM EST Hospital Encounter [facility] OR [address] [place] [phone] Hellen Jaeger MD 1 [facility] [place] [address] [place], [place] [phone] [facility] Start: 11-05-2022 COVID-19 Vaccine ( season) COVID-19 Vaccine ( - season) [facility] Start: 11-05-2022 Covid-19 Vaccine ( season) Covid-19 Vaccine ( season) [facility] Start: 11-05-2022 Influenza vaccination Influenz a Vaccine (#1) [facility] Start: 11-05-2021 Influenza vaccination M [facility] Start: 11-05-2020 Influenza vaccinatio n given INFLUENZA VACCINE (#1) [facility] Start: 2017 Screening for malign ant neoplasm of cervix [facility] Start: 06-04-2015 DTaP/Tdap/Td Vaccine s (1 - Tdap) DTaP/Tdap/Td Vaccines (1 - Tdap) [facility] Start: 06-04-2015 Hepatitis B Vaccines (1 of 3 - 19+ 3-dose series) Hepatitis B Vaccines (1 of 3 - 19+ 3-dose series) [facility] Start: 06-04-2015 Third diphtheria, tetanus and acellular pertussis (DTaP) vaccination TDAP (ADULT) [facility] Start: 07-08-2014 HPV Vaccine (2 - 3-d ose series) HPV Vaccine (2 - 3-dose series) [facility] Start: 2014 ANNUAL WELLNESS VISIT ANNUAL WELLNES S VISIT [facility] Start: 2014 Anxiety Screening Anxiety Screening [facility] Start: 2014 Depression Screening Depression Scre ening [facility] Start: 2014 Hepatitis C screening Hepatitis C Sc reening [facility] Start: 2014 HIV screening HIV Screening [facility] Start: 2014 Tetanus vaccination [facility] Start: 2012 Screening for Chlamy sylvester trachomatis CHLAMYDIA SCREEN [facility] Start: 06-04-2011 HIV screening HIV SCREENING DISCUSSION [facility] Start: 2010 Peds To Adult Transition Annual Assessment Peds To Adult Transition Annual Assessment [facility] Start: 2009 Varicella vaccination Varicell a Vaccines (1 of 2 - 13+ 2-dose series) [facility] Start: 2008 Depression Screening Depression Scre ening [facility] Start: 2008 Depression screening using PHQ-9 (Patient Health Questionnaire 9) score DEPRESSION SCREENING [facility] Start: 2008 Peds To Adult Transition Initial Discussion Peds To Adult Transition Initial Discussion [facility] Start: 06-04-2007 Diphtheria + pertuss is + tetanus vaccine (product) DTAP/TDAP/TD VACCINE (1 - Tdap) [facility] Start: 06-04-2007 HPV Vaccines (1 - 2-dose series) HPV Vaccines (1 - 2-dose series) [facility] Start: 06-04-2007 Vaccination for pamela n papillomavirus [facility] Start: 2002 Pneumococcal vaccination Pneumococcal Vaccine (1 of 2 - PCV) [facility] Start: 2002 PNEUMOCOCCAL VACCINE SERIES (1 - PCV) PNEUMOCOCCAL VACCINE SERIES (1 - PCV) [facility] Start: 2002 Pneumococcal Vaccine : Pediatrics (0 to 5 Years) and At-Risk Patients (6 to 64 Years) (1 of 2 - PCV) Pneumococcal Vaccine: Pediatrics (0 to 5 Years) and At-Risk Patients (6 to 64 Years) (1 of 2 - PCV) [facility] Start: 2001 COVID-19 VACCINE (#1) COVID-19 VACCI NE (#1) [facility] Start: 2001 COVID-19 VACCINE (1) COVID-19 VACCIN E (1) [facility] Start: 1997 MMR Vaccines (1 of 1 - Standard series) MMR Vaccines (1 of 1 - Standard series) [facility] Start: 1997 Varicella vaccination Varicell a Vaccines (1 of 2 - 2-dose childhood series) [facility] Start: 1996 COVID-19 VACCINE (#1) COVID-19 VACCI NE (#1) [facility] Start: 1996 GONORRHEA SCREEN GONORRHEA SCREEN [facility] Start: 1996 Hepatitis B Vaccines (1 of 3 - 3-dose series) Hepatitis B Vaccines (1 of 3 - 3-dose series) [facility] Start: 1996 Hepatitis C antibody , confirmatory test HEPATITIS C VIRUS SCREENING [facility] Start: 1996 HIV screening HIV Screening [facility] Start: 1996 Lipid panel Lipid Panel [facility] RAPID STREP A ANTIGEN RAPID STRE P A ANTIGEN Lab STAT 07/20/2021 11:30 AM EDT [facility] Standard ECG EKG 12 lead ECG LM 05/28/2021 1:35 AM EDT [facility] Work Phone: Standard ECG ECG ECG STAT 08/28/2021 10:24 PM EDT [facility] Other Phone: NEGATED: Highlighted row has been ruled out! Plan Of Treatment Entries excluded/not available Plan Of Treatment Entries excluded/not available [facility] Other Phone: Immunizations Immunization Date Immunization Notes Care Provider Rhina esquivel 02-09-2022 influenza virus vacc ine, unspecified formulation [facility] 03-25-2010 influenza virus vacc ine, unspecified formulation Tlaon Mazamansi DO Work Phone: [facility] Payers Date Payer Category Payer Unknown [id number] 2023 Unknown [id number] 2021 Unknown 2021 Medicaid [id number] 2021 Medicaid [id number] 2021 Private Health Insurance [facility] [id number] 2021-Present [phone] [address] [place] [address] Medicaid [id number] 2016 Unknown [id number] 1996 Unknown [id number]. 158 1996 Unknown [id number]. 158 1996 Unknown [id number] [id number]. 158 1996 Unknown [id number] [id number]. 158 1996 Unknown [id number]. 158 1996 Unknown [id number] [id number]. 651 1996 Unknown [id number] [id number]. 651 1996 Unknown [id number] [id number]. 651 1996 Unknown [id number] [id number]. 627 1995 Unknown [id number] [id number]. 627 1995 Unknown [id number] [id number]. 627 1995 Unknown [id number]. 179 Self-pay Unknown [id number] Social History Date Type Detail Facility Start: 06-13-2014 End: 05-08-2019 Tobacco smoking status COIS Never smoked tobacco [facility] Start: 06-13-2014 End: 10-18-2023 Tobacco use and exposure Smokeless tobacco non-user [facility] Start: 05-28-2021 Alcohol intake Current non-drinker of alcohol (finding) [facility] Start: 1995 Sex Assigned At Not on file [facility] Start: 07-10-2021 End: 12-10-2021 Exposure to SARS-CoV-2 (event) Not sure [facility] Start: 07-20-2021 End: 03-01-2023 Tobacco smoking status COIS Smokes tobacco daily [facility] History of tobacco use Cigarette Smoker M [facility] Start: 07-20-2021 End: 12-10-2021 Alcohol intake Current drinker of alcohol (finding) [facility] Start: 07-20-2021 History SDOH Alcohol Comment holidays [facility] Start: 07-20-2021 Tobacco Comment VAPE [facility] Start: 08-18-2021 End: 08-29-2021 Exposure to SARS-CoV-2 (event) Yes [facility] Tobacco smoking consumption unknown [facility] Other Phone: Start: 02-25-2023 End: 11-01-2023 History of Social function [facility] Start: 02-25-2023 End: 11-01-2023 Alcohol Use Disorder Identification Test - Consumption [AUDIT-C] [facility] How often to you hav e a drink containing alcohol? Monthly or less [facility] How many standard dr inks containing alcohol do you have on a typical day? 1 or 2 [facility] How often do you hav e 6 or more drinks on 1 occasion? Never [facility] Start: 03-03-2023 End: 11-30-2023 Alcohol intake Ex-drinker (finding) [facility] National Score (1-10 0), lower number is lower risk Not on file [facility] Start: 10-18-2023 Tobacco smoking status NHIS Ex-smoker [facility] History of tobacco use Current smoker [facility] Medical Equipment Procedure Code Equipment Code Equipment Origin al Text Equipment Identifier Dates Plate E-A Distal 3.5mm 6h - Sn/A - [id number] Start: 03-03-2023 Screw Crtx 2.7x1 6mm S-T - Sn/A - [id number] Start: 03-03-2023 Screw Crtx 3.5x1 8mm S-T - Sn/A - [id number] Start: 03-03-2023 Screw Lck 3.5x18 S-T Star Rcs - Sn/A - [id number] Start: 03-03-2023 Screw Lck 3.5x20 S-T Star [facility]cs - Sn/A - [id number] Start: 03-03-2023 Screw Crtx 3.5x1 6mm S-T - Sn/A - [id number] Start: 03-03-2023 Screw Crtx 3.5x2 0mm S-T - Sn/A - [id number] Start: 03-03-2023 Goals Date Patient Goal Desired Activity /State Functional Status Date Assessment Result Facility NEGATED: Highlighted row Functio nal Status excluded/not available [facility] Other Phone: Mental Status Date Assessment Result Facility Mental Status ex cluded/not available Mental Status excluded/not available [facility] Other Phone: Clinical Notes 05-28-2021 to 11-30-2023 Celso Zurita PA-C - 11/30/2023 10:30 AM EDTCelso Zurita PA-C - 11/01/2023 9:30 AM EDTPerioperative Nursing Note - Kayley Hennessy RN - 10/18/2023 11:00 AM EDTDischarge Instructions<item> Note Date & Type Note Facility 11-30-2023 History of Present illness Narrative Images from the original note were not included. [facility] - [address] [facility] [address] Dept: [phone] Dept 11/30/2023 Chief Complaint Patient presents with Post-op Humeral plate removal DOS 10/18/2023 SUBJECTIVE Mark is approximately 5 week(s) s/p Neurolysis radial nerve with hardware removal right humerus . She is having some tingling in tricep . She denies significant complaints other than the expected amount of pain. The patient feels she is recovering well postoperatively. She reports minimal tenderness and tingling near her incision. She denies hand paresthesias. She also has noticed a suture protruding from the incision and asked to have this removed in the office today. She has been limiting her weightbearing per recommended restrictions and feels she is ready to return to full duty at work. She has been working on range of motion exercises on her own at home and feels that she has full range of motion today. OBJECTIVE BP 110/80 Ht 4' 11 (1.499 m) Wt 122 lb (55.3 kg) BMI 24.64 kg/m Ortho Exam Focused Exam of the RIGHT Upper Extremity Skin: appropriately healing incision(s) without evidence of infection, 2 separate Vicryl suture tails protruding from the incision with no signs of infection which were removed with traction today in the office Edema: mild edema surrounding the surgical site Palpation: tender to palpation over the surgical site, minimal ROM: Full range of motion of the shoulder, elbow, wrist and hand Stability: no evidence of joint instabilities Motor: Intact in the hand - able to fire AIN, PIN, and Ulnar nerves Sensation: normal in the median, ulnar, and radial nerve distributions Perfusion: Brisk capillary refill in all 5 digits IMAGING RIGHT Humerus 2V show well-healed humeral shaft fracture following hardware removal with previous screw tunnels gradually consolidating when compared to prior films ASSESSMENT (S42.351D) Closed displaced comminuted fracture of shaft of right humerus with routine healing, subsequent encounter (Z98.890) S/P hardware removal (Z98.890, Z87.81) S/P ORIF (open reduction internal fixation) fracture (G56.31) Acute radial nerve palsy of right upper extremity 1. Closed displaced comminuted fracture of shaft of right humerus with routine healing, subsequent encounter 2. S/P hardware removal 3. S/P ORIF (open reduction internal fixation) fracture 4. Acute radial nerve palsy of right upper extremity PLAN Mark is recovering well with full range of motion today. She can gradually return to weightbearing as tolerated using pain as a guide. She was provided with a work release letter allowing her to return to full duty tomorrow. Expected post operative recovery course was discussed with the patient. As long as she is gradually improving as expected, she can follow-up in the office on an as-needed basis. Her questions were answered and she is comfortable with the plan. Immobilization: NO immobilization required at this point - FULL ROM encouraged without resitrictions Weight Bearing: Weight Bearing As Tolerated Rehabilitation: NO formal rehabilitation required at this point. Follow-up: Mark will followup with me on an as needed basis. She knows to call the office with any questions or concerns in the interim. Future Imaging: NONE Celso Zurita PA-C to Hellen Jaeger M.D. Hand & Upper Extremity Surgery [facility] Department of Orthopaedics and Sports Medicine 11/30/2023 at 12:01 PM (Please note that portions of this note may have been completed with a voice recognition program. Efforts were made to edit the dictations but occasionally words are mis-transcribed.) documented in this encounter [facility] 11-01-2023 History of Present illness Narrative Images from the original note were not included. [facility] [address] [facility] [address] [facility] [address] Dept: [phone] Dept 11/01/2023 Chief Complaint Patient presents with Post-op Neurolysis radial nerve with hardware removal right humerus on 10/18/23 SUBJECTIVE Mark is approximately 2 week(s) s/p Neurolysis radial nerve with hardware removal right humerus. She has a history of osteogenesis imperfecta. She is no longer taking anything for pain. She has no complaints at this time. She has no weakness with her wrist at this time. The patient feels she is doing very well postoperatively. She feels she has near full range of motion of the elbow today. She denies any issues with wrist or hand mobility or strength postoperatively. She has minimal discomfort and feels her incision is healing well. She would like to return to work if possible. OBJECTIVE Ht 4' 11 (1.499 m) Wt 122 lb (55.3 kg) LMP (LMP Unknown) Comment: patient declined HCG prior to procedure BMI 24.64 kg/m Ortho Exam Focused Exam of the RIGHT Upper Extremity Skin: appropriately healing incision(s) without evidence of infection Clinical image(s): Edema: moderate edema surrounding the humeral shaft Palpation: non tender to palpation throughout ROM: Elbow ROM: Flexion 130 Extension -15 Supination 80 Pronation 80 Full wrist and hand range of motion. Stability: no evidence of joint instabilities Motor: Intact in the hand - able to fire AIN, PIN, and Ulnar nerves Sensation: normal in the median, ulnar, and radial nerve distributions Perfusion: Brisk capillary refill in all 5 digits IMAGING RIGHT Humerus 2V show interval hardware removal of the right humerus, well-healed distal humeral shaft fracture ASSESSMENT (S42.351D) Closed displaced comminuted fracture of shaft of right humerus with routine healing, subsequent encounter (Z98.890, Z87.81) S/P ORIF (open reduction internal fixation) fracture (T84.84XA) Painful orthopaedic hardware (HCC) (G56.31) Acute radial nerve palsy of right upper extremity 1. Closed displaced comminuted fracture of shaft of right humerus with routine healing, subsequent encounter 2. S/P ORIF (open reduction internal fixation) fracture 3. Painful orthopaedic hardware (HCC) 4. Acute radial nerve palsy of right upper extremity PLAN Mark is recovering well postoperatively. She was advised to continue working on both edema control and range of motion exercises at the elbow without limits. She will maintain a partial weightbearing status of no more than 5 pounds until she is 6 weeks out from date of surgery. We reviewed postoperative restrictions in detail and she was provided with a work release letter allowing her to return to light duty. She will follow-up in 4 weeks for repeat films. If she is recovering as expected, we will release her weightbearing restriction. Expected recovery course was discussed with the patient and she is comfortable with the plan. Immobilization: NO immobilization required at this point - FULL ROM encouraged without restrictions, sling as needed when active/working Weight Bearing: Partial Weight Bearing (no more than 5lbs) for 6 weeks from DOS Rehabilitation: NO formal rehabilitation required at this point. Follow-up: Mark will followup with me in 4 weeks. She knows to call the office with any questions or concerns in the interim. Future Imaging: RIGHT Humerus 2V Sutures were removed in office today. no dressing applied to right arm . Patient tolerated well with no concerns. Completed by: RODOLFO Zurita PA-C to Hellen Jaeger M.D. Hand & Upper Extremity Surgery 11/01/2023 at 10:58 AM (Please note that portions of this note may have been completed with a voice recognition program. Efforts were made to edit the dictations but occasionally words are mis-transcribed.) ; documented in this encounter [facility] 10-18-2023 Miscellaneous Notes No changes,no c/o. Awaiting ride. Pt dressed with little assist-tolerated well. Denies any dizziness,nausea, pain at this time. Homegoing instructions given to pt and SO verbally and written. Both verbalize understanding, no questions. Awaiting ride. Pt up to side of cart-denies any dizziness,nausea, increased pain. Walked to BR with standby assist-tolerated well. Pt voided using bedpan. Pt to PACU via cart with DIRECTOR OF DATABASE MARKETING. Pt responds to name and answers questions appropriately. Resp even and unlabored, simple mask removed upon arrival. IV infusing without diff-site without redness or edema. lunchroom monitor applied,VS obtained. [facility] OR [address] [facility] [address] Dept: [phone] Loc: [phone] Operative Report Patient Name: Mark Trevino Date of : 1995 Date of Surgery: 10/18/23 Preoperative Diagnosis: Painful hardware right upper extremity Postoperative Diagnosis: Same Procedure: Neurolysis radial nerve with hardware removal right humerus Surgeon: Hellen Jaeger MD 1st Assist: Jonny Toussaint MD 2nd Assist: Antonino Hanson PA-C Implants: None Specimens Removed: None Anesthesia: General/Regional Local Anesthesia: None Tourniquet: Brachium Estimated Blood Loss: <5ml Pre Operative Antibiotics: Yes Indications: Ms. Mark Trevino is a 28 y.o. year-old female who is about a month status post ORIF comminuted midshaft humerus fracture who presents today for hardware removal. I have discussed with her, preoperatively, the complications, limitations, expectations, alternatives, and risks of surgical intervention which she has demonstrated understanding. She understood the particular risk to radial nerve. No guarantees were given or implied. After having all of her questions answered to her satisfaction, Ms. Mark Trevino has provided written informed consent to proceed. Please see previous notes for full operative risk discussion. Procedure: Mark Trevino was identified in the preoperative waiting area. Her operative site was initialed and consent was reviewed. Final questions were answered. She was brought to the operating room and placed in the lateral decubitus position. All bony prominences were well padded. The operative extremity was prepped and draped in the usual sterile fashion. A surgical timeout was then performed with the patient's identification, the procedure to be performed being reviewed, verification that the patient had received preoperative antibiotics if indicated, and verification of the correct surgical site. The patient's ASA was verified by the nurse policy loan calculator and the anesthesia staff. Fire risk was assessed. An esmarch bandage was used to exsanguinate the limb and the tourniquet was inflated to 250mm Hg. The previous posterior incision was utilized with electrocautery through subcutaneous tissues. The plate was identified posterior laterally along the distal humerus and the triceps carefully reflected from lateral to medial. The radial nerve was identified and a vessel loop placed to aid in retraction. The radial nerve itself was densely adherent to the underlying plate. A careful neurolysis was performed of the radial nerve releasing perineural adhesions from the plate. With the nerve mobilized all screws and the plate were removed without incident. The plate was then removed and the posterior cortex smoothed with a rasp and rongeur's. Tourniquet was deflated. Hemostasis achieved with bipolar cautery and gentle compression. The skin was then closed in layers followed by well-padded soft bandage and a simple sling. Ms. Mark Trevino was taken to the recovery room in stable condition. POST OPERATIVE PLAN Immediate elbow ROM PWB 5 pounds x 6 weeks then WBAT Outpatient Follow-up XRays: Right Humerus 2V Hellen Jaeger MD 10/18/2023 , 9:02 AM documented in this encounter [facility] 10-18-2023 Note Formatting of this n ote might be different from the original. No changes,no c/o. Awaiting ride. [facility] 10-18-2023 Note Formatting of this n ote might be different from the original. No changes,no c/o. Awaiting ride. [facility] 10-18-2023 Note Formatting of this n ote might be different from the original. Pt dressed with little assist-tolerated well. Denies any dizziness,nausea, pain at this time. Homegoing instructions given to pt and SO verbally and written. Both verbalize understanding, no questions. Awaiting ride. [facility] 10-18-2023 Note Formatting of this n ote might be different from the original. Pt dressed with little assist-tolerated well. Denies any dizziness,nausea, pain at this time. Homegoing instructions given to pt and SO verbally and written. Both verbalize understanding, no questions. Awaiting ride. [facility] 10-18-2023 Note Formatting of this n ote might be different from the original. Pt up to side of cart-denies any dizziness,nausea, increased pain. Walked to BR with standby assist-tolerated well. [facility] 10-18-2023 Note Formatting of this n ote might be different from the original. Pt up to side of cart-denies any dizziness,nausea, increased pain. Walked to BR with standby assist-tolerated well. [facility] 10-18-2023 Note Patient: Mark garduno Procedure Summary Date: 10/18/23 Room / Location: [address] Operating Room Anesthesia Start: 745 Anesthesia Stop: 922 Procedure: REMOVAL HUMERAL PLATE RIGHT UPPER EXTREMITY (Right: Arm Upper) Diagnosis: Displaced comminuted fracture of shaft of humerus, right arm, subsequent encounter for fracture with routine healing (Displaced comminuted fracture of shaft of humerus, right arm, subsequent encounter for fracture with routine healing) Surgeons: Hellen Jaeger MD Responsible Provider: No Anesthesiologist - Charla/MD Vitor Anesthesia Type: regional, general, TIVA ASA Status: 2 Anesthesia Type: regional, general, TIVA Vitals Value Taken Time BP 108/68 10/18/23 0922 Temp 36.6 ?C (97.9 ?F) 10/18/23 0922 Pulse 98 10/18/23 0922 Resp 16 10/18/23 0922 SpO2 95 % 10/18/23921 Anesthesia Post Evaluation Patient location during evaluation: PACU Patient participation: complete - patient participated Level of consciousness: awake and alert Pain management: satisfactory to patient Airway patency: patent Dental Injury: no Cardiovascular status: acceptable, blood pressure returned to baseline and hemodynamically stable Respiratory status: acceptable and spontaneous ventilation Hydration status: euvolemic Nausea/Vomiting: controlled No notable events documented. Patient can be discharged once all PACU criteria has been met. [facility] 10-18-2023 Note Patient: Mark garduno Procedure Summary Date: 10/18/23 Room / Location: [address] Operating Room Anesthesia Start: 745 Anesthesia Stop: 922 Procedure: REMOVAL HUMERAL PLATE RIGHT UPPER EXTREMITY (Right: Arm Upper) Diagnosis: Displaced comminuted fracture of shaft of humerus, right arm, subsequent encounter for fracture with routine healing (Displaced comminuted fracture of shaft of humerus, right arm, subsequent encounter for fracture with routine healing) Surgeons: Hellen Jaeger MD Responsible Provider: No Anesthesiologist - Charla/MD Vitor Anesthesia Type: regional, general, TIVA ASA Status: 2 Anesthesia Type: regional, general, TIVA Vitals Value Taken Time BP 108/68 10/18/23 0922 Temp 36.6 ?C (97.9 ?F) 10/18/23 0922 Pulse 98 10/18/23 0922 Resp 16 10/18/23 0922 SpO2 95 % 10/18/2322 Anesthesia Post Evaluation Patient location during evaluation: PACU Patient participation: complete - patient participated Level of consciousness: awake and alert Pain management: satisfactory to patient Multimodal analgesia pain management approach Airway patency: patent Two or more strategies used to mitigate risk of obstructive sleep apnea Cardiovascular status: acceptable and hemodynamically stable Respiratory status: acceptable Hydration status: acceptable No notable events documented. MIPS #430 PONV Patient received an inhalational anesthetic (4554F) Patient exhibits three or more risk factors for PONV (4556F) Patient received at aset 2 prophylactic Rx PONV anti-emtic agents of different classes preop and/or intraop (G9775) MIPS # 424 Perioperative Temperature Management Anesthesia time was 60 minutes or longer (4255F) Anesthesai administered was General (inhalational or TIVA) or Neuraxial block (X0424) At least one body temperature greater than 95.8F/35.5C achieved within the 30 mins immediately prior to or the 15 minutes immediately following anesthesia end time (G9771) MIPS #477 Multimodal Pain Management Not emergent case Patient was administered multimodal pain management (two or more drugs and/or interventions excluding systemic opioids) in the periopeartive period occurring at some time between 6 hours prior to anesthesia start time until discharged from PACU (G2148) MIPS #404 Anesthesiology Smoking Abstinence The patient is not a current smoker (e.g. cigarette, cigar, pipe, e-cigarette/vaping/marijuana) If no stop here (XX404) I completed my handoff to the receiving clinician during which we: 1. Identified the patient 2. Identified the responsible provider 3. Reviewed the pertinent medical history 4. Discussed the surgical course 5. Reviewed intra-op anesthesia management and issues during anesthesia 6. Set expectations for post-procedure period 7. Allowed opportunity for questions and acknowledgement of understanding. [facility] 10-18-2023 Note Formatting of this n ote might be different from the original. Pt voided using bedpan. [facility] 10-18-2023 Note Formatting of this n ote might be different from the original. Pt voided using bedpan. [facility] 10-18-2023 Note Formatting of this n ote might be different from the original. Pt to PACU via cart with DIRECTOR OF DATABASE MARKETING. Pt responds to name and answers questions appropriately. Resp even and unlabored, simple mask removed upon arrival. IV infusing without diff-site without redness or edema. lunchroom monitor applied,VS obtained. [facility] 10-18-2023 Note Formatting of this n ote might be different from the original. Pt to PACU via cart with DIRECTOR OF DATABASE MARKETING. Pt responds to name and answers questions appropriately. Resp even and unlabored, simple mask removed upon arrival. IV infusing without diff-site without redness or edema. lunchroom monitor applied,VS obtained. [facility] 10-18-2023 Note Airway Date/Time: 10/18/2023 7:54 AM Urgency: scheduled Airway not difficult General Information and Staff Patient location during procedure: Procedural Resident/DIRECTOR OF DATABASE MARKETING: Gal Bragg APRN - DIRECTOR OF DATABASE MARKETING Performed: DIRECTOR OF DATABASE MARKETING and SRNA Indications and Patient Condition Indications for airway management: anesthesia Sedation level: Asleep Preoxygenated: yes Patient position: sniffing MILS maintained throughout Mask difficulty assessment: 2 - vent by mask + OA or adjuvant +/- NMBA Final Airway Details Final airway type: endotracheal airway Successful airway: ETT Cuffed: yes Successful intubation technique: direct laryngoscopy Endotracheal tube insertion site: oral Blade: Carlos Blade size: #3 ETT size (mm): 7.0 Cormack-Lehane Classification: grade I - full view of glottis Placement verified by: chest auscultation and capnometry Measured from: lips ETT to lips (cm): 21 Number of attempts at approach: 1 [facility] 10-18-2023 Note Formatting of this n ote might be different from the original. [facility] MA[facility] OR [address] [facility] [address] Dept: [phone] Loc: [phone] Operative Report Patient Name: Mark Trevino Date of : 1995 Date of Surgery: 10/18/23 Preoperative Diagnosis: Painful hardware right upper extremity Postoperative Diagnosis: Same Procedure: Neurolysis radial nerve with hardware removal right humerus Surgeon: Hellen Jaeger MD 1st Assist: Jonny Toussaint MD 2nd Assist: Antonino Hanson PA-C Implants: None Specimens Removed: None Anesthesia: General/Regional Local Anesthesia: None Tourniquet: Brachium Estimated Blood Loss: <5ml Pre Operative Antibiotics: Yes Indications: Ms. Mark Trevino is a 28 y.o. year-old female who is about a month status post ORIF comminuted midshaft humerus fracture who presents today for hardware removal. I have discussed with her, preoperatively, the complications, limitations, expectations, alternatives, and risks of surgical intervention which she has demonstrated understanding. She understood the particular risk to radial nerve. No guarantees were given or implied. After having all of her questions answered to her satisfaction, Ms. Mark Trevino has provided written informed consent to proceed. Please see previous notes for full operative risk discussion. Procedure: Mark Trevino was identified in the preoperative waiting area. Her operative site was initialed and consent was reviewed. Final questions were answered. She was brought to the operating room and placed in the lateral decubitus position. All bony prominences were well padded. The operative extremity was prepped and draped in the usual sterile fashion. A surgical timeout was then performed with the patient's identification, the procedure to be performed being reviewed, verification that the patient had received preoperative antibiotics if indicated, and verification of the correct surgical site. The patient's ASA was verified by the nurse policy loan calculator and the anesthesia staff. Fire risk was assessed. An esmarch bandage was used to exsanguinate the limb and the tourniquet was inflated to 250mm Hg. The previous posterior incision was utilized with electrocautery through subcutaneous tissues. The plate was identified posterior laterally along the distal humerus and the triceps carefully reflected from lateral to medial. The radial nerve was identified and a vessel loop placed to aid in retraction. The radial nerve itself was densely adherent to the underlying plate. A careful neurolysis was performed of the radial nerve releasing perineural adhesions from the plate. With the nerve mobilized all screws and the plate were removed without incident. The plate was then removed and the posterior cortex smoothed with a rasp and rongeur's. Tourniquet was deflated. Hemostasis achieved with bipolar cautery and gentle compression. The skin was then closed in layers followed by well-padded soft bandage and a simple sling. Ms. Mark Trevino was taken to the recovery room in stable condition. POST OPERATIVE PLAN Immediate elbow ROM PWB 5 pounds x 6 weeks then WBAT Outpatient Follow-up XRays: Right Humerus 2V Hellen Jaeger MD 10/18/2023 , 9:02 AM Post-i Work Phone: 10-18-2023 Note Formatting of this n ote might be different from the original. [facility] OR [address] [facility] [place] [address] Dept: [phone] Loc: [phone] Operative Report Patient Name: Mark Trevino Date of : 1995 Date of Surgery: 10/18/23 Preoperative Diagnosis: Painful hardware right upper extremity Postoperative Diagnosis: Same Procedure: Neurolysis radial nerve with hardware removal right humerus Surgeon: Hellen Jaeger MD 1st Assist: Jonny Toussaint MD 2nd Assist: Antonino Hanson PA-C Implants: None Specimens Removed: None Anesthesia: General/Regional Local Anesthesia: None Tourniquet: Brachium Estimated Blood Loss: <5ml Pre Operative Antibiotics: Yes Indications: Ms. Mark Trevino is a 28 y.o. year-old female who is about a month status post ORIF comminuted midshaft humerus fracture who presents today for hardware removal. I have discussed with her, preoperatively, the complications, limitations, expectations, alternatives, and risks of surgical intervention which she has demonstrated understanding. She understood the particular risk to radial nerve. No guarantees were given or implied. After having all of her questions answered to her satisfaction, Ms. Mark Trevino has provided written informed consent to proceed. Please see previous notes for full operative risk discussion. Procedure: Mark Trevino was identified in the preoperative waiting area. Her operative site was initialed and consent was reviewed. Final questions were answered. She was brought to the operating room and placed in the lateral decubitus position. All bony prominences were well padded. The operative extremity was prepped and draped in the usual sterile fashion. A surgical timeout was then performed with the patient's identification, the procedure to be performed being reviewed, verification that the patient had received preoperative antibiotics if indicated, and verification of the correct surgical site. The patient's ASA was verified by the nurse policy loan calculator and the anesthesia staff. Fire risk was assessed. An esmarch bandage was used to exsanguinate the limb and the tourniquet was inflated to 250mm Hg. The previous posterior incision was utilized with electrocautery through subcutaneous tissues. The plate was identified posterior laterally along the distal humerus and the triceps carefully reflected from lateral to medial. The radial nerve was identified and a vessel loop placed to aid in retraction. The radial nerve itself was densely adherent to the underlying plate. A careful neurolysis was performed of the radial nerve releasing perineural adhesions from the plate. With the nerve mobilized all screws and the plate were removed without incident. The plate was then removed and the posterior cortex smoothed with a rasp and rongeur's. Tourniquet was deflated. Hemostasis achieved with bipolar cautery and gentle compression. The skin was then closed in layers followed by well-padded soft bandage and a simple sling. Ms. Mark Trevino was taken to the recovery room in stable condition. POST OPERATIVE PLAN Immediate elbow ROM PWB 5 pounds x 6 weeks then WBAT Outpatient Follow-up XRays: Right Humerus 2V Hellen Jaeger MD 10/18/2023 , 9:02 AM Post-[facility] Work Phone: 10-18-2023 Hospital Discharge instructions Antonino Hanson PA-C - 10/18/2023 7:35 AM EDT Bandage: Keep operative bandage on, clean, and dry until first post operative appointment. This is water resistent and may be worn in the shower but do not soak in bath, pool, or hot tub. Immobilization: Sling is to be worn at all times and can only be removed for hygiene purposes. You are okay to open the sling to gently move your elbow, wrist, and hand (after the block has worn off) but do NOT move the shoulder. Goal is to have full elbow, wrist, and hand motion by first post operative appointment. Swelling control: Ice the shoulder and arm for swelling and pain control. Medications: Take pain medications and antibiotics (if prescribed) as instructed. Weightbearing: Non weight bearing in operative extremity. Nerve block for pain control: If you have any questions regarding your nerve block and catheter, please refer to the information packet provided in your post op folder. You can also call (generic nurse) or [phone] and page Acute Pain Service director of infection prevention for further questions or concerns. The following attachments cannot be sent through Care Everywhere.General Anesthesia Discharge Instructions (Mauritanian)documented in this encounter [facility] 10-18-2023 History and physical note [facility] Pre-Surgical History and Physical Name: Mark Trevino : 1995 (Age-28 y.o.) Date of Service: Pt seen/examined on 10/18/2023 Chief Complaint: 28 y.o. female who we are asked to see/evaluate Mark Trevino for pre-procedure evaluation prior to Procedure Information Date/Time: 10/18/23 0800 Procedure: REMOVAL HUMERAL PLATE RIGHT UPPER EXTREMITY (Right: Arm Upper) - 120 minutes Location: [address] Operating Room Surgeons: Hellen Jaeger MD History Of Present Illness: HPI: Pt here for REMOVAL HUMERAL PLATE RIGHT UPPER EXTREMITY BP 128/81 Pulse 94 Temp 37.2 C (98.9 F) (Temporal) Resp 16 Wt 122 lb (55.3 kg) LMP (LMP Unknown) Comment: patient declined HCG prior to procedure SpO2 98% BMI 24.64 kg/m Past Medical History: Diagnosis Date Depression Peptic ulcer There are no problems to display for this patient. Past Surgical History: Procedure Laterality Date ARM SURGERY (HISTORICAL) Right 03/03/2023 OPEN REDUCTION INTERNAL FIXATION RIGHT HUMERAL SHAFT FRACTURE - Right dR. Jaeger FIBULA FRACTURE SURGERY Right HUMERUS FRACTURE SURGERY Right 03/03/2023 ORIF right humeral shaft fracture SPINAL FUSION TIBIA FRACTURE SURGERY Right No family history on file. Medications: Prior to Admission medications Medication Sig Start Date End Date Taking? Authorizing Provider FLUoxetine (PROzac) 20 MG capsule Take 25 mg by mouth daily. Yes Historical Provider, traZODone (Desyrel) 50 MG tablet Take 50 mg by mouth Nightly. 09/16/23 Yes Historical Provider, pantoprazole (ProtoNix) 20 MG EC tablet Take 5 mg by mouth every morning (before breakfast). Do not crush, chew, or split. Historical Provider, QUEtiapine (SEROquel) 100 MG tablet Take 150 mg by mouth Nightly. Historical Provider, medroxyPROGESTERone Acetate (DEPO-PROVERA IM) Inject into the shoulder, thigh, or buttocks. 10/18/23 Historical Provider, Social history and Laboratory Data: Social History Tobacco Use Smoking Status Former Current packs/day: 0.25 Types: Cigarettes Smokeless Tobacco Never Social History Substance and Sexual Activity Alcohol Use Not Currently Social History Substance and Sexual Activity Drug Use Not Currently Types: Marijuana Lab Results Component Value Date WBC 10.7 02/25/2023 HGB 12.0 02/25/2023 HCT 35.3 02/25/2023 MCV 89.6 02/25/2023 PLT 248 02/25/2023 Lab Results Component Value Date NA 139 02/25/2023 K 3.6 02/25/2023 CL 115 (H) 02/25/2023 CO2 19 (L) 02/25/2023 BUN 13 02/25/2023 CREATININE 0.55 02/25/2023 GLUCOSE 94 02/25/2023 CALCIUM 7.7 (L) 02/25/2023 PROT 6.5 02/25/2023 BILITOT 0.6 02/25/2023 ALKPHOS 88 02/25/2023 AST 29 02/25/2023 ALT 16 02/25/2023 Review of systems negative except for what is noted in HPI and medical history. See Anesthesia Pre-op on the Day of Surgery for the completed Physical Exam. ASSESSMENT/PLAN: 1) REMOVAL HUMERAL PLATE RIGHT UPPER EXTREMITY Electronically signed by: Antonino Hanson PA-C, Date: 10/18/2023 at 7:33 AM [facility] 10-18-2023 Note [facility] Pre-Surgical History and Physical Name: Mark Trevino : 1995 (Age-28 y.o.) Date of Service: Pt seen/examined on 10/18/2023 Chief Complaint: 28 y.o. female who we are asked to see/evaluate Mark Trevino for pre-procedure evaluation prior to Procedure Information Date/Time: 10/18/23 0800 Procedure: REMOVAL HUMERAL PLATE RIGHT UPPER EXTREMITY (Right: Arm Upper) - 120 minutes Location: [address] Operating Room Surgeons: Hellen Jaeger MD History Of Present Illness: HPI: Pt here for REMOVAL HUMERAL PLATE RIGHT UPPER EXTREMITY BP 128/81 Pulse 94 Temp 37.2 ?C (98.9 ?F) (Temporal) Resp 16 Wt 122 lb (55.3 kg) LMP (LMP Unknown) Comment: patient declined HCG prior to procedure SpO2 98% BMI 24.64 kg/m? Past Medical History: Diagnosis Date Depression Peptic ulcer There are no problems to display for this patient. Past Surgical History: Procedure Laterality Date ARM SURGERY (HISTORICAL) Right 03/03/2023 OPEN REDUCTION INTERNAL FIXATION RIGHT HUMERAL SHAFT FRACTURE - Right dR. Jaeger FIBULA FRACTURE SURGERY Right HUMERUS FRACTURE SURGERY Right 03/03/2023 ORIF right humeral shaft fracture SPINAL FUSION TIBIA FRACTURE SURGERY Right No family history on file. Medications: Prior to Admission medications Medication Sig Start Date End Date Taking? Authorizing Provider FLUoxetine (PROzac) 20 MG capsule Take 25 mg by mouth daily. Yes Historical Provider, traZODone (Desyrel) 50 MG tablet Take 50 mg by mouth Nightly. 09/16/23 Yes Historical Provider, pantoprazole (ProtoNix) 20 MG EC tablet Take 5 mg by mouth every morning (before breakfast). Do not crush, chew, or split. Historical Provider, QUEtiapine (SEROquel) 100 MG tablet Take 150 mg by mouth Nightly. Historical Provider, medroxyPROGESTERone Acetate (DEPO-PROVERA IM) Inject into the shoulder, thigh, or buttocks. 10/18/23 Historical ProviderMD Social history and Laboratory Data: Social History Tobacco Use Smoking Status Former Current packs/day: 0.25 Types: Cigarettes Smokeless Tobacco Never Social History Substance and Sexual Activity Alcohol Use Not Currently Social History Substance and Sexual Activity Drug Use Not Currently Types: Marijuana Lab Results Component Value Date WBC 10.7 02/25/2023 HGB 12.0 02/25/2023 HCT 35.3 02/25/2023 MCV 89.6 02/25/2023 PLT 248 02/25/2023 Lab Results Component Value Date NA 139 02/25/2023 K 3.6 02/25/2023 CL 115 (H) 02/25/2023 CO2 19 (L) 02/25/2023 BUN 13 02/25/2023 CREATININE 0.55 02/25/2023 GLUCOSE 94 02/25/2023 CALCIUM 7.7 (L) 02/25/2023 PROT 6.5 02/25/2023 BILITOT 0.6 02/25/2023 ALKPHOS 88 02/25/2023 AST 29 02/25/2023 ALT 16 02/25/2023 Review of systems negative except for what is noted in HPI and medical history. See Anesthesia Pre-op on the Day of Surgery for the completed Physical Exam. ASSESSMENT/PLAN: 1) REMOVAL HUMERAL PLATE RIGHT UPPER EXTREMITY Electronically signed by: Antonino Hanson PA-C, Date: 10/18/2023 at 7:33 AM [facility] 10-18-2023 History and physical note [facility] Pre-Surgical History and Physical Name: Mark Trevino : 1995 (Age-28 y.o.) Date of Service: Pt seen/examined on 10/18/2023 Chief Complaint: 28 y.o. female who we are asked to see/evaluate Mark Trevino for pre-procedure evaluation prior to Procedure Information Date/Time: 10/18/23 0800 Procedure: REMOVAL HUMERAL PLATE RIGHT UPPER EXTREMITY (Right: Arm Upper) - 120 minutes Location: [address] Operating Room Surgeons: Hellen Jaeger MD History Of Present Illness: HPI: Pt here for REMOVAL HUMERAL PLATE RIGHT UPPER EXTREMITY BP 128/81 Pulse 94 Temp 37.2 C (98.9 F) (Temporal) Resp 16 Wt 122 lb (55.3 kg) LMP (LMP Unknown) Comment: patient declined HCG prior to procedure SpO2 98% BMI 24.64 kg/m Past Medical History: Diagnosis Date Depression Peptic ulcer There are no problems to display for this patient. Past Surgical History: Procedure Laterality Date ARM SURGERY (HISTORICAL) Right 03/03/2023 OPEN REDUCTION INTERNAL FIXATION RIGHT HUMERAL SHAFT FRACTURE - Right dR. Jaeger FIBULA FRACTURE SURGERY Right HUMERUS FRACTURE SURGERY Right 03/03/2023 ORIF right humeral shaft fracture SPINAL FUSION TIBIA FRACTURE SURGERY Right No family history on file. Medications: Prior to Admission medications Medication Sig Start Date End Date Taking? Authorizing Provider FLUoxetine (PROzac) 20 MG capsule Take 25 mg by mouth daily. Yes Historical Provider, traZODone (Desyrel) 50 MG tablet Take 50 mg by mouth Nightly. 09/16/23 Yes Historical Provider, pantoprazole (ProtoNix) 20 MG EC tablet Take 5 mg by mouth every morning (before breakfast). Do not crush, chew, or split. Historical Provider, QUEtiapine (SEROquel) 100 MG tablet Take 150 mg by mouth Nightly. Historical Provider, medroxyPROGESTERone Acetate (DEPO-PROVERA IM) Inject into the shoulder, thigh, or buttocks. 10/18/23 Historical Provider, Social history and Laboratory Data: Social History Tobacco Use Smoking Status Former Current packs/day: 0.25 Types: Cigarettes Smokeless Tobacco Never Social History Substance and Sexual Activity Alcohol Use Not Currently Social History Substance and Sexual Activity Drug Use Not Currently Types: Marijuana Lab Results Component Value Date WBC 10.7 02/25/2023 HGB 12.0 02/25/2023 HCT 35.3 02/25/2023 MCV 89.6 02/25/2023 PLT 248 02/25/2023 Lab Results Component Value Date NA 139 02/25/2023 K 3.6 02/25/2023 CL 115 (H) 02/25/2023 CO2 19 (L) 02/25/2023 BUN 13 02/25/2023 CREATININE 0.55 02/25/2023 GLUCOSE 94 02/25/2023 CALCIUM 7.7 (L) 02/25/2023 PROT 6.5 02/25/2023 BILITOT 0.6 02/25/2023 ALKPHOS 88 02/25/2023 AST 29 02/25/2023 ALT 16 02/25/2023 Review of systems negative except for what is noted in HPI and medical history. See Anesthesia Pre-op on the Day of Surgery for the completed Physical Exam. ASSESSMENT/PLAN: 1) REMOVAL HUMERAL PLATE RIGHT UPPER EXTREMITY Electronically signed by: Antonino Hanson PA-C, Date: 10/18/2023 at 7:33 AM documented in this encounter [facility] 10-18-2023 Note Peripheral Block Time Out: 10/18/2023 7:07 AM Patient location during procedure: Procedural Start time: 10/18/2023 7:08 AM End time: 10/18/2023 7:16 AM Reason for block: at surgeon's request and post-op pain management Staffing Performed: DIRECTOR OF DATABASE MARKETING Resident/DIRECTOR OF DATABASE MARKETING: Efra Liu APRN - GAYLE Preanesthetic Checklist Completed: patient identified, IV checked, site marked, risks and benefits discussed, surgical consent and timeout performed Region: Upper Extremities Primary: Supraclavicular Peripheral Block Patient position: supine Prep: ChloraPrep Patient monitoring: continuous pulse ox and heart rate O2: Nasal cannula Laterality: right Injection technique: single-shot Guidance: ultrasound guided -image retained in chart, tip of the needle identified by ultraound during injection. Needle Needle: 22G X 80 mm Additional Notes Patient Position - Supine w/head elevated Post Procedure - Patient tolerated procedure well. No complications noted10/18/2023 7:08 AM and midazolam (Versed) injection - IntraVENous 2 mg - 10/18/2023 7:08:00 AM Assessment Injection assessment: negative aspiration for heme, no paresthesia on injection, incremental injection, local visualized surrounding nerve on ultrasound and transient paresthesias Heart rate change: no Slow fractionated injection: yes Required Documentation: Relevant anatomy identified (Nerves, Vessels, Muscles), Negative for blood on aspiration, Local anesthetic injected incrementally with intermittent aspiration every 5 mL, Normal resistance with injection, Local anesthetic spread visualized around nerves or plane., No EKG changes noted, No symptoms of toxicity and No paresthesias reported by patient during injectionMedications midazolam (Versed) injection - IntraVENous 2 mg - 10/18/2023 7:08:00 [id number]-[id number]-mrfnx phrine (TAP) syringe - Injection 30 mL - 10/18/2023 7:08:00 AM [facility] 10-18-2023 Note Patient: Mark garduno Procedure Information Date/Time: 10/18/23 0800 Procedure: REMOVAL HUMERAL PLATE RIGHT UPPER EXTREMITY (Right: Arm Upper) - 120 minutes Location: [address] Operating Room Surgeons: Hellen Jaeger MD Relevant Problems No relevant active problems Past Medical History: Past Medical History: No date: Depression No date: Peptic ulcer Past Surgical History: Past Surgical History: 03/03/2023: ARM SURGERY (HISTORICAL); Right Comment: OPEN REDUCTION INTERNAL FIXATION RIGHT HUMERAL SHAFT FRACTURE - Right dR. Jaeger No date: FIBULA FRACTURE SURGERY; Right 03/03/2023: HUMERUS FRACTURE SURGERY; Right Comment: ORIF right humeral shaft fracture No date: SPINAL FUSION No date: TIBIA FRACTURE SURGERY; Right Social History: TOBACCO: reports that she has quit smoking. Her smoking use included cigarettes. She has never used smokeless tobacco. ETOH: reports that she does not currently use alcohol. Social History Substance and Sexual Activity Drug Use Not Currently Types: Marijuana Family History: No family history on file. Screening: Having periods Clinical information reviewed: Tobacco Allergies Meds Med Hx Surg Hx OB Status Fam Hx Soc Hx Physical Exam Airway Mallampati: II TM distance: >3 FB Neck ROM: full Mouth Open: normalendotracheal tube not in place Cardiovascular - normal exam Dental (+) Missing Comments: Missing tooth top, front, right Pulmonary - normal exam Abdominal - normal exam Anesthesia Plan patient is NPO appropriate Any family history or previous problems with anesthesia no ASA 2 regional, general and TIVA Any family history or previous problems with anesthesia no The patient is not a current smoker. Anesthetic plan and risks discussed with patient. JOANN Screening Labs: Lab Results Component Value Date WBC 10.7 02/25/2023 HGB 12.0 02/25/2023 HCT 35.3 02/25/2023 MCV 89.6 02/25/2023 PLT 248 02/25/2023 Lab Results Component Value Date NA 139 02/25/2023 K 3.6 02/25/2023 CL 115 (H) 02/25/2023 CO2 19 (L) 02/25/2023 BUN 13 02/25/2023 CREATININE 0.55 02/25/2023 GLUCOSE 94 02/25/2023 CALCIUM 7.7 (L) 02/25/2023 PROT 6.5 02/25/2023 ALKPHOS 88 02/25/2023 AST 29 02/25/2023 ALT 16 02/25/2023 EGFR >90.0 02/25/2023 Pain Score: Scheduled No echocardiogram results found for the past 14 days No results found for this or any previous visit. Equipment Requests: Additional Equipment Requests [facility] 09-29-2023 Telephone encounter Note Message sent to surgery scheduling to change PAT appointment to VV since this is a [facility] surgery [facility] 09-29-2023 Miscellaneous Notes Message sent to surgery scheduling to change PAT appointment to VV since this is a [facility] surgery Called pt to notify of her IPO appointment. BOBBIOVM. Notified its on [address] as well. Patient: Mark Trevino Date of : 1995 Date of Surgery: Next available Day of Surgery: [facility] Duration: 2hrs Type: Outpatient PAT: Yes - in person Med Clearance: No Anesthesia: General Block: Regional Position: Lateral Table: Regular OR table Arm Board: Suspended arm board WITHOUT leg Radiology: Large C-Arm CPT Code: 06659 Consent: Removal humeral plate right upper extremity FollowUp: Any P.A. in 10-14 days XRays: Yes OT Splint needed at first PO appointment: Yes Special Requests Peg board Ortho tray Synthes lesia articular humerus set Large retractors documented in this encounter [facility] 09-28-2023 Telephone encounter Note Called pt to notify of her IPO appointment. BOBBIOVNereida. Notified its on [address] as well. [facility] 09-28-2023 Telephone encounter Note Patient: Mark Trevino Date of : 1995 Date of Surgery: Next available Day of Surgery: [facility] Duration: 2hrs Type: Outpatient PAT: Yes - in person Med Clearance: No Anesthesia: General Block: Regional Position: Lateral Table: Regular OR table Arm Board: Suspended arm board WITHOUT leg Radiology: Large C-Arm CPT Code: 82644 Consent: Removal humeral plate right upper extremity FollowUp: Any P.A. in 10-14 days XRays: Yes OT Splint needed at first PO appointment: Yes Special Requests Peg board Ortho tray Synthes lesia articular humerus set Large retractors [facility] 09-28-2023 History of Present illness Narrative [facility] [address] [facility] [address] Dept: [phone] Dept 09/28/2023 Chief Complaint Patient presents with Follow-up ORIF prox hum GUY Mark is approximately 8 month(s) s/p ORIF Right proximal humerus fracture. Pain is moderate when she lays on it or hits it. The patient admits to numbness and tingling if she hit her elbow. She denies drainage from the incision. She has noticed a bump on her elbow a while ago. She states that it get getting bigger. Patient reports that she has been previously been doing well from her right proximal humerus ORIF. She states that she started noticing a protrusion of her right elbow and she states it is tender when it is bumped and she says it causes numbness and tingling when it bumps. She denies any change in range of motion. OBJECTIVE Ht 4' 11 (1.499 m) Wt 122 lb (55.3 kg) BMI 24.64 kg/m Focused Exam of the RIGHT Upper Extremity Skin: intact without any evidence of breakdown Edema: no evidence of edema Palpation: tender to palpation over the distal humerus over the hardware ROM: Shoulder Range of Motion: RIGHT LEFT Forward Flexion AROM 160 PROM Same AROM 160 PROM Same External Rotation AROM 45 PROM Same AROM 90 PROM Same Internal Rotation Lumbar Lumbar Elbow ROM: Flexion 130 deg Extension -5 deg Supination Full deg Pronation Full deg Full functional ROM of the wrist and hand without evidence of instabilities Motor: Intact in the hand - able to fire AIN, PIN, and Ulnar nerves Sensation: to light touch is normal in the median, ulnar, and radial nerve distributions Perfusion: Brisk capillary refill in all 5 digits IMAGING 2V HUMERUS (AP and LAT) show healed humeral shaft fracture s/p ORIF ASSESSMENT Diagnosis Plan 1. Closed displaced comminuted fracture of shaft of right humerus with routine healing, subsequent encounter 2. S/P ORIF (open reduction internal fixation) fracture PLAN Mark presents with painful hardware after her humeral shaft fracture ORIF. X-rays reveal a fracture which is appropriately healed today. Patient was educated on the etiology and treatment options and she elected proceed with surgical intervention to include removal of her painful hardware. She was educated on the risks and benefits especially as it related to radial nerve injury. She we will follow-up with my physician dental ceramist assistant postoperatively. She will call the office with any questions or concerns in the interim. She verbalized understanding and is in agreement with this plan. I had an extensive discussion with Ms. Mark Trevino regarding the natural history, etiology, and prison consequences of her condition. We discussed both operative and non operative treatment options and Mark Trevino elected to proceed with surgical intervention. I have discussed with Ms. Mark Trevino the potential complications, limitations, expectations, alternatives, and risks of the proposed surgical procedure. Risks discussed include but are not limited to the risk of infection, iatrogenic injury to normal neurovascular structures, persistent pain and disability, unsightly scar, stiffness, complex regional pain syndrome, malunion, non union, hardware failure, need for hardware removal, loss of limb, myocardial infarction, deep vein thrombosis, pulmonary embolism and even . We also discussed the potential risk of COVID-19 exposure or infection and how it could alter her post operative recovery course. She has had full opportunity to ask her questions. I have answered them all to her satisfaction. I feel that Ms. Mark Trevino does understand our discussion today and she is comfortable providing informed consent for the procedure. Immobilization: NO immobilization required at this point - FULL ROM encouraged without resitrictions Weight Bearing: Weight Bearing As Tolerated Rehabilitation: NO formal rehabilitation required at this point. Follow-up: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 03/03/23 Room / Location: [address] Operating Room Anesthesia Start: 1134 Anesthesia Stop: Procedure: OPEN REDUCTION INTERNAL FIXATION RIGHT HUMERAL SHAFT FRACTURE (Right: Arm Upper) Diagnosis: Displaced comminuted fracture of shaft of humerus, right arm, initial encounter for closed fracture (Displaced comminuted fracture of shaft of humerus, right arm, initial encounter for closed fracture [S42.351A]) Surgeons: Hellen Jaeger MD Responsible Provider: Nicholas Cross Jr., MD Anesthesia Type: TIVA, regional, general ASA Status: 2 Anesthesia Type: TIVA, regional, general Vitals Value Taken Time BP 121/84 03/03/23 1342 Temp 36.6 ?C (97.9 ?F) 03/03/23 1342 Pulse 95 03/03/23 1342 Resp 16 03/03/23 1342 SpO2 97 % 03/03/23 1342 Anesthesia Post Evaluation Patient location during evaluation: PACU Patient participation: complete - patient participated Level of consciousness: awake and alert Pain management: satisfactory to patient Airway patency: patent Dental Injury: no Cardiovascular status: acceptable, blood pressure returned to baseline and hemodynamically stable Respiratory status: acceptable and spontaneous ventilation Hydration status: euvolemic Nausea/Vomiting: controlled No notable events documented. Patient can be discharged once all PACU criteria has been met. [facility] 03-03-2023 Note Patient: Mark garduno Procedure Summary Date: 03/03/23 Room / Location: [address] Operating Room Anesthesia Start: 1134 Anesthesia Stop: Procedure: OPEN REDUCTION INTERNAL FIXATION RIGHT HUMERAL SHAFT FRACTURE (Right: Arm Upper) Diagnosis: Displaced comminuted fracture of shaft of humerus, right arm, initial encounter for closed fracture (Displaced comminuted fracture of shaft of humerus, right arm, initial encounter for closed fracture [S42.351A]) Surgeons: Hellen Jaeger MD Responsible Provider: Nicholas Cross Jr., MD Anesthesia Type: TIVA, regional, general ASA Status: 2 Anesthesia Type: TIVA, regional, general Vitals Value Taken Time BP 121/84 03/03/23 1342 Temp 36.6 ?C (97.9 ?F) 03/03/23 1342 Pulse 95 03/03/23 1342 Resp 16 03/03/23 1342 SpO2 97 % 03/03/23 1342 Anesthesia Post Evaluation Patient location during evaluation: PACU Patient participation: complete - patient participated Level of consciousness: awake and alert Pain management: satisfactory to patient Multimodal analgesia pain management approach Airway patency: patent Two or more strategies used to mitigate risk of obstructive sleep apnea Cardiovascular status: acceptable and hemodynamically stable Respiratory status: acceptable Hydration status: acceptable No notable events documented. MIPS #430 PONV Patient received an inhalational anesthetic (4554F) Patient exhibits three or more risk factors for PONV (4556F) Patient received at leaset 2 prophylactic Rx PONV anti-emtic agents of different classes preop and/or intraop (G9775) MIPS # 424 Perioperative Temperature Management Anesthesia time was 60 minutes or longer (4255F) Anesthesai administered was General (inhalational or TIVA) or Neuraxial block (X0424) At least one body temperature greater than 95.8F/35.5C achieved within the 30 mins immediately prior to or the 15 minutes immediately following anesthesia end time (G9771) MIPS #477 Multimodal Pain Management Not emergent case Patient was administered multimodal pain management (two or more drugs and/or interventions excluding systemic opioids) in the periopeartive period occurring at some time between 6 hours prior to anesthesia start time until discharged from PACU (G2148) MIPS #404 Anesthesiology Smoking Abstinence The patient is a current smoker (G9642) (e.g. cigarette, cigar, pipe, e-cigarette/vaping/marijuana) The patient underwent an elective surgery or procedure requiring anesthesia (G9643) The patient received preop smoking cessation instructions prior to the day of surgery or procedure by , RUFINO weblogic administrator proxy staff (G9497) The patient did not smoke the day of the procedure (G9644) I completed my handoff to the receiving clinician during which we: 1. Identified the patient 2. Identified the responsible provider 3. Reviewed the pertinent medical history 4. Discussed the surgical course 5. Reviewed intra-op anesthesia management and issues during anesthesia 6. Set expectations for post-procedure period 7. Allowed opportunity for questions and acknowledgement of understanding. [facility] 03-03-2023 Hospital Discharge instructions Antonino Hanson PA-C - 03/03/2023 1:46 PM EST Bandage: Keep operative bandage on, clean, and dry until first post operative appointment. This is waterproof and may be worn in the shower but do not soak in bath, pool, or hot tub. Immobilization: Sling is to be worn at all times and can only be removed for hygiene purposes. You are okay to open the sling to gently move your elbow, wrist, and hand (after the block has worn off) but do NOT move the shoulder. Goal is to have full elbow, wrist, and hand motion by first post operative appointment. Swelling control: Ice the shoulder and arm for swelling and pain control. Medications: Take pain medications as instructed. Weightbearing: Non weight bearing in operative extremity. Nerve block for pain control: If you have any questions regarding your nerve block and catheter, please refer to the information packet provided in your post op folder. You can also call (generic nurse) or [phone] and page Acute Pain Service director of infection prevention for further questions or concerns. The following attachments cannot be sent through Care Everywhere.General Anesthesia Discharge Instructions (Mauritanian)documented in this encounter [email or web address] Note Formatting of this n ote might be different from the original. Pt received from OR via cart, spont. Resp. With DIRECTOR OF DATABASE MARKETING in attendance. Placed on monitor. Monitor alarms on in PACU [employer] Phone: 03-03-2023 Note Formatting of this n ote might be different from the original. Pt received from OR via cart, spont. Resp. With DIRECTOR OF DATABASE MARKETING in attendance. Placed on monitor. Monitor alarms on in PACU [employer] Phone: 03-03-2023 Note Airway Date/Time: 03/03/2023 11:40 AM Urgency: scheduled Airway not difficult General Information and Staff Patient location during procedure: Procedural Anesthesiologist: Nicholas Cross Jr., MD Resident/DIRECTOR OF DATABASE MARKETING: ALINA Skaggs CRNA Performed: DIRECTOR OF DATABASE MARKETING Performed by: ALINA Skaggs CRNA Authorized by: ALINA Skaggs CRNA Indications and Patient Condition Indications for airway management: anesthesia Sedation level: Asleep Preoxygenated: yes Patient position: sniffing MILS maintained throughout Mask difficulty assessment: 1 - vent by mask Final Airway Details Final airway type: endotracheal airway Successful airway: ETT Cuffed: yes Successful intubation technique: direct laryngoscopy Blade: Carlos Blade size: #3 ETT size (mm): 7.0 Cormack-Lehane Classification: grade I - full view of glottis Placement verified by: chest auscultation and capnometry Measured from: lips ETT to lips (cm): 20 Number of attempts at approach: 1 [facility] 03-03-2023 Note Peripheral Block Time Out: 03/03/2023 11:20 AM Patient location during procedure: Procedural Start time: 03/03/2023 11:21 AM End time: 03/03/2023 11:27 AM Reason for block: at surgeon's request and post-op pain management Staffing Performed: anesthesiologist Anesthesiologist: Nicholas Cross Jr., MD Preanesthetic Checklist Completed: patient identified, IV checked, site marked, risks and benefits discussed, surgical consent, monitors and equipment checked, pre-op evaluation and timeout performed Region: Upper Extremities Primary: Supraclavicular Peripheral Block Patient position: supine Prep: ChloraPrep Patient monitoring: continuous pulse ox, heart rate and air sampling and monitoring O2: Room air Laterality: right Injection technique: single-shot Guidance: nerve stimulator and ultrasound guided -image retained in chart, tip of the needle identified by ultraound during injection. Local infiltration: lidocaine Infiltration strength: 1 % Dose: 3 mL Needle Needle: 22G X 50 mm Additional Notes Patient Position - Supine w/head elevated Nerve stimulating, Minimum current when twitches disappeared at 0.3mA Post Procedure - Patient tolerated procedure well. No complications noted03/03/2023 11:21 AM and fentaNYL (Sublimaze) injection, 100 mcg midazolam (Versed) injection, 2 mg Assessment Injection assessment: negative aspiration for heme, no paresthesia on injection, incremental injection and local visualized surrounding nerve on ultrasound Paresthesia pain: none Heart rate change: no Slow fractionated injection: yes Required Documentation: Relevant anatomy identified (Nerves, Vessels, Muscles), Negative for blood on aspiration, Local anesthetic injected incrementally with intermittent aspiration every 5 mL, Normal resistance with injection, Local anesthetic spread visualized around nerves or plane., No EKG changes noted, No symptoms of toxicity and No paresthesias reported by patient during injectionMedications fentaNYL (Sublimaze) injection, 100 mcg midazolam (Versed) injection, 2 gsigyRITBXcrpbj-jyqidjxawft-unnlw phrine (TAP) syringe, 20 mL [facility] 03-03-2023 History and physical note Updated History & Physical The patient's History and Physical of March 03, 2023 was reviewed with the patient and I examined the patient. There was no change. The surgical site was confirmed by the patient and me. Plan: The risks, benefits, expected outcome, and alternative to the recommended procedure have been discussed with the patient. Patient understands and wants to proceed with the procedure. The patient was consented for OPEN REDUCTION INTERNAL FIXATION RIGHT HUMERAL SHAFT FRACTURE. I had an extensive discussion with Ms. Mark Trevino regarding the natural history, etiology, and prison consequences of her condition. We discussed both operative and non operative treatment options and Mark Trevino elected to proceed with surgical intervention. I have discussed with Ms. Mark Trevino the potential complications, limitations, expectations, alternatives, and risks of the proposed surgical procedure. Risks discussed include but are not limited to the risk of infection, iatrogenic injury to normal neurovascular structures, persistent pain and disability, unsightly scar, stiffness, complex regional pain syndrome, malunion, non union, hardware failure, need for hardware removal, loss of limb, myocardial infarction, deep vein thrombosis, pulmonary embolism and even . We also discussed the potential risk of COVID-19 exposure or infection and how it could alter her post operative recovery course. She has had full opportunity to ask her questions. I have answered them all to her satisfaction. I feel that Ms. Mark Trevino does understand our discussion today and she is comfortable providing informed consent for the procedure. [facility] 03-03-2023 Note Updated History & Ph ysical The patient's History and Physical of March 03, 2023 was reviewed with the patient and I examined the patient. There was no change. The surgical site was confirmed by the patient and me. Plan: The risks, benefits, expected outcome, and alternative to the recommended procedure have been discussed with the patient. Patient understands and wants to proceed with the procedure. The patient was consented for OPEN REDUCTION INTERNAL FIXATION RIGHT HUMERAL SHAFT FRACTURE. I had an extensive discussion with Ms. Mark Trevino regarding the natural history, etiology, and prison consequences of her condition. We discussed both operative and non operative treatment options and Mark Trevino elected to proceed with surgical intervention. I have discussed with Ms. Mark Trevino the potential complications, limitations, expectations, alternatives, and risks of the proposed surgical procedure. Risks discussed include but are not limited to the risk of infection, iatrogenic injury to normal neurovascular structures, persistent pain and disability, unsightly scar, stiffness, complex regional pain syndrome, malunion, non union, hardware failure, need for hardware removal, loss of limb, myocardial infarction, deep vein thrombosis, pulmonary embolism and even . We also discussed the potential risk of COVID-19 exposure or infection and how it could alter her post operative recovery course. She has had full opportunity to ask her questions. I have answered them all to her satisfaction. I feel that Ms. Mark Trevino does understand our discussion today and she is comfortable providing informed consent for the procedure. [facility] 03-03-2023 History and physical note Updated History & Physical The patient's History and Physical of March 03, 2023 was reviewed with the patient and I examined the patient. There was no change. The surgical site was confirmed by the patient and me. Plan: The risks, benefits, expected outcome, and alternative to the recommended procedure have been discussed with the patient. Patient understands and wants to proceed with the procedure. The patient was consented for OPEN REDUCTION INTERNAL FIXATION RIGHT HUMERAL SHAFT FRACTURE. I had an extensive discussion with Ms. Mark Trevino regarding the natural history, etiology, and prison consequences of her condition. We discussed both operative and non operative treatment options and Mark Trevino elected to proceed with surgical intervention. I have discussed with Ms. Mark Trevino the potential complications, limitations, expectations, alternatives, and risks of the proposed surgical procedure. Risks discussed include but are not limited to the risk of infection, iatrogenic injury to normal neurovascular structures, persistent pain and disability, unsightly scar, stiffness, complex regional pain syndrome, malunion, non union, hardware failure, need for hardware removal, loss of limb, myocardial infarction, deep vein thrombosis, pulmonary embolism and even . We also discussed the potential risk of COVID-19 exposure or infection and how it could alter her post operative recovery course. She has had full opportunity to ask her questions. I have answered them all to her satisfaction. I feel that Ms. Mark Trevino does understand our discussion today and she is comfortable providing informed consent for the procedure. [facility] PreSurgical History and Physical Name: Mark Trevino : 1995 (Age-27 y.o.) Date of evaluation: 03/03/2023 Surgeon: Hellen Jaeger MD No Known Allergies Weight: 52.2 kg (115 lb) Chief Complaint: 27 y.o. female for Procedure(s): OPEN REDUCTION INTERNAL FIXATION RIGHT HUMERAL SHAFT FRACTURE . HPI: Displaced comminuted fracture of shaft of humerus, right arm, initial encounter for closed fracture [S42.351A] Severity: Moderate Duration: < one week Review of systems negative except for items below: Past Medical History: Diagnosis Date Depression Peptic ulcer There are no problems to display for this patient. Past Surgical History: Procedure Laterality Date FIBULA FRACTURE SURGERY Right SPINAL FUSION TIBIA FRACTURE SURGERY Right No family history on file. Medications: Prior to Admission medications Medication Sig Start Date End Date Taking? Authorizing Provider FLUoxetine (PROzac) 20 MG capsule Take 25 mg by mouth daily. Yes Historical Provider, oxyCODONE-acetaminophen (Percocet) 5-325 MG tablet Take 1 tablet by mouth every 6 hours as needed for severe pain (7-10) for up to 3 days. 02/25/23 03/03/23 Yes MATTY Rose pantoprazole (ProtoNix) 20 MG EC tablet Take 5 mg by mouth every morning (before breakfast). Do not crush, chew, or split. Yes Historical Provider, QUEtiapine (SEROquel) 100 MG tablet Take 150 mg by mouth Nightly. Yes Historical Provider, medroxyPROGESTERone Acetate (DEPO-PROVERA IM) Inject into the shoulder, thigh, or buttocks. Historical Provider, ondansetron (Zofran) 4 MG tablet Take 1 tablet (4 mg) by mouth every 8 hours as needed for nausea or vomiting for up to 7 days. 03/03/23 03/10/23 Antonino Hanson PA-C oxyCODONE-acetaminophen (Percocet) 5-325 MG tablet Take 1 tablet by mouth every 6 hours as needed for severe pain (7-10) for up to 7 days. 03/03/23 03/10/23 Antonino Hanson PA-C Social history and Laboratory Data: Lab Results Component Value Date HGB 12.0 02/25/2023 HCT 35.3 02/25/2023 PLT 248 02/25/2023 WBC 10.7 02/25/2023 NA 139 02/25/2023 K 3.6 02/25/2023 BUN 13 02/25/2023 CREATININE 0.55 02/25/2023 GLUCOSE 94 02/25/2023 Social History Tobacco Use Smoking Status Every Day Packs/day: .25 Types: Cigarettes Smokeless Tobacco Never Social History Substance and Sexual Activity Alcohol Use Not Currently Social History Substance and Sexual Activity Drug Use Not Currently Types: Marijuana Physical Examination: Constitutional: No apparent distress, well nourished, and in stable condition. Cardiac: Regular rate and rhythm Abdomen: Soft and nonacute Pulmonary: Clear bilaterally and no wheezing Neuro: Moves extremities X4 with no tremors HEENT: No gross cranial nerve defects and anicteric sclera Skin: Skin warm and dry with no visible rashes, multiple Tattoos Vascular: Adequate perfusion of extremities with no cyanosis Psych: Alert and oriented x3 with appropriate affect Lymphatics: No swelling of arms/hands with no pedal edema Neck: FROM with no JVD Additional Notes:None After review of the medical history and physical assessment, medications, allergies, patient's current medical condition, and labs, this patient is at an optimal medical condition for the procedure and anesthetic at this outpatient surgical facility. Electronically signed by: Nicholas Cross Jr, MD, Date: 03/03/2023 at 11:13 AM documented in this encounter [facility] 03-03-2023 Note Patient: Mark garduno Procedure Information Date/Time: 03/03/23 1130 Procedure: OPEN REDUCTION INTERNAL FIXATION RIGHT HUMERAL SHAFT FRACTURE (Right: Arm Upper) Location: [address] Operating Room Surgeons: Hellen Jaeger MD Relevant Problems No relevant active problems Past Medical History: Past Medical History: No date: Depression No date: Peptic ulcer Past Surgical History: Past Surgical History: No date: FIBULA FRACTURE SURGERY; Right No date: SPINAL FUSION No date: TIBIA FRACTURE SURGERY; Right Social History: TOBACCO: reports that she has been smoking cigarettes. She has been smoking an average of 0.3 packs per day. She has never used smokeless tobacco. ETOH: reports that she does not currently use alcohol. Social History Substance and Sexual Activity Drug Use Not Currently ? Types: Marijuana Family History: No family history on file. Screening: Having periods Clinical information reviewed: Tobacco Allergies Meds Med Hx Surg Hx OB Status Fam Hx Soc Hx Physical Exam Airway Mallampati: III TM distance: >3 FB Neck ROM: limited Mouth Open: normal Cardiovascular Dental Comments: Missing teeth, denies loose teeth Pulmonary Abdominal Other findings: Peptic ulcer/GERD controlled - on omeprazole (PriLOSEC) took today Anesthesia Plan patient is NPO appropriate Any family history or previous problems with anesthesia no ASA 2 TIVA, regional and general Any family history or previous problems with anesthesia no (Brachial Plexus Discussed regional anesthesia for post operative pain reduction, all benefits and risks/complications. All questions were answered. Patient consents to a regional anesthesia for post operative pain control.) The patient is a current smoker. Patient was not previously instructed to abstain from smoking on day of procedure. Patient did not smoke on day of procedure. Anesthetic plan and risks discussed with patient. Anesthesia Short Considerations Marijuana 2 days ago ERAS Type Tylenol, Pepcid JOANN Screening Labs: Lab Results Component Value Date WBC 10.7 02/25/2023 HGB 12.0 02/25/2023 HCT 35.3 02/25/2023 MCV 89.6 02/25/2023 PLT 248 02/25/2023 Lab Results Component Value Date NA 139 02/25/2023 K 3.6 02/25/2023 CL 115 (H) 02/25/2023 CO2 19 (L) 02/25/2023 BUN 13 02/25/2023 CREATININE 0.55 02/25/2023 GLUCOSE 94 02/25/2023 CALCIUM 7.7 (L) 02/25/2023 PROT 6.5 02/25/2023 ALKPHOS 88 02/25/2023 AST 29 02/25/2023 ALT 16 02/25/2023 EGFR >90.0 02/25/2023 Pain Score: Scheduled No echocardiogram results found for the past 14 days No results found for this or any previous visit. [facility] 03-03-2023 History and physical note [facility] PreSurgical History and Physical Name: Mark Trevino : 1995 (Age-27 y.o.) Date of evaluation: 03/03/2023 Surgeon: Hellen Jaeger MD No Known Allergies Weight: 52.2 kg (115 lb) Chief Complaint: 27 y.o. female for Procedure(s): OPEN REDUCTION INTERNAL FIXATION RIGHT HUMERAL SHAFT FRACTURE . HPI: Displaced comminuted fracture of shaft of humerus, right arm, initial encounter for closed fracture [S42.351A] Severity: Moderate Duration: < one week Review of systems negative except for items below: Past Medical History: Diagnosis Date Depression Peptic ulcer There are no problems to display for this patient. Past Surgical History: Procedure Laterality Date FIBULA FRACTURE SURGERY Right SPINAL FUSION TIBIA FRACTURE SURGERY Right No family history on file. Medications: Prior to Admission medications Medication Sig Start Date End Date Taking? Authorizing Provider FLUoxetine (PROzac) 20 MG capsule Take 25 mg by mouth daily. Yes Historical Provider, oxyCODONE-acetaminophen (Percocet) 5-325 MG tablet Take 1 tablet by mouth every 6 hours as needed for severe pain (7-10) for up to 3 days. 02/25/23 03/03/23 Yes MATTY Rose pantoprazole (ProtoNix) 20 MG EC tablet Take 5 mg by mouth every morning (before breakfast). Do not crush, chew, or split. Yes Historical Provider, QUEtiapine (SEROquel) 100 MG tablet Take 150 mg by mouth Nightly. Yes Historical Provider, medroxyPROGESTERone Acetate (DEPO-PROVERA IM) Inject into the shoulder, thigh, or buttocks. Historical Provider, ondansetron (Zofran) 4 MG tablet Take 1 tablet (4 mg) by mouth every 8 hours as needed for nausea or vomiting for up to 7 days. 03/03/23 03/10/23 Antonino Hanson PA-C oxyCODONE-acetaminophen (Percocet) 5-325 MG tablet Take 1 tablet by mouth every 6 hours as needed for severe pain (7-10) for up to 7 days. 03/03/23 03/10/23 Antonino Hanson PA-C Social history and Laboratory Data: Lab Results Component Value Date HGB 12.0 02/25/2023 HCT 35.3 02/25/2023 PLT 248 02/25/2023 WBC 10.7 02/25/2023 NA 139 02/25/2023 K 3.6 02/25/2023 BUN 13 02/25/2023 CREATININE 0.55 02/25/2023 GLUCOSE 94 02/25/2023 Social History Tobacco Use Smoking Status Every Day Packs/day: .25 Types: Cigarettes Smokeless Tobacco Never Social History Substance and Sexual Activity Alcohol Use Not Currently Social History Substance and Sexual Activity Drug Use Not Currently Types: Marijuana Physical Examination: Constitutional: No apparent distress, well nourished, and in stable condition. Cardiac: Regular rate and rhythm Abdomen: Soft and nonacute Pulmonary: Clear bilaterally and no wheezing Neuro: Moves extremities X4 with no tremors HEENT: No gross cranial nerve defects and anicteric sclera Skin: Skin warm and dry with no visible rashes, multiple Tattoos Vascular: Adequate perfusion of extremities with no cyanosis Psych: Alert and oriented x3 with appropriate affect Lymphatics: No swelling of arms/hands with no pedal edema Neck: FROM with no JVD Additional Notes:None After review of the medical history and physical assessment, medications, allergies, patient's current medical condition, and labs, this patient is at an optimal medical condition for the procedure and anesthetic at this outpatient surgical facility. Electronically signed by: Nicholas Cross Jr, MD, MD Date: 03/03/2023 at 11:13 AM [facility] [employer] Phone: 03-03-2023 Note [facility] PreSurgical History and Physical Name: Mark Trevino : 1995 (Age-27 y.o.) Date of evaluation: 03/03/2023 Surgeon: Hellen Jaeger MD No Known Allergies Weight: 52.2 kg (115 lb) Chief Complaint: 27 y.o. female for Procedure(s): OPEN REDUCTION INTERNAL FIXATION RIGHT HUMERAL SHAFT FRACTURE . HPI: Displaced comminuted fracture of shaft of humerus, right arm, initial encounter for closed fracture [S42.351A] Severity: Moderate Duration: < one week Review of systems negative except for items below: Past Medical History: Diagnosis Date Depression Peptic ulcer There are no problems to display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 Take 1 tablet by mouth every 6 hours as needed. medroxyPROGESTERone acetate 150 MG/ML Suspension inj vial Inject 150 mg intramuscularly Once During Admission. ondansetron 4 MG Tab Dispersible Take 4 mg by mouth every 8 hours as needed for Nausea. pantoprazole [address] tablet DR Take 1 tablet by mouth daily. promethazine 25 MG tablet Take 1 tablet by mouth every 6 hours as needed for Nausea / Vomiting. QUEtiapine 100 MG tablet Take 100 mg by mouth 2 times daily. tiZANidine 4 MG tablet Take 1 tablet by mouth 3 times daily for 7 days. Allergies No Known Allergies Physical Exam VITAL SIGNS: BP 116/68 Pulse 76 Temp 98.3 F (36.8 C) (Oral) Resp 16 Ht 1.499 m (4' 11 ) Wt 49.9 kg (110 lb) SpO2 99% BMI 22.22 kg/m Smoking Status Current Every Day Smoker Constitutional: Well developed, Non-toxic appearance. HENT: Normocephalic, Bilateral external ears normal, Oropharynx moist without erythema, No oral exudates, Nose normal. Airway intact. No palpable neck mass. No temporal artery tenderness. Eyes: PERRLA, EOMI, Conjunctiva normal, No discharge. Neck: Normal range of motion. No meningismus. No JVD. Supple. Mild tenderness noted at the cervical occipital junction. Negative Kernig sign. Negative Brudzinski sign. Lymphatic: No lymphadenopathy noted. Cardiovascular: Regular, normal heart rate, Normal rhythm, No murmur. Thorax & Lungs: Equal breath sounds bilateral, No respiratory distress, No rhonchi, rales or wheezing. Abdomen: Bowel sounds normal, Soft, nondistended. No tenderness, No masses, No pulsatile masses. No abdominal bruit. Skin: Warm, Dry, No erythema, No rash. Back: No spinal tenderness, No CVA tenderness. Extremities: Intact distal pulses, No edema, No cyanosis, No tenderness. No deformity. Musculoskeletal: No major deformities noted. Neurologic: Alert & oriented x 4, Normal motor function, Normal sensory function, No focal deficits noted. Labs/Radiology/Procedures Medications potassium chloride (K-DUR) tablet ER 40 mEq (has no administration in time range) ketorolac (TORADOL) injection 30 mg (30 mg Intravenous Given 12/10/21702) ondansetron 4mg/2ml (ZOFRAN) injection 4 mg (4 mg Intravenous Given 12/10/21702) sodium chloride 0.9% IV solution 1,000 mL (1,000 mL Intravenous $$New Bag$$ 12/10/21727) Results for orders placed or performed during the hospital encounter of 12/10/21 SARS-COV-2 RAPID Specimen: Fluid/Swab Result Value Ref Range SARS-CoV-2 RNA Negative Negative CBC, EDIF, PLATELET Result Value Ref Range WBC (WHITE BLOOD COUNT) 7.0 3.4 - 9.6 K/cmm RBC 3.71 (L) 3.99 - 5.18 M/cmm HEMOGLOBIN (HGB) 11.7 11.7 - 15.5 g/dl HEMATOCRIT (HCT) 35.2 (L) 35.6 - 47.0 % MEAN CELL VOLUME 94.9 82.0 - 98.2 fl Mean Cell HGB 31.5 26.8 - 32.5 pg MEAN CELL HGB CONCENTRATION 33.2 31.2 - 34.6 % RBC DISTRIBUTION 13.7 11.4 - 14.9 % PLATELET COUNT 317 127 - 358 thousand MEAN PLATELET VOLUME 9.5 8.8 - 12.0 fl NEUTROPHILS 55.7 37.0 - 71.0 % LYMPHOCYTES % 30.4 18.0 - 48.0 % MONOCYTE % 11.6 4.0 - 14.0 % EOSINOPHILS 1.1 0.0 - 6.0 % BASOPHIL % 0.6 0.0 - 1.0 % IG% 0.60 (H) 0.00 - 0.37 % NEUTROPHILS ABS# AUTO 3.9 1.0 - 6.1 K/cmm LYMPHOCYTES, ABSOLUTE 2.1 1.0 - 3.2 K/cmm MONOCYTES, ABSOLUTE 0.8 0.3 - 0.8 K/cmm EOSINOPHILS, ABSOLUTE 0.1 0.0 - 0.4 K/cmm BASOPHILS, ABSOLUTE 0.0 0.0 - 0.1 K/cmm IG# 0.04 0.00 - 0.30 K/cmm BASIC METABOLIC PANEL Result Value Ref Range GLUCOSE 97 74 - 106 mg/dL BUN 9 7 - 18 mg/dL CREATININE SERUM 0.70 0.52 - 1.04 mg/dL SODIUM 140 137 - 145 mmol/L POTASSIUM 3.3 (L) 3.5 - 5.1 mmol/L CHLORIDE 111 (H) 98 - 107 mmol/L CARBON DIOXIDE (CO2) 23 22 - 30 mmol/L CALCIUM 8.4 8.4 - 10.2 mg/dL BUN/CREA RATIO 12.9 Ratio ANION GAP 9 9 - 20 mmol/L ESTIMATED GFR, NON AMER >60 mL/min/1.[address] HEAD WITHOUT CONTRAST Final Result IMPRESSION: No acute intracranial abnormality. ED Course & Medical Decision Making Pertinent Labs & Imaging studies reviewed. (See chart for details) I have reviewed the nursing triage summary. This a 26-year-old female presented to the emergency department secondary to headache, nausea, vomiting and neck pain. Upon arrival, she was afebrile. On physical exam, she appeared no distress. There is no meningeal signs. She was noted to have focal tenderness at the atlantooccipital junction. She drove herself to the ER and does not have a ride home. Therefore, she was not able to receive Benadryl or Compazine. She was given Zofran for the nausea and vomiting. She was medicated with Toradol for the headache. She was also hydrated 0.9% normal saline. She was found to be hypokalemic with a potassium of 3.3. This has been replaced with 40 mEq of oral potassium in the ED. she is feeling much better while in the ER. I discussed with the patient lumbar puncture to rule out subarachnoid hemorrhage/meningitis. The patient declines. She states she is feeling better and wants to go home. I recommended she follow-up with her primary care physician and/or chiropractor secondary to her ongoing neck pain. She will be started on a muscle relaxant as an outpatient. I have discussed the potential need for return to the emergency department for reevaluation if symptoms change. Final Impression 1. Cervical somatic dysfunction 2. Acute nonintractable headache, unspecified headache type 3. Hypokalemia Electronically Signed By: Talon Hannah DO 12/10/2021 Talon Hannah DO 12/10/21 0811 [facility] 12-10-2021 Emergency department Note Arrives to ER with c/o nausea and vomiting, diarrhea, headache, and pain in the posterior neck that started about 5 days ago. Went to urgent care on 12/08 and was given ibuprofen and zofran. States has been taking and has not improved symptoms, last zofran at 11pm last night. [facility] 12-08-2021 History of Present illness Narrative [facility] [address] [place] [address] CHIEF COMPLAINT Chief Complaint Patient presents with Migraine States that she has had a migraine for two days and lastnight started vomiting. States that she took zofran and that helped with the vomiting but still has headache. States that she has been taking tylenol for her headache, last was taken two hours ago, states that it isnt helping HPI Mark Trevino is a 26 y.o. female with headache for the last 2 days. Patient states she has vomiting last night but she took some Zofran and this was resolved. She states her headache is persisted. She reports pain more as an aching nature behind bilateral eyes. She denies any visual changes such as loss of visual field double vision or visual aura. Patient reports some mild light sensitivity. She has some persistent nausea but no vomiting today. She took some Tylenol with some minor improvement in her headache. She denies any fever. No cough sore throat nasal congestion. She denies any neurologic changes such as slurred speech facial droop or extremity weakness. REVIEW OF SYSTEMS Remainder of the ROS have been obtained and the pertinent positive and negatives are above. See HPI for further details. Review of systems otherwise negative. PAST MEDICAL HISTORY Past Medical History: Diagnosis Date Bipolar 1 disorder FAMILY HISTORY No family history on file. SOCIAL HISTORY Social History Socioeconomic History Marital status: Single Tobacco Use Smoking status: Current Every Day Smoker Types: Cigarettes Smokeless tobacco: Never Used Tobacco comment: VAPE Substance and Sexual Activity Alcohol use: Yes Comment: holidays Drug use: Never SURGICAL HISTORY Past Surgical History: Procedure Laterality Date LEG SURGERY wort removal CURRENT MEDICATIONS Current Outpatient Medications Medication Sig acetaminophen 500 MG tablet Take 1,000 mg by mouth every 6 hours as needed for Mild Pain. medroxyPROGESTERone acetate 150 MG/ML Suspension inj vial Inject 150 mg intramuscularly Once During Admission. ondansetron 4 MG Tab Dispersible Take 4 mg by mouth every 8 hours as needed for Nausea. pantoprazole [address] tablet DR Take 1 tablet by mouth daily. QUEtiapine 100 MG tablet Take 100 mg by mouth 2 times daily. ibuprofen 800 MG tablet Take 1 tablet by mouth every 6 hours as needed. promethazine 25 MG tablet Take 1 tablet by mouth every 6 hours as needed. ALLERGIES No Known Allergies PHYSICAL EXAM VITAL SIGNS: BP 141/68 (BP Location: Left arm, BP Position: Sitting) Pulse 94 Temp 97.6 F (36.4 C) (Temporal) Resp 20 Smoking Status Current Every Day Smoker SpO2 Readings from Last 1 Encounters: 08/30/21 98% Constitutional: Well developed, Well nourished, No acute distress, Non-toxic appearance. HENT: Normocephalic, Atraumatic, Bilateral external ears normal, Nose normal. Oropharynx moist without erythema, No oral exudates, Tympanic membranes ear canals appear normal bilaterally. Eyes: Conjunctiva normal, No discharge. Lymphatic: No lymphadenopathy noted. Cardiovascular: Regular, normal heart rate, Normal rhythm, No murmur, No rubs, No gallops. Thorax & Lungs: Equal breath sounds bilateral, No respiratory distress, No rhonchi rales or wheezing, No chest tenderness. Abdomen: Soft, nondistended. No masses or organomegaly, nontender. Skin: Warm, Dry, No erythema, No rash. Extremities: No edema, No cyanosis,No erythema. Musculoskeletal: Good range of motion in all major joints. Nomajor deformities noted. Neurologic: Alert & oriented, Normal motor function, No focal deficits noted. Cranial nerves II through XII intact. Motor strength 5/5 bilateral upper lower extremity. Psychiatric: Affect normal, Mood normal. LABS/RADIOLOGY/PROCEDURES/MEDICAT IONS No results found for this visit on 12/08/21. No orders to display COURSE & MEDICAL DECISION MAKING Pertinent Labs & Imaging studies reviewed. (See chart for details) Patient with headache, history symptoms consistent with migraine headache. I discussed treatment of the patient's headache in the clinic this evening with intramuscular medications. She declined these. She request a work note and states she would prefer to be treated with oral medications and monitor symptoms. Will prescribe Phenergan and ibuprofen to use as needed. I recommend the patient follow-up with PCP if symptoms worsen or persist or in the emergency department she develops any severe pain any motor or neurologic changes or fever over 100.4 F. The patient has been adequately risk stratified and using reasonable practice norms, it is felt that the patient is stable for discharge. The nurses and I have discussed the need for prompt follow up as a visit to the is not a substitute for seeing a primary care physician/specialist. The patient has been given opportunity to ask questions and have those questions answered and is agreeable to the treatment plan/followup. The patient understands that the patient is able to return to the at any time for further evaluation and reassessment, as new conditions could arise or symptoms could evolve over time. This dictation was created using voice recognition software. While attempts have been made to review the dictation as it is transcribed, on occasion the spoken word may be misinterpreted by the technology, leading to omissions or inappropriate words or phrases. FINAL IMPRESSION 1. Acute nonintractable headache, unspecified headache type Electronically Signed By: Dane Gan DO This dictation was created using voice recognition software. While attempts have been made to review the dictation as it is transcribed, on occasion the spoken word may be misinterpreted by the technology, leading to omissions or inappropriate words or phrases. Patient provided with discharge instructions, patient education and follow up information. Patient verbalizes understanding and states has no questions at this time. Copy of the After Visit Summary and work note given to the patient. documented in this encounter [facility] 12-08-2021 Instructions Lo Soriano LPN - 12/08/2021 6:45 PM EDT I recommend the patient follow-up with PCP if symptoms worsen or persist or in the emergency department she develops any severe pain any motor or neurologic changes or fever over 100.4 F. You may receive a survey following your visit today. We appreciate any feedback you have so that we can provide the best care possible. This may be in the form of an email or telephone call. The following attachments cannot be sent through Care Everywhere.Headache (Mauritanian)phenylephrine (oral) (Mauritanian)ibuprofen (Mauritanian)documented in this encounter [facility] 08-30-2021 Emergency department Note Reviewed discharge instructions with patient, patient verbalizes understanding and denies further questions or concerns. Patient ambulated at discharge without difficulty. [facility] 08-30-2021 Emergency department Note Reviewed discharge instructions with patient, patient verbalizes understanding and denies further questions or concerns. Patient ambulated at discharge without difficulty. [facility] Emergency Department [address] [place] [address] Chief Complaint Chief Complaint Patient presents with Hand Injury History of Present Illness Mark Trevino is a 26 y.o. female with a chief complaint of right hand pain. She states she was reaching for her body shampoo in the shower and slipped and fell. She struck her hand against the shower wall. She complains of pain over the third, fourth and fifth metacarpal phalangeal areas. She is left-hand dominant. She denies numbness or tingling. The pain radiates back through into her wrist. Denies forearm or elbow pain. Review of Systems 10 point review of systems has been obtained and pertinent positives are noted above. See HPI for further details. Review of systems otherwise negative. Past Medical History Past Medical History: Diagnosis Date Bipolar 1 disorder Family History History reviewed. No pertinent family history. Social History Social History Socioeconomic History Marital status: Single Tobacco Use Smoking status: Current Every Day Smoker Types: Cigarettes Smokeless tobacco: Never Used Tobacco comment: VAPE Substance and Sexual Activity Alcohol use: Yes Comment: holidays Drug use: Never Surgical History Past Surgical History: Procedure Laterality Date LEG SURGERY wort removal Current Medications Current Outpatient Medications Medication Sig methylPREDNISolone acetate 40 MG/ML injection once. pantoprazole [address] tablet DR Take 1 tablet by mouth daily. QUEtiapine 100 MG tablet Take 100 mg by mouth 2 times daily. Allergies No Known Allergies Physical Exam VITAL SIGNS: BP 111/74 Pulse 94 Temp 98.9 F (37.2 C) (Oral) Resp 14 Ht 1.499 m (4' 11 ) Wt 52.2 kg (115 lb) SpO2 98% BMI 23.23 kg/m Smoking Status Current Every Day Smoker Constitutional: Well developed, Non-toxic appearance. HENT: Normocephalic, Atraumatic, Bilateral external ears normal. Nose normal. Eyes: Conjunctiva normal, No discharge. Neck: Normal range of motion, Normal inspection. Skin: Warm, Dry, No erythema, No rash. Back: Normal range of motion. Normal inspection. Extremities: Tenderness to palpation over the right fourth and fifth metacarpal phalangeal joint. Mild swelling and ecchymosis noted. No tenderness of the right wrist. No tenderness over the anatomical snuffbox in the right wrist. Full range of motion of the right wrist. Palpable right radial pulse. Cap refill less than 2 seconds. Neurologic: Alert & oriented x 4, Normal motor function, Normal sensory function, No focal deficits noted. Psychiatric: Affect normal, Mood normal. Labs/Radiology/Procedures Medications - No data to display No results found for this visit on 08/30/21. XR WRIST RIGHT 3 VIEWS Final Result IMPRESSION: No acute osseous abnormality. No fracture. Moderate soft tissue swelling adjacent to the 5th metacarpophalangeal joint XR HAND RIGHT 3+ VIEWS Final Result IMPRESSION: No acute osseous abnormality. No fracture. Moderate soft tissue swelling adjacent to the 5th metacarpophalangeal joint ED Course & Medical Decision Making Pertinent Labs & Imaging studies reviewed. (See chart for details) I have reviewed the nursing triage summary. This is a 26-year-old [id number] female who presented to the emergency department secondary to right hand pain. X-rays of her right hand showed no evidence of acute fracture or dislocation. X-ray of the right wrist showed no evidence of fracture or dislocation. She has clinical exam findings consistent with an acute contusion involving her right hand. There were no open wounds noted. There is no tenderness of the anatomical snuffbox or pain with axial loading of the thumb indicating a possible navicular fracture. I recommended ice and elevation. Encouraged Tylenol and ibuprofen as needed for pain. I have discussed the potential need for return to the emergency department for reevaluation if symptoms change. Final Impression 1. Contusion of right hand, initial encounter Electronically Signed By: Talon Hannah DO 08/30/2021 Talon Hannah DO 08/30/211854 Pt to ED with c/o right hand injury. Pt states she fell in her shower and hit her hand on the wall. Pt denies other injuries from fall. Pt also complains of pain in her right wrist. Pt has hx of osteoporosis. Swelling and bruising noted across top of hand. Pt took ibuprofen at home and has ice applied documented in this encounter [facility] 08-30-2021 Hospital Discharge instructions Talon Hannah DO - 08/30/2021 6:12 PM EDT Apply ice to your right hand for 30 minutes every 4 hours. Elevate right hand. Return to the emergency department if you have increased pain, numbness, tingling, pallor of your fingers or other problems. The following attachments cannot be sent through Care Everywhere.Contusion: Hand (Mauritanian)documented in this encounter [facility] 08-30-2021 Physician Emergency department Note [facility] Emergency Department [address] [place] [address] Chief Complaint Chief Complaint Patient presents with Hand Injury History of Present Illness Mark Trevino is a 26 y.o. female with a chief complaint of right hand pain. She states she was reaching for her body shampoo in the shower and slipped and fell. She struck her hand against the shower wall. She complains of pain over the third, fourth and fifth metacarpal phalangeal areas. She is left-hand dominant. She denies numbness or tingling. The pain radiates back through into her wrist. Denies forearm or elbow pain. Review of Systems 10 point review of systems has been obtained and pertinent positives are noted above. See HPI for further details. Review of systems otherwise negative. Past Medical History Past Medical History: Diagnosis Date Bipolar 1 disorder Family History History reviewed. No pertinent family history. Social History Social History Socioeconomic History Marital status: Single Tobacco Use Smoking status: Current Every Day Smoker Types: Cigarettes Smokeless tobacco: Never Used Tobacco comment: VAPE Substance and Sexual Activity Alcohol use: Yes Comment: holidays Drug use: Never Surgical History Past Surgical History: Procedure Laterality Date LEG SURGERY wort removal Current Medications Current Outpatient Medications Medication Sig methylPREDNISolone acetate 40 MG/ML injection once. pantoprazole [address] tablet DR Take 1 tablet by mouth daily. QUEtiapine 100 MG tablet Take 100 mg by mouth 2 times daily. Allergies No Known Allergies Physical Exam VITAL SIGNS: BP 111/74 Pulse 94 Temp 98.9 F (37.2 C) (Oral) Resp 14 Ht 1.499 m (4' 11 ) Wt 52.2 kg (115 lb) SpO2 98% BMI 23.23 kg/m Smoking Status Current Every Day Smoker Constitutional: Well developed, Non-toxic appearance. HENT: Normocephalic, Atraumatic, Bilateral external ears normal. Nose normal. Eyes: Conjunctiva normal, No discharge. Neck: Normal range of motion, Normal inspection. Skin: Warm, Dry, No erythema, No rash. Back: Normal range of motion. Normal inspection. Extremities: Tenderness to palpation over the right fourth and fifth metacarpal phalangeal joint. Mild swelling and ecchymosis noted. No tenderness of the right wrist. No tenderness over the anatomical snuffbox in the right wrist. Full range of motion of the right wrist. Palpable right radial pulse. Cap refill less than 2 seconds. Neurologic: Alert & oriented x 4, Normal motor function, Normal sensory function, No focal deficits noted. Psychiatric: Affect normal, Mood normal. Labs/Radiology/Procedures Medications - No data to display No results found for this visit on 08/30/21. XR WRIST RIGHT 3 VIEWS Final Result IMPRESSION: No acute osseous abnormality. No fracture. Moderate soft tissue swelling adjacent to the 5th metacarpophalangeal joint XR HAND RIGHT 3+ VIEWS Final Result IMPRESSION: No acute osseous abnormality. No fracture. Moderate soft tissue swelling adjacent to the 5th metacarpophalangeal joint ED Course & Medical Decision Making Pertinent Labs & Imaging studies reviewed. (See chart for details) I have reviewed the nursing triage summary. This is a 26-year-old [id number] female who presented to the emergency department secondary to right hand pain. X-rays of her right hand showed no evidence of acute fracture or dislocation. X-ray of the right wrist showed no evidence of fracture or dislocation. She has clinical exam findings consistent with an acute contusion involving her right hand. There were no open wounds noted. There is no tenderness of the anatomical snuffbox or pain with axial loading of the thumb indicating a possible navicular fracture. I recommended ice and elevation. Encouraged Tylenol and ibuprofen as needed for pain. I have discussed the potential need for return to the emergency department for reevaluation if symptoms change. Final Impression 1. Contusion of right hand, initial encounter Electronically Signed By: Talon Hannah DO 08/30/2021 Talon Hannah DO 08/30/211854 [facility] 08-30-2021 Emergency department Note Pt to ED with c/o right hand injury. Pt states she fell in her shower and hit her hand on the wall. Pt denies other injuries from fall. Pt also complains of pain in her right wrist. Pt has hx of osteoporosis. Swelling and bruising noted across top of hand. Pt took ibuprofen at home and has ice applied [facility] 08-30-2021 Hospital Discharge instructions Check for These Symptoms and Call or Schedule Appointment with Provider: hand injuryAdditional Discharge Instructions: ice to area when at restmotrin/tylenol as needed for painsee PCP in 7-10 days if no improvement.Additional Discharge Instructions: Please return immediately to the emergency department anytime for complications or any other concerns.Thank you for allowing me to participate in your healthcare needs and for choosing us to provide your medical care today. We strive for excellent care! You may receive a survey in the mail or a phone call asking about your visit. We appreciate any feedback and take seriously any concerns or suggestions you may have.Please call your doctor as soon as possible in the next 1-2 days to schedule an outpatient follow up and receive further recommendations. 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 Orthopedics) for an appointment and arrange follow up care the NEXT business day. Our [facility] can be reached at [phone] Ext. [phone])If you do not have a provider to arrange follow up, please call [facility] at to schedule an appointment. This one time follow up appointment is a service offered to patients to ensure access to the best medical care after discharge. This benefit is primarily for those who do not have a primary care provider but still require follow up care after an ED/Urgent Care visit, or hospitalization. The follow up visit is not free and will be billed through insurance or self-pay as appropriate.Thank You,[facility] Emergency Room Team [facility] Other Phone: 08-29-2021 Emergency department Note AVS reviewed with patient, verbalizes understanding. Patient ambulatory upon discharge from ED. [facility] 08-29-2021 Emergency department Note AVS reviewed with patient, verbalizes understanding. Patient ambulatory upon discharge from ED. [facility] Emergency Department [address] [place] [address] [id number] Chief Complaint Chief Complaint Patient presents with Shortness of Breath Chest Pain History of Present Illness Mark Trevino is a 26 y.o. female with a chief complaint of sudden onset of epigastric pain and chest pain. The patient states she suddenly had a sharp stabbing epigastric pain that radiated up into her chest. She felt short of breath and became nauseous. She had 1 episode of vomiting. She denies having radiation of pain to her jaw or arms. She denies diaphoresis. She denies history of fatty or greasy food intolerance. Denies peptic ulcer disease or gastritis. Denies heartburn type symptoms. She has had a cough that is been nonproductive of sputum. She denies recent rhinorrhea or sore throat. Denies history of fatty or greasy food intolerance. Denies a ripping or tearing sensation her back. Denies history of pulmonary embolism or DVT. Review of Systems 10 point review of systems has been obtained and pertinent positives are noted above. See HPI for further details. Review of systems otherwise negative. Past Medical History Past Medical History: Diagnosis Date Bipolar 1 disorder Family History No family history on file. Social History Social History Socioeconomic History Marital status: Single Tobacco Use Smoking status: Current Every Day Smoker Types: Cigarettes Smokeless tobacco: Never Used Tobacco comment: VAPE Substance and Sexual Activity Alcohol use: Yes Comment: holidays Drug use: Never Surgical History Past Surgical History: Procedure Laterality Date LEG SURGERY wort removal Current Medications Current Outpatient Medications Medication Sig methylPREDNISolone acetate 40 MG/ML injection once. pantoprazole [address] tablet DR Take 1 tablet by mouth daily. QUEtiapine 100 MG tablet Take 100 mg by mouth 2 times daily. Allergies No Known Allergies Physical Exam VITAL SIGNS: BP 119/76 Pulse 84 Temp 99.7 F (37.6 C) (Oral) Resp 24 Ht 1.524 m (5') Wt 52.2 kg (115 lb) SpO2 98% BMI 22.46 kg/m Smoking Status Current Every Day Smoker Constitutional: Well developed, Non-toxic appearance. HENT: Normocephalic, Bilateral external ears normal, Oropharynx moist without erythema, No oral exudates, Nose normal. Airway intact. No palpable neck mass. Eyes: PERRLA, EOMI, Conjunctiva normal, No discharge. Neck: Normal range of motion. No meningismus. No JVD. Supple. Lymphatic: No lymphadenopathy noted. Cardiovascular: Regular, normal heart rate, Normal rhythm, No murmur. Thorax & Lungs: Equal breath sounds bilateral, No respiratory distress, No rhonchi, rales or wheezing. Abdomen: Bowel sounds normal, Soft, nondistended. No tenderness, No masses, No pulsatile masses. No abdominal bruit. Negative Newsome sign. Skin: Warm, Dry, No erythema, No rash. Back: No spinal tenderness, No CVA tenderness. Extremities: Intact distal pulses, No edema, No cyanosis, No tenderness. No deformity. Musculoskeletal: No major deformities noted. Neurologic: Alert & oriented x 4, Normal motor function, Normal sensory function, No focal deficits noted. EKG Sinus rhythm with a heart rate of 82. WI interval 152. QTc interval 419. Normal axis. No acute ST changes noted. Mild WI depression noted in lead II. No bundle-branch block. Labs/Radiology/Procedures Medications ondansetron 4mg/2ml (ZOFRAN) injection 4 mg (4 mg Intravenous Given 08/28/212229) GI Cocktail (45 mL Oral Given 08/28/212251) Results for orders placed or performed during the hospital encounter of 08/28/21 SARS-COV-2 RAPID Specimen: Fluid/Swab Result Value Ref Range SARS-CoV-2 RNA Negative Negative BASIC METABOLIC PANEL Result Value Ref Range GLUCOSE 98 74 - 106 mg/dL BUN 10 7 - 18 mg/dL CREATININE SERUM 0.60 0.52 - 1.04 mg/dL SODIUM 141 137 - 145 mmol/L POTASSIUM 3.8 3.5 - 5.1 mmol/L CHLORIDE 110 (H) 98 - 107 mmol/L CARBON DIOXIDE (CO2) 21 (L) 22 - 30 mmol/L CALCIUM 8.8 8.4 - 10.2 mg/dL BUN/CREA RATIO 16.7 Ratio ANION GAP 14 9 - 20 mmol/L ESTIMATED GFR, NON AMER >60 mL/min/1.73 square meters MAGNESIUM Result Value Ref Range MAGNESIUM 2.7 (H) 1.6 - 2.3 mg/dL TROPONIN Result Value Ref Range TROPONIN <0.012 <0.034 ng/mL CBC, EDIF, PLATELET Result Value Ref Range WBC (WHITE BLOOD COUNT) 9.2 3.4 - 9.6 K/cmm RBC 4.42 3.99 - 5.18 M/cmm HEMOGLOBIN (HGB) 13.6 11.7 - 15.5 g/dl HEMATOCRIT (HCT) 40.2 35.6 - 47.0 % MEAN CELL VOLUME 91.0 82.0 - 98.2 fl Mean Cell HGB 30.8 26.8 - 32.5 pg MEAN CELL HGB CONCENTRATION 33.8 31.2 - 34.6 % RBC DISTRIBUTION 11.9 11.4 - 14.9 % PLATELET COUNT 337 127 - 358 thousand MEAN PLATELET VOLUME 9.6 8.8 - 12.0 fl NEUTROPHILS 64.8 37.0 - 71.0 % LYMPHOCYTES % 25.0 18.0 - 48.0 % MONOCYTE % 8.7 4.0 - 14.0 % EOSINOPHILS 0.9 0.0 - 6.0 % BASOPHIL % 0.5 0.0 - 1.0 % IG% 0.10 0.00 - 0.37 % NEUTROPHILS ABS# AUTO 5.9 1.0 - 6.1 K/cmm LYMPHOCYTES, ABSOLUTE 2.3 1.0 - 3.2 K/cmm MONOCYTES, ABSOLUTE 0.8 0.3 - 0.8 K/cmm EOSINOPHILS, ABSOLUTE 0.1 0.0 - 0.4 K/cmm BASOPHILS, ABSOLUTE 0.1 0.0 - 0.1 K/cmm IG# 0.01 0.00 - 0.30 K/cmm D-DIMER,QUANTITATIVE Result Value Ref Range D-DIMER 0.33 <0.50 mg/L FEU HEPATIC FUNCTION PANEL Result Value Ref Range BILIRUBIN, TOTAL 0.4 0.2 - 1.3 mg/dL BILIRUBIN, DIRECT 0.2 0.0 - 0.4 mg/dL BILIRUBIN, UNCONJUGATED 0.2 0.0 - 1.1 mg/dL TOTAL PROTEIN-TP 8.0 6.3 - 8.2 g/dL ALBUMIN 4.7 3.5 - 5.0 g/dL ALKALINE PHOSPHATASE 129 (H) 38 - 126 U/L AST 23 14 - 44 U/L ALT 17 <35 U/L Globulin 3.3 2.3 - 3.5 g/dL A/G Ratio 1.4 Ratio LIPASE Result Value Ref Range LIPASE 134 23 - 300 U/L C REACTIVE PROTEIN Result Value Ref Range C-REACTIVE PROTEIN 0.8 <1.0 mg/dL XR CHEST AP PORTABLE ED Final Result IMPRESSION: 1. Mildly increased density of the left hemithorax compared to the right is thought to be due to soft tissue summation rather than layering pleural effusion. Diaphragm and costophrenic angle are well visualized. 2. No sign pneumonia and no pulmonary vascular congestion. ED Course & Medical Decision Making Pertinent Labs & Imaging studies reviewed. (See chart for details) I have reviewed the nursing triage summary. Is a 26-year-old female who presented to the emergency department secondary to sudden onset of epigastric and chest pain. Initial differential diagnosis included myocardial infarction, pneumothorax, hiatal hernia, gastritis/esophagitis, pancreatitis, biliary colic, pulmonary embolism versus other. Upon arrival, her temperature was nine 9.7. She was hemodynamically stable. Her pulse oximetry was normal. Her EKG showed no evidence of ischemia or injury. Her initial troponin and D-dimer were normal. In a low risk patient, I feel the negative D-dimer has effectively ruled out pulmonary embolism. Her alkaline phosphatase was mildly elevated 129. The remainder of her hepatic enzymes and lipase were normal. Her CRP was also normal. There was no signs of pneumonia or vascular congestion. No pneumothorax. There was mildly increased density of the left hemithorax likely thought to be the soft tissue summation. She been resting comfortably when the ED. She was given a GI cocktail when in the ER. I suspect GERD with possible hiatal hernia as the source of her pain. I have a low clinical suspicion for biliary colic/cholecystitis. She will be started on pantoprazole. I feel she stable for discharge home. I have discussed the potential need for return to the emergency department for reevaluation if symptoms change. Final Impression 1. Gastroesophageal reflux disease, unspecified whether esophagitis present Electronically Signed By: Talon Hannah DO 08/28/2021 Talon Hannah DO 08/29/21 0000 Patient's fiance states that about an hour prior to arrival patient was lying down and began coughing with chest pain and shortness of breath with an upset stomach. Emesis x1 prior to arrival. States hasn't had anything like this before. Also states she's been twitching and shaking since this episode. documented in this encounter [facility] 08-28-2021 Hospital Discharge instructions Talon Hannah DO - 08/28/2021 11:58 PM EDT Avoid spicy foods and carbonated beverages. Do not eat before bedtime. Return to the emergency department if you have increased pain, fever, increased vomiting or other problems. The following attachments cannot be sent through Care Everywhere.GERD (Mauritanian)documented in this encounter [facility] 08-28-2021 Physician Emergency department Note [facility] Emergency Department [address] [place] [address] Chief Complaint Chief Complaint Patient presents with Shortness of Breath Chest Pain History of Present Illness Mark Trevino is a 26 y.o. female with a chief complaint of sudden onset of epigastric pain and chest pain. The patient states she suddenly had a sharp stabbing epigastric pain that radiated up into her chest. She felt short of breath and became nauseous. She had 1 episode of vomiting. She denies having radiation of pain to her jaw or arms. She denies diaphoresis. She denies history of fatty or greasy food intolerance. Denies peptic ulcer disease or gastritis. Denies heartburn type symptoms. She has had a cough that is been nonproductive of sputum. She denies recent rhinorrhea or sore throat. Denies history of fatty or greasy food intolerance. Denies a ripping or tearing sensation her back. Denies history of pulmonary embolism or DVT. Review of Systems 10 point review of systems has been obtained and pertinent positives are noted above. See HPI for further details. Review of systems otherwise negative. Past Medical History Past Medical History: Diagnosis Date Bipolar 1 disorder Family History No family history on file. Social History Social History Socioeconomic History Marital status: Single Tobacco Use Smoking status: Current Every Day Smoker Types: Cigarettes Smokeless tobacco: Never Used Tobacco comment: VAPE Substance and Sexual Activity Alcohol use: Yes Comment: holidays Drug use: Never Surgical History Past Surgical History: Procedure Laterality Date LEG SURGERY wort removal Current Medications Current Outpatient Medications Medication Sig methylPREDNISolone acetate 40 MG/ML injection once. pantoprazole [address] tablet DR Take 1 tablet by mouth daily. QUEtiapine 100 MG tablet Take 100 mg by mouth 2 times daily. Allergies No Known Allergies Physical Exam VITAL SIGNS: BP 119/76 Pulse 84 Temp 99.7 F (37.6 C) (Oral) Resp 24 Ht 1.524 m (5') Wt 52.2 kg (115 lb) SpO2 98% BMI 22.46 kg/m Smoking Status Current Every Day Smoker Constitutional: Well developed, Non-toxic appearance. HENT: Normocephalic, Bilateral external ears normal, Oropharynx moist without erythema, No oral exudates, Nose normal. Airway intact. No palpable neck mass. Eyes: PERRLA, EOMI, Conjunctiva normal, No discharge. Neck: Normal range of motion. No meningismus. No JVD. Supple. Lymphatic: No lymphadenopathy noted. Cardiovascular: Regular, normal heart rate, Normal rhythm, No murmur. Thorax & Lungs: Equal breath sounds bilateral, No respiratory distress, No rhonchi, rales or wheezing. Abdomen: Bowel sounds normal, Soft, nondistended. No tenderness, No masses, No pulsatile masses. No abdominal bruit. Negative Newsome sign. Skin: Warm, Dry, No erythema, No rash. Back: No spinal tenderness, No CVA tenderness. Extremities: Intact distal pulses, No edema, No cyanosis, No tenderness. No deformity. Musculoskeletal: No major deformities noted. Neurologic: Alert & oriented x 4, Normal motor function, Normal sensory function, No focal deficits noted. EKG Sinus rhythm with a heart rate of 82. WI interval 152. QTc interval 419. Normal axis. No acute ST changes noted. Mild WI depression noted in lead II. No bundle-branch block. Labs/Radiology/Procedures Medications ondansetron 4mg/2ml (ZOFRAN) injection 4 mg (4 mg Intravenous Given 08/28/212229) GI Cocktail (45 mL Oral Given 08/28/212251) Results for orders placed or performed during the hospital encounter of 08/28/21 SARS-COV-2 RAPID Specimen: Fluid/Swab Result Value Ref Range SARS-CoV-2 RNA Negative Negative BASIC METABOLIC PANEL Result Value Ref Range GLUCOSE 98 74 - 106 mg/dL BUN 10 7 - 18 mg/dL CREATININE SERUM 0.60 0.52 - 1.04 mg/dL SODIUM 141 137 - 145 mmol/L POTASSIUM 3.8 3.5 - 5.1 mmol/L CHLORIDE 110 (H) 98 - 107 mmol/L CARBON DIOXIDE (CO2) 21 (L) 22 - 30 mmol/L CALCIUM 8.8 8.4 - 10.2 mg/dL BUN/CREA RATIO 16.7 Ratio ANION GAP 14 9 - 20 mmol/L ESTIMATED GFR, NON AMER >60 mL/min/1.73 square meters MAGNESIUM Result Value Ref Range MAGNESIUM 2.7 (H) 1.6 - 2.3 mg/dL TROPONIN Result Value Ref Range TROPONIN <0.012 <0.034 ng/mL CBC, EDIF, PLATELET Result Value Ref Range WBC (WHITE BLOOD COUNT) 9.2 3.4 - 9.6 K/cmm RBC 4.42 3.99 - 5.18 M/cmm HEMOGLOBIN (HGB) 13.6 11.7 - 15.5 g/dl HEMATOCRIT (HCT) 40.2 35.6 - 47.0 % MEAN CELL VOLUME 91.0 82.0 - 98.2 fl Mean Cell HGB 30.8 26.8 - 32.5 pg MEAN CELL HGB CONCENTRATION 33.8 31.2 - 34.6 % RBC DISTRIBUTION 11.9 11.4 - 14.9 % PLATELET COUNT 337 127 - 358 thousand MEAN PLATELET VOLUME 9.6 8.8 - 12.0 fl NEUTROPHILS 64.8 37.0 - 71.0 % LYMPHOCYTES % 25.0 18.0 - 48.0 % MONOCYTE % 8.7 4.0 - 14.0 % EOSINOPHILS 0.9 0.0 - 6.0 % BASOPHIL % 0.5 0.0 - 1.0 % IG% 0.10 0.00 - 0.37 % NEUTROPHILS ABS# AUTO 5.9 1.0 - 6.1 K/cmm LYMPHOCYTES, ABSOLUTE 2.3 1.0 - 3.2 K/cmm MONOCYTES, ABSOLUTE 0.8 0.3 - 0.8 K/cmm EOSINOPHILS, ABSOLUTE 0.1 0.0 - 0.4 K/cmm BASOPHILS, ABSOLUTE 0.1 0.0 - 0.1 K/cmm IG# 0.01 0.00 - 0.30 K/cmm D-DIMER,QUANTITATIVE Result Value Ref Range D-DIMER 0.33 <0.50 mg/L FEU HEPATIC FUNCTION PANEL Result Value Ref Range BILIRUBIN, TOTAL 0.4 0.2 - 1.3 mg/dL BILIRUBIN, DIRECT 0.2 0.0 - 0.4 mg/dL BILIRUBIN, UNCONJUGATED 0.2 0.0 - 1.1 mg/dL TOTAL PROTEIN-TP 8.0 6.3 - 8.2 g/dL ALBUMIN 4.7 3.5 - 5.0 g/dL ALKALINE PHOSPHATASE 129 (H) 38 - 126 U/L AST 23 14 - 44 U/L ALT 17 <35 U/L Globulin 3.3 2.3 - 3.5 g/dL A/G Ratio 1.4 Ratio LIPASE Result Value Ref Range LIPASE 134 23 - 300 U/L C REACTIVE PROTEIN Result Value Ref Range C-REACTIVE PROTEIN 0.8 <1.0 mg/dL XR CHEST AP PORTABLE ED Final Result IMPRESSION: 1. Mildly increased density of the left hemithorax compared to the right is thought to be due to soft tissue summation rather than layering pleural effusion. Diaphragm and costophrenic angle are well visualized. 2. No sign pneumonia and no pulmonary vascular congestion. ED Course & Medical Decision Making Pertinent Labs & Imaging studies reviewed. (See chart for details) I have reviewed the nursing triage summary. Is a 26-year-old female who presented to the emergency department secondary to sudden onset of epigastric and chest pain. Initial differential diagnosis included myocardial infarction, pneumothorax, hiatal hernia, gastritis/esophagitis, pancreatitis, biliary colic, pulmonary embolism versus other. Upon arrival, her temperature was nine 9.7. She was hemodynamically stable. Her pulse oximetry was normal. Her EKG showed no evidence of ischemia or injury. Her initial troponin and D-dimer were normal. In a low risk patient, I feel the negative D-dimer has effectively ruled out pulmonary embolism. Her alkaline phosphatase was mildly elevated 129. The remainder of her hepatic enzymes and lipase were normal. Her CRP was also normal. There was no signs of pneumonia or vascular congestion. No pneumothorax. There was mildly increased density of the left hemithorax likely thought to be the soft tissue summation. She been resting comfortably when the ED. She was given a GI cocktail when in the ER. I suspect GERD with possible hiatal hernia as the source of her pain. I have a low clinical suspicion for biliary colic/cholecystitis. She will be started on pantoprazole. I feel she stable for discharge home. I have discussed the potential need for return to the emergency department for reevaluation if symptoms change. Final Impression 1. Gastroesophageal reflux disease, unspecified whether esophagitis present Electronically Signed By: Talon Hannah DO 08/28/2021 Talon Hannah DO 08/29/21 0000 [facility] 08-28-2021 Emergency department Note Patient's fiance states that about an hour prior to arrival patient was lying down and began coughing with chest pain and shortness of breath with an upset stomach. Emesis x1 prior to arrival. States hasn't had anything like this before. Also states she's been twitching and shaking since this episode. [facility] 07-20-2021 Emergency department Note Patient alert and oriented x 4. Pt given discharge instructions and follow up care. Pt verbalize understanding. Pt denies any questions at this time. Pt ambulatory with steady gait at discharge. Pt left with all belongings. [facility] 07-20-2021 Emergency department Note Patient alert and oriented x 4. Pt given discharge instructions and follow up care. Pt verbalize understanding. Pt denies any questions at this time. Pt ambulatory with steady gait at discharge. Pt left with all belongings. [facility] Emergency Department [address] [place] [address] Chief Complaint Chief Complaint Patient presents with Other HPI Mark Trevino is a 26 y.o. female with a chief complaint of a sore throat and Pap possible herpes pharyngitis. The patient states she is a lesbian and has been involved with a partner who was recently diagnosed with herpes. She started with a sore throat yesterday. She denies fevers or chills. Denies hoarseness or difficulty swallowing. She denies neck swelling. She denies rhinorrhea, cough, ear pain or drainage from the ears. She denies vesicles or any visible lesions on her throat, tongue or palate. She denies any facial rash. Review of Systems 10 point review of systems has been obtained and pertinent positives are noted above. See HPI for further details. Review of systems otherwise negative. Past Medical History Past Medical History: Diagnosis Date Bipolar 1 disorder Family History History reviewed. No pertinent family history. Social History Social History Socioeconomic History Marital status: Single Tobacco Use Smoking status: Current Every Day Smoker Types: Cigarettes Smokeless tobacco: Never Used Tobacco comment: VAPE Substance and Sexual Activity Alcohol use: Yes Comment: holidays Drug use: Never Surgical History Past Surgical History: Procedure Laterality Date LEG SURGERY wort removal Current Medications Current Outpatient Medications Medication Sig QUEtiapine 100 MG tablet Take 100 mg by mouth 2 times daily. Allergies No Known Allergies Physical Exam VITAL SIGNS: BP 126/86 Pulse 107 Temp 98.1 F (36.7 C) (Oral) Resp 18 Ht 1.524 m (5') Wt 52.2 kg (115 lb) SpO2 99% BMI 22.46 kg/m Smoking Status Current Every Day Smoker Constitutional: Well developed, No acute distress, Non-toxic appearance. HENT: Normocephalic, Atraumatic, Bilateral external ears normal, Tympanic membranes clear without erythema. Oropharynx moist without erythema, No oral exudates. No vesicles or ulcerations noted the posterior pharynx or on the tongue. No facial lesions present. Eyes: PERRLA, Conjunctiva normal, No discharge. Neck: Normal range of motion, No tenderness, Supple, No nuchal rigidity. Lymphatic: No lymphadenopathy noted. Cardiovascular: Regular, normal heart rate, Normal rhythm, No murmur. Thorax & Lungs: Equal breath sounds bilateral, No respiratory distress, No rhonchi, rales or wheezing, No chest tenderness. Abdomen: Bowel sounds normal, Soft, nondistended. No tenderness, No masses, No guarding. Skin: Warm, Dry, No erythema, No rash. Back: No CVA tenderness. Extremities: No tenderness, No cyanosis No edema. Musculoskeletal: No tenderness to palpation or major deformities noted. Neurologic: Alert & oriented x 4, No focal deficits noted. Labs/Radiology/Procedures Medications - No data to display No results found for this visit on 07/20/21. No orders to display Course & Medical Decision Making Pertinent Labs & Imaging studies reviewed. (See chart for details) I have reviewed the nursing triage summary. This is a 26-year-old female who presented to the emergency department secondary to a sore throat. Upon arrival she was afebrile. She had concerns for possible herpes pharyngitis. However, on physical exam there were no ulcerations noted. No vesicles, exudate or tonsillar swelling. Rapid strep was obtained and is negative. I discussed with the patient signs symptoms of herpes pharyngitis. There is no evidence of herpes zoster involving her face. I feel she stable for discharge home with supportive care. I have discussed the potential need for return to the emergency department for reevaluation if symptoms change. Final Impression 1. Pharyngitis, unspecified etiology Electronically Signed By: Talon Hannah DO 07/20/2021 Talon Hannah DO 07/20/21 1203 Pt here because my partner called me and said she's got herpes in her throat and I need to get it checked out too. Pt reports mild throat soreness but denies other complaints. documented in this encounter [facility] 07-20-2021 Hospital Discharge instructions Talon Hannah DO - 07/20/2021 11:35 AM EDT Take Tylenol or ibuprofen as needed for pain. Take ice chips, cool drinks to help with pain. Return to the emergency department if you are unable to swallow, feel short of breath, have hoarseness, have vesicles/ulcerations on your throat or other problems. The following attachments cannot be sent through Care Everywhere.Sore Throat (Mauritanian)documented in this encounter [facility] 07-20-2021 Physician Emergency department Note [facility] Emergency Department [address] [place] [address] Chief Complaint Chief Complaint Patient presents with Other HPI Mark Trevino is a 26 y.o. female with a chief complaint of a sore throat and Pap possible herpes pharyngitis. The patient states she is a lesbian and has been involved with a partner who was recently diagnosed with herpes. She started with a sore throat yesterday. She denies fevers or chills. Denies hoarseness or difficulty swallowing. She denies neck swelling. She denies rhinorrhea, cough, ear pain or drainage from the ears. She denies vesicles or any visible lesions on her throat, tongue or palate. She denies any facial rash. Review of Systems 10 point review of systems has been obtained and pertinent positives are noted above. See HPI for further details. Review of systems otherwise negative. Past Medical History Past Medical History: Diagnosis Date Bipolar 1 disorder Family History History reviewed. No pertinent family history. Social History Social History Socioeconomic History Marital status: Single Tobacco Use Smoking status: Current Every Day Smoker Types: Cigarettes Smokeless tobacco: Never Used Tobacco comment: VAPE Substance and Sexual Activity Alcohol use: Yes Comment: holidays Drug use: Never Surgical History Past Surgical History: Procedure Laterality Date LEG SURGERY wort removal Current Medications Current Outpatient Medications Medication Sig QUEtiapine 100 MG tablet Take 100 mg by mouth 2 times daily. Allergies No Known Allergies Physical Exam VITAL SIGNS: BP 126/86 Pulse 107 Temp 98.1 F (36.7 C) (Oral) Resp 18 Ht 1.524 m (5') Wt 52.2 kg (115 lb) SpO2 99% BMI 22.46 kg/m Smoking Status Current Every Day Smoker Constitutional: Well developed, No acute distress, Non-toxic appearance. HENT: Normocephalic, Atraumatic, Bilateral external ears normal, Tympanic membranes clear without erythema. Oropharynx moist without erythema, No oral exudates. No vesicles or ulcerations noted the posterior pharynx or on the tongue. No facial lesions present. Eyes: PERRLA, Conjunctiva normal, No discharge. Neck: Normal range of motion, No tenderness, Supple, No nuchal rigidity. Lymphatic: No lymphadenopathy noted. Cardiovascular: Regular, normal heart rate, Normal rhythm, No murmur. Thorax & Lungs: Equal breath sounds bilateral, No respiratory distress, No rhonchi, rales or wheezing, No chest tenderness. Abdomen: Bowel sounds normal, Soft, nondistended. No tenderness, No masses, No guarding. Skin: Warm, Dry, No erythema, No rash. Back: No CVA tenderness. Extremities: No tenderness, No cyanosis No edema. Musculoskeletal: No tenderness to palpation or major deformities noted. Neurologic: Alert & oriented x 4, No focal deficits noted. Labs/Radiology/Procedures Medications - No data to display No results found for this visit on 07/20/21. No orders to display Course & Medical Decision Making Pertinent Labs & Imaging studies reviewed. (See chart for details) I have reviewed the nursing triage summary. This is a 26-year-old female who presented to the emergency department secondary to a sore throat. Upon arrival she was afebrile. She had concerns for possible herpes pharyngitis. However, on physical exam there were no ulcerations noted. No vesicles, exudate or tonsillar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 discontinue of medication order) PRN Medication Order 03/01/2023 03/02/2023 03/03/2023 diphenhydrAMINE (BENADryl) injection 12.5 mg 12.5 mg, IntraVENous, Once PRN, itching, Starting on Debby 03/03/23 at 1417, For 1 dose, Recovery (only) hydrALAZINE (Apresoline) injection 5 mg(Linked Group 1) 5 mg, IntraVENous, Every 15 min PRN, high blood pressure, for SBP greater than 160 mmHg for 2 consecutive measurements taken from different sites, Starting on Debby 03/03/23 at 1417, For 2 doses, Recovery (only), PRN for SBP > 160 for 2 consecutive measurements, and if one of the following conditions is met: 1) If IV labetolol is ineffective. 2) If HR is under 60. 3) If patient has heart block, COPD or asthma. If both labetalol and hydralazine ineffective, notify anesthesia provider. labetalol (Normodyne,Trandate) injection 5 mg(Linked Group 1) 5 mg, IntraVENous, Every 10 min PRN, high blood pressure, for SBP greater than 160 mmHg for 2 consecutive measurements taken from different sites., Starting on Debby 03/03/23 at 1417, For 2 doses, Recovery (only), PRN for SBP >160 for 2 consecutive measurements, if HR is 60 or greater. If beta jimbo is contraindicated (HR less than 60, heart block, COPD or asthma) use hydralazine IV order. LORazepam (Ativan) injection 0.5 mg 0.5 mg, IntraVENous, Once PRN, for anxiety or muscle spasm., Starting on Debby 03/03/23 at 1417, For 1 dose, Recovery (only), For IV doses dilute dose with 1ml NS. meperidine (Demerol) injection 12.5 mg 12.5 mg, IntraVENous, Every 5 min PRN, shivering, Starting on Debby 03/03/23 at 1417, For 4 doses, Recovery (only), May give every 5 minutes to max of 50mg. metoclopramide (Reglan) injection 5 mg 5 mg, IntraVENous, Once PRN, nausea, Starting on Debby 03/03/23 at 1417, For 1 dose, Recovery (only), Secondary antiemetic therapy. Notify anesthesia provider before administration. midazolam (Versed) injection 2 mg 2 mg, IntraVENous, PRN, anxiety, administration per anesthesiologist direction. Up to two mg., Starting on Debby 03/03/23 at 1104, Preprocedure, Pull 2 mg vial of midazolam draw up for anesthesia block placement with administration per anesthesiologist direction. ondansetron (Zofran) injection 4 mg 4 mg, IntraVENous, Once PRN, nausea, Starting on Debby 03/03/23 at 1417, For 1 dose, Recovery (only), Initial antiemetic therapy. oxyCODONE (Roxicodone) immediate release tablet 10 mg(Linked Group 2) 10 mg, Oral, PRN, severe pain (7-10), Starting on Debby 03/03/23 at 1417, For 1 dose, Recovery (only), PHASE II oxyCODONE (Roxicodone) immediate release tablet 5 mg(Linked Group 2) 5 mg, Oral, PRN, moderate pain (4-6), Starting on Debby 03/03/23 at 1417, For 1 dose, Recovery (only), PHASE II sodium chloride 0.9 % infusion 5-250 mL/hr, IntraVENous, PRN, if patient receiving piggyback infusions and maintenance fluids are not ordered OR KVO fluids to protect IV site / prevent frequent line interruptions / long duration, Starting on Debby 03/03/23 at 0927, Preprocedure, For piggyback infusion, administer at same rate as piggyback for a total of 25 mL. Enter 25 mL into dose field and piggyback rate into rate field of order. If piggyback is infusing at a rate less than 100 mL/hr, enter 25 mL into dose field and 100 mL/hr into rate field of order. For KVO fluids, enter rate of 20 mL/hr or less into rate field of order. sodium chloride 0.9 % infusion 5-250 mL/hr, IntraVENous, PRN, if patient receiving piggyback infusions and maintenance fluids are not ordered OR KVO fluids to protect IV site / prevent frequent line interruptions/ long duration, Starting on Debby 03/03/23 at 0927, Preprocedure, For piggyback infusion, administer at same rate as piggyback for a total of 25 mL. Enter 25 mL into dose field and piggyback rate into rate field of order. If piggyback is infusing at a rate less than 100 mL/hr, enter 25 mL into dose field and 100 mL/hr into rate field of order. For KVO fluids, enter rate of 20 mL/hr or less into rate field of order. sodium chloride 0.9 % irrigation solution (CANCELED) As needed, Starting on Debby 03/03/23 at 1213, Intraprocedure 1213 (Given - Provid er: Hellen Jaeger MD) sodium chloride 0.9% (NS) flush 10 mL 10 mL, IntraVENous, PRN, line care, Starting on Debby 03/03/23 at 0927, Preprocedure, After every IV line use sodium chloride 0.9% (NS) flush 5-40 mL 5-40 mL, IntraVENous, PRN, line care, After every IV line use, Starting on Debby 03/03/23 at 0927, Preprocedure, For Line Patency: Peripheral IV = 5 mL; Midline or Central Line = 10 mL/lumen. If following IV push medication, administer flush at same rate as the IV push. Flush volume is determined by type of infusion therapy being given. For non-viscous solutions use: Peripheral IV = 5 mL Midline or Central Line = 10 mL/lumen For viscous solutions (i.e. blood components, parenteral nutrition, contrast media, or after obtaining blood sample) use: Peripheral IV = 10 mL Midline or Central Line = 20 mL/lumen Linked Groups Order Group 1: labetalol (Normodyne,Trandate) injection 5 mgJump to med 5 mg, IntraVENous, Every 10 min PRN, high blood pressure, for SBP greater than 160 mmHg for 2 consecutive measurements taken from different sites., Starting on Debby 03/03/23 at 1417, For 2 doses, Recovery (only), PRN for SBP >160 for 2 consecutive measurements, if HR is 60 or greater. If beta jimbo is contraindicated (HR less than 60, heart block, COPD or asthma) use hydralazine IV order. Or hydrALAZINE (Apresoline) injection 5 mgJump to med 5 mg, IntraVENous, Every 15 min PRN, high blood pressure, for SBP greater than 160 mmHg for 2 consecutive measurements taken from different sites, Starting on Debby 03/03/23 at 1417, For 2 doses, Recovery (only), PRN for SBP > 160 for 2 consecutive measurements, and if one of the following conditions is met: 1) If IV labetolol is ineffective. 2) If HR is under 60. 3) If patient has heart block, COPD or asthma. If both labetalol and hydralazine ineffective, notify anesthesia provider. Group 2: oxyCODONE (Roxicodone) immediate release tablet 5 mgJump to med 5 mg, Oral, PRN, moderate pain (4-6), Starting on Debby 03/03/23 at 1417, For 1 dose, Recovery (only), PHASE II Or oxyCODONE (Roxicodone) immediate release tablet 10 mgJump to med 10 mg, Oral, PRN, severe pain (7-10), Starting on Debby 03/03/23 at 1417, For 1 dose, Recovery (only), PHASE II Scheduled Medication Order 10/16/2023 10/17/2023 10/18/2023 acetaminophen (Tylenol) tablet 1,000 mg (COMPLETED) 1,000 mg, Oral, Once, On Tue10/18/23 at 0600, For 1 dose, Preprocedure, Administer 60 minutes prior to surgery. 618 (Given - Provid er: Rogerio Jerez RN) ceFAZolin (Ancef) 2,000 mg in sodium chloride 0.9 % 100 mL IVPB (COMPLETED) 2,000 mg, IntraVENous, at 200 mL/hr, Administer over 30 Minutes, Chief Green Officer to O.R., On Tue10/18/23 at 0600, For 1 dose, Preprocedure, Mini-Bag Plus bag, Suspected Indication (Select all that apply): Surgical Prophylaxis 08 (New Bag - Prov ider: Gal Bragg APRN - DIRECTOR OF DATABASE MARKETING) famotidine (Pepcid) tablet 20 mg (COMPLETED)(Linked Group 1) 20 mg, Oral, Once, On Tue10/18/23 at 0600, For 1 dose, Preprocedure, IV or Oral - Use PO option as first line. If unable to tolerate PO, then okay to use IV. 618 (Given - Provid er: Rogerio Jerez RN) lidocaine PF (Xylocaine) 1 % injection 5 mL 5 mL, Infiltration, Once, On Tue10/18/23 at 0600, For 1 dose, Preprocedure, Draw up for block placement. 0600 (Canceled Entry - Provider: Automatic Discharge Provider - Comment: Automatically canceled at discontinue of medication order) sodium chloride 0.9% (NS) flush 5-40 mL 5-40 mL, IntraVENous, Every 12 hours, First dose on Tue10/18/23 at 0600, Preprocedure, For Line Patency: Peripheral IV = 5 mL; Midline or Central Line = 10 mL/lumen. If following IV push medication, administer flush at same rate as the IV push. Flush volume is determined by type of infusion therapy being given. For non-viscous solutions use: Peripheral IV = 5 mL Midline or Central Line = 10 mL/lumen For viscous solutions (i.e. blood components, parenteral nutrition, contrast media, or after obtaining blood sample) use: Peripheral IV = 10 mL Midline or Central Line = 20 mL/lumen 0600 (Canceled Entry - Provider: Automatic Discharge Provider - Comment: Automatically canceled at discontinue of medication order) Continuous Medication Order 10/16/2023 10/17/2023 10/18/2023 lactated Ringer's (LR) infusion 50 mL/hr, IntraVENous, Continuous, Starting on Tue10/18/23 at 0600, Preprocedure, Upon admission to sameday - please start iv if patient does not have iv access. Use 500ml NS for patients on dialysis. 0619 (New Bag - Prov ider: Rogerio Jerez RN)0746 (Continued by Anesthesia - Provider: Gal Bragg APRN - DIRECTOR OF DATABASE MARKETING) PRN Medication Order 10/16/2023 10/17/2023 10/18/2023 uyeALXOIcueff-xcsqrkndcir-mpfnyzcmh ne (TAP) syringe 30 mL 30 mL, Transabdominal Plane, Once PRN, Nerve Block, Starting on Tue10/18/23 at 0552, For 1 dose, Preprocedure diphenhydrAMINE (BENADryl) injection 12.5 mg 12.5 mg, IntraVENous, Once PRN, itching, Starting on Tue10/18/23 at 0937, For 1 dose, Recovery (only) hydrALAZINE (Apresoline) injection 5 mg(Linked Group 2) 5 mg, IntraVENous, Every 15 min PRN, high blood pressure, for SBP greater than 160 mmHg for 2 consecutive measurements taken from different sites, Starting on Tue10/18/23 at 0937, For 2 doses, Recovery (only), PRN for SBP > 160 for 2 consecutive measurements, and if one of the following conditions is met: 1) If IV labetolol is ineffective. 2) If HR is under 60. 3) If patient has heart block, COPD or asthma. If both labetalol and hydralazine ineffective, notify anesthesia provider. HYDROmorphone (Dilaudid) injection 0.25 mg 0.25 mg, IntraVENous, Every 5 min PRN, moderate pain (4-6), Starting on Tue10/18/23 at 0937, For 4 doses, Recovery (only), For Phase I. If Phase II oral narcotics have been administered in the last 60 minutes, do not administer IV narcotics unless specifically approved by provider. HYDROmorphone (Dilaudid) injection 0.5 mg 0.5 mg, IntraVENous, Every 5 min PRN, severe pain (7-10), Starting on Tue10/18/23 at 0937, For 4 doses, Recovery (only), For Phase I. If Phase II oral narcotics have been administered in the last 60 minutes, do not administer IV narcotics unless specifically approved by provider. labetalol (Normodyne,Trandate) injection 5 mg(Linked Group 2) 5 mg, IntraVENous, Every 10 min PRN, high blood pressure, for SBP greater than 160 mmHg for 2 consecutive measurements taken from different sites., Starting on Tue10/18/23 at 0937, For 2 doses, Recovery (only), PRN for SBP >160 for 2 consecutive measurements, if HR is 60 or greater. If beta jimbo is contraindicated (HR less than 60, heart block, COPD or asthma) use hydralazine IV order. LORazepam (Ativan) injection 0.5 mg 0.5 mg, IntraVENous, Once PRN, for anxiety or muscle spasm., Starting on Tue10/18/23 at 0937, For 1 dose, Recovery (only), For IV doses dilute dose with 1ml NS. meperidine (Demerol) injection 12.5 mg 12.5 mg, IntraVENous, Every 5 min PRN, shivering, Starting on Tue10/18/23 at 0937, For 2 doses, Recovery (only), May give every 5 minutes to max of 25mg. Notify Anesthesia Provider before administration. midazolam (Versed) injection 2 mg 2 mg, IntraVENous, PRN, anxiety, administration per anesthesiologist direction. Up to two mg., Starting on Tue10/18/23 at 0552, Preprocedure, Pull 2 mg vial of midazolam draw up for anesthesia block placement with administration per anesthesiologist direction. ondansetron (Zofran) injection 4 mg 4 mg, IntraVENous, Once PRN, nausea, Starting on Tue10/18/23 at 0937, For 1 dose, Recovery (only), Initial antiemetic therapy. oxyCODONE (Roxicodone) immediate release tablet 10 mg(Linked Group 3) 10 mg, Oral, PRN, severe pain (7-10), Starting on Tue10/18/23 at 0937, For 1 dose, Recovery (only), PHASE II oxyCODONE (Roxicodone) immediate release tablet 5 mg(Linked Group 3) 5 mg, Oral, PRN, moderate pain (4-6), Starting on Tue10/18/23 at 0937, For 1 dose, Recovery (only), PHASE II sodium chloride 0.9 % bolus 500 mL 500 mL, IntraVENous, at 1,000 mL/hr, Administer over 0.5 Hours, PRN, Anti-nausea, Starting on Tue10/18/23 at 0937, Recovery (only), Indications: Anti-nausea sodium chloride 0.9 % infusion 5-250 mL/hr, IntraVENous, PRN, if patient receiving piggyback infusions and maintenance fluids are not ordered OR KVO fluids to protect IV site / prevent frequent line interruptions / long duration, Starting on Tue10/18/23 at 0552, Preprocedure, For piggyback infusion, administer at same rate as piggyback for a total of 25 mL. Enter 25 mL into dose field and piggyback rate into rate field of order. If piggyback is infusing at a rate less than 100 mL/hr, enter 25 mL into dose field and 100 mL/hr into rate field of order. For KVO fluids, enter rate of 20 mL/hr or less into rate field of order. sodium chloride 0.9 % irrigation solution (CANCELED) As needed, Starting on Tue10/18/23 at 0828, Intraprocedure 0828 (Given - Provid er: Hellen Jaeger MD - Comment: surgical site) sodium chloride 0.9% (NS) flush 5-40 mL 5-40 mL, IntraVENous, PRN, line care, After every IV line use, Starting on Tue10/18/23 at 0552, Preprocedure, For Line Patency: Peripheral IV = 5 mL; Midline or Central Line = 10 mL/lumen. If following IV push medication, administer flush at same rate as the IV push. Flush volume is determined by type of infusion therapy being given. For non-viscous solutions use: Peripheral IV = 5 mL Midline or Central Line = 10 mL/lumen For viscous solutions (i.e. blood components, parenteral nutrition, contrast media, or after obtaining blood sample) use: Peripheral IV = 10 mL Midline or Central Line = 20 mL/lumen Linked Groups Order Group 1: famotidine (Pepcid) tablet 20 mg (COMPLETED)Jump to med 20 mg, Oral, Once, On Tue10/18/23 at 0600, For 1 dose, Preprocedure, IV or Oral - Use PO option as first line. If unable to tolerate PO, then okay to use IV. Or famotidine (Pepcid) 20 mg in sodium chloride (PF) 0.9 % 10 mL injection (COMPLETED) 20 mg, IntraVENous, Administer over 2 Minutes, Once, On Tue10/18/23 at 0600, For 1 dose, Preprocedure, IV or Oral Group 2: labetalol (Normodyne,Trandate) injection 5 mgJump to med 5 mg, IntraVENous, Every 10 min PRN, high blood pressure, for SBP greater than 160 mmHg for 2 consecutive measurements taken from different sites., Starting on Tue10/18/23 at 0937, For 2 doses, Recovery (only), PRN for SBP >160 for 2 consecutive measurements, if HR is 60 or greater. If beta jimbo is contraindicated (HR less than 60, heart block, COPD or asthma) use hydralazine IV order. Or hydrALAZINE (Apresoline) injection 5 mgJump to med 5 mg, IntraVENous, Every 15 min PRN, high blood pressure, for SBP greater than 160 mmHg for 2 consecutive measurements taken from different sites, Starting on Tue10/18/23 at 0937, For 2 doses, Recovery (only), PRN for SBP > 160 for 2 consecutive measurements, and if one of the following conditions is met: 1) If IV labetolol is ineffective. 2) If HR is under 60. 3) If patient has heart block, COPD or asthma. If both labetalol and hydralazine ineffective, notify anesthesia provider. Group 3: oxyCODONE (Roxicodone) immediate release tablet 5 mgJump to med 5 mg, Oral, PRN, moderate pain (4-6), Starting on Tue10/18/23 at 0937, For 1 dose, Recovery (only), PHASE II Or oxyCODONE (Roxicodone) immediate release tablet 10 mgJump to med 10 mg, Oral, PRN, severe pain (7-10), Starting on Tue10/18/23 at 0937, For 1 dose, Recovery (only), PHASE II Care Teams (unrecognized sec tion and content) Teasel Gig Operator Relationship Specialty Start Date End Date Provider, Unlisted, PCP - General Family Medicine 05/28/21 Teasel Gig Operator Relationship Specialty Start Date End Date Self, Self PCP - General Unallocated 08/28/21 Teasel Gig Operator Relationship Specialty Start Date End Date Self, Self PCP - General Unallocated 08/28/21 Teasel Gig Operator Relationship Specialty Start Date End Date Self, Self PCP - General Other 08/28/21 Teasel Gig Operator Relationship Specialty Start Date End Date Self, Self PCP - General Other 08/28/21 Teasel Gig Operator Relationship Specialty Start Date End Date Renae Santos [address] [address] PCP - General Internal Medicine 02/25/23 Teasel Gig Operator Relationship Specialty Start Date End Date Renae Santos [address] [address] PCP - General Internal Medicine 02/25/23 Teasel Gig Operator Relationship Specialty Start Date End Date Renae Santos [address] [address] PCP - General Internal Medicine 02/25/23 Teasel Gig Operator Relationship Specialty Start Date End Date Renae Santos [address] [address] PCP - General Internal Medicine 02/25/23 Teasel Gig Operator Relationship Specialty Start Date End Date Renae Santos [address] [place] [address] PCP - General Internal Medicine 02/25/23 Teasel Gig Operator Relationship Specialty Start Date End Date Renae Santos [address] [place] [address] PCP - General Internal Medicine 02/25/23 Teasel Gig Operator Relationship Specialty Start Date End Date Renae Santos [address] [place] [address] PCP - General Internal Medicine 02/25/23 Teasel Gig Operator Relationship Specialty Start Date End Date Renae Santos [address] [place] [address] PCP - General Internal Medicine 02/25/23 Teasel Gig Operator Relationship Specialty Start Date End Date Renae Santos [address] [place] [address] PCP - General Internal Medicine 02/25/23 Teasel Gig Operator Relationship Specialty Start Date End Date Renae Santos [address] [place] [address] PCP - General Internal Medicine 02/25/23 Teasel Gig Operator Relationship Specialty Start Date End Date Renae Santos [address] [place] [address] PCP - General Internal Medicine 02/25/23 Teasel Gig Operator Relationship Specialty Start Date End Date Renae Santos [address] [place] [address] PCP - General Internal Medicine 02/25/23 Teasel Gig Operator Relationship Specialty Start Date End Date Renae Satnos [address] [place] [address] PCP - General Internal Medicine 02/25/23 Teasel Gig Operator Relationship Specialty Start Date End Date Renae Santos [address] [place] [address] PCP - General Internal Medicine 02/25/23 Teasel Gig Operator Relationship Specialty Start Date End Date Renae Santos [address] [place] [address] PCP - General Internal Medicine 02/25/23 Source Comments (unrecognize d section and content) In the event this informatio n is protected by the Federal Confidentiality of Alcohol and Drug Abuse Patient Records regulations: The Federal rules restrict any use of the information to criminally investigate or prosecute any alcohol or drug abuse patient.[facility] the event this information is protected by the Federal Confidentiality of Alcohol and Drug Abuse Patient Records regulations: The Federal rules restrict any use of the information to criminally investigate or prosecute any alcohol or drug abuse patient.[facility] [place] FOR RECORDS PERTAINING TO PATIENTS WHO ARE OR HAVE BEEN ENROLLED IN A CHEMICAL DEPENDENCY/SUBSTANCEABUSE PROGRAM, SOME INFORMATION MAY BE OMITTED. This clinical summary was aggregated from multiple sources. Caution should be exercised in using it in the provision of clinical care. This summary normalizes information from multiple sources, and as a consequence, information in this document may materially change the coding, format and clinical context of patient data. In addition, data may be omitted in some cases. CLINICAL DECISIONS SHOULD BE BASED ON THE PRIMARY CLINICAL RECORDS. [facility]. provides no warranty or guarantee of the accuracy or completeness of information in this document.
[2023-12-31] MEDS: Lidocaine 1% (20 ml mdv) 20 ML Vial INFILT (21:17)
--- NOTE | 2023-12-31 21:28 | EDS_ITS ---
HPI <ROBEL Tierney - Last Filed: 12/31/23 21:32> History of Present Illness Chief Complaint: Laceration Narrative Narrative: Patient is a 28-year-old female with no significant medical history who presents to the emergency department with left eyebrow laceration. Patient states that the car door came and struck her in the left eyebrow. Patient states that she cannot get the bleeding stopped, and is here for evaluation. Tetanus vaccination up-to-date. PFSH <ROBEL Tierney - Last Filed: 12/31/23 21:32> [facility] Medical History (Updated 12/31/23 @ 21:32 by ROBEL Tierney) Osteoporosis Home Medications ?Medication ?Instructions ?Recorded ?Last Taken ?Type fluoxetine 20 mg capsule 20 mg PO DAILY 12/31/23 Unknown History omeprazole 40 mg capsule,delayed 40 mg PO DAILY 12/31/23 Unknown History release trazodone 50 mg tablet 50 mg PO QHS 12/31/23 Unknown History Allergy/AdvReac Type Severity Reaction Status Date / Time No Known Allergies Allergy Verified 12/31/23 20:25 Surgical History (Updated 12/31/23 @ 20:38 by Shanelle Rivera) History of surgery on arm Social History Smoking Status: Former smoker ROS <ROBEL Tierney - Last Filed: 12/31/23 21:32> ROS ED ROS Narrative Constitutional: Negative for fever, chills, weight loss, weakness Eyes: Negative for vision loss, vision change, double vision ENT: Negative for any sore throat, ear pain, congestion Cardiovascular: Negative for any chest pain, tightness, palpitations Respiratory: Negative for any cough, sputum production, hemoptysis, dyspnea, dyspnea on exertion, orthopnea Gastrointestinal: Negative for any abdominal pain, nausea, vomiting, diarrhea, constipation, blood in stool, blood in vomit : Negative for any urinary frequency, dysuria, retention, blood in urine Muscle skeletal: Negative for any neck pain, back pain Neurological: Negative for any headache, syncope, dizziness Skin: Negative for any rashes, itching, abrasions. Positive for laceration to the left eyebrow Psychiatric: Negative for any depression, anxiety, stress, suicidal ideation, homicidal ideation Hematologic: Negative for any excessive bruising, easy bleeding EXAM <ROBEL Tierney - Last Filed: 12/31/23 21:32> Physical Exam Narrative Exam Narrative: Vital signs reviewed. HEET: Head normocephalic atraumatic, TMs clear bilaterally. Posterior pharynx is clear, moist mucous membranes. Nares clear bilaterally. Patient has a 1.5 cm laceration to the left eyebrow just above. This is full-thickness. Bleeding controlled. Neck: Supple with no lymphadenopathy or tenderness. No signs of meningismus. Cardiac: Regular rate and rhythm no murmurs gallops or rubs, equal peripheral pulses bilaterally. Respiratory: Lungs clear to auscultation bilaterally. No chest tenderness. Abdomen: Soft, nontender, nondistended. No abdominal bruit or pulsatile masses. No hepatosplenomegaly Const Vital Signs: 12/31/23 20:24 12/31/23 21:47 Temperature 97.9 F 98.7 F Temperature Source Oral Pulse Rate 110 H 112 H Respiratory Rate 18 18 Blood Pressure 126/82 H 124/80 H Blood Pressure Mean 96 94 Pulse Ox 98 93 Oxygen Delivery Method Room Air Positive well nourished and well developed General Appearance ED: well developed <Dr. Seun Muñoz DO - Last Filed: 12/31/23 23:02> Physical Exam Const Vital Signs: 12/31/23 20:24 12/31/23 21:47 Temperature 97.9 F 98.7 F Temperature Source Oral Pulse Rate 110 H 112 H Respiratory Rate 18 18 Blood Pressure 126/82 H 124/80 H Blood Pressure Mean 96 94 Pulse Ox 98 93 Oxygen Delivery Method Room Air MDM <ROBEL Tierney - Last Filed: 12/31/23 21:32> [facility] Treatment and Re-Evaluation Narrative: Differential diagnosis includes however is not limited to: Orbital fracture, simple laceration, superficial abrasion Patient appears generally well, vital signs are stable, patient is nontoxic- appearing. Presenting to the emergency department with complaints of left eyebrow laceration after being struck by the car door. Patient's 1.5 cm laceration above the left eyebrow will need to be fixed. Patient had no s ignificant injury, no LOC, no imaging is necessary. Sterile gloves, sterile drapes were used. I was able to use for of the 6-0 Ethilon. Edges approximated nicely. Wound was cleaned. Patient will have these removed in 7 days. Struck to return for any worsening symptoms, patient stable for discharge. <Dr. Seun Muñoz, - Last Filed: 12/31/23 23:02> [facility] Treatment and Re-Evaluation Narrative: Differential diagnosis includes however is not limited to: Orbital fracture, simple laceration, superficial abrasion Patient appears generally well, vital signs are stable, patient is nontoxic- appearing. Presenting to the emergency department with complaints of left eyeb row laceration after being struck by the car door. Patient's 1.5 cm laceration above the left eyebrow will need to be fixed. Patient had no significant injury, no LOC, no imaging is necessary. Sterile gloves, sterile drapes were used. I was able to use for of the 6-0 Ethilon. Edges approximated nicely. Wound was cleaned. Patient will have these removed in 7 days. Struck to return for any worsening symptoms, patient stable for discharge. ED attending note: I evaluated the patient in conjunction with the PHI. I agree with his/her statements and above findings. I have personally performed a face to face assessment of the patient and have reviewed the PHI Note. I performed a substantive portion of the visit including all aspects of the following. I personally saw the patient performed chart review, physical exam, reviewed labs, imaging (if obtained), and formulated a treatment and management plan. This note was generated with [employer] dictation software. It may contain incorrect words, spelling, and punctuation that were not noted in review of the chart prior to signing. Discharge Plan Triage Chief Complaint: Laceration ED Midlevel Provider: Kwadwo Pride ED Provider: Seun Muñoz Dx/Rx/DC Orders Clinical Impression: Facial laceration Instructions: ED Laceration, All Closures, ED Laceration Minimize Scars Prescriptions: No Action trazodone 50 mg tablet 50 mg PO QHS omeprazole 40 mg capsule,delayed release(DR/EC) 40 mg PO DAILY fluoxetine 20 mg capsule 20 mg PO DAILY Primary Care Provider: Marychuy Orellana NP Referrals: Marychuy Orellana NP, [facility] [Primary Care Provider] - Activity Restrictions/Additional Instructions: Sutures out in 5 to 7 days. Keep clean and dry. Print Language: Yi Disposition Disposition: Home, Self Care Discharge Date/Time: 12/31/23 21:48
[2023-12-31 21:47] VITALS: BP 124/80; PULSE 112; RESP 18; TEMP 37.1; O2SAT 93
== END 2023-12-31 21:48 | disposition home or self-care (01) ==
PROVIDERS: Emergency Provider Emergency Medicine; PCP Nurse Practitioner Family; Visit Provider Emergency Medicine
DX: S01.81XA Laceration without foreign body of other part of head, initial encounter (principal); Z87.891 Personal history of nicotine dependence; S01.112A Laceration without foreign body of left eyelid and periocular area, initial encounter; W22.8XXA Striking against or struck by other objects, initial encounter; Y92.810 Car as the place of occurrence of the external cause
CPT/HCPCS: 12011; 99282